=== PATIENT | male | born 1940 | race Caucasian/White ===

== ENCOUNTER 2017-01-03 12:22 | Inpatient (IN) | payer OTHER ==
[2017-01-03 15:00] LABS: BASOPHILS % (AUTO) 0.6 % (0.2-1.0); EOSINOPHILS # (AUTO) 0.3 x10^3/uL (0.0-0.2); EOSINOPHILS % (AUTO) 4.1 % (0.9-2.9); HEMATOCRIT 33.1 % (42.0-54.0); HEMOGLOBIN 11.1 g/dL (13.5-18.0); LYMPHOCYTES % (AUTO) 26.2 % (21.0-51.0); MEAN CORPUSCULAR HEMOGLOBIN 29.1 pg (27.0-34.0); MEAN CORPUSCULAR HGB CONC 33.5 g/dL (33.0-35.0); MONOCYTES # (AUTO) 0.7 x10^3/uL (0.3-0.8); NEUTROPHILS # (AUTO) 4.6 x10^3/uL (2.2-4.8); NEUTROPHILS % (AUTO) 60.1 % (42.0-75.0); PLATELET COUNT 162 X10^3/uL (150.0-450.0); RED CELL DISTRIBUTION WIDTH 14.9 % (11.6-16.5); WHITE BLOOD COUNT 7.7 X10^3/uL (3.6-10.0)
[2017-01-03 15:10] LABS: ALANINE AMINOTRANSFERASE 35 Units/L (12-78); ALBUMIN 3.5 g/dL (3.4-5.0); ALKALINE PHOSPHATASE 140 Units/L (46-116); ASPARTATE AMINO TRANSFERASE 21 Units/L (15-37); BLOOD UREA NITROGEN 31 mg/dL (7-18); CALCIUM 8.9 mg/dL (8.5-10.1); CARBON DIOXIDE 27.3 mmol/L (21-32); CHLORIDE 106 mmol/L (98-107); COR NA(FOR HYPERGLY) 142 mmol/L (136-145); CREATININE 1.09 mg/dL (0.70-1.30); GLUCOSE 125 mg/dL (65-99); MAGNESIUM 2.2 mg/dL (1.7-2.9); SODIUM 141 mmol/L (136-145); TOTAL PROTEIN 6.9 g/dL (6.4-8.2); eGFR BLACK RACES > 60 (>60); eGFR NON BLACK RACES > 60 (>60)
[2017-01-03 15:30] LABS: CKMB % 2.2 % (<4); CREATINE KINASE MB 1.5 ng/mL (0-4.0); TROPONIN I 0.03 ng/mL (0-1.5)
--- NOTE | 2017-01-03 16:01 | DR.H&P ---
H&P - History & Physical for Day of: H&P Date: 01/03/17 - Chief Complaint Chief Complaint: SOB, LOWER EXTREMITY REDNESS AND EDEMA, WEAKNESS - Allergies Allergies/Adverse Reactions: Allergies Allergy/AdvReac Type Severity Reaction Status Date / Time No Known Drug Allergy Allergy Verified 01/06/16 17:16 - History of Present Illness History of Present Illness: DIRECT ADMIT FROM DR MEAD OFFICE WITH CO INCREASE EDEMA, LOWER EXTREMITY REDNESS, SOB ADN WEAKNESS. PT HAS HX CHF, CRF, COPD, O2 DEPENDENT, OA, CAD, AND HTN. PT BP RUNNING 190'S/ 100- 110. PT WAS RECENTLY D/C FROM [facility] AND HAD IMPROVED OVERALL. PLAN TO ADMIT, ADMINISTER IV LASIX, RESP THERAPY, OBTAIN LABS AND CXR. PLAN TO CONSULT CASE MANAGEMENT FOR PERMANENT [facility] PLACEMENT. - Past Medical History Past Medical History: Arthritis, CHF, COPD, Diabetes, Dyslipidemia, Hypertension , Renal Disease - Past Surgical History Surgical History: CABG/Valve Surgery - Family History Family Medical History: Diabetes Mellitus, [place], Coronary Artery Disease, Hypertension - Social History Does patient currently use any type of tobacco product: No Have you used tobacco products in the last 12 months: No Type of Tobacco Use: None - Review of Systems Constitutional: Weakness Eyes: No Symptoms Reported ENT: No Symptoms Reported Respiratory: Shortness of Breath Cardiovascular: Edema Gastrointestinal: No Symptoms Reported Genitourinary: Frequency Musculoskeletal: Back Pain, Leg Pain Skin: No Symptoms Reported Neurological: Weakness - Physical Exam Vital Signs: Pulse Rate 50 Respiratory Rate 25 Blood Pressure [Right Arm] 182/72 Blood Pressure [Left Arm] 216/81 Blood Pressure 182/72 O2 Sat by Pulse Oximetry 95 Oriented: Normal Eyes: Normal Ear: Normal Nose: Normal Throat: Normal Respiratory: RLL Diminished, LLL Diminished Cardiovascular: Edema : Normal Auscultation: Bowel Sounds: Normal Palpation: Normal Tenderness: Normal Skin: Decreased [place], Red (LOWER EXTREMITY REDNESS), Tender Musculoskeletal: Back:Lumbar Psychiatric: Depression Speech Pattern: Clear, Appropriate - Assessment/Plan (1) Hypertensive urgency Status: Acute Plan: ADMIT, STEP DOWN ICU. 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 HYRALAZINE 10MG IV PROTOCOL FOR BP 180/100. ADMISSION LABS, RESP CONSULT, O2, CXR (2) Adult failure to thrive syndrome Status: Chronic Plan: CASE MANAGEMENT FOR [facility] PLACEMENT (3) CAD (coronary artery disease) Qualifiers: Coronary Disease-Associated Artery/Lesion type: C [place] vs. transplanted heart: N Associated angina: A Status: Chronic Plan: EKG ON ADMISSION (4) COPD (chronic obstructive pulmonary disease) Qualifiers: COPD type: unspecified COPD Chronic bronchitis type: C Emphysema type: E Qualified Code(s): J44.9 - Chronic obstructive pulmonary disease, unspecified Status: Chronic Plan: RESP CONSULT (5) Cellulitis, leg Qualifiers: Laterality: unspecified laterality Qualified Code(s): L03.119 - Cellulitis of unspecified part of limb Status: Chronic (6) Congestive heart failure Qualifiers: Congestive heart failure type: C Congestive heart failure chronicity: acute Status: Chronic Plan: CXR, O2, CONTINUE HOME MEDS,. LIPID AND BP CONTROL (7) Diabetes mellitus, type 2 Qualifiers: Diabetes mellitus complication status: D Diabetes mellitus complication detail: D Diabetic retinopathy severity: D Proliferative retinopathy type: P Diabetes mellitus macular edema: D Diabetes mellitus chcf insulin use : D Laterality: L Chronic kidney disease stage: C Status: Chronic Plan: FSBS, SSI
[2017-01-03] MEDS: LASIX IVP SCH ×2 (16:08→20:53)
[2017-01-03] MEDS: PROTONIX INJ 40 MG VIAL IVP SCH (16:08)
--- NOTE | 2017-01-03 16:44 | RAD ---
HISTORY: Pneumonia, CHF Study: Single view chest Comparison: 08/15/2016 Findings: Single upright portable view. The lungs are clear without consolidation, effusion or pneumothorax. T he cardiac and mediastinal contours are within normal limits. The soft tissues are unremarkable. IMPRESSION: 1. Negative portable chest radiograph. Reported By:
[2017-01-03 16:50] VITALS: BMI 36.3
[2017-01-03] MEDS: HUMULIN R SUBCUT PRN ×2 (16:59→21:11)
[2017-01-03 19:29] LABS: BILIRUBIN,URINE NEGATIVE (NEGATIVE); BLOOD/HEMOGLOBIN,URINE NEGATIVE (NEGATIVE); GLUCOSE, URINE 2+ (NEGATIVE); KETONES,URINE NEGATIVE (NEGATIVE); LEUKOCYTE ESTERASE ,URINE NEGATIVE (NEGATIVE); NITRITES,URINE NEGATIVE (NEGATIVE); PROTEIN,URINE 2+ (NEGATIVE); UROBILINOGEN,URINE NORMAL (NORMAL)
[2017-01-03 19:36] LABS: APPEARANCE,URINE HAZY (CLEAR); COLOR,URINE YELLOW (YELLOW); RBC,URINE 0-2 /HPF (NEGATIVE)
[2017-01-03 19:37] LABS: BACTERIA,URINE TRACE /HPF (NEGATIVE); SQUAMOUS EPITHELIAL CELL,UR RARE /HPF (NEGATIVE)
[2017-01-03] MEDS: SNACK - Diabetic Appropriate PO SCH (20:54)
[2017-01-03 21:39] LABS: CKMB % 1.8 % (<4); TROPONIN I 0.03 ng/mL (0-1.5)
[2017-01-03] MEDS: NORCO 5/325 MG TAB PO PRN (23:23)
[2017-01-03] MEDS: RESTORIL CAP 15 MG PO PRN (23:24)
[2017-01-04 03:20] LABS: ALANINE AMINOTRANSFERASE 29 Units/L (12-78); ALBUMIN 3.3 g/dL (3.4-5.0); ALKALINE PHOSPHATASE 126 Units/L (46-116); ASPARTATE AMINO TRANSFERASE 15 Units/L (15-37); BLOOD UREA NITROGEN 27 mg/dL (7-18); CALCIUM 8.7 mg/dL (8.5-10.1); CARBON DIOXIDE 28.4 mmol/L (21-32); CHLORIDE 106 mmol/L (98-107); CHOL/HDL RATIO 3.9 (0.0-5.0); CHOLESTEROL 120 mg/dL (0-200); COR CA(FOR HYPOALB) 9.3 mg/dL (8.5-10.1); COR NA(FOR HYPERGLY) 142 mmol/L (136-145); CREATININE 1.05 mg/dL (0.70-1.30); GLUCOSE 157 mg/dL (65-99); HDL CHOLESTEROL 31 mg/dL (40-60); SODIUM 141 mmol/L (136-145); TOTAL PROTEIN 6.4 g/dL (6.4-8.2); TRIGLYCERIDES 76 mg/dL (0-150); eGFR BLACK RACES > 60 (>60); eGFR NON BLACK RACES > 60 (>60)
[2017-01-04 03:28] LABS: CKMB % 2.1 % (<4); CREATINE KINASE 47 Units/L (39-308); CREATINE KINASE MB < 1.0 ng/mL (0-4.0); TROPONIN I 0.03 ng/mL (0-1.5)
[2017-01-04 05:17] LABS: BASOPHILS % (AUTO) 0.5 % (0.2-1.0); EOSINOPHILS # (AUTO) 0.4 x10^3/uL (0.0-0.2); EOSINOPHILS % (AUTO) 5.2 % (0.9-2.9); HEMATOCRIT 32.5 % (42.0-54.0); HEMOGLOBIN 10.9 g/dL (13.5-18.0); LYMPHOCYTES # (AUTO) 2.1 X10^3/uL (1.3-2.9); LYMPHOCYTES % (AUTO) 25.7 % (21.0-51.0); MEAN CORPUSCULAR HEMOGLOBIN 29.1 pg (27.0-34.0); MEAN CORPUSCULAR HGB CONC 33.4 g/dL (33.0-35.0); MEAN CORPUSCULAR VOLUME 87.1 fL (80.0-100.0); MEAN PLATELET VOLUME 8.5 fL (7.4-11.0); MONOCYTES # (AUTO) 0.8 x10^3/uL (0.3-0.8); MONOCYTES % (AUTO) 9.8 % (0.0-13.0); NEUTROPHILS # (AUTO) 4.8 x10^3/uL (2.2-4.8); NEUTROPHILS % (AUTO) 58.8 % (42.0-75.0); PLATELET COUNT 158 X10^3/uL (150.0-450.0); RED BLOOD COUNT 3.73 X10^6/uL (4.7-6.0); RED CELL DISTRIBUTION WIDTH 14.7 % (11.6-16.5); WHITE BLOOD COUNT 8.2 X10^3/uL (3.6-10.0)
[2017-01-04] MEDS: NORCO 5/325 MG TAB PO PRN (10:10)
[2017-01-04] MEDS: PROTONIX INJ 40 MG VIAL IVP SCH (10:33)
[2017-01-04] MEDS ORDERED: [UNRECOGNIZED DRUG - OTHER] PO SCH (10:45)
[2017-01-04] MEDS ORDERED: [UNRECOGNIZED DRUG - OTHER] PO SCH (10:45)
[2017-01-04] MEDS ORDERED: ZESTRIL TAB 20 MG ONE ×2 (10:56→21:51)
[2017-01-04] MEDS: APRESOLINE TAB 25 MG PO SCH ×2 (10:57→21:58)
[2017-01-04] MEDS: LASIX PO SCH ×2 (10:58→21:59)
[2017-01-04] MEDS: ZESTRIL TAB 20 MG PO SCH (10:58)
[2017-01-04] MEDS: PLAVIX PO SCH (10:58)
[2017-01-04] MEDS ORDERED: AMBIEN PO PRN (11:08)
[2017-01-04] MEDS ORDERED: DUONEB 0.5 MG/3 MG NEB PRN (11:08)
[2017-01-04] MEDS ORDERED: [UNRECOGNIZED DRUG - OTHER] PO PRN (11:08)
[2017-01-04] MEDS ORDERED: BREO ELLIPTA IN SCH (11:15)
[2017-01-04] MEDS ORDERED: POTASSIUM CHLORIDE PO SCH (11:15)
[2017-01-04] MEDS ORDERED: [UNRECOGNIZED DRUG - OTHER] PO SCH (11:15)
[2017-01-04] MEDS ORDERED: COZAAR ONE (11:43)
[2017-01-04] MEDS: ASPIRIN PO SCH (11:49)
[2017-01-04] MEDS: PERCOCET TAB 5/325 MG PO PRN ×2 (11:50→22:01)
[2017-01-04] MEDS: COZAAR PO SCH (11:51)
[2017-01-04] MEDS: COLACE CAP 100 MG PO SCH (11:51)
[2017-01-04] MEDS: CELEXA PO SCH (11:52)
[2017-01-04] MEDS: FERROUS SULFATE PO SCH ×2 (11:52→22:00)
[2017-01-04] MEDS: ZYLOPRIM PO SCH (11:52)
[2017-01-04] MEDS: HUMULIN R SUBCUT PRN ×3 (12:00→22:05)
[2017-01-04] MEDS: ZANTAC PO SCH ×2 (12:00→21:57)
[2017-01-04] MEDS: PRAVACHOL PO SCH (12:12)
[2017-01-04] MEDS: SYMBICORT INH 160/4.5 mcg IN SCH ×2 (12:33→20:57)
[2017-01-04] MEDS ORDERED: [UNRECOGNIZED DRUG - OTHER] PO SCH (14:00)
--- NOTE | 2017-01-04 14:35 | PCM.PROG ---
Progress Note - Progress Note for Day of Date: 01/04/17 - Subjective Subjective: CO JOINT PAIN, DID NOT REST WELL LAST NIGHT. LOWER EXTREMITY SWELLING IMPROVED - Past Medical Family Social History Past Med/Fam/Surg Hx: No changes since H&P Allergies: Allergies No Known Drug Allergy Allergy (Verified 01/06/16 17:16) - Review of Systems ROS: No change since H&P - Vital Signs and I&O's Vital Signs: Temperature 97.9 F Pulse Rate [Apical] 63 Pulse Rate [Left Brachial] 59 Pulse Rate 70 Respiratory Rate 18 Blood Pressure [Right Arm] 175/52 Blood Pressure [Left Arm] 180/50 Blood Pressure 182/72 O2 Sat by Pulse Oximetry 93 Intake and Output: Intake & Output 01/02/17 01/03/17 01/04/17 01/05/17 11:59 11:59 11:59 11:59 Intake Total 945 Output Total 3050 Balance -2105 - Physical Exam Oriented: Normal Eyes: Normal Ear: Normal Nose: Normal Throat: Normal Respiratory: Wheezes (MILD LOWER EXP WHEEZES) Cardiovascular: Edema : Normal Auscultation: Bowel Sounds: Normal Tenderness: Normal Skin: Decreased [place]urg[place], Red (LOWER EXTREMITY REDNESS), Tender Musculoskeletal: Back:Lumbar Psychiatric: Depression Speech Pattern: Clear, Appropriate - Laboratory and Diagnostics Result Diagrams: 01/04/17 02:55 01/04/17 02:55 Labs: Laboratory WBC 8.2 X10^3/uL (3.6-10.0) 01/04/17 02:55 RBC 3.73 X10^6/uL (4.7-6.0) L 01/04/17 02:55 Hgb 10.9 g/dL (13.5-18.0) L 01/04/17 02:55 Hct 32.5 % (42.0-54.0) L 01/04/17 02:55 MCV 87.1 fL (80.0-100.0) 01/04/17 02:55 MCH 29.1 pg (27.0-34.0) 01/04/17 02:55 MCHC 33.4 g/dL (33.0-35.0) 01/04/17 02:55 RDW 14.7 % (11.6-16.5) 01/04/17 02:55 Plt Count 158 X10^3/uL (150.0-450.0) 01/04/17 02:55 MPV 8.5 fL (7.4-11.0) 01/04/17 02:55 Neut % 58.8 % (42.0-75.0) 01/04/17 02:55 Lymph % 25.7 % (21.0-51.0) 01/04/17 02:55 [place] % 9.8 % (0.0-13.0) 01/04/17 02:55 Eos % 5.2 % (0.9-2.9) H 01/04/17 02:55 Baso % 0.5 % (0.2-1.0) 01/04/17 02:55 Neut # 4.8 x10^3/uL (2.2-4.8) 01/04/17 02:55 Lymph # 2.1 X10^3/uL (1.3-2.9) 01/04/17 02:55 [place] # 0.8 x10^3/uL (0.3-0.8) 01/04/17 02:55 Eos # 0.4 x10^3/uL (0.0-0.2) H 01/04/17 02:55 Baso # 0.0 X10^3/uL (0.0-0.1) 01/04/17 02:55 Absolute Nucleated RBC 0.1 /100WBC 01/04/17 02:55 INR Target Range - 01/03/17 14:50 INR 0.97 (0.8-1.3) 01/03/17 14:50 PTT 27.4 SECONDS (22.9-36.5) 01/03/17 14:50 PTT Comment - 01/03/17 14:50 Sodium 141 mmol/L (136-145) 01/04/17 02:55 Corrected Sodium 142 mmol/L (136-145) 01/04/17 02:55 Potassium 3.7 mmol/L (3.5-5.1) 01/04/17 02:55 Chloride 106 mmol/L (98-107) 01/04/17 02:55 Carbon Dioxide 28.4 mmol/L (21-32) 01/04/17 02:55 BUN 27 mg/dL (7-18) H 01/04/17 02:55 Creatinine 1.05 mg/dL (0.70-1.30) 01/04/17 02:55 Est GFR (MDRD) Af Amer > 60 (>60) 01/04/17 02:55 Est GFR (MDRD) Non-Af > 60 (>60) 01/04/17 02:55 Glucose 157 mg/dL (65-99) H 01/04/17 02:55 Calcium 8.7 mg/dL (8.5-10.1) 01/04/17 02:55 Corrected Calcium 9.3 mg/dL (8.5-10.1) 01/04/17 02:55 Magnesium 2.2 mg/dL (1.7-2.9) 01/03/17 14:50 Total Bilirubin 0.30 mg/dL (0.2-1.0) 01/04/17 02:55 AST 15 Units/L (15-37) 01/04/17 02:55 ALT 29 Units/L (12-78) 01/04/17 02:55 Alkaline Phosphatase 126 Units/L (46-116) H 01/04/17 02:55 Creatine Kinase 47 Units/L (39-308) 01/04/17 02:55 CK-MB (CK-2) < 1.0 ng/mL (0-4.0) 01/04/17 02:55 CK/CKMB % Calc 2.1 % (<4) 01/04/17 02:55 Troponin I 0.03 ng/mL (0-1.5) 01/04/17 02:55 Total Protein 6.4 g/dL (6.4-8.2) 01/04/17 02:55 Albumin 3.3 g/dL (3.4-5.0) L 01/04/17 02:55 Globulin 3.1 g/dL (2.5-4.5) 01/04/17 02:55 Albumin/Globulin Ratio 1.1 Ratio (1.1-2.1) 01/04/17 02:55 Triglycerides 76 mg/dL (0-150) 01/04/17 02:55 Cholesterol 120 mg/dL (0-200) 01/04/17 02:55 LDL Cholesterol, Calc 74 mg/dL (0-100) 01/04/17 02:55 HDL Cholesterol 31 mg/dL (40-60) L 01/04/17 02:55 Cholesterol/HDL Ratio 3.9 (0.0-5.0) 01/04/17 02:55 Specimen Type Clean catch urine 01/03/17 19:01 Urine Color Yellow (YELLOW) 01/03/17 19:01 Urine Appearance Hazy (CLEAR) 01/03/17 19:01 Urine pH 5.0 (5.0 - 8.0) 01/03/17 19:01 Ur Specific [place] 1.010 (1.000-1.030) 01/03/17 19:01 Urine Protein 2+ (NEGATIVE) 01/03/17 19:01 Urine Glucose (UA) 2+ (NEGATIVE) 01/03/17 19:01 Urine Ketones Negative (NEGATIVE) 01/03/17 19:01 Urine Occult Blood Negative (NEGATIVE) 01/03/17 19:01 Urine Nitrite Negative (NEGATIVE) 01/03/17 19:01 Urine Bilirubin Negative (NEGATIVE) 01/03/17 19:01 Urine Urobilinogen Normal (NORMAL) 01/03/17 19:01 Ur Leukocyte Esterase Negative (NEGATIVE) 01/03/17 19:01 Urine RBC 0-2 /HPF (NEGATIVE) 01/03/17 19:01 Urine WBC 0-2 /HPF (NEGATIVE) 01/03/17 19:01 Ur Squamous Epith Cells Rare /HPF (NEGATIVE) 01/03/17 19:01 Urine Bacteria Trace /HPF (NEGATIVE) 01/03/17 19:01 Ur Culture Indicated? 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 HYRALAZINE 10MG IV PROTOCOL FOR BP 180/100. ADMISSION LABS, RESP CONSULT, O2, CXR (2) Adult failure to thrive syndrome Status: Chronic Plan: CASE MANAGEMENT FOR [facility] PLACEMENT (3) CAD (coronary artery disease) Status: Chronic Qualifiers: Coronary Disease-Associated Artery/Lesion type: C [place] vs. transplanted heart: N Associated angina: A Plan: EKG ON ADMISSION (4) COPD (chronic obstructive pulmonary disease) Status: Chronic Qualifiers: COPD type: unspecified COPD Chronic bronchitis type: C Emphysema type: E Qualified Code(s): J44.9 - Chronic obstructive pulmonary disease, unspecified Plan: RESP CONSULT (5) Cellulitis, leg Status: Chronic Qualifiers: Laterality: unspecified laterality Qualified Code(s): L03.119 - Cellulitis of unspecified part of limb (6) Congestive heart failure Status: Chronic Qualifiers: Congestive heart failure type: C Congestive heart failure chronicity: acute Plan: CXR, O2, CONTINUE HOME MEDS,. 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
[2017-01-04] MEDS ORDERED: GLUCOPHAGE ONE (16:33)
[2017-01-04] MEDS: GLUCOPHAGE PO SCH (16:40)
[2017-01-04] MEDS: NEURONTIN CAP 400 MG PO SCH ×2 (16:40→21:56)
[2017-01-04] MEDS: RESTORIL CAP 15 MG PO PRN (21:57)
[2017-01-04] MEDS: FLOMAX PO SCH (22:00)
[2017-01-04] MEDS: SNACK - Diabetic Appropriate PO SCH (22:09)
[2017-01-05] MEDS: ZESTRIL TAB 20 MG PO SCH ×3 (03:08→22:32)
[2017-01-05 06:15] LABS: BASOPHILS # (AUTO) 0.1 X10^3/uL (0.0-0.1); BASOPHILS % (AUTO) 0.9 % (0.2-1.0); EOSINOPHILS # (AUTO) 0.4 x10^3/uL (0.0-0.2); HEMATOCRIT 32.4 % (42.0-54.0); HEMOGLOBIN 11.1 g/dL (13.5-18.0); LYMPHOCYTES # (AUTO) 1.8 X10^3/uL (1.3-2.9); LYMPHOCYTES % (AUTO) 29.5 % (21.0-51.0); MEAN CORPUSCULAR HEMOGLOBIN 29.4 pg (27.0-34.0); MEAN CORPUSCULAR HGB CONC 34.3 g/dL (33.0-35.0); MEAN CORPUSCULAR VOLUME 85.8 fL (80.0-100.0); MEAN PLATELET VOLUME 8.2 fL (7.4-11.0); MONOCYTES # (AUTO) 0.7 x10^3/uL (0.3-0.8); MONOCYTES % (AUTO) 11.6 % (0.0-13.0); NEUTROPHILS # (AUTO) 3.2 x10^3/uL (2.2-4.8); PLATELET COUNT 166 X10^3/uL (150.0-450.0); RED BLOOD COUNT 3.77 X10^6/uL (4.7-6.0); RED CELL DISTRIBUTION WIDTH 14.3 % (11.6-16.5); WHITE BLOOD COUNT 6.2 X10^3/uL (3.6-10.0)
[2017-01-05] MEDS: NEURONTIN CAP 400 MG PO SCH ×3 (06:47→22:27)
[2017-01-05] MEDS ORDERED: GLUCOPHAGE ONE ×2 (06:49→16:24)
[2017-01-05] MEDS: GLUCOPHAGE PO SCH ×2 (06:56→16:25)
[2017-01-05] MEDS ORDERED: ZESTRIL TAB 20 MG ONE ×2 (07:23→21:58)
[2017-01-05 07:31] LABS: ALANINE AMINOTRANSFERASE 30 Units/L (12-78); ALBUMIN 3.1 g/dL (3.4-5.0); ALKALINE PHOSPHATASE 127 Units/L (46-116); ASPARTATE AMINO TRANSFERASE 18 Units/L (15-37); BLOOD UREA NITROGEN 28 mg/dL (7-18); CALCIUM 8.8 mg/dL (8.5-10.1); CARBON DIOXIDE 29.9 mmol/L (21-32); CHLORIDE 106 mmol/L (98-107); CHOL/HDL RATIO 4.1 (0.0-5.0); CHOLESTEROL 119 mg/dL (0-200); COR CA(FOR HYPOALB) 9.5 mg/dL (8.5-10.1); COR NA(FOR HYPERGLY) 144 mmol/L (136-145); CREATININE 0.96 mg/dL (0.70-1.30); GLUCOSE 142 mg/dL (65-99); HDL CHOLESTEROL 29 mg/dL (40-60); SODIUM 143 mmol/L (136-145); TOTAL PROTEIN 6.3 g/dL (6.4-8.2); TRIGLYCERIDES 67 mg/dL (0-150); TSH (3RD GENERATION) 1.558 uIU/mL (0.358-3.74); eGFR BLACK RACES > 60 (>60); eGFR NON BLACK RACES > 60 (>60)
--- NOTE | 2017-01-05 08:03 | RAD ---
Chest, one view Indication: CHF Comparison: 01/03/2017 Findings: Mild cardiac silhouette enlargement and pulmonary vascular congestion are similar to prior . There is no evidence for overt pulmonary edema, dense infiltrate, or large effusion. The lungs hu ear hyperinflated with hemidiaphragm flattening, suggesting COPD. Impression: Stable cardiomegaly without CHF or other acute chest process. COPD. Reported By:
[2017-01-05] MEDS: APRESOLINE TAB 25 MG PO SCH ×2 (08:04→22:27)
[2017-01-05] MEDS: CELEXA PO SCH (08:04)
[2017-01-05] MEDS: LASIX PO SCH ×2 (08:05→22:32)
[2017-01-05] MEDS: FERROUS SULFATE PO SCH ×2 (08:05→22:31)
[2017-01-05] MEDS: ZYLOPRIM PO SCH (08:05)
[2017-01-05] MEDS: COLACE CAP 100 MG PO SCH (08:05)
[2017-01-05] MEDS: ASPIRIN PO SCH (08:05)
[2017-01-05] MEDS: ZANTAC PO SCH ×2 (08:05→22:31)
[2017-01-05] MEDS: PLAVIX PO SCH (08:06)
[2017-01-05] MEDS: PROTONIX INJ 40 MG VIAL IVP SCH (08:06)
[2017-01-05] MEDS: PRAVACHOL PO SCH (08:06)
[2017-01-05] MEDS ORDERED: COZAAR ONE (08:08)
[2017-01-05] MEDS: COZAAR PO SCH ×2 (08:08→10:25)
[2017-01-05] MEDS: SYMBICORT INH 160/4.5 mcg IN SCH ×2 (08:52→20:20)
[2017-01-05] MEDS: HUMULIN R SUBCUT PRN ×3 (10:41→22:33)
[2017-01-05] MEDS: K-DUR TAB 20 MEQ PO SCH (13:27)
[2017-01-05] MEDS: PERCOCET TAB 5/325 MG PO PRN (22:28)
[2017-01-05] MEDS: RESTORIL CAP 15 MG PO PRN (22:32)
[2017-01-05] MEDS: FLOMAX PO SCH (22:32)
[2017-01-05] MEDS: SNACK - Diabetic Appropriate PO SCH (22:36)
[2017-01-06 06:26] LABS: BASOPHILS % (AUTO) 0.6 % (0.2-1.0); EOSINOPHILS # (AUTO) 0.4 x10^3/uL (0.0-0.2); EOSINOPHILS % (AUTO) 5.8 % (0.9-2.9); HEMATOCRIT 32.9 % (42.0-54.0); HEMOGLOBIN 11.1 g/dL (13.5-18.0); LYMPHOCYTES # (AUTO) 2.5 X10^3/uL (1.3-2.9); MEAN CORPUSCULAR HEMOGLOBIN 29.2 pg (27.0-34.0); MEAN CORPUSCULAR HGB CONC 33.8 g/dL (33.0-35.0); MEAN CORPUSCULAR VOLUME 86.3 fL (80.0-100.0); MEAN PLATELET VOLUME 8.2 fL (7.4-11.0); MONOCYTES # (AUTO) 0.7 x10^3/uL (0.3-0.8); MONOCYTES % (AUTO) 10.2 % (0.0-13.0); NEUTROPHILS # (AUTO) 3.6 x10^3/uL (2.2-4.8); NEUTROPHILS % (AUTO) 49.4 % (42.0-75.0); PLATELET COUNT 168 X10^3/uL (150.0-450.0); RED BLOOD COUNT 3.82 X10^6/uL (4.7-6.0); RED CELL DISTRIBUTION WIDTH 14.7 % (11.6-16.5); WHITE BLOOD COUNT 7.4 X10^3/uL (3.6-10.0)
[2017-01-06] MEDS: NEURONTIN CAP 400 MG PO SCH ×3 (06:35→22:26)
[2017-01-06 06:52] LABS: ALANINE AMINOTRANSFERASE 29 Units/L (12-78); ALKALINE PHOSPHATASE 124 Units/L (46-116); ASPARTATE AMINO TRANSFERASE 16 Units/L (15-37); BLOOD UREA NITROGEN 29 mg/dL (7-18); CALCIUM 8.9 mg/dL (8.5-10.1); CHLORIDE 106 mmol/L (98-107); COR CA(FOR HYPOALB) 9.7 mg/dL (8.5-10.1); COR NA(FOR HYPERGLY) 145 mmol/L (136-145); CREATININE 0.97 mg/dL (0.70-1.30); GLUCOSE 128 mg/dL (65-99); SODIUM 144 mmol/L (136-145); TOTAL PROTEIN 6.1 g/dL (6.4-8.2); eGFR BLACK RACES > 60 (>60); eGFR NON BLACK RACES > 60 (>60)
[2017-01-06] MEDS: GLUCOPHAGE PO SCH ×2 (07:00→18:00)
[2017-01-06] MEDS ORDERED: ZESTRIL TAB 20 MG ONE ×2 (07:17→22:20)
[2017-01-06] MEDS ORDERED: GLUCOPHAGE ONE ×2 (07:17→17:55)
[2017-01-06] MEDS: SYMBICORT INH 160/4.5 mcg IN SCH ×2 (08:40→22:13)
[2017-01-06] MEDS: HUMULIN R SUBCUT PRN ×3 (10:49→22:32)
[2017-01-06] MEDS: K-DUR TAB 20 MEQ PO SCH (10:50)
[2017-01-06] MEDS: COZAAR PO SCH (10:51)
[2017-01-06] MEDS: ZANTAC PO SCH ×2 (10:51→22:25)
[2017-01-06] MEDS: PLAVIX PO SCH (10:51)
[2017-01-06] MEDS: PROTONIX INJ 40 MG VIAL IVP SCH (10:51)
[2017-01-06] MEDS: LASIX PO SCH ×2 (10:52→22:29)
[2017-01-06] MEDS: APRESOLINE TAB 25 MG PO SCH ×2 (10:52→22:23)
[2017-01-06] MEDS: ASPIRIN PO SCH (10:52)
[2017-01-06] MEDS: CELEXA PO SCH (10:52)
[2017-01-06] MEDS: ZYLOPRIM PO SCH (10:52)
[2017-01-06] MEDS: ZESTRIL TAB 20 MG PO SCH ×2 (10:52→22:24)
[2017-01-06] MEDS: COLACE CAP 100 MG PO SCH (10:52)
[2017-01-06] MEDS: FERROUS SULFATE PO SCH ×2 (10:52→22:26)
[2017-01-06] MEDS: PRAVACHOL PO SCH (10:53)
[2017-01-06] MEDS: RESTORIL CAP 15 MG PO PRN (22:23)
[2017-01-06] MEDS: FLOMAX PO SCH (22:24)
[2017-01-06] MEDS: PERCOCET TAB 5/325 MG PO PRN (22:27)
[2017-01-06] MEDS: SNACK - Diabetic Appropriate PO SCH (22:35)
[2017-01-07] MEDS: NEURONTIN CAP 400 MG PO SCH ×3 (06:01→21:00)
[2017-01-07] MEDS: GLUCOPHAGE PO SCH ×2 (06:09→16:43)
[2017-01-07] MEDS ORDERED: GLUCOPHAGE ONE ×2 (06:21→16:33)
[2017-01-07 06:24] LABS: BASOPHILS % (AUTO) 0.2 % (0.2-1.0); EOSINOPHILS # (AUTO) 0.4 x10^3/uL (0.0-0.2); EOSINOPHILS % (AUTO) 5.4 % (0.9-2.9); HEMATOCRIT 32.6 % (42.0-54.0); HEMOGLOBIN 11.1 g/dL (13.5-18.0); LYMPHOCYTES # (AUTO) 2.4 X10^3/uL (1.3-2.9); LYMPHOCYTES % (AUTO) 32.4 % (21.0-51.0); MEAN CORPUSCULAR HEMOGLOBIN 29.6 pg (27.0-34.0); MEAN CORPUSCULAR HGB CONC 34.1 g/dL (33.0-35.0); MEAN CORPUSCULAR VOLUME 86.8 fL (80.0-100.0); MEAN PLATELET VOLUME 8.3 fL (7.4-11.0); MONOCYTES # (AUTO) 0.7 x10^3/uL (0.3-0.8); MONOCYTES % (AUTO) 9.2 % (0.0-13.0); NEUTROPHILS # (AUTO) 3.8 x10^3/uL (2.2-4.8); NEUTROPHILS % (AUTO) 52.8 % (42.0-75.0); RED BLOOD COUNT 3.76 X10^6/uL (4.7-6.0); RED CELL DISTRIBUTION WIDTH 14.5 % (11.6-16.5); WHITE BLOOD COUNT 7.3 X10^3/uL (3.6-10.0)
[2017-01-07 06:43] LABS: ALANINE AMINOTRANSFERASE 23 Units/L (12-78); ALBUMIN 3.2 g/dL (3.4-5.0); ALKALINE PHOSPHATASE 124 Units/L (46-116); ASPARTATE AMINO TRANSFERASE 16 Units/L (15-37); BLOOD UREA NITROGEN 26 mg/dL (7-18); CALCIUM 9.1 mg/dL (8.5-10.1); CARBON DIOXIDE 28.5 mmol/L (21-32); CHLORIDE 106 mmol/L (98-107); COR CA(FOR HYPOALB) 9.7 mg/dL (8.5-10.1); GLUCOSE 110 mg/dL (65-99); SODIUM 143 mmol/L (136-145); TOTAL PROTEIN 6.5 g/dL (6.4-8.2); eGFR BLACK RACES > 60 (>60); eGFR NON BLACK RACES > 60 (>60)
--- NOTE | 2017-01-07 07:01 | RAD ---
HISTORY: Shortness of breath Study: Chest one view Comparison: January 05, 2017 Findings: The patient is rotated slightly to the left. The patient is status post median sternotomy. Heart rem ains enlarged. No congestive heart failure is noted. The lungs are mildly hyperinflated but free of acute infiltrates. The bony thorax is unremarkable. IMPRESSION: Cardiomegaly without congestive heart failure Lungs mildly hyperinflated but clear Reported By:
[2017-01-07 07:28] LABS: PLATELET COUNT 116 X10^3/uL (150.0-450.0)
[2017-01-07 07:29] LABS: PLATELET MORPHOLOGY COMMENT NORMAL (NORMAL)
[2017-01-07] MEDS: CELEXA PO SCH (08:22)
[2017-01-07] MEDS: APRESOLINE TAB 25 MG PO SCH ×2 (08:23→20:03)
[2017-01-07] MEDS: FERROUS SULFATE PO SCH ×2 (08:23→20:03)
[2017-01-07] MEDS: ZANTAC PO SCH ×2 (08:23→20:05)
[2017-01-07] MEDS: LASIX PO SCH ×2 (08:23→20:05)
[2017-01-07] MEDS: ZESTRIL TAB 20 MG PO SCH ×2 (08:23→20:04)
[2017-01-07] MEDS: PROTONIX INJ 40 MG VIAL IVP SCH (08:23)
[2017-01-07] MEDS: COLACE CAP 100 MG PO SCH (08:23)
[2017-01-07] MEDS: ZYLOPRIM PO SCH (08:23)
[2017-01-07] MEDS: ASPIRIN PO SCH (08:23)
[2017-01-07] MEDS: COZAAR PO SCH (08:23)
[2017-01-07] MEDS: PRAVACHOL PO SCH (08:24)
[2017-01-07] MEDS: PLAVIX PO SCH (08:24)
[2017-01-07] MEDS: K-DUR TAB 20 MEQ PO SCH (08:24)
[2017-01-07] MEDS: SYMBICORT INH 160/4.5 mcg IN SCH ×2 (08:49→20:36)
[2017-01-07] MEDS: HUMULIN R SUBCUT PRN ×3 (11:08→22:26)
[2017-01-07] MEDS ORDERED: ZESTRIL TAB 20 MG ONE (19:56)
[2017-01-07] MEDS: FLOMAX PO SCH (20:03)
[2017-01-07] MEDS: PERCOCET TAB 5/325 MG PO PRN (20:05)
[2017-01-07] MEDS: RESTORIL CAP 15 MG PO PRN (20:05)
[2017-01-07] MEDS: SNACK - Diabetic Appropriate PO SCH (20:06)
[2017-01-08] MEDS ORDERED: GLUCOPHAGE ONE (05:51)
[2017-01-08] MEDS: NEURONTIN CAP 400 MG PO SCH (05:53)
[2017-01-08] MEDS: GLUCOPHAGE PO SCH (05:59)
[2017-01-08 06:17] LABS: BASOPHILS # (AUTO) 0.1 X10^3/uL (0.0-0.1); BASOPHILS % (AUTO) 0.7 % (0.2-1.0); EOSINOPHILS # (AUTO) 0.4 x10^3/uL (0.0-0.2); EOSINOPHILS % (AUTO) 5.5 % (0.9-2.9); HEMATOCRIT 34.4 % (42.0-54.0); HEMOGLOBIN 11.7 g/dL (13.5-18.0); LYMPHOCYTES # (AUTO) 2.7 X10^3/uL (1.3-2.9); LYMPHOCYTES % (AUTO) 34.8 % (21.0-51.0); MEAN CORPUSCULAR HEMOGLOBIN 29.2 pg (27.0-34.0); MEAN CORPUSCULAR HGB CONC 34.1 g/dL (33.0-35.0); MEAN CORPUSCULAR VOLUME 85.5 fL (80.0-100.0); MEAN PLATELET VOLUME 8.3 fL (7.4-11.0); MONOCYTES # (AUTO) 0.8 x10^3/uL (0.3-0.8); MONOCYTES % (AUTO) 10.3 % (0.0-13.0); NEUTROPHILS # (AUTO) 3.8 x10^3/uL (2.2-4.8); NEUTROPHILS % (AUTO) 48.7 % (42.0-75.0); PLATELET COUNT 180 X10^3/uL (150.0-450.0); RED BLOOD COUNT 4.03 X10^6/uL (4.7-6.0); RED CELL DISTRIBUTION WIDTH 14.2 % (11.6-16.5); WHITE BLOOD COUNT 7.7 X10^3/uL (3.6-10.0)
[2017-01-08 06:33] LABS: ALANINE AMINOTRANSFERASE 26 Units/L (12-78); ALBUMIN 3.1 g/dL (3.4-5.0); ALKALINE PHOSPHATASE 125 Units/L (46-116); ASPARTATE AMINO TRANSFERASE 19 Units/L (15-37); BLOOD UREA NITROGEN 26 mg/dL (7-18); CALCIUM 8.9 mg/dL (8.5-10.1); CARBON DIOXIDE 29.6 mmol/L (21-32); CHLORIDE 105 mmol/L (98-107); COR CA(FOR HYPOALB) 9.6 mg/dL (8.5-10.1); COR NA(FOR HYPERGLY) 142 mmol/L (136-145); CREATININE 1.04 mg/dL (0.70-1.30); GLUCOSE 135 mg/dL (65-99); SODIUM 141 mmol/L (136-145); TOTAL PROTEIN 6.3 g/dL (6.4-8.2); eGFR BLACK RACES > 60 (>60); eGFR NON BLACK RACES > 60 (>60)
[2017-01-08] MEDS ORDERED: ZESTRIL TAB 20 MG ONE (08:43)
[2017-01-08] MEDS: K-DUR TAB 20 MEQ PO SCH (09:03)
[2017-01-08] MEDS: ZYLOPRIM PO SCH (09:04)
[2017-01-08] MEDS: ZANTAC PO SCH (09:04)
[2017-01-08] MEDS: PLAVIX PO SCH (09:04)
[2017-01-08] MEDS: COZAAR PO SCH (09:04)
[2017-01-08] MEDS: PROTONIX INJ 40 MG VIAL IVP SCH (09:04)
[2017-01-08] MEDS: CELEXA PO SCH (09:05)
[2017-01-08] MEDS: LASIX PO SCH (09:05)
[2017-01-08] MEDS: ASPIRIN PO SCH (09:05)
[2017-01-08] MEDS: ZESTRIL TAB 20 MG PO SCH (09:05)
[2017-01-08] MEDS: COLACE CAP 100 MG PO SCH (09:05)
[2017-01-08] MEDS: APRESOLINE TAB 25 MG PO SCH (09:05)
[2017-01-08] MEDS: FERROUS SULFATE PO SCH (09:05)
[2017-01-08] MEDS: SYMBICORT INH 160/4.5 mcg IN SCH (09:37)
[2017-01-08] MEDS: PRAVACHOL PO SCH (11:43)
[2017-01-08] MEDS: HUMULIN R SUBCUT PRN (11:46)
[2017-01-08 13:35] VITALS: BP 164/52
== END 2017-01-08 13:41 | DRG 305 ==
LOC: ICU 12:22
PROVIDERS: ADMIT Internal Medicine; ATTEND Internal Medicine
DX: I16.0 Hypertensive urgency (principal); R06.02 Shortness of breath; R60.0 Localized edema; J44.1 Chronic obstructive pulmonary disease with (acute) exacerbation; R53.1 Weakness; Z99.81 Dependence on supplemental oxygen; I25.10 Atherosclerotic heart disease of native coronary artery without angina pectoris; M13.89 Other specified arthritis, multiple sites; E78.2 Mixed hyperlipidemia; R62.7 Adult failure to thrive; L03.119 Cellulitis of unspecified part of limb; I50.9 Heart failure, unspecified; E11.65 Type 2 diabetes mellitus with hyperglycemia
CPT/HCPCS: 36415; 71010; 80053; 80061; 81001; 82550; 82553; 83735; 84439; 84443; 84484; 85025; 85610; 85730; 93005; 93010; 94640; A4216; A4222; C9113; J1815; J1940

== ENCOUNTER 2018-01-21 15:44 | Inpatient (IN) | payer OTHER ==
[2018-01-21 16:52] LABS: BASOPHILS # (AUTO) 0.1 X10^3/uL (0.0-0.1); BASOPHILS % (AUTO) 0.8 % (0.2-1.0); EOSINOPHILS # (AUTO) 0.4 x10^3/uL (0.0-0.2); EOSINOPHILS % (AUTO) 4.8 % (0.9-2.9); HEMATOCRIT 31.5 % (42.0-54.0); HEMOGLOBIN 10.9 g/dL (13.5-18.0); LYMPHOCYTES # (AUTO) 1.8 X10^3/uL (1.3-2.9); LYMPHOCYTES % (AUTO) 21.5 % (21.0-51.0); MEAN CORPUSCULAR HEMOGLOBIN 30.3 pg (27.0-34.0); MEAN CORPUSCULAR HGB CONC 34.4 g/dL (33.0-35.0); MEAN CORPUSCULAR VOLUME 88.2 fL (80.0-100.0); MONOCYTES # (AUTO) 0.7 x10^3/uL (0.3-0.8); MONOCYTES % (AUTO) 8.6 % (0.0-13.0); NEUTROPHILS # (AUTO) 5.2 x10^3/uL (2.2-4.8); NEUTROPHILS % (AUTO) 64.3 % (42.0-75.0); PLATELET COUNT 180 X10^3/uL (150.0-450.0); RED BLOOD COUNT 3.58 X10^6/uL (4.7-6.0); RED CELL DISTRIBUTION WIDTH 14.7 % (11.6-16.5); WHITE BLOOD COUNT 8.2 X10^3/uL (3.6-10.0)
--- NOTE | 2018-01-21 16:54 | RAD ---
History: Bilateral leg wounds and history of COPD and CHF Study: Portable AP chest Comparison: January 07, 2017 Findings: The heart size is prominent. The lungs are clear. There is no edema or effusion or congesti on or atelectasis. Impression: No acute cardiopulmonary disease demonstrated Reported By:
[2018-01-21 17:07] LABS: ALANINE AMINOTRANSFERASE 22 Units/L (12-78); ALBUMIN 3.1 g/dL (3.4-5.0); ALKALINE PHOSPHATASE 168 Units/L (46-116); ASPARTATE AMINO TRANSFERASE 14 Units/L (15-37); BLOOD UREA NITROGEN 37 mg/dL (7-18); CALCIUM 8.6 mg/dL (8.5-10.1); CARBON DIOXIDE 27.9 mmol/L (21-32); CHLORIDE 99 mmol/L (98-107); COR CA(FOR HYPOALB) 9.3 mg/dL (8.5-10.1); COR NA(FOR HYPERGLY) 140 mmol/L (136-145); CREATININE 1.42 mg/dL (0.70-1.30); SODIUM 135 mmol/L (136-145); TOTAL PROTEIN 7.3 g/dL (6.4-8.2); eGFR BLACK RACES > 60 (>60); eGFR NON BLACK RACES 51 (>60)
[2018-01-21 17:51] VITALS: BMI 32.5
--- NOTE | 2018-01-21 18:05 | DR.H&P ---
H&P - History & Physical for Day of: H&P Date: 01/21/18 - Chief Complaint Chief Complaint: RLE REDNESS AND PAIN - Allergies Allergies/Adverse Reactions: Allergies Allergy/AdvReac Type Severity Reaction Status Date / Time No Known Drug Allergies Allergy Verified 01/21/18 16:57 [NKDA] - History of Present Illness History of Present Illness: PT IS 78 WM DIRECT ADMIT FROM DR MEAD OFFICE WITH CO INCREASED PAIN, REDNESS AND SWELLING S/P VENOUS STENT PLACEMENT PER DR PRUITT IN [place] LAST WEEK. PT HAS PMH OF DM, PVD, OA, HTN, CHF, CAD, COPD. PT HAS HAD HOME HEALTH PERFROMING WOUND CARE WITHOUT IMPROVEMENT. PT ADMITTED FOR IV ATBX FOR CELLULITIS AND PAIN CONTROL. - Past Medical History Past Medical History: Arthritis, CHF, COPD, Diabetes, Dyslipidemia, Hypertension , Renal Disease - Past Surgical History Surgical History: CABG/Valve Surgery, Other - Family History Family Medical History: Diabetes Mellitus, [place], Coronary Artery Disease, Hypertension - Social History Does patient currently use any type of tobacco product: No Have you used tobacco products in the last 12 months: No Type of Tobacco Use: None Does any household member use tobacco: No Alcohol Use: None Drug Use: None - Review of Systems Constitutional: Weakness Eyes: No Symptoms Reported ENT: No Symptoms Reported Respiratory: Shortness of Breath Cardiovascular: No Symptoms Reported, Edema Gastrointestinal: No Symptoms Reported Genitourinary: No Symptoms Reported Musculoskeletal: Back Pain, Leg Pain Skin: Rash, Wound Neurological: Weakness - Physical Exam Vital Signs: Blood Pressure [Right Arm] 164/55 Blood Pressure [Left Arm] 164/52 Blood Pressure 164/52 Oriented: Normal Eyes: Normal Ear: Normal Nose: Normal Throat: Normal Respiratory: RLL Diminished, LLL Diminished Cardiovascular: Normal, Edema : Normal Auscultation: Bowel Sounds: Normal Palpation: Normal Tenderness: Normal Skin: Rash, Vesicular, Red, Tender, Hot, Wound Musculoskeletal: Right, Left, Leg, Back:Thoracic, Back:Lumbar Psychiatric: Anxiety Affect: Anxious Speech Pattern: Clear, Appropriate - Assessment/Plan (1) Cellulitis, leg Qualifiers: Laterality: unspecified laterality Qualified Code(s): L03.119 - Cellulitis of unspecified part of limb Status: Chronic Plan: RIGHT > THAN LEFT. 78WM DIRECT ADMIT FROM DR MEAD OFFICE 01/21 WITH CELLULITIS AND OPEN WOUND TO RLE S/P VENOUS STENT PLACEMENT. PT STARTED ON IV ABTX AND PAIN CONTROL WITH WOUND CULTURE COLLECTED ON ADMISSION. IV VANCOMYCIN, RESUME HOME MEDS. BS CONTROL, BP MONITORING (2) CAD (coronary artery disease) Status: Chronic (3) COPD (chronic obstructive pulmonary disease) Qualifiers: COPD type: unspecified COPD Qualified Code(s): J44.9 - Chronic obstructive pulmonary disease, unspecified Status: Chronic (4) Congestive heart failure Status: Chronic (5) Diabetes mellitus, type 2 Status: Chronic (6) Dyslipidemia Status: Chronic (7) Gout Status: Chronic (8) Hypertension Qualifiers: Hypertension type: unspecified secondary hypertension Qualified Code(s): I15.9 - Secondary hypertension, unspecified Status: Chronic
[2018-01-21] MEDS ORDERED: NS 250 ML IV 250 ML IV ONE (19:13)
[2018-01-21] MEDS: COLACE CAP 100 MG PO SCH ×2 (19:21→21:00)
[2018-01-21] MEDS: NORCO 10/325 TAB PO PRN (19:21)
[2018-01-21] MEDS: APRESOLINE TAB 10 MG PO SCH (19:22)
[2018-01-21] MEDS: PEPCID 20 MG IV PREMIX* 20 MG/50 ML BAG IV SCH ×2 (19:24→22:00)
[2018-01-21] MEDS: PHARMACY CONSULT - DOSE _____ XX SCH (19:25)
[2018-01-21] MEDS: SNACK - Diabetic Appropriate PO SCH (21:29)
[2018-01-22] MEDS: APRESOLINE TAB 10 MG PO SCH ×2 (01:15→08:20)
[2018-01-22 05:33] LABS: BASOPHILS # (AUTO) 0.1 X10^3/uL (0.0-0.1); BASOPHILS % (AUTO) 0.9 % (0.2-1.0); EOSINOPHILS # (AUTO) 0.4 x10^3/uL (0.0-0.2); EOSINOPHILS % (AUTO) 5.4 % (0.9-2.9); HEMOGLOBIN 10.4 g/dL (13.5-18.0); LYMPHOCYTES % (AUTO) 27.6 % (21.0-51.0); MEAN CORPUSCULAR HEMOGLOBIN 31.3 pg (27.0-34.0); MEAN CORPUSCULAR HGB CONC 35.8 g/dL (33.0-35.0); MEAN CORPUSCULAR VOLUME 87.3 fL (80.0-100.0); MONOCYTES # (AUTO) 0.9 x10^3/uL (0.3-0.8); NEUTROPHILS # (AUTO) 3.8 x10^3/uL (2.2-4.8); NEUTROPHILS % (AUTO) 54.1 % (42.0-75.0); PLATELET COUNT 156 X10^3/uL (150.0-450.0); RED BLOOD COUNT 3.32 X10^6/uL (4.7-6.0); WHITE BLOOD COUNT 7.1 X10^3/uL (3.6-10.0)
[2018-01-22 05:44] LABS: ALANINE AMINOTRANSFERASE 15 Units/L (12-78); ALBUMIN 2.7 g/dL (3.4-5.0); ALKALINE PHOSPHATASE 138 Units/L (46-116); ASPARTATE AMINO TRANSFERASE 11 Units/L (15-37); BLOOD UREA NITROGEN 33 mg/dL (7-18); CALCIUM 8.4 mg/dL (8.5-10.1); CARBON DIOXIDE 30.4 mmol/L (21-32); CHLORIDE 104 mmol/L (98-107); COR CA(FOR HYPOALB) 9.4 mg/dL (8.5-10.1); COR NA(FOR HYPERGLY) 142 mmol/L (136-145); CREATININE 1.18 mg/dL (0.70-1.30); SODIUM 140 mmol/L (136-145); TOTAL PROTEIN 6.5 g/dL (6.4-8.2); eGFR BLACK RACES > 60 (>60); eGFR NON BLACK RACES > 60 (>60)
[2018-01-22] MEDS: PEPCID 20 MG IV PREMIX* 20 MG/50 ML BAG IV SCH ×2 (08:20→20:50)
[2018-01-22] MEDS: NORCO 10/325 TAB PO PRN (08:20)
[2018-01-22] MEDS ORDERED: ALBUTEROL SULFATE INH PRN (08:39)
[2018-01-22] MEDS ORDERED: IPRATROPIUM BROMIDE INH PRN (08:39)
[2018-01-22] MEDS ORDERED: PROVENTIL NEB TX 0.083% 2.5MG/ 3ML NEB SCH (08:45)
[2018-01-22] MEDS ORDERED: LASIX PO SCH (09:00)
[2018-01-22] MEDS ORDERED: COLACE CAP 100 MG PO SCH (09:00)
[2018-01-22] MEDS ORDERED: PATIENT'S HOME MEDICATION (Budesonide-Formoterol 2 PUFF) INH SCH (09:00)
[2018-01-22] MEDS ORDERED: PATIENT'S HOME MEDICATION (Budesonide/Formoterol Fumarate [Symbicort 160-4.5 Mcg/Act (6 G) PO SCH (09:00)
[2018-01-22] MEDS: APRESOLINE TAB 25 MG PO SCH ×2 (09:13→21:10)
[2018-01-22] MEDS ORDERED: ZESTRIL TAB 20 MG ONE (09:18)
[2018-01-22] MEDS: HEMOCYTE-PLUS PO SCH (09:22)
[2018-01-22] MEDS: K-DUR TAB 20 MEQ PO SCH (09:22)
[2018-01-22] MEDS: ZESTRIL TAB 20 MG PO SCH ×2 (09:22→21:12)
[2018-01-22] MEDS: MIRALAX POWDER (1 DOSE 17GM) PO SCH (09:22)
[2018-01-22] MEDS: DESYREL PO SCH (09:22)
[2018-01-22] MEDS: COZAAR PO SCH (09:22)
[2018-01-22] MEDS: ZYLOPRIM PO SCH (09:23)
[2018-01-22] MEDS: CELEXA PO SCH (09:23)
[2018-01-22] MEDS: ASPIRIN PO SCH (09:23)
[2018-01-22] MEDS: PRAVACHOL PO SCH (09:23)
[2018-01-22] MEDS: ZAROXOYLN PO SCH (09:24)
[2018-01-22] MEDS: PLAVIX PO SCH (09:25)
[2018-01-22] MEDS: NEURONTIN CAP 400 MG PO SCH ×2 (09:30→15:23)
[2018-01-22] MEDS: PULMICORT NEB TX 0.5 MG NEB SCH (12:00)
[2018-01-22] MEDS: PROVENTIL NEB TX 0.083% 2.5MG/ 3ML NEB SCH ×2 (12:00→17:05)
[2018-01-22] MEDS: HumuLIN R SUBCUT PRN ×2 (16:32→21:08)
[2018-01-22] MEDS: GLUCOPHAGE PO SCH (17:13)
[2018-01-22] MEDS: PHARMACY CONSULT - DOSE _____ XX SCH (17:13)
[2018-01-22] MEDS ORDERED: GLUCOPHAGE ONE (17:15)
--- NOTE | 2018-01-22 17:18 | PCM.PROG ---
Progress Note - Progress Note for Day of Date: 01/22/18 - Subjective Subjective: 78WM DIRECT ADMIT FROM DR MEAD OFFICE 01/21 WITH CELLULITIS AND OPEN WOUND TO RLE S/P VENOUS STENT PLACEMENT. PT STARTED ON IV ABTX AND PAIN CONTROL WITH WOUND CULTURE COLLECTED ON ADMISSION. PT CONTINUES TO HAVE WEEPING TO RLE AND REDNESS TO BILATERAL LOWER EXTREMITIES. 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 - Past Medical Family Social History Past Med/Fam/Surg Hx: No changes since H&P Allergies: Allergies No Known Drug Allergies [NKDA] Allergy (Verified 01/21/18 16:57) - Review of Systems ROS: No change since H&P - Vital Signs and I&O's Vital Signs: Temperature 97.8 F Pulse Rate [Right Brachial] 42 Pulse Rate 39 Respiratory Rate 20 Blood Pressure [Right Arm] 158/67 Blood Pressure [Left Arm] 164/52 Blood Pressure 164/52 O2 Sat by Pulse Oximetry 96 Intake and Output: Intake & Output 01/20/18 01/21/18 01/22/18 01/23/18 11:59 11:59 11:59 11:59 Intake Total 300 550 Balance 300 550 - Physical Exam Oriented: Normal Eyes: Normal Ear: Normal Nose: Normal Throat: Normal Respiratory: Diminished Cardiovascular: Normal, Edema : Normal Auscultation: Bowel Sounds: Normal Tenderness: Normal Skin: Rash, Vesicular, Red, Tender, Hot, Wound Musculoskeletal: Right, Left, Leg, Back:Thoracic, Back:Lumbar Psychiatric: Anxiety Affect: Anxious Speech Pattern: Clear, Appropriate - Laboratory and Diagnostics Result Diagrams: 01/22/18 04:51 01/22/18 04:51 Labs: 01/21/18 16:56 Leg - Left Gram Stain - Final 01/21/18 16:56 Leg - Left Wound Culture - Preliminary 01/21/18 16:56 Leg - Right Gram Stain - Final 01/21/18 16:56 Leg - Right Wound Culture - Preliminary Laboratory WBC 7.1 X10^3/uL (3.6-10.0) 01/22/18 04:51 RBC 3.32 X10^6/uL (4.7-6.0) L 01/22/18 04:51 Hgb 10.4 g/dL (13.5-18.0) L 01/22/18 04:51 Hct 29.0 % (42.0-54.0) L 01/22/18 04:51 MCV 87.3 fL (80.0-100.0) 01/22/18 04:51 MCH 31.3 pg (27.0-34.0) 01/22/18 04:51 MCHC 35.8 g/dL (33.0-35.0) H 01/22/18 04:51 RDW 15.0 % (11.6-16.5) 01/22/18 04:51 Plt Count 156 X10^3/uL (150.0-450.0) 01/22/18 04:51 MPV 8.0 fL (7.4-11.0) 01/22/18 04:51 Neut % (Auto) 54.1 % (42.0-75.0) 01/22/18 04:51 Lymph % (Auto) 27.6 % (21.0-51.0) 01/22/18 04:51 [place] % (Auto) 12.0 % (0.0-13.0) 01/22/18 04:51 Eos % (Auto) 5.4 % (0.9-2.9) H 01/22/18 04:51 Baso % (Auto) 0.9 % (0.2-1.0) 01/22/18 04:51 Neut # (Auto) 3.8 x10^3/uL (2.2-4.8) 01/22/18 04:51 Lymph # (Auto) 2.0 X10^3/uL (1.3-2.9) 01/22/18 04:51 [place] # (Auto) 0.9 x10^3/uL (0.3-0.8) H 01/22/18 04:51 Eos # (Auto) 0.4 x10^3/uL (0.0-0.2) H 01/22/18 04:51 Baso # (Auto) 0.1 X10^3/uL (0.0-0.1) 01/22/18 04:51 Absolute Nucleated RBC 0.0 /100WBC 01/22/18 04:51 Sodium 140 mmol/L (136-145) 01/22/18 04:51 Corrected Sodium 142 mmol/L (136-145) 01/22/18 04:51 Potassium 4.6 mmol/L (3.5-5.1) 01/22/18 04:51 Chloride 104 mmol/L (98-107) 01/22/18 04:51 Carbon Dioxide 30.4 mmol/L (21-32) 01/22/18 04:51 BUN 33 mg/dL (7-18) H 01/22/18 04:51 Creatinine 1.18 mg/dL (0.70-1.30) 01/22/18 04:51 Est GFR (MDRD) Af Amer > 60 (>60) 01/22/18 04:51 Est GFR (MDRD) Non-Af > 60 (>60) 01/22/18 04:51 Glucose 165 mg/dL (65-99) H 01/22/18 04:51 POC Glucose (mg/dL) 293 mg/dL (65-99) H 01/22/18 16:20 Calcium 8.4 mg/dL (8.5-10.1) L 01/22/18 04:51 Corrected Calcium 9.4 mg/dL (8.5-10.1) 01/22/18 04:51 Total Bilirubin 0.30 mg/dL (0.2-1.0) 01/22/18 04:51 AST 11 Units/L (15-37) L 01/22/18 04:51 ALT 15 Units/L (12-78) 01/22/18 04:51 Alkaline Phosphatase 138 Units/L (46-116) H 01/22/18 04:51 Total Protein 6.5 g/dL (6.4-8.2) 01/22/18 04:51 Albumin 2.7 g/dL (3.4-5.0) L 01/22/18 04:51 Globulin 3.8 g/dL (2.5-4.5) 01/22/18 04:51 Albumin/Globulin Ratio 0.7 Ratio (1.1-2.1) L 01/22/18 04:51 - Plan (1) Cellulitis, leg Status: Chronic Qualifiers: Laterality: unspecified laterality Qualified Code(s): L03.119 - Cellulitis of unspecified part of limb Plan: CULTURES PENDING, CONTINUE WOUND CARE. IV ATBX, CHRONIC DISEASE MANAGEMENT. PT, PAIN CONTROL. RESP THERAPY, BS CONTROL (2) CAD (coronary artery disease) Status: Chronic (3) COPD (chronic obstructive pulmonary disease) Status: Chronic Qualifiers: COPD type: unspecified COPD Qualified Code(s): J44.9 - Chronic obstructive pulmonary disease, unspecified (4) Congestive heart failure Status: Chronic (5) Diabetes mellitus, type 2 Status: Chronic (6) Dyslipidemia Status: Chronic (7) Gout Status: Chronic (8) Hypertension Status: Chronic Qualifiers: Hypertension type: unspecified secondary hypertension Qualified Code(s): I15.9 - Secondary hypertension, unspecified
--- NOTE | 2018-01-22 18:08 | VAS ---
HISTORY: Bilateral lower extremity swelling and edema. Study: Bilateral lower extremity ultrasound. Comparison: None. TECHNIQUE: Multiple medina scale and color flow Doppler images of the deep venous system were obtained of the right and left lower extremity. FINDINGS: The deep venous system of the right and left lower extremities were evaluated from the level of the c ommon femoral vein through the popliteal vein. Normal color flow and augmentation can be observed. In addition, normal compression is seen throughout the deep venous system. IMPRESSION: Negative for DVT. Reported By:
[2018-01-22] MEDS: LASIX IVP SCH (20:52)
[2018-01-22] MEDS: VANCOMYCIN HCL 1 GM VIAL 1 GM in D5W 250 ML IV 250 ML IV SCH (20:57)
[2018-01-22] MEDS: COLACE CAP 100 MG PO SCH (21:02)
[2018-01-22] MEDS: FLOMAX PO SCH (21:03)
[2018-01-22] MEDS: ZANTAC PO SCH (21:03)
[2018-01-22] MEDS: LEVEMIR SC SCH (21:07)
[2018-01-22] MEDS: SNACK - Diabetic Appropriate PO SCH (21:10)
[2018-01-23] MEDS: NEURONTIN CAP 400 MG PO SCH ×4 (00:11→22:22)
[2018-01-23] MEDS: PROVENTIL NEB TX 0.083% 2.5MG/ 3ML NEB SCH ×3 (01:24→12:30)
[2018-01-23 05:36] LABS: BASOPHILS # (AUTO) 0.1 X10^3/uL (0.0-0.1); BASOPHILS % (AUTO) 0.8 % (0.2-1.0); EOSINOPHILS # (AUTO) 0.4 x10^3/uL (0.0-0.2); EOSINOPHILS % (AUTO) 5.8 % (0.9-2.9); HEMATOCRIT 30.1 % (42.0-54.0); HEMOGLOBIN 10.4 g/dL (13.5-18.0); LYMPHOCYTES # (AUTO) 1.7 X10^3/uL (1.3-2.9); LYMPHOCYTES % (AUTO) 23.5 % (21.0-51.0); MEAN CORPUSCULAR HEMOGLOBIN 30.5 pg (27.0-34.0); MEAN CORPUSCULAR HGB CONC 34.4 g/dL (33.0-35.0); MEAN CORPUSCULAR VOLUME 88.6 fL (80.0-100.0); MEAN PLATELET VOLUME 8.1 fL (7.4-11.0); MONOCYTES # (AUTO) 0.7 x10^3/uL (0.3-0.8); MONOCYTES % (AUTO) 9.9 % (0.0-13.0); NEUTROPHILS # (AUTO) 4.3 x10^3/uL (2.2-4.8); PLATELET COUNT 169 X10^3/uL (150.0-450.0); RED CELL DISTRIBUTION WIDTH 14.7 % (11.6-16.5); WHITE BLOOD COUNT 7.2 X10^3/uL (3.6-10.0)
[2018-01-23 05:52] LABS: ALANINE AMINOTRANSFERASE 16 Units/L (12-78); ALBUMIN 2.7 g/dL (3.4-5.0); ALKALINE PHOSPHATASE 134 Units/L (46-116); ASPARTATE AMINO TRANSFERASE 11 Units/L (15-37); BLOOD UREA NITROGEN 36 mg/dL (7-18); CALCIUM 8.6 mg/dL (8.5-10.1); CARBON DIOXIDE 31.3 mmol/L (21-32); CHLORIDE 104 mmol/L (98-107); COR CA(FOR HYPOALB) 9.6 mg/dL (8.5-10.1); COR NA(FOR HYPERGLY) 142 mmol/L (136-145); CREATININE 1.31 mg/dL (0.70-1.30); SODIUM 141 mmol/L (136-145); TOTAL PROTEIN 6.6 g/dL (6.4-8.2); eGFR BLACK RACES > 60 (>60); eGFR NON BLACK RACES 56 (>60)
[2018-01-23] MEDS ORDERED: GLUCOPHAGE ONE ×2 (05:59→17:05)
[2018-01-23] MEDS: GLUCOPHAGE PO SCH ×2 (06:00→17:18)
[2018-01-23] MEDS: COZAAR PO SCH (08:48)
[2018-01-23] MEDS: K-DUR TAB 20 MEQ PO SCH (08:48)
[2018-01-23] MEDS: APRESOLINE TAB 25 MG PO SCH ×2 (08:49→20:44)
[2018-01-23] MEDS: PLAVIX PO SCH (08:50)
[2018-01-23] MEDS: CELEXA PO SCH (08:50)
[2018-01-23] MEDS: DESYREL PO SCH (08:51)
[2018-01-23] MEDS: ASPIRIN PO SCH (08:51)
[2018-01-23] MEDS: ZAROXOYLN PO SCH (08:51)
[2018-01-23] MEDS: HEMOCYTE-PLUS PO SCH (08:51)
[2018-01-23] MEDS: MIRALAX POWDER (1 DOSE 17GM) PO SCH (08:53)
[2018-01-23] MEDS: PEPCID 20 MG IV PREMIX* 20 MG/50 ML BAG IV SCH ×2 (08:53→20:47)
[2018-01-23] MEDS: VANCOMYCIN HCL 1 GM VIAL 1 GM in D5W 250 ML IV 250 ML IV SCH ×2 (08:54→20:43)
[2018-01-23] MEDS: LASIX IVP SCH ×2 (08:54→20:43)
[2018-01-23] MEDS ORDERED: ZESTRIL TAB 20 MG ONE ×2 (09:03→20:10)
[2018-01-23] MEDS: ZESTRIL TAB 20 MG PO SCH ×2 (09:05→20:43)
[2018-01-23] MEDS: PRAVACHOL PO SCH (09:05)
[2018-01-23] MEDS: ZYLOPRIM PO SCH (09:05)
[2018-01-23] MEDS: HumuLIN R SUBCUT PRN ×2 (12:26→17:18)
[2018-01-23] MEDS: PULMICORT NEB TX 0.5 MG NEB SCH ×2 (12:30→20:21)
[2018-01-23] MEDS: STERILE WATER IRRIGATION IR SCH (14:30)
[2018-01-23] MEDS: BACTROBAN CREAM TOP SCH ×2 (14:30→20:55)
[2018-01-23] MEDS: COLACE CAP 100 MG PO SCH (20:44)
[2018-01-23] MEDS: FLOMAX PO SCH (20:44)
[2018-01-23] MEDS: ZANTAC PO SCH (20:44)
[2018-01-23] MEDS: NORCO 10/325 TAB PO PRN (20:45)
[2018-01-23] MEDS: SNACK - Diabetic Appropriate PO SCH (20:55)
[2018-01-23] MEDS: LEVEMIR SC SCH (20:55)
[2018-01-24] MEDS: PROVENTIL NEB TX 0.083% 2.5MG/ 3ML NEB SCH ×3 (01:02→12:20)
[2018-01-24 05:23] LABS: BASOPHILS # (AUTO) 0.1 X10^3/uL (0.0-0.1); EOSINOPHILS # (AUTO) 0.3 x10^3/uL (0.0-0.2); EOSINOPHILS % (AUTO) 4.5 % (0.9-2.9); HEMATOCRIT 27.6 % (42.0-54.0); HEMOGLOBIN 9.5 g/dL (13.5-18.0); LYMPHOCYTES # (AUTO) 1.8 X10^3/uL (1.3-2.9); LYMPHOCYTES % (AUTO) 26.8 % (21.0-51.0); MEAN CORPUSCULAR HEMOGLOBIN 30.5 pg (27.0-34.0); MEAN CORPUSCULAR HGB CONC 34.4 g/dL (33.0-35.0); MEAN CORPUSCULAR VOLUME 88.5 fL (80.0-100.0); MEAN PLATELET VOLUME 7.8 fL (7.4-11.0); MONOCYTES # (AUTO) 0.6 x10^3/uL (0.3-0.8); MONOCYTES % (AUTO) 9.2 % (0.0-13.0); NEUTROPHILS % (AUTO) 58.5 % (42.0-75.0); PLATELET COUNT 161 X10^3/uL (150.0-450.0); RED BLOOD COUNT 3.12 X10^6/uL (4.7-6.0); RED CELL DISTRIBUTION WIDTH 14.5 % (11.6-16.5); WHITE BLOOD COUNT 6.8 X10^3/uL (3.6-10.0)
[2018-01-24] MEDS ORDERED: GLUCOPHAGE ONE (05:33)
[2018-01-24 05:35] LABS: ALBUMIN 2.5 g/dL (3.4-5.0); CALCIUM 8.3 mg/dL (8.5-10.1); CARBON DIOXIDE 32.6 mmol/L (21-32); COR CA(FOR HYPOALB) 9.5 mg/dL (8.5-10.1); CREATININE 1.47 mg/dL (0.70-1.30); TOTAL PROTEIN 6.3 g/dL (6.4-8.2)
[2018-01-24] MEDS: NEURONTIN CAP 400 MG PO SCH ×3 (05:37→21:43)
[2018-01-24] MEDS: HumuLIN R SUBCUT PRN ×3 (05:39→17:35)
[2018-01-24] MEDS: GLUCOPHAGE PO SCH ×2 (06:09→16:53)
[2018-01-24] MEDS ORDERED: ZESTRIL TAB 20 MG ONE ×2 (07:36→19:50)
[2018-01-24] MEDS: PEPCID 20 MG IV PREMIX* 20 MG/50 ML BAG IV SCH ×2 (08:48→20:15)
[2018-01-24 08:49] LABS: CREATININE 1.65 mg/dL (0.70-1.30); VANCOMYCIN,TROUGH 13.8 ug/mL (15-20)
[2018-01-24] MEDS: MIRALAX POWDER (1 DOSE 17GM) PO SCH (08:49)
[2018-01-24] MEDS: ASPIRIN PO SCH (08:53)
[2018-01-24] MEDS: PRAVACHOL PO SCH (08:53)
[2018-01-24] MEDS: COZAAR PO SCH (08:54)
[2018-01-24] MEDS: K-DUR TAB 20 MEQ PO SCH (08:54)
[2018-01-24] MEDS: ZESTRIL TAB 20 MG PO SCH ×2 (08:54→20:14)
[2018-01-24] MEDS: CELEXA PO SCH (08:54)
[2018-01-24] MEDS: HEMOCYTE-PLUS PO SCH (08:54)
[2018-01-24] MEDS: ZAROXOYLN PO SCH (08:54)
[2018-01-24] MEDS: ZYLOPRIM PO SCH (08:54)
[2018-01-24] MEDS: LASIX IVP SCH ×2 (08:55→20:14)
[2018-01-24] MEDS: PLAVIX PO SCH (08:55)
[2018-01-24] MEDS: DESYREL PO SCH (08:55)
[2018-01-24] MEDS: APRESOLINE TAB 25 MG PO SCH ×2 (08:55→20:15)
[2018-01-24] MEDS: STERILE WATER IRRIGATION IR SCH (08:56)
[2018-01-24] MEDS: BACTROBAN CREAM TOP SCH ×2 (08:56→20:48)
[2018-01-24] MEDS: VANCOMYCIN HCL 1 GM VIAL 1 GM in D5W 250 ML IV 250 ML IV SCH ×2 (08:58→20:48)
[2018-01-24] MEDS: PULMICORT NEB TX 0.5 MG NEB SCH ×2 (12:20→20:27)
[2018-01-24] MEDS: NORCO 10/325 TAB PO PRN (20:14)
[2018-01-24] MEDS: ZANTAC PO SCH (20:15)
[2018-01-24] MEDS: COLACE CAP 100 MG PO SCH (20:15)
[2018-01-24] MEDS: FLOMAX PO SCH (20:15)
[2018-01-24] MEDS: SNACK - Diabetic Appropriate PO SCH (20:16)
[2018-01-24] MEDS: LEVEMIR SC SCH (20:16)
[2018-01-25] MEDS: PROVENTIL NEB TX 0.083% 2.5MG/ 3ML NEB SCH ×4 (00:02→17:02)
[2018-01-25 05:41] LABS: BASOPHILS # (AUTO) 0.1 X10^3/uL (0.0-0.1); BASOPHILS % (AUTO) 0.9 % (0.2-1.0); EOSINOPHILS # (AUTO) 0.4 x10^3/uL (0.0-0.2); EOSINOPHILS % (AUTO) 5.5 % (0.9-2.9); HEMATOCRIT 27.3 % (42.0-54.0); HEMOGLOBIN 9.5 g/dL (13.5-18.0); LYMPHOCYTES # (AUTO) 1.5 X10^3/uL (1.3-2.9); LYMPHOCYTES % (AUTO) 22.5 % (21.0-51.0); MEAN CORPUSCULAR HEMOGLOBIN 30.8 pg (27.0-34.0); MEAN CORPUSCULAR HGB CONC 34.8 g/dL (33.0-35.0); MEAN CORPUSCULAR VOLUME 88.5 fL (80.0-100.0); MONOCYTES # (AUTO) 0.7 x10^3/uL (0.3-0.8); MONOCYTES % (AUTO) 9.5 % (0.0-13.0); NEUTROPHILS # (AUTO) 4.2 x10^3/uL (2.2-4.8); NEUTROPHILS % (AUTO) 61.6 % (42.0-75.0); PLATELET COUNT 158 X10^3/uL (150.0-450.0); RED BLOOD COUNT 3.09 X10^6/uL (4.7-6.0); RED CELL DISTRIBUTION WIDTH 14.6 % (11.6-16.5); WHITE BLOOD COUNT 6.8 X10^3/uL (3.6-10.0)
[2018-01-25] MEDS: NEURONTIN CAP 400 MG PO SCH (05:52)
[2018-01-25] MEDS: HumuLIN R SUBCUT PRN ×4 (05:53→21:02)
[2018-01-25 05:57] LABS: ALBUMIN 2.6 g/dL (3.4-5.0); CALCIUM 8.3 mg/dL (8.5-10.1); CARBON DIOXIDE 32.1 mmol/L (21-32); COR CA(FOR HYPOALB) 9.4 mg/dL (8.5-10.1); CREATININE 1.7 mg/dL (0.70-1.30); TOTAL PROTEIN 6.4 g/dL (6.4-8.2)
[2018-01-25] MEDS: GLUCOPHAGE PO SCH (06:08)
[2018-01-25] MEDS ORDERED: NS 250 ML IV 250 ML IV ONE (06:15)
[2018-01-25] MEDS ORDERED: ZESTRIL TAB 20 MG ONE ×2 (08:59→20:23)
[2018-01-25] MEDS: PEPCID 20 MG IV PREMIX* 20 MG/50 ML BAG IV SCH ×2 (09:14→21:04)
[2018-01-25] MEDS: VANCOMYCIN HCL 1 GM VIAL 1 GM in D5W 250 ML IV 250 ML IV SCH ×2 (09:16→21:46)
[2018-01-25] MEDS: MIRALAX POWDER (1 DOSE 17GM) PO SCH (09:17)
[2018-01-25] MEDS: ASPIRIN PO SCH (09:19)
[2018-01-25] MEDS: PRAVACHOL PO SCH (09:20)
[2018-01-25] MEDS: ZYLOPRIM PO SCH (09:20)
[2018-01-25] MEDS: APRESOLINE TAB 25 MG PO SCH ×2 (09:20→21:03)
[2018-01-25] MEDS: K-DUR TAB 20 MEQ PO SCH (09:20)
[2018-01-25] MEDS: DESYREL PO SCH (09:20)
[2018-01-25] MEDS: LASIX IVP SCH (09:20)
[2018-01-25] MEDS: ZAROXOYLN PO SCH (09:20)
[2018-01-25] MEDS: HEMOCYTE-PLUS PO SCH (09:20)
[2018-01-25] MEDS: COZAAR PO SCH (09:20)
[2018-01-25] MEDS: PLAVIX PO SCH (09:21)
[2018-01-25] MEDS: ZESTRIL TAB 20 MG PO SCH ×2 (09:21→21:05)
[2018-01-25] MEDS: CELEXA PO SCH (09:21)
[2018-01-25] MEDS: STERILE WATER IRRIGATION IR SCH (09:24)
[2018-01-25] MEDS: BACTROBAN CREAM TOP SCH ×2 (09:25→21:03)
[2018-01-25] MEDS: NORCO 10/325 TAB PO PRN ×2 (10:33→21:05)
[2018-01-25] MEDS: PULMICORT NEB TX 0.5 MG NEB SCH ×2 (11:59→20:10)
[2018-01-25] MEDS ORDERED: ZYLOPRIM PO SCH (13:00)
[2018-01-25] MEDS: FLOMAX PO SCH (21:03)
[2018-01-25] MEDS: COLACE CAP 100 MG PO SCH (21:03)
[2018-01-25] MEDS: LEVAQUIN PREMIX IV 500 MG 500 MG/100 ML BAG IV SCH (21:03)
[2018-01-25] MEDS: SNACK - Diabetic Appropriate PO SCH (21:03)
[2018-01-25] MEDS: LEVEMIR SC SCH (21:04)
[2018-01-25] MEDS: ZANTAC PO SCH (21:05)
[2018-01-25 21:13] LABS: CREATININE 1.69 mg/dL (0.70-1.30)
[2018-01-25] MEDS: ULTRAM PO PRN (23:12)
[2018-01-26] MEDS: PROVENTIL NEB TX 0.083% 2.5MG/ 3ML NEB SCH ×4 (00:20→17:04)
[2018-01-26 06:09] LABS: BASOPHILS # (AUTO) 0.1 X10^3/uL (0.0-0.1); BASOPHILS % (AUTO) 1.2 % (0.2-1.0); EOSINOPHILS # (AUTO) 0.4 x10^3/uL (0.0-0.2); EOSINOPHILS % (AUTO) 6.7 % (0.9-2.9); HEMATOCRIT 27.8 % (42.0-54.0); HEMOGLOBIN 9.7 g/dL (13.5-18.0); LYMPHOCYTES # (AUTO) 1.4 X10^3/uL (1.3-2.9); LYMPHOCYTES % (AUTO) 20.9 % (21.0-51.0); MEAN CORPUSCULAR HEMOGLOBIN 30.5 pg (27.0-34.0); MEAN CORPUSCULAR HGB CONC 34.8 g/dL (33.0-35.0); MEAN CORPUSCULAR VOLUME 87.7 fL (80.0-100.0); MONOCYTES # (AUTO) 0.7 x10^3/uL (0.3-0.8); MONOCYTES % (AUTO) 9.8 % (0.0-13.0); NEUTROPHILS # (AUTO) 4.1 x10^3/uL (2.2-4.8); NEUTROPHILS % (AUTO) 61.4 % (42.0-75.0); PLATELET COUNT 168 X10^3/uL (150.0-450.0); RED BLOOD COUNT 3.17 X10^6/uL (4.7-6.0); RED CELL DISTRIBUTION WIDTH 14.4 % (11.6-16.5); WHITE BLOOD COUNT 6.7 X10^3/uL (3.6-10.0)
[2018-01-26 06:15] LABS: ALANINE AMINOTRANSFERASE 14 Units/L (12-78); ALBUMIN 2.7 g/dL (3.4-5.0); ALKALINE PHOSPHATASE 143 Units/L (46-116); ASPARTATE AMINO TRANSFERASE 14 Units/L (15-37); BLOOD UREA NITROGEN 38 mg/dL (7-18); CALCIUM 8.6 mg/dL (8.5-10.1); CARBON DIOXIDE 32.1 mmol/L (21-32); CHLORIDE 102 mmol/L (98-107); COR CA(FOR HYPOALB) 9.6 mg/dL (8.5-10.1); COR NA(FOR HYPERGLY) 138 mmol/L (136-145); CREATININE 1.44 mg/dL (0.70-1.30); SODIUM 137 mmol/L (136-145); TOTAL PROTEIN 6.6 g/dL (6.4-8.2); eGFR BLACK RACES > 60 (>60); eGFR NON BLACK RACES 51 (>60)
[2018-01-26] MEDS ORDERED: ZESTRIL TAB 20 MG ONE ×2 (08:46→20:52)
[2018-01-26] MEDS: VANCOMYCIN HCL 500 MG VIAL 750 MG in D5W 250 ML IV 250 ML IV SCH ×2 (08:57→21:52)
[2018-01-26] MEDS: PEPCID 20 MG IV PREMIX* 20 MG/50 ML BAG IV SCH ×2 (08:57→21:52)
[2018-01-26] MEDS: MIRALAX POWDER (1 DOSE 17GM) PO SCH (09:00)
[2018-01-26] MEDS: NEURONTIN CAP 400 MG PO SCH (09:00)
[2018-01-26] MEDS: PRAVACHOL PO SCH (09:00)
[2018-01-26] MEDS: CELEXA PO SCH (09:00)
[2018-01-26] MEDS: APRESOLINE TAB 25 MG PO SCH ×2 (09:01→21:49)
[2018-01-26] MEDS: HEMOCYTE-PLUS PO SCH (09:01)
[2018-01-26] MEDS: ZAROXOYLN PO SCH (09:01)
[2018-01-26] MEDS: ZESTRIL TAB 20 MG PO SCH ×2 (09:01→21:52)
[2018-01-26] MEDS: DESYREL PO SCH (09:01)
[2018-01-26] MEDS: ULTRAM PO PRN ×2 (09:01→21:52)
[2018-01-26] MEDS: COZAAR PO SCH (09:01)
[2018-01-26] MEDS: ASPIRIN PO SCH (09:02)
[2018-01-26] MEDS: STERILE WATER IRRIGATION IR SCH (09:02)
[2018-01-26] MEDS: K-DUR TAB 20 MEQ PO SCH (09:02)
[2018-01-26] MEDS: MILK OF MAGNESIA PO PRN (09:02)
[2018-01-26] MEDS: ZYLOPRIM PO SCH (09:02)
[2018-01-26] MEDS: PLAVIX PO SCH (09:02)
[2018-01-26] MEDS: BACTROBAN CREAM TOP SCH ×2 (09:05→21:49)
[2018-01-26] MEDS: NORCO 10/325 TAB PO PRN ×2 (11:03→22:40)
[2018-01-26] MEDS: PULMICORT NEB TX 0.5 MG NEB SCH ×2 (12:00→21:45)
[2018-01-26] MEDS: HumuLIN R SUBCUT PRN ×4 (12:04→21:51)
[2018-01-26] MEDS ORDERED: HYDROGEN PEROXIDE 3% ONE (20:40)
[2018-01-26] MEDS ORDERED: MIRALAX POWDER (1 DOSE 17GM) PO ONE (21:00)
[2018-01-26] MEDS: SNACK - Diabetic Appropriate PO SCH (21:48)
[2018-01-26] MEDS: LEVEMIR SC SCH (21:49)
[2018-01-26] MEDS: COLACE CAP 100 MG PO SCH (21:49)
[2018-01-26] MEDS: LEVAQUIN PREMIX IV 500 MG 500 MG/100 ML BAG IV SCH (21:49)
[2018-01-26] MEDS: FLOMAX PO SCH (21:49)
[2018-01-26] MEDS: ZANTAC PO SCH (21:52)
[2018-01-27] MEDS: PROVENTIL NEB TX 0.083% 2.5MG/ 3ML NEB SCH ×5 (01:10→18:17)
[2018-01-27 04:40] LABS: ABG BASE EXCESS 7.3 mmol/L (-2.0-2.0)
[2018-01-27 04:44] LABS: ABG HCO3 33.9 mmol/L (22-26)
[2018-01-27] MEDS: HumuLIN R SUBCUT PRN ×3 (05:54→17:15)
[2018-01-27 06:14] LABS: BASOPHILS # (AUTO) 0.1 X10^3/uL (0.0-0.1); BASOPHILS % (AUTO) 0.7 % (0.2-1.0); EOSINOPHILS # (AUTO) 0.4 x10^3/uL (0.0-0.2); HEMATOCRIT 29.6 % (42.0-54.0); HEMOGLOBIN 10.2 g/dL (13.5-18.0); LYMPHOCYTES # (AUTO) 1.1 X10^3/uL (1.3-2.9); LYMPHOCYTES % (AUTO) 14.2 % (21.0-51.0); MEAN CORPUSCULAR HEMOGLOBIN 30.5 pg (27.0-34.0); MEAN CORPUSCULAR HGB CONC 34.6 g/dL (33.0-35.0); MEAN CORPUSCULAR VOLUME 88.2 fL (80.0-100.0); MEAN PLATELET VOLUME 8.1 fL (7.4-11.0); MONOCYTES # (AUTO) 0.9 x10^3/uL (0.3-0.8); MONOCYTES % (AUTO) 11.1 % (0.0-13.0); NEUTROPHILS # (AUTO) 5.5 x10^3/uL (2.2-4.8); PLATELET COUNT 184 X10^3/uL (150.0-450.0); RED BLOOD COUNT 3.35 X10^6/uL (4.7-6.0); RED CELL DISTRIBUTION WIDTH 14.5 % (11.6-16.5)
[2018-01-27 06:51] LABS: ALANINE AMINOTRANSFERASE 17 Units/L (12-78); ALKALINE PHOSPHATASE 172 Units/L (46-116); ASPARTATE AMINO TRANSFERASE 15 Units/L (15-37); BLOOD UREA NITROGEN 36 mg/dL (7-18); CALCIUM 8.8 mg/dL (8.5-10.1); CHLORIDE 98 mmol/L (98-107); COR CA(FOR HYPOALB) 9.6 mg/dL (8.5-10.1); COR NA(FOR HYPERGLY) 138 mmol/L (136-145); CREATININE 1.44 mg/dL (0.70-1.30); SODIUM 135 mmol/L (136-145); TOTAL PROTEIN 7.4 g/dL (6.4-8.2); eGFR BLACK RACES > 60 (>60); eGFR NON BLACK RACES 51 (>60)
[2018-01-27] MEDS ORDERED: ZESTRIL TAB 20 MG ONE ×2 (07:53→21:31)
[2018-01-27] MEDS: COZAAR PO SCH (08:08)
[2018-01-27] MEDS: MIRALAX POWDER (1 DOSE 17GM) PO SCH (08:08)
[2018-01-27] MEDS: PEPCID 20 MG IV PREMIX* 20 MG/50 ML BAG IV SCH ×2 (08:08→21:34)
[2018-01-27] MEDS: LASIX PO SCH (08:09)
[2018-01-27] MEDS: ASPIRIN PO SCH (08:09)
[2018-01-27] MEDS: ZAROXOYLN PO SCH (08:09)
[2018-01-27] MEDS: DESYREL PO SCH (08:09)
[2018-01-27] MEDS: ZESTRIL TAB 20 MG PO SCH ×2 (08:09→21:39)
[2018-01-27] MEDS: APRESOLINE TAB 25 MG PO SCH ×2 (08:10→21:39)
[2018-01-27] MEDS: CELEXA PO SCH (08:10)
[2018-01-27] MEDS: NEURONTIN CAP 400 MG PO SCH (08:10)
[2018-01-27] MEDS: PRAVACHOL PO SCH (08:10)
[2018-01-27] MEDS: ZYLOPRIM PO SCH (08:11)
[2018-01-27] MEDS: K-DUR TAB 20 MEQ PO SCH (08:11)
[2018-01-27] MEDS: PLAVIX PO SCH (08:11)
[2018-01-27] MEDS: HEMOCYTE-PLUS PO SCH (08:12)
[2018-01-27] MEDS: VANCOMYCIN HCL 500 MG VIAL 750 MG in D5W 250 ML IV 250 ML IV SCH (08:12)
[2018-01-27] MEDS: BACTROBAN CREAM TOP SCH ×2 (08:14→21:41)
[2018-01-27] MEDS: STERILE WATER IRRIGATION IR SCH (08:14)
[2018-01-27] MEDS: ULTRAM PO PRN (08:16)
[2018-01-27] MEDS: PULMICORT NEB TX 0.5 MG NEB SCH ×2 (08:45→20:53)
[2018-01-27 09:25] LABS: CKMB % 1.9 % (<4); CREATINE KINASE 65 Units/L (39-308); CREATINE KINASE MB 1.2 ng/mL (0-4.0); TROPONIN I < 0.02 ng/mL (0-1.5)
--- NOTE | 2018-01-27 10:14 | RAD ---
Chest, AP portable Indication: Swelling, edema, bilateral leg wounds. Shortness of breath. Comparison: 01/21/2018 Findings: Cardiac silhouette enlargement is unchanged. There is pulmonary vascular congestion with mi ld interstitial thickening. No dense infiltrate or large pleural effusion. Impression: Cardiomegaly with findings of mild CHF. Reported By:
[2018-01-27 11:12] LABS: BILIRUBIN,URINE NEGATIVE (NEGATIVE); BLOOD/HEMOGLOBIN,URINE NEGATIVE (NEGATIVE); GLUCOSE, URINE 2+ (NEGATIVE); KETONES,URINE NEGATIVE (NEGATIVE); LEUKOCYTE ESTERASE ,URINE NEGATIVE (NEGATIVE); NITRITES,URINE NEGATIVE (NEGATIVE); PROTEIN,URINE 2+ (NEGATIVE); UROBILINOGEN,URINE NORMAL (NORMAL)
[2018-01-27 11:15] LABS: APPEARANCE,URINE CLEAR (CLEAR); COLOR,URINE YELLOW (YELLOW)
[2018-01-27 11:24] LABS: BACTERIA,URINE NEGATIVE /HPF (NEGATIVE); RBC,URINE 0-2 /HPF (NONE SEEN); SQUAMOUS EPITHELIAL CELL,UR RARE /HPF (NEGATIVE)
[2018-01-27] MEDS: MILK OF MAGNESIA PO PRN (14:35)
[2018-01-27] MEDS: MILK OF MAGNESIA PO SCH ×2 (16:54→21:38)
[2018-01-27] MEDS ORDERED: LASIX IVP ONE (17:54)
--- NOTE | 2018-01-27 17:57 | PCM.PROG ---
Progress Note - Progress Note for Day of Date: 01/27/18 - Subjective Subjective: 78WM DIRECT ADMIT FROM DR MEAD OFFICE 01/21 WITH CELLULITIS AND OPEN WOUND TO RLE S/P VENOUS STENT PLACEMENT. PT STARTED ON IV ABTX AND PAIN CONTROL WITH WOUND CULTURE COLLECTED ON ADMISSION. PT CONTINUES TO HAVE BILATERAL LOWER EXTREMITY REDNESS WORSE ON RIGHT WITH IMPROVING, RESOLVING BLISTERING AND SKIN PEELING. PT HAS SOB THIS AM - Past Medical Family Social History Past Med/Fam/Surg Hx: No changes since H&P Allergies: Allergies No Known Drug Allergies [NKDA] Allergy (Verified 01/21/18 16:57) - Review of Systems ROS: No change since H&P - Vital Signs and I&O's Vital Signs: Temperature 98.1 F Pulse Rate [Right Brachial] 43 Pulse Rate 46 Respiratory Rate 20 Blood Pressure [Right Arm] 131/61 Blood Pressure [Left Arm] 145/63 Blood Pressure 164/52 O2 Sat by Pulse Oximetry 94 Intake and Output: Intake & Output 01/25/18 01/26/18 01/27/18 01/28/18 11:59 11:59 11:59 11:59 Intake Total 1080 1665 1780 240 Output Total 325 1000 Balance 1080 1665 6455 -084 - Physical Exam Oriented: Normal Eyes: Normal Ear: Normal Nose: Normal Throat: Normal Respiratory: Diminished, Wheezes Cardiovascular: Normal, Bradycardia : Normal Auscultation: Bowel Sounds: Normal Tenderness: Normal Skin: Rash, Vesicular, Red, Tender, Hot, Wound Musculoskeletal: Right, Left, Leg, Back:Thoracic, Back:Lumbar Psychiatric: Anxiety Affect: Anxious Speech Pattern: Clear, Inappropriate - Laboratory and Diagnostics Result Diagrams: 01/27/18 05:02 01/27/18 05:02 Labs: 01/21/18 16:29 Blood Blood Culture - Final 01/21/18 16:32 Blood Blood Culture - Final 01/21/18 16:56 Leg - Left Gram Stain - Final 01/21/18 16:56 Leg - Left Wound Culture - Final Staphylococcus Aureus Acromobacter Species 01/21/18 16:56 Leg - Right Gram Stain - Final 01/21/18 16:56 Leg - Right Wound Culture - Final Staphylococcus Aureus Laboratory WBC 8.0 X10^3/uL (3.6-10.0) 01/27/18 05:02 RBC 3.35 X10^6/uL (4.7-6.0) L 01/27/18 05:02 Hgb 10.2 g/dL (13.5-18.0) L 01/27/18 05:02 Hct 29.6 % (42.0-54.0) L 01/27/18 05:02 MCV 88.2 fL (80.0-100.0) 01/27/18 05:02 MCH 30.5 pg (27.0-34.0) 01/27/18 05:02 MCHC 34.6 g/dL (33.0-35.0) 01/27/18 05:02 RDW 14.5 % (11.6-16.5) 01/27/18 05:02 Plt Count 184 X10^3/uL (150.0-450.0) 01/27/18 05:02 MPV 8.1 fL (7.4-11.0) 01/27/18 05:02 Neut % (Auto) 69.0 % (42.0-75.0) 01/27/18 05:02 Lymph % (Auto) 14.2 % (21.0-51.0) L 01/27/18 05:02 [place] % (Auto) 11.1 % (0.0-13.0) 01/27/18 05:02 Eos % (Auto) 5.0 % (0.9-2.9) H 01/27/18 05:02 Baso % (Auto) 0.7 % (0.2-1.0) 01/27/18 05:02 Neut # (Auto) 5.5 x10^3/uL (2.2-4.8) H 01/27/18 05:02 Lymph # (Auto) 1.1 X10^3/uL (1.3-2.9) L 01/27/18 05:02 [place] # (Auto) 0.9 x10^3/uL (0.3-0.8) H 01/27/18 05:02 Eos # (Auto) 0.4 x10^3/uL (0.0-0.2) H 01/27/18 05:02 Baso # (Auto) 0.1 X10^3/uL (0.0-0.1) 01/27/18 05:02 Absolute Nucleated RBC 0.0 /100WBC 01/27/18 05:02 Sample Site Rbra 01/27/18 04:31 ABG pH 7.390 (7.35-7.45) 01/27/18 04:31 ABG pCO2 56.0 mmHg (35.0-45.0) H* 01/27/18 04:31 ABG pO2 49.0 mmHg (80.0-100.0) L* 01/27/18 04:31 ABG HCO3 33.9 mmol/L (22-26) H* 01/27/18 04:31 ABG O2 Saturation 84.0 % (90-100) L* 01/27/18 04:31 ABG Base Excess 7.3 mmol/L (-2.0-2.0) H 01/27/18 04:31 Markos Test Na 01/27/18 04:31 A-a Gradient 81.0 mmHg 01/27/18 04:31 FiO2 28.000 01/27/18 04:31 Blood Gas Comments Sue abg well-mtf 01/27/18 04:31 Sodium 135 mmol/L (136-145) L 01/27/18 05:02 Corrected Sodium 138 mmol/L (136-145) 01/27/18 05:02 Potassium 5.1 mmol/L (3.5-5.1) 01/27/18 05:02 Chloride 98 mmol/L (98-107) 01/27/18 05:02 Carbon Dioxide 32.0 mmol/L (21-32) 01/27/18 05:02 BUN 36 mg/dL (7-18) H 01/27/18 05:02 Creatinine 1.44 mg/dL (0.70-1.30) H 01/27/18 05:02 Est GFR (MDRD) Af Amer > 60 (>60) 01/27/18 05:02 Est GFR (MDRD) Non-Af 51 (>60) L 01/27/18 05:02 Glucose 215 mg/dL (65-99) H 01/27/18 05:02 POC Glucose (mg/dL) 291 mg/dL (65-99) H 01/27/18 16:21 Calcium 8.8 mg/dL (8.5-10.1) 01/27/18 05:02 Corrected Calcium 9.6 mg/dL (8.5-10.1) 01/27/18 05:02 Total Bilirubin 0.40 mg/dL (0.2-1.0) 01/27/18 05:02 AST 15 Units/L (15-37) 01/27/18 05:02 ALT 17 Units/L (12-78) 01/27/18 05:02 Alkaline Phosphatase 172 Units/L (46-116) H 01/27/18 05:02 Creatine Kinase 65 Units/L (39-308) 01/27/18 08:55 CK-MB (CK-2) 1.2 ng/mL (0-4.0) 01/27/18 08:55 CK/CKMB % Calc 1.9 % (<4) 01/27/18 08:55 Troponin I < 0.02 ng/mL (0-1.5) 01/27/18 08:55 Total Protein 7.4 g/dL (6.4-8.2) 01/27/18 05:02 Albumin 3.0 g/dL (3.4-5.0) L 01/27/18 05:02 Globulin 4.4 g/dL (2.5-4.5) 01/27/18 05:02 Albumin/Globulin Ratio 0.7 Ratio (1.1-2.1) L 01/27/18 05:02 Specimen Type Catherized urine 01/27/18 10:42 Urine Color Yellow (YELLOW) 01/27/18 10:42 Urine Appearance Clear (CLEAR) 01/27/18 10:42 Urine pH 6.0 (5.0 - 8.0) 01/27/18 10:42 Ur Specific [place] 1.010 (1.000-1.030) 01/27/18 10:42 Urine Protein 2+ (NEGATIVE) 01/27/18 10:42 Urine Glucose (UA) 2+ (NEGATIVE) 01/27/18 10:42 Urine Ketones Negative (NEGATIVE) 01/27/18 10:42 Urine Occult Blood Negative (NEGATIVE) 01/27/18 10:42 Urine Nitrite Negative (NEGATIVE) 01/27/18 10:42 Urine Bilirubin Negative (NEGATIVE) 01/27/18 10:42 Urine Urobilinogen Normal (NORMAL) 01/27/18 10:42 Ur Leukocyte Esterase Negative (NEGATIVE) 01/27/18 10:42 Urine RBC 0-2 /HPF (NONE SEEN) 01/27/18 10:42 Urine WBC 0-2 /HPF (NONE SEEN) 01/27/18 10:42 Ur Squamous Epith Cells Rare /HPF (NEGATIVE) 01/27/18 10:42 Urine Bacteria Negative /HPF (NEGATIVE) 01/27/18 10:42 Ur Culture Indicated? No/not indicated 01/27/18 10:42 Vancomycin Trough 21.0 ug/mL (15-20) H* 01/25/18 20:45 - Plan (1) Cellulitis, leg Status: Chronic Qualifiers: Laterality: unspecified laterality Qualified Code(s): L03.119 - Cellulitis of unspecified part of limb Plan: CULTURES PENDING, CONTINUE WOUND CARE. IV ATBX, CHRONIC DISEASE MANAGEMENT. PT, PAIN CONTROL. RESP THERAPY, BS CONTROL (2) CAD (coronary artery disease) Status: Chronic (3) COPD (chronic obstructive pulmonary disease) Status: Chronic Qualifiers: COPD type: unspecified COPD Qualified Code(s): J44.9 - Chronic obstructive pulmonary disease, unspecified (4) Congestive heart failure Status: Chronic Plan: TELEMETRY, LASIX 40MG IV STAT CXR (5) Diabetes mellitus, type 2 Status: Chronic (6) Dyslipidemia Status: Chronic (7) Gout Status: Chronic (8) Hypertension Status: Chronic Qualifiers: Hypertension type: unspecified secondary hypertension Qualified Code(s): I15.9 - Secondary hypertension, unspecified (9) SOB (shortness of breath) Status: Acute Plan: CXR, EKG, CARDIAC EZYMES. TREAT RESP ILLNESS, JET NEBS BIPAP PRN. ABG, HTN MONITORING. HOLD ANY BB OR CCB
[2018-01-27 20:44] LABS: CREATININE 1.74 mg/dL (0.70-1.30)
[2018-01-27 21:03] LABS: VANCOMYCIN,TROUGH 22.2 ug/mL (15-20)
[2018-01-27] MEDS: FLOMAX PO SCH (21:38)
[2018-01-27] MEDS: ZANTAC PO SCH (21:38)
[2018-01-27] MEDS: LEVAQUIN PREMIX IV 500 MG 500 MG/100 ML BAG IV SCH (21:39)
[2018-01-27] MEDS: LEVEMIR SC SCH (21:39)
[2018-01-27] MEDS: COLACE CAP 100 MG PO SCH (21:39)
[2018-01-27] MEDS: SNACK - Diabetic Appropriate PO SCH (21:41)
[2018-01-27] MEDS ORDERED: PHARMACY CONSULT - VANCOMYCIN XX SCH (22:00)
[2018-01-28] MEDS: PROVENTIL NEB TX 0.083% 2.5MG/ 3ML NEB SCH ×5 (01:10→17:47)
[2018-01-28] MEDS: HumuLIN R SUBCUT PRN ×3 (05:32→16:21)
[2018-01-28 06:12] LABS: BASOPHILS # (AUTO) 0.1 X10^3/uL (0.0-0.1); BASOPHILS % (AUTO) 0.7 % (0.2-1.0); EOSINOPHILS # (AUTO) 0.3 x10^3/uL (0.0-0.2); EOSINOPHILS % (AUTO) 3.9 % (0.9-2.9); HEMATOCRIT 28.3 % (42.0-54.0); HEMOGLOBIN 9.7 g/dL (13.5-18.0); LYMPHOCYTES # (AUTO) 1.1 X10^3/uL (1.3-2.9); LYMPHOCYTES % (AUTO) 13.9 % (21.0-51.0); MEAN CORPUSCULAR HEMOGLOBIN 30.3 pg (27.0-34.0); MEAN CORPUSCULAR HGB CONC 34.3 g/dL (33.0-35.0); MEAN CORPUSCULAR VOLUME 88.3 fL (80.0-100.0); MEAN PLATELET VOLUME 8.2 fL (7.4-11.0); MONOCYTES # (AUTO) 0.8 x10^3/uL (0.3-0.8); MONOCYTES % (AUTO) 10.4 % (0.0-13.0); NEUTROPHILS # (AUTO) 5.7 x10^3/uL (2.2-4.8); NEUTROPHILS % (AUTO) 71.1 % (42.0-75.0); PLATELET COUNT 186 X10^3/uL (150.0-450.0); RED BLOOD COUNT 3.21 X10^6/uL (4.7-6.0); RED CELL DISTRIBUTION WIDTH 14.2 % (11.6-16.5)
[2018-01-28 06:17] LABS: ALBUMIN 2.7 g/dL (3.4-5.0); CALCIUM 8.6 mg/dL (8.5-10.1); COR CA(FOR HYPOALB) 9.6 mg/dL (8.5-10.1); CREATININE 1.56 mg/dL (0.70-1.30); TOTAL PROTEIN 6.8 g/dL (6.4-8.2)
[2018-01-28 06:20] LABS: CREATININE 1.57 mg/dL (0.70-1.30); VANCOMYCIN,TROUGH 18.1 ug/mL (15-20)
[2018-01-28] MEDS: VANCOMYCIN HCL 500 MG VIAL 250 MG, VANCOMYCIN HCL 1 GM VIAL 1 GM in D5W 250 ML IV 250 ML IV SCH (06:32)
[2018-01-28] MEDS ORDERED: VANCOMYCIN HCL 500 MG VIAL ONE (06:36)
[2018-01-28 06:42] LABS: CARBON DIOXIDE 31.8 mmol/L (21-32)
[2018-01-28] MEDS: PULMICORT NEB TX 0.5 MG NEB SCH ×2 (08:29→20:23)
[2018-01-28] MEDS ORDERED: ZESTRIL TAB 20 MG ONE ×2 (08:36→20:19)
[2018-01-28] MEDS: MIRALAX POWDER (1 DOSE 17GM) PO SCH (08:46)
[2018-01-28] MEDS: STERILE WATER IRRIGATION IR SCH (08:46)
[2018-01-28] MEDS: PEPCID 20 MG IV PREMIX* 20 MG/50 ML BAG IV SCH ×2 (08:46→20:43)
[2018-01-28] MEDS: ASPIRIN PO SCH (08:46)
[2018-01-28] MEDS: ZAROXOYLN PO SCH (08:47)
[2018-01-28] MEDS: PRAVACHOL PO SCH (08:47)
[2018-01-28] MEDS: APRESOLINE TAB 25 MG PO SCH ×2 (08:47→20:42)
[2018-01-28] MEDS: NEURONTIN CAP 400 MG PO SCH (08:47)
[2018-01-28] MEDS: DESYREL PO SCH (08:47)
[2018-01-28] MEDS: COZAAR PO SCH (08:47)
[2018-01-28] MEDS: ZESTRIL TAB 20 MG PO SCH ×2 (08:47→20:42)
[2018-01-28] MEDS: ZYLOPRIM PO SCH (08:48)
[2018-01-28] MEDS: MILK OF MAGNESIA PO SCH ×4 (08:48→20:40)
[2018-01-28] MEDS: HEMOCYTE-PLUS PO SCH (08:48)
[2018-01-28] MEDS: K-DUR TAB 20 MEQ PO SCH (08:48)
[2018-01-28] MEDS: LASIX PO SCH (08:48)
[2018-01-28] MEDS: CELEXA PO SCH (08:48)
[2018-01-28] MEDS: PLAVIX PO SCH (08:48)
[2018-01-28] MEDS: BACTROBAN CREAM TOP SCH ×2 (08:49→20:47)
--- NOTE | 2018-01-28 14:27 | PCM.PROG ---
Progress Note - Progress Note for Day of Date: 01/28/18 - Subjective Subjective: 78WM DIRECT ADMIT FROM DR MEAD OFFICE 01/21 WITH CELLULITIS AND OPEN WOUND TO RLE S/P VENOUS STENT PLACEMENT. PT STARTED ON IV ABTX AND PAIN CONTROL WITH WOUND CULTURE COLLECTED ON ADMISSION. PT CONTINUES TO HAVE BILATERAL LOWER EXTREMITY REDNESS WORSE ON RIGHT WITH IMPROVING, RESOLVING BLISTERING AND SKIN PEELING. PT HAS SOB IMPROVED THIS AM, PT HAD LASIX IV WITH INCREASE URINE OUTPT. PLAN TO DC [facility] TODAY, CONSULT PT TO ASSIST WITH MOBILITY , CASE MANAGEMENT CONSULT FOR HOME HEALTH AND PT IN HOME WHEN CLEAR FOR D/C - Past Medical Family Social History Past Med/Fam/Surg Hx: No changes since H&P Allergies: Allergies No Known Drug Allergies [NKDA] Allergy (Verified 01/21/18 16:57) - Review of Systems ROS: No change since H&P - Vital Signs and I&O's Vital Signs: Temperature 99.1 F Pulse Rate [Right Brachial] 50 Pulse Rate 54 Respiratory Rate 20 Blood Pressure [Right Arm] 142/65 Blood Pressure [Left Arm] 145/63 Blood Pressure 164/52 O2 Sat by Pulse Oximetry 94 Intake and Output: Intake & Output 01/26/18 01/27/18 01/28/18 01/29/18 11:59 11:59 11:59 11:59 Intake Total 1665 1780 1580 Output Total 325 3070 Balance 1665 1455 -1490 - Physical Exam Oriented: Normal Eyes: Normal Ear: Normal Nose: Normal Throat: Normal Respiratory: Diminished Cardiovascular: Normal, Bradycardia : Normal Auscultation: Bowel Sounds: Normal Tenderness: Normal Skin: Rash, Red, Tender Musculoskeletal: Right, Left, Leg, Back:Thoracic, Back:Lumbar Psychiatric: Anxiety Affect: Anxious Speech Pattern: Clear, Inappropriate - Laboratory and Diagnostics Result Diagrams: 01/28/18 04:50 01/28/18 04:50 Labs: 01/21/18 16:29 Blood Blood Culture - Final 01/21/18 16:32 Blood Blood Culture - Final 01/21/18 16:56 Leg - Left Gram Stain - Final 01/21/18 16:56 Leg - Left Wound Culture - Final Staphylococcus Aureus Acromobacter Species 01/21/18 16:56 Leg - Right Gram Stain - Final 01/21/18 16:56 Leg - Right Wound Culture - Final Staphylococcus Aureus Laboratory WBC 8.0 X10^3/uL (3.6-10.0) 01/28/18 04:50 RBC 3.21 X10^6/uL (4.7-6.0) L 01/28/18 04:50 Hgb 9.7 g/dL (13.5-18.0) L 01/28/18 04:50 Hct 28.3 % (42.0-54.0) L 01/28/18 04:50 MCV 88.3 fL (80.0-100.0) 01/28/18 04:50 MCH 30.3 pg (27.0-34.0) 01/28/18 04:50 MCHC 34.3 g/dL (33.0-35.0) 01/28/18 04:50 RDW 14.2 % (11.6-16.5) 01/28/18 04:50 Plt Count 186 X10^3/uL (150.0-450.0) 01/28/18 04:50 MPV 8.2 fL (7.4-11.0) 01/28/18 04:50 Neut % (Auto) 71.1 % (42.0-75.0) 01/28/18 04:50 Lymph % (Auto) 13.9 % (21.0-51.0) L 01/28/18 04:50 [place] % (Auto) 10.4 % (0.0-13.0) 01/28/18 04:50 Eos % (Auto) 3.9 % (0.9-2.9) H 01/28/18 04:50 Baso % (Auto) 0.7 % (0.2-1.0) 01/28/18 04:50 Neut # (Auto) 5.7 x10^3/uL (2.2-4.8) H 01/28/18 04:50 Lymph # (Auto) 1.1 X10^3/uL (1.3-2.9) L 01/28/18 04:50 [place] # (Auto) 0.8 x10^3/uL (0.3-0.8) 01/28/18 04:50 Eos # (Auto) 0.3 x10^3/uL (0.0-0.2) H 01/28/18 04:50 Baso # (Auto) 0.1 X10^3/uL (0.0-0.1) 01/28/18 04:50 Absolute Nucleated RBC 0.0 /100WBC 01/28/18 04:50 Sample Site Rbra 01/27/18 04:31 ABG pH 7.390 (7.35-7.45) 01/27/18 04:31 ABG pCO2 56.0 mmHg (35.0-45.0) H* 01/27/18 04:31 ABG pO2 49.0 mmHg (80.0-100.0) L* 01/27/18 04:31 ABG HCO3 33.9 mmol/L (22-26) H* 01/27/18 04:31 ABG O2 Saturation 84.0 % (90-100) L* 01/27/18 04:31 ABG Base Excess 7.3 mmol/L (-2.0-2.0) H 01/27/18 04:31 Markos Test Na 01/27/18 04:31 A-a Gradient 81.0 mmHg 01/27/18 04:31 FiO2 28.000 01/27/18 04:31 Blood Gas Comments Sue abg well-mtf 01/27/18 04:31 Sodium 137 mmol/L (136-145) 01/28/18 04:50 Corrected Sodium 139 mmol/L (136-145) 01/28/18 04:50 Potassium 4.7 mmol/L (3.5-5.1) 01/28/18 04:50 Chloride 100 mmol/L (98-107) 01/28/18 04:50 Carbon Dioxide 31.8 mmol/L (21-32) 01/28/18 04:50 BUN 40 mg/dL (7-18) H 01/28/18 04:50 Creatinine 1.56 mg/dL (0.70-1.30) H 01/28/18 04:50 Est GFR (MDRD) Af Amer 56 (>60) L 01/28/18 04:50 Est GFR (MDRD) Non-Af 46 (>60) L 01/28/18 04:50 Glucose 202 mg/dL (65-99) H 01/28/18 04:50 POC Glucose (mg/dL) 227 mg/dL (65-99) H 01/28/18 11:16 Calcium 8.6 mg/dL (8.5-10.1) 01/28/18 04:50 Corrected Calcium 9.6 mg/dL (8.5-10.1) 01/28/18 04:50 Total Bilirubin 0.30 mg/dL (0.2-1.0) 01/28/18 04:50 AST 16 Units/L (15-37) 01/28/18 04:50 ALT 13 Units/L (12-78) 01/28/18 04:50 Alkaline Phosphatase 148 Units/L (46-116) H 01/28/18 04:50 Creatine Kinase 65 Units/L (39-308) 01/27/18 08:55 CK-MB (CK-2) 1.2 ng/mL (0-4.0) 01/27/18 08:55 CK/CKMB % Calc 1.9 % (<4) 01/27/18 08:55 Troponin I < 0.02 ng/mL (0-1.5) 01/27/18 08:55 Total Protein 6.8 g/dL (6.4-8.2) 01/28/18 04:50 Albumin 2.7 g/dL (3.4-5.0) L 01/28/18 04:50 Globulin 4.1 g/dL (2.5-4.5) 01/28/18 04:50 Albumin/Globulin Ratio 0.7 Ratio (1.1-2.1) L 01/28/18 04:50 Specimen Type Catherized urine 01/27/18 10:42 Urine Color Yellow (YELLOW) 01/27/18 10:42 Urine Appearance Clear (CLEAR) 01/27/18 10:42 Urine pH 6.0 (5.0 - 8.0) 01/27/18 10:42 Ur Specific [place] 1.010 (1.000-1.030) 01/27/18 10:42 Urine Protein 2+ (NEGATIVE) 01/27/18 10:42 Urine Glucose (UA) 2+ (NEGATIVE) 01/27/18 10:42 Urine Ketones Negative (NEGATIVE) 01/27/18 10:42 Urine Occult Blood Negative (NEGATIVE) 01/27/18 10:42 Urine Nitrite Negative (NEGATIVE) 01/27/18 10:42 Urine Bilirubin Negative (NEGATIVE) 01/27/18 10:42 Urine Urobilinogen Normal (NORMAL) 01/27/18 10:42 Ur Leukocyte Esterase Negative (NEGATIVE) 01/27/18 10:42 Urine RBC 0-2 /HPF (NONE SEEN) 01/27/18 10:42 Urine WBC 0-2 /HPF (NONE SEEN) 01/27/18 10:42 Ur Squamous Epith Cells Rare /HPF (NEGATIVE) 01/27/18 10:42 Urine Bacteria Negative /HPF (NEGATIVE) 01/27/18 10:42 Ur Culture Indicated? No/not indicated 01/27/18 10:42 Vancomycin Trough 18.1 ug/mL (15-20) 01/28/18 04:50 - Plan (1) Cellulitis, leg Status: Chronic Qualifiers: Laterality: unspecified laterality Qualified Code(s): L03.119 - Cellulitis of unspecified part of limb Plan: CONTINUE WOUND CARE, CONTINUE. IV ATBX, CHRONIC DISEASE MANAGEMENT. PT, PAIN CONTROL. RESP THERAPY, BS CONTROL (2) CAD (coronary artery disease) Status: Chronic (3) COPD (chronic obstructive pulmonary disease) Status: Chronic Qualifiers: COPD type: unspecified COPD Qualified Code(s): J44.9 - Chronic obstructive pulmonary disease, unspecified (4) Congestive heart failure Status: Chronic Plan: TELEMETRY, CXR Q AM. CONTINUE O2, JET NEBS, BP MONITORING (5) Diabetes mellitus, type 2 Status: Chronic (6) Dyslipidemia Status: Chronic (7) Gout Status: Chronic (8) Hypertension Status: Chronic Qualifiers: Hypertension type: unspecified secondary hypertension Qualified Code(s): I15.9 - Secondary hypertension, unspecified (9) SOB (shortness of breath) Status: Acute Plan: CXR, EKG. TREAT RESP ILLNESS, JET NEBS BIPAP PRN. HTN MONITORING
[2018-01-28] MEDS: NORCO 10/325 TAB PO PRN ×2 (15:42)
[2018-01-28] MEDS: ZANTAC PO SCH (20:40)
[2018-01-28] MEDS: FLOMAX PO SCH (20:41)
[2018-01-28] MEDS: COLACE CAP 100 MG PO SCH (20:42)
[2018-01-28] MEDS: LEVAQUIN PREMIX IV 500 MG 500 MG/100 ML BAG IV SCH (20:43)
[2018-01-28] MEDS: LEVEMIR SC SCH (20:43)
[2018-01-28] MEDS: SNACK - Diabetic Appropriate PO SCH (20:48)
[2018-01-29] MEDS: NORCO 10/325 TAB PO PRN ×2 (00:57→23:44)
[2018-01-29] MEDS: PROVENTIL NEB TX 0.083% 2.5MG/ 3ML NEB SCH ×4 (01:20→16:19)
[2018-01-29 06:06] LABS: BASOPHILS % (AUTO) 0.6 % (0.2-1.0); EOSINOPHILS # (AUTO) 0.3 x10^3/uL (0.0-0.2); EOSINOPHILS % (AUTO) 3.3 % (0.9-2.9); HEMATOCRIT 25.9 % (42.0-54.0); HEMOGLOBIN 8.9 g/dL (13.5-18.0); LYMPHOCYTES # (AUTO) 1.3 X10^3/uL (1.3-2.9); LYMPHOCYTES % (AUTO) 17.1 % (21.0-51.0); MEAN CORPUSCULAR HEMOGLOBIN 30.3 pg (27.0-34.0); MEAN CORPUSCULAR HGB CONC 34.6 g/dL (33.0-35.0); MEAN CORPUSCULAR VOLUME 87.6 fL (80.0-100.0); MEAN PLATELET VOLUME 8.1 fL (7.4-11.0); MONOCYTES # (AUTO) 0.8 x10^3/uL (0.3-0.8); MONOCYTES % (AUTO) 10.7 % (0.0-13.0); NEUTROPHILS # (AUTO) 5.3 x10^3/uL (2.2-4.8); NEUTROPHILS % (AUTO) 68.3 % (42.0-75.0); PLATELET COUNT 188 X10^3/uL (150.0-450.0); RED BLOOD COUNT 2.95 X10^6/uL (4.7-6.0); RED CELL DISTRIBUTION WIDTH 14.3 % (11.6-16.5); WHITE BLOOD COUNT 7.8 X10^3/uL (3.6-10.0)
[2018-01-29 06:31] LABS: CALCIUM 8.7 mg/dL (8.5-10.1); CARBON DIOXIDE 33.1 mmol/L (21-32); CREATININE 1.61 mg/dL (0.70-1.30)
[2018-01-29] MEDS ORDERED: ZESTRIL TAB 20 MG ONE ×2 (08:19→19:31)
[2018-01-29] MEDS: MIRALAX POWDER (1 DOSE 17GM) PO SCH (08:33)
[2018-01-29] MEDS: PEPCID 20 MG IV PREMIX* 20 MG/50 ML BAG IV SCH ×2 (08:34→21:00)
[2018-01-29] MEDS: PRAVACHOL PO SCH (08:35)
[2018-01-29] MEDS: STERILE WATER IRRIGATION IR SCH (08:35)
[2018-01-29] MEDS: ULTRAM PO PRN (08:35)
[2018-01-29] MEDS: BACTROBAN CREAM TOP SCH ×2 (08:35→21:01)
[2018-01-29] MEDS: APRESOLINE TAB 25 MG PO SCH ×2 (08:36→21:01)
[2018-01-29] MEDS: ZESTRIL TAB 20 MG PO SCH ×2 (08:36→21:00)
[2018-01-29] MEDS: ASPIRIN PO SCH (08:36)
[2018-01-29] MEDS: LASIX PO SCH (08:36)
[2018-01-29] MEDS: K-DUR TAB 20 MEQ PO SCH (08:36)
[2018-01-29] MEDS: COZAAR PO SCH (08:36)
[2018-01-29] MEDS: CELEXA PO SCH (08:37)
[2018-01-29] MEDS: PLAVIX PO SCH (08:37)
[2018-01-29] MEDS: NEURONTIN CAP 400 MG PO SCH (08:37)
[2018-01-29] MEDS: ZYLOPRIM PO SCH (08:37)
[2018-01-29] MEDS: DESYREL PO SCH (08:37)
[2018-01-29] MEDS: ZAROXOYLN PO SCH (08:37)
[2018-01-29] MEDS: MILK OF MAGNESIA PO SCH ×4 (08:37→21:04)
[2018-01-29] MEDS: HEMOCYTE-PLUS PO SCH (08:37)
[2018-01-29] MEDS: PULMICORT NEB TX 0.5 MG NEB SCH ×2 (08:52→20:35)
[2018-01-29] MEDS ORDERED: VANCOMYCIN HCL 500 MG VIAL ONE (09:04)
[2018-01-29] MEDS: VANCOMYCIN HCL 500 MG VIAL 250 MG, VANCOMYCIN HCL 1 GM VIAL 1 GM in D5W 250 ML IV 250 ML IV SCH (09:08)
[2018-01-29] MEDS: HumuLIN R SUBCUT PRN ×3 (12:16→21:09)
--- NOTE | 2018-01-29 13:36 | PCM.PROG ---
Progress Note - Subjective Subjective: 78WM DIRECT ADMIT FROM DR MEAD OFFICE 01/21 WITH CELLULITIS AND OPEN WOUND TO RLE S/P VENOUS STENT PLACEMENT. PT STARTED ON IV ABTX AND PAIN CONTROL WITH WOUND CULTURE COLLECTED ON ADMISSION. PT CONTINUES TO HAVE BILATERAL LOWER EXTREMITY REDNESS WITH IS MUCH IMPROVED FROM ADMISSION. PT SITTING ON SIDE OF BED THIS AM, "FEELS MUCH BETTER TODAY" NO ACUTE DISTRESS, DISCUSSED POSSIBLE D/C HOME TOMORROW WITH HOME HEALTH. - Past Medical Family Social History Past Med/Fam/Surg Hx: No changes since H&P Allergies: Allergies No Known Drug Allergies [NKDA] Allergy (Verified 01/21/18 16:57) - Review of Systems ROS: No change since H&P - Vital Signs and I&O's Vital Signs: Temperature 98.6 F Pulse Rate [Right Brachial] 49 Pulse Rate 54 Respiratory Rate 22 Blood Pressure [Right Arm] 188/77 Blood Pressure [Left Arm] 145/63 Blood Pressure 164/52 O2 Sat by Pulse Oximetry 91 Intake and Output: Intake & Output 01/27/18 01/28/18 01/29/18 01/30/18 11:59 11:59 11:59 11:59 Intake Total 1780 1580 1480 Output Total 325 3070 2550 Balance 1455 -1490 -1070 - Physical Exam Oriented: Normal Eyes: Normal Ear: Normal Nose: Normal Throat: Normal Respiratory: Diminished Cardiovascular: Normal, Bradycardia : Normal Auscultation: Bowel Sounds: Normal Tenderness: Normal Skin: Rash, Red Musculoskeletal: Right, Left, Leg, Back:Thoracic, Back:Lumbar Psychiatric: Anxiety Affect: Anxious Speech Pattern: Clear, Appropriate - Laboratory and Diagnostics Result Diagrams: 01/29/18 04:23 01/29/18 04:23 Labs: 01/21/18 16:29 Blood Blood Culture - Final 01/21/18 16:32 Blood Blood Culture - Final 01/21/18 16:56 Leg - Left Gram Stain - Final 01/21/18 16:56 Leg - Left Wound Culture - Final Staphylococcus Aureus Acromobacter Species 01/21/18 16:56 Leg - Right Gram Stain - Final 01/21/18 16:56 Leg - Right Wound Culture - Final Staphylococcus Aureus Laboratory WBC 7.8 X10^3/uL (3.6-10.0) 01/29/18 04:23 RBC 2.95 X10^6/uL (4.7-6.0) L 01/29/18 04:23 Hgb 8.9 g/dL (13.5-18.0) L 01/29/18 04:23 Hct 25.9 % (42.0-54.0) L 01/29/18 04:23 MCV 87.6 fL (80.0-100.0) 01/29/18 04:23 MCH 30.3 pg (27.0-34.0) 01/29/18 04:23 MCHC 34.6 g/dL (33.0-35.0) 01/29/18 04:23 RDW 14.3 % (11.6-16.5) 01/29/18 04:23 Plt Count 188 X10^3/uL (150.0-450.0) 01/29/18 04:23 MPV 8.1 fL (7.4-11.0) 01/29/18 04:23 Neut % (Auto) 68.3 % (42.0-75.0) 01/29/18 04:23 Lymph % (Auto) 17.1 % (21.0-51.0) L 01/29/18 04:23 [place] % (Auto) 10.7 % (0.0-13.0) 01/29/18 04:23 Eos % (Auto) 3.3 % (0.9-2.9) H 01/29/18 04:23 Baso % (Auto) 0.6 % (0.2-1.0) 01/29/18 04:23 Neut # (Auto) 5.3 x10^3/uL (2.2-4.8) H 01/29/18 04:23 Lymph # (Auto) 1.3 X10^3/uL (1.3-2.9) 01/29/18 04:23 [place] # (Auto) 0.8 x10^3/uL (0.3-0.8) 01/29/18 04:23 Eos # (Auto) 0.3 x10^3/uL (0.0-0.2) H 01/29/18 04:23 Baso # (Auto) 0.0 X10^3/uL (0.0-0.1) 01/29/18 04:23 Absolute Nucleated RBC 0.0 /100WBC 01/29/18 04:23 Sample Site Rbra 01/27/18 04:31 ABG pH 7.390 (7.35-7.45) 01/27/18 04:31 ABG pCO2 56.0 mmHg (35.0-45.0) H* 01/27/18 04:31 ABG pO2 49.0 mmHg (80.0-100.0) L* 01/27/18 04:31 ABG HCO3 33.9 mmol/L (22-26) H* 01/27/18 04:31 ABG O2 Saturation 84.0 % (90-100) L* 01/27/18 04:31 ABG Base Excess 7.3 mmol/L (-2.0-2.0) H 01/27/18 04:31 Markos Test Na 01/27/18 04:31 A-a Gradient 81.0 mmHg 01/27/18 04:31 FiO2 28.000 01/27/18 04:31 Blood Gas Comments Sue abg well-mtf 01/27/18 04:31 Sodium 135 mmol/L (136-145) L 01/29/18 04:23 Corrected Sodium 137 mmol/L (136-145) 01/29/18 04:23 Potassium 4.9 mmol/L (3.5-5.1) 01/29/18 04:23 Chloride 98 mmol/L (98-107) 01/29/18 04:23 Carbon Dioxide 33.1 mmol/L (21-32) H 01/29/18 04:23 BUN 39 mg/dL (7-18) H 01/29/18 04:23 Creatinine 1.61 mg/dL (0.70-1.30) H 01/29/18 04:23 Est GFR (MDRD) Af Amer 54 (>60) L 01/29/18 04:23 Est GFR (MDRD) Non-Af 44 (>60) L 01/29/18 04:23 Glucose 182 mg/dL (65-99) H 01/29/18 04:23 POC Glucose (mg/dL) 281 mg/dL (65-99) H 01/29/18 11:58 Calcium 8.7 mg/dL (8.5-10.1) 01/29/18 04:23 Corrected Calcium 9.6 mg/dL (8.5-10.1) 01/28/18 04:50 Total Bilirubin 0.30 mg/dL (0.2-1.0) 01/28/18 04:50 AST 16 Units/L (15-37) 01/28/18 04:50 ALT 13 Units/L (12-78) 01/28/18 04:50 Alkaline Phosphatase 148 Units/L (46-116) H 01/28/18 04:50 Creatine Kinase 65 Units/L (39-308) 01/27/18 08:55 CK-MB (CK-2) 1.2 ng/mL (0-4.0) 01/27/18 08:55 CK/CKMB % Calc 1.9 % (<4) 01/27/18 08:55 Troponin I < 0.02 ng/mL (0-1.5) 01/27/18 08:55 Total Protein 6.8 g/dL (6.4-8.2) 01/28/18 04:50 Albumin 2.7 g/dL (3.4-5.0) L 01/28/18 04:50 Globulin 4.1 g/dL (2.5-4.5) 01/28/18 04:50 Albumin/Globulin Ratio 0.7 Ratio (1.1-2.1) L 01/28/18 04:50 Specimen Type Catherized urine 01/27/18 10:42 Urine Color Yellow (YELLOW) 01/27/18 10:42 Urine Appearance Clear (CLEAR) 01/27/18 10:42 Urine pH 6.0 (5.0 - 8.0) 01/27/18 10:42 Ur Specific [place] 1.010 (1.000-1.030) 01/27/18 10:42 Urine Protein 2+ (NEGATIVE) 01/27/18 10:42 Urine Glucose (UA) 2+ (NEGATIVE) 01/27/18 10:42 Urine Ketones Negative (NEGATIVE) 01/27/18 10:42 Urine Occult Blood Negative (NEGATIVE) 01/27/18 10:42 Urine Nitrite Negative (NEGATIVE) 01/27/18 10:42 Urine Bilirubin Negative (NEGATIVE) 01/27/18 10:42 Urine Urobilinogen Normal (NORMAL) 01/27/18 10:42 Ur Leukocyte Esterase Negative (NEGATIVE) 01/27/18 10:42 Urine RBC 0-2 /HPF (NONE SEEN) 01/27/18 10:42 Urine WBC 0-2 /HPF (NONE SEEN) 01/27/18 10:42 Ur Squamous Epith Cells Rare /HPF (NEGATIVE) 01/27/18 10:42 Urine Bacteria Negative /HPF (NEGATIVE) 01/27/18 10:42 Ur Culture Indicated? No/not indicated 01/27/18 10:42 Vancomycin Trough 18.1 ug/mL (15-20) 01/28/18 04:50 - Plan (1) Cellulitis, leg Status: Chronic Qualifiers: Laterality: unspecified laterality Qualified Code(s): L03.119 - Cellulitis of unspecified part of limb Plan: CONTINUE WOUND CARE, CONTINUE. IV ATBX, CHRONIC DISEASE MANAGEMENT. PT, PAIN CONTROL. RESP THERAPY, BS CONTROL (2) CAD (coronary artery disease) Status: Chronic (3) COPD (chronic obstructive pulmonary disease) Status: Chronic Qualifiers: COPD type: unspecified COPD Qualified Code(s): J44.9 - Chronic obstructive pulmonary disease, unspecified (4) Congestive heart failure Status: Chronic Plan: TELEMETRY,. CONTINUE O2, JET NEBS, BP MONITORING (5) Diabetes mellitus, type 2 Status: Chronic (6) Dyslipidemia Status: Chronic (7) Gout Status: Chronic (8) Hypertension Status: Chronic Qualifiers: Hypertension type: unspecified secondary hypertension Qualified Code(s): I15.9 - Secondary hypertension, unspecified (9) Bradycardia with 41-50 beats per minute Status: Acute Plan: PT STATES HE HAS "ALWAYS HAD LOW PULSE RATE". PT AGREED TO CARDIOLOGY CONSULT ON OUTPT BASIS. PT IS ASYMPTOMATIC AT PRESENT
[2018-01-29 15:26] LABS: ALBUMIN 2.6 g/dL (3.4-5.0); COR CA(FOR HYPOALB) 9.8 mg/dL (8.5-10.1)
[2018-01-29 15:29] LABS: TOTAL PROTEIN 6.6 g/dL (6.4-8.2)
[2018-01-29] MEDS: SNACK - Diabetic Appropriate PO SCH (20:59)
[2018-01-29] MEDS: FLOMAX PO SCH (21:00)
[2018-01-29] MEDS: COLACE CAP 100 MG PO SCH (21:01)
[2018-01-29] MEDS: LEVEMIR SC SCH (21:02)
[2018-01-29] MEDS: LEVAQUIN PREMIX IV 500 MG 500 MG/100 ML BAG IV SCH (21:02)
[2018-01-30] MEDS: PROVENTIL NEB TX 0.083% 2.5MG/ 3ML NEB SCH ×2 (01:10→05:12)
[2018-01-30] MEDS: HumuLIN R SUBCUT PRN (05:33)
[2018-01-30 05:47] LABS: BASOPHILS # (AUTO) 0.1 X10^3/uL (0.0-0.1); BASOPHILS % (AUTO) 0.8 % (0.2-1.0); EOSINOPHILS # (AUTO) 0.3 x10^3/uL (0.0-0.2); EOSINOPHILS % (AUTO) 4.9 % (0.9-2.9); HEMATOCRIT 24.9 % (42.0-54.0); HEMOGLOBIN 8.7 g/dL (13.5-18.0); LYMPHOCYTES # (AUTO) 1.4 X10^3/uL (1.3-2.9); LYMPHOCYTES % (AUTO) 19.4 % (21.0-51.0); MEAN CORPUSCULAR HEMOGLOBIN 30.6 pg (27.0-34.0); MEAN CORPUSCULAR HGB CONC 34.8 g/dL (33.0-35.0); MEAN CORPUSCULAR VOLUME 87.8 fL (80.0-100.0); MEAN PLATELET VOLUME 8.1 fL (7.4-11.0); MONOCYTES # (AUTO) 0.6 x10^3/uL (0.3-0.8); MONOCYTES % (AUTO) 8.5 % (0.0-13.0); NEUTROPHILS # (AUTO) 4.7 x10^3/uL (2.2-4.8); NEUTROPHILS % (AUTO) 66.4 % (42.0-75.0); PLATELET COUNT 193 X10^3/uL (150.0-450.0); RED BLOOD COUNT 2.84 X10^6/uL (4.7-6.0); RED CELL DISTRIBUTION WIDTH 14.4 % (11.6-16.5)
[2018-01-30 06:29] LABS: ALBUMIN 2.5 g/dL (3.4-5.0); CALCIUM 8.5 mg/dL (8.5-10.1); CARBON DIOXIDE 32.1 mmol/L (21-32); COR CA(FOR HYPOALB) 9.7 mg/dL (8.5-10.1); CREATININE 1.46 mg/dL (0.70-1.30); TOTAL PROTEIN 6.4 g/dL (6.4-8.2)
[2018-01-30 08:20] VITALS: BP 146/62
[2018-01-30] MEDS ORDERED: VANCOMYCIN HCL 500 MG VIAL ONE (08:34)
[2018-01-30] MEDS ORDERED: ZESTRIL TAB 20 MG ONE (08:35)
[2018-01-30] MEDS: PULMICORT NEB TX 0.5 MG NEB SCH (09:04)
[2018-01-30] MEDS: MIRALAX POWDER (1 DOSE 17GM) PO SCH (09:23)
[2018-01-30] MEDS: PEPCID 20 MG IV PREMIX* 20 MG/50 ML BAG IV SCH ×2 (09:23→09:35)
[2018-01-30] MEDS: VANCOMYCIN HCL 500 MG VIAL 250 MG, VANCOMYCIN HCL 1 GM VIAL 1 GM in D5W 250 ML IV 250 ML IV SCH ×2 (09:23→09:35)
[2018-01-30] MEDS: ZESTRIL TAB 20 MG PO SCH (09:31)
[2018-01-30] MEDS: MILK OF MAGNESIA PO SCH (09:31)
[2018-01-30] MEDS: NEURONTIN CAP 400 MG PO SCH (09:32)
[2018-01-30] MEDS: APRESOLINE TAB 25 MG PO SCH (09:32)
[2018-01-30] MEDS: COZAAR PO SCH (09:32)
[2018-01-30] MEDS: PLAVIX PO SCH (09:32)
[2018-01-30] MEDS: ASPIRIN PO SCH (09:32)
[2018-01-30] MEDS: PRAVACHOL PO SCH (09:32)
[2018-01-30] MEDS: CELEXA PO SCH (09:33)
[2018-01-30] MEDS: ULTRAM PO PRN (09:33)
[2018-01-30] MEDS: DESYREL PO SCH (09:34)
[2018-01-30] MEDS: K-DUR TAB 20 MEQ PO SCH (09:34)
[2018-01-30] MEDS: HEMOCYTE-PLUS PO SCH (09:34)
[2018-01-30] MEDS: ZYLOPRIM PO SCH (09:34)
[2018-01-30] MEDS: LASIX PO SCH (09:34)
[2018-01-30] MEDS: ZAROXOYLN PO SCH (09:35)
[2018-01-30] MEDS: STERILE WATER IRRIGATION IR SCH (09:36)
[2018-01-30] MEDS: BACTROBAN CREAM TOP SCH (09:36)
[2018-01-31] MEDS ORDERED: PHARMACY COMMENT IV SCH (08:45)
== END 2018-01-30 11:50 | disposition home health service (06) | DRG 603 ==
LOC: MED/SURG 15:44
PROVIDERS: ADMIT Internal Medicine; ATTEND Internal Medicine
DX: L03.115 Cellulitis of right lower limb (principal); B95.7 Other staphylococcus as the cause of diseases classified elsewhere; B96.89 Other specified bacterial agents as the cause of diseases classified elsewhere; E11.65 Type 2 diabetes mellitus with hyperglycemia; I10 Essential (primary) hypertension; I25.10 Atherosclerotic heart disease of native coronary artery without angina pectoris; J44.9 Chronic obstructive pulmonary disease, unspecified; E78.2 Mixed hyperlipidemia; I50.9 Heart failure, unspecified; R60.0 Localized edema; Z98.890 Other specified postprocedural states; R00.1 Bradycardia, unspecified; M10.9 Gout, unspecified; R06.02 Shortness of breath; R26.89 Other abnormalities of gait and mobility
CPT/HCPCS: 36415; 36600; 71045; 80053; 80202; 81001; 82550; 82553; 82565; 82803; 82947; 84484; 85025; 87040; 87070; 87075; 87077; 87186; 87205; 93005; 93010; 93970; 94640; 94760; 99231; A4217; A4222; S0028; 1956; J1815; J1940; J1956; J3370; J7613; J7626

== ENCOUNTER 2018-05-01 08:32 | Inpatient (IN) ==
[2018-05-01] MEDS ORDERED: DUONEB 0.5 MG/3 MG NEB ONE (08:49)
[2018-05-01] MEDS ORDERED: DUONEB 0.5 MG/3 MG ONE (08:51)
--- NOTE | 2018-05-01 09:13 | RAD ---
HISTORY: Shortness of breath, cough, and congestion. Study: Portable chest. Comparison: Chest x-ray dated January 29, 2018. Findings: Postsurgical changes status post CABG. The cardiac silhouette is enlarged with prominent perihilar va sculature, diffuse alveolar/interstitial markings, and suggestion of a small left pleural effusion. No obvious pneumothorax. The bony thorax is unremarkable. IMPRESSION: Constellation of findings likely representing pulmonary edema secondary to congestive hea rt failure. Underlying infiltrate not entirely excluded. Reported By:
--- NOTE | 2018-05-01 09:15 | DR.SOBA ---
HPI Time Seen Time seen: 08:53 Primary Care Physician Primary Care Physician: FELICIA MARSHALL Complaints Chief Complaint Doctors Comments: Patient presented to the ED via EMS with complaint of SOB. He admits that his SOB today is no different then in the past. He admits to PND, sleeps in a chair due to SOB for years. He has COPD uses 3L/oxygen daily does not have a Nebulizer. He denies chest pain or change in the lower extremity rash or edema. The has been ongoing for years with tid visitation of home health nurse. Chief Complaint:: SOB/SWELLING TO ARIEL LOWER EXTREMTIES Self Treatment fo Chief Complaint: Home health nurse visitation three times weekly, last visit was yesterday Reviewed Nurses Notes Reviewed: Yes Source History Provided: Patient Mode of Arrival Mode of Arrival: EMS Timing Onset of Chief Complaint: 05/01/18 Duration Duration: Years Context PE Risk Factors:: None History of:: CHF Currently on:: Inhaled Bronchodilators Modifying Factors Worsens:: Nothing, Exertion and Lying Flat; denies Anxiety and Other Improves:: denies Nothing, Inhaler, Rest, Sitting Up, NSAIDS and Other Associated Signs and Symptoms Associated Signs and Symptoms: None PMH PMH Past Medical History: Yes Past Medical History: Arthritis, CHF, COPD, Diabetes, Dyslipidemia, Hypertension and Renal Disease Past Surgical History: Yes Surgical History: CABG/Valve Surgery and Other Family History History of Family Medical Conditions: Yes Family Medical History: Diabetes Mellitus, MS, Coronary Artery Disease and Hypertension Social History Does patient currently use any type of tobacco product: No Have you used tobacco products in the last 12 months: No Type of Tobacco Use: None Does any household member use tobacco: No Alcohol Use: None Do you use any recreational Drugs:: No Lives With: Alone Lives Where: Home infectious screening In the last 2 months have you had wt loss of >10#?: NO Have you had fever, night sweats or hemotysis?: No Have you traveled outside the country in the last 6 months?: No Isolation: Standard ROS Review of Systems Constitutional: See HPI; negative Diaphoresis and Weakness Eyes: No Symptoms Reported ENTM: No Symptoms Reported, Ear Discharge, Nose Pain and Nose Congestion Respiratoy: Orthopnea and Short of Breath (No change in breathing, denies fever) ; negative Wheezing Cardiovascular: See HPI; negative Edema and Cyanosis Gastrointestinal/Abdominal: negative No Symptoms Reported, Constipation and Vomiting Neurological: No Symptoms Reported Musculoskeletal: No Symptoms Reported Integumentary: Rash (erythematous papular non weeping rash lower extremities duratin years) Endocrine: No Symptoms Reported PE Vital Signs Vitals: Temperature 98.3 F Pulse Rate 56 Respiratory Rate 34 Blood Pressure [Right Arm] 146/62 Blood Pressure [Left Arm] 183/73 Blood Pressure 208/87 O2 Sat by Pulse Oximetry 95 General Limitations: Physical Limitation General Appearance: Alert, In No Apparent Distress and In Distress Eyes Eye exam: Normal Appearance, PERRL and EOMI ENT ENT Exam: Normal Exam, Normal Oropharynx, Normal External Ear Exam and Mucous Membranes Moist Neck Neck Exam: Normal Inspection and Full ROM; negative Thyromegaly Chest Chest Inspection: Normal Inspection and Symmetric Chest Wall Rise; negative Tenderness Respiratory Respiratory Exam: Normal Lung Sounds Bilat; negative Accessory Muscle Use, Chest Wall Tenderness and Stridor Respiratory Exam: Bilateral: Clear to Auscultation Cardiovascular Cardiovascular Exam: Regular Rate and Normal Rhythm; negative Tachycardia, Irregular Rhythm, Diastolic Murmur and Gallop Abdominal Exam Abdominal Exam: Normal Inspection and Bruit; negative Hyperactive Bowel Sounds Extremities Extremities Exam: Edema (No change in past nine years according to patient who gets three times weekly dressing to lower extremity edematous non erythematous legs); negative Calf Tenderness Neurologic Neurological Exam: Alert, Oriented X3 and CN II-XII Intact Psychiatric Psychiatric Exam: Normal Affect and Normal Mood Skin Skin Exam: Warm, Dry, Normal Color, Rash (lower extremities below the knees) and Erythema; negative Diaphoresis and Mottled COURSE Treatment Treatment: Esteban Consultation Called: 10:21 Call Returned: 10:40 Consultation Comments: Dr Jarrett agreed to admit for further treatment ROR Labs Reviewed Laboratory Results Reviewed?: Yes (D Dimer elevated 915;BNAP 924) Result Diagrams: 05/01/18 09:00 05/01/18 09:00 Laboratory: WBC 7.2 X10^3/uL (3.6-10.0) 05/01/18 09:00 RBC 3.72 X10^6/uL (4.7-6.0) L 05/01/18 09:00 Hgb 10.3 g/dL (13.5-18.0) L 05/01/18 09:00 Hct 31.8 % (42.0-54.0) L 05/01/18 09:00 MCV 85.3 fL (80.0-100.0) 05/01/18 09:00 MCH 27.6 pg (27.0-34.0) 05/01/18 09:00 MCHC 32.4 g/dL (33.0-35.0) L 05/01/18 09:00 RDW 15.6 % (11.6-16.5) 05/01/18 09:00 Plt Count 229 X10^3/uL (150.0-450.0) 05/01/18 09:00 MPV 8.2 fL (7.4-11.0) 05/01/18 09:00 Neut % (Auto) 70.9 % (42.0-75.0) 05/01/18 09:00 Lymph % (Auto) 16.0 % (21.0-51.0) L 05/01/18 09:00 [place] % (Auto) 9.2 % (0.0-13.0) 05/01/18 09:00 Eos % (Auto) 2.9 % (0.9-2.9) 05/01/18 09:00 Baso % (Auto) 1.0 % (0.2-1.0) 05/01/18 09:00 Neut # (Auto) 5.1 x10^3/uL (2.2-4.8) H 05/01/18 09:00 Lymph # (Auto) 1.1 X10^3/uL (1.3-2.9) L 05/01/18 09:00 [place] # (Auto) 0.7 x10^3/uL (0.3-0.8) 05/01/18 09:00 Eos # (Auto) 0.2 x10^3/uL (0.0-0.2) 05/01/18 09:00 Baso # (Auto) 0.1 X10^3/uL (0.0-0.1) 05/01/18 09:00 Absolute Nucleated RBC 0.0 /100WBC 05/01/18 09:00 D-Dimer 915 ng/mL (0-400) H* 05/01/18 09:00 Sodium 139 mmol/L (136-145) 05/01/18 09:00 Corrected Sodium 140 mmol/L (136-145) 05/01/18 09:00 Potassium 4.8 mmol/L (3.5-5.1) 05/01/18 09:00 Chloride 105 mmol/L (98-107) 05/01/18 09:00 Carbon Dioxide 31.1 mmol/L (21-32) 05/01/18 09:00 BUN 21 mg/dL (7-18) H 05/01/18 09:00 Creatinine 1.09 mg/dL (0.70-1.30) 05/01/18 09:00 Est GFR (MDRD) Af Amer > 60 (>60) 05/01/18 09:00 Est GFR (MDRD) Non-Af > 60 (>60) 05/01/18 09:00 Glucose 136 mg/dL (65-99) H 05/01/18 09:00 Calcium 9.3 mg/dL (8.5-10.1) 05/01/18 09:00 Corrected Calcium 10.1 mg/dL (8.5-10.1) 05/01/18 09:00 Total Bilirubin 0.40 mg/dL (0.2-1.0) 05/01/18 09:00 AST 14 Units/L (15-37) L 05/01/18 09:00 ALT 15 Units/L (12-78) 05/01/18 09:00 Alkaline Phosphatase 132 Units/L (46-116) H 05/01/18 09:00 B-Natriuretic Peptide 924 pg/mL (0-79) H* 05/01/18 09:00 Total Protein 7.3 g/dL (6.4-8.2) 05/01/18 09:00 Albumin 3.0 g/dL (3.4-5.0) L 05/01/18 09:00 Globulin 4.3 g/dL (2.5-4.5) 05/01/18 09:00 Albumin/Globulin Ratio 0.7 Ratio (1.1-2.1) L 05/01/18 09:00 XRAY XRAY Interpreted by: Radiologist XRAY Findings: ...Chest:pulmonary edema secondary to CHF
[2018-05-01 09:20] LABS: BASOPHILS # (AUTO) 0.1 X10^3/uL (0.0-0.1); EOSINOPHILS # (AUTO) 0.2 x10^3/uL (0.0-0.2); EOSINOPHILS % (AUTO) 2.9 % (0.9-2.9); HEMATOCRIT 31.8 % (42.0-54.0); HEMOGLOBIN 10.3 g/dL (13.5-18.0); LYMPHOCYTES # (AUTO) 1.1 X10^3/uL (1.3-2.9); MEAN CORPUSCULAR HEMOGLOBIN 27.6 pg (27.0-34.0); MEAN CORPUSCULAR HGB CONC 32.4 g/dL (33.0-35.0); MEAN CORPUSCULAR VOLUME 85.3 fL (80.0-100.0); MEAN PLATELET VOLUME 8.2 fL (7.4-11.0); MONOCYTES # (AUTO) 0.7 x10^3/uL (0.3-0.8); MONOCYTES % (AUTO) 9.2 % (0.0-13.0); NEUTROPHILS # (AUTO) 5.1 x10^3/uL (2.2-4.8); NEUTROPHILS % (AUTO) 70.9 % (42.0-75.0); PLATELET COUNT 229 X10^3/uL (150.0-450.0); RED BLOOD COUNT 3.72 X10^6/uL (4.7-6.0); RED CELL DISTRIBUTION WIDTH 15.6 % (11.6-16.5); WHITE BLOOD COUNT 7.2 X10^3/uL (3.6-10.0)
[2018-05-01] MEDS ORDERED: LASIX IVP ONE (09:20)
[2018-05-01 09:22] LABS: ALANINE AMINOTRANSFERASE 15 Units/L (12-78); ALKALINE PHOSPHATASE 132 Units/L (46-116); ASPARTATE AMINO TRANSFERASE 14 Units/L (15-37); BLOOD UREA NITROGEN 21 mg/dL (7-18); CALCIUM 9.3 mg/dL (8.5-10.1); CARBON DIOXIDE 31.1 mmol/L (21-32); CHLORIDE 105 mmol/L (98-107); COR CA(FOR HYPOALB) 10.1 mg/dL (8.5-10.1); COR NA(FOR HYPERGLY) 140 mmol/L (136-145); CREATININE 1.09 mg/dL (0.70-1.30); SODIUM 139 mmol/L (136-145); TOTAL PROTEIN 7.3 g/dL (6.4-8.2); eGFR NON BLACK RACES > 60 (>60)
[2018-05-01] MEDS ORDERED: CATAPRES TAB 0.1 MG PO ONE (09:31)
[2018-05-01] MEDS ORDERED: CATAPRES TAB 0.1 MG ONE (09:34)
[2018-05-01 09:54] LABS: B-TYPE NATRIURETIC PEPTIDE 924 pg/mL (0-79)
[2018-05-01] MEDS ORDERED: LASIX IVP SCH (10:00)
[2018-05-01] MEDS ORDERED: NS 100 ML IV 100 ML IV ONE ×2 (10:32→20:42)
--- NOTE | 2018-05-01 11:28 | CT ---
CTA chest Indication: Shortness of breath, lower extremity swelling, elevated D-dimer Comparison: None Technique: CT images of the chest were obtained with contrast. Automatic exposure control was utilize d. MIP images provided. Findings: There is marked multilevel spondylosis with exaggeration of the normal thoracic kyphosis. N o acute osseous abnormality identified. The upper abdomen is grossly unremarkable. The heart is enlarged, without pericardial thickening or pericardial effusion. Previous median sterno ricardo and CABG noted. There are mildly enlarged bilateral hilar and subcarinal lymph nodes. The thorac ic aorta is grossly normal for technique aside from scattered atherosclerotic calcifications. No pulm onary arterial filling defect identified. There are small layering bilateral pleural effusions, greater on the right. Mild interlobular septal thickening of the lower lobes is noted. There is mild atelectasis of the dependent lower lobes bilate rally. The upper lungs are grossly clear. Impression: Cardiomegaly with findings suggesting CHF, including small bilateral pleural effusions and basilar se ptal thickening. No evidence for PTE. Mildly enlarged hilar and subcarinal lymph nodes are nonspecific, but possibly reactive. Reported By:
[2018-05-01] MEDS ORDERED: NYSTATIN POWDER ONE (11:52)
[2018-05-01] MEDS: NS 1000 ML 1,000 ML IV SCH (12:05)
[2018-05-01 12:45] VITALS: BMI 33.3
[2018-05-01 14:07] LABS: ABG BASE EXCESS 8.2 mmol/L (-2.0-2.0)
[2018-05-01 14:08] LABS: ABG HCO3 33.9 mmol/L (22-26)
[2018-05-01 14:09] LABS: ABG ALLEN TEST POS
[2018-05-01] MEDS: SILVADENE TOP SCH ×2 (15:40→23:22)
[2018-05-01] MEDS: DUONEB 0.5 MG/3 MG NEB SCH ×2 (16:40→20:27)
[2018-05-01 18:12] LABS: BILIRUBIN,URINE NEGATIVE (NEGATIVE); BLOOD/HEMOGLOBIN,URINE NEGATIVE (NEGATIVE); GLUCOSE, URINE NEGATIVE (NEGATIVE); KETONES,URINE NEGATIVE (NEGATIVE); LEUKOCYTE ESTERASE ,URINE NEGATIVE (NEGATIVE); NITRITES,URINE NEGATIVE (NEGATIVE); PROTEIN,URINE 2+ (NEGATIVE); UROBILINOGEN,URINE NORMAL (NORMAL)
[2018-05-01] MEDS: LEVAQUIN PREMIX IV 500 MG 500 MG/100 ML BAG IV SCH (18:16)
[2018-05-01 18:19] LABS: APPEARANCE,URINE SLIGHTLY HAZY (CLEAR); COLOR,URINE YELLOW (YELLOW); RBC,URINE 0-2 /HPF (NONE SEEN); SQUAMOUS EPITHELIAL CELL,UR NEGATIVE /HPF (NEGATIVE)
[2018-05-01 18:20] LABS: AMORPHOUS SEDIMENT,UR TRACE /HPF (NEGATIVE); BACTERIA,URINE NEGATIVE /HPF (NEGATIVE)
[2018-05-01] MEDS ORDERED: TEFLARO IV ONE (20:42)
[2018-05-01] MEDS: LASIX IVP SCH (21:26)
[2018-05-01] MEDS: TEFLARO 400 MG in NS 50 ML IV 50 ML IV SCH (21:26)
[2018-05-01] MEDS: RESTORIL CAP 15 MG PO PRN (22:15)
[2018-05-01] MEDS: NEURONTIN CAP 400 MG PO SCH (22:15)
[2018-05-02] MEDS: DUONEB 0.5 MG/3 MG NEB SCH ×7 (01:12→20:54)
[2018-05-02 04:51] LABS: ABG BASE EXCESS 7.9 mmol/L (-2.0-2.0); ABG HCO3 33.3 mmol/L (22-26)
[2018-05-02 05:24] LABS: BASOPHILS % (AUTO) 0.5 % (0.2-1.0); EOSINOPHILS # (AUTO) 0.1 x10^3/uL (0.0-0.2); EOSINOPHILS % (AUTO) 1.1 % (0.9-2.9); HEMATOCRIT 29.4 % (42.0-54.0); HEMOGLOBIN 9.7 g/dL (13.5-18.0); LYMPHOCYTES # (AUTO) 1.3 X10^3/uL (1.3-2.9); LYMPHOCYTES % (AUTO) 14.3 % (21.0-51.0); MEAN CORPUSCULAR HEMOGLOBIN 27.8 pg (27.0-34.0); MEAN CORPUSCULAR VOLUME 84.5 fL (80.0-100.0); MEAN PLATELET VOLUME 8.1 fL (7.4-11.0); MONOCYTES # (AUTO) 0.8 x10^3/uL (0.3-0.8); MONOCYTES % (AUTO) 8.2 % (0.0-13.0); NEUTROPHILS % (AUTO) 75.9 % (42.0-75.0); PLATELET COUNT 227 X10^3/uL (150.0-450.0); RED BLOOD COUNT 3.48 X10^6/uL (4.7-6.0); RED CELL DISTRIBUTION WIDTH 15.7 % (11.6-16.5); WHITE BLOOD COUNT 9.2 X10^3/uL (3.6-10.0)
[2018-05-02 05:39] LABS: ALANINE AMINOTRANSFERASE 14 Units/L (12-78); ALBUMIN 2.6 g/dL (3.4-5.0); ALKALINE PHOSPHATASE 123 Units/L (46-116); ASPARTATE AMINO TRANSFERASE 15 Units/L (15-37); BLOOD UREA NITROGEN 19 mg/dL (7-18); CALCIUM 8.9 mg/dL (8.5-10.1); CARBON DIOXIDE 28.6 mmol/L (21-32); CHLORIDE 101 mmol/L (98-107); COR NA(FOR HYPERGLY) 140 mmol/L (136-145); CREATININE 1.12 mg/dL (0.70-1.30); SODIUM 138 mmol/L (136-145); TOTAL PROTEIN 6.8 g/dL (6.4-8.2); eGFR NON BLACK RACES > 60 (>60)
[2018-05-02] MEDS: NEURONTIN CAP 400 MG PO SCH ×3 (06:06→22:10)
--- NOTE | 2018-05-02 06:42 | RAD ---
HISTORY: Cough, shortness of breath Study: Chest AP portable Comparison: 05/01/2018 Findings: The patient is rotated slightly to the left. The patient is status post median sternotomy. The heart remains enlarged. Pulmonary venous congestion is present. No definite interstitial edema, alveolar ed ramon, or alveolar infiltrates are identified. The lungs are mildly hyperinflated. No pleural effusions are identified. The bony thorax is unremarkable. IMPRESSION: Moderate cardiomegaly with pulmonary venous congestion No infiltrates Reported By:
[2018-05-02] MEDS: LASIX IVP SCH ×2 (08:46→20:42)
[2018-05-02] MEDS: SILVADENE TOP SCH ×2 (08:49→23:30)
[2018-05-02] MEDS: LEVAQUIN PREMIX IV 500 MG 500 MG/100 ML BAG IV SCH (08:49)
[2018-05-02] MEDS ORDERED: NS 100 ML IV 100 ML IV ONE (08:51)
[2018-05-02] MEDS ORDERED: IPRATROPIUM BROMIDE INH PRN (10:22)
[2018-05-02] MEDS ORDERED: DUONEB 0.5 MG/3 MG NEB PRN (11:05)
[2018-05-02] MEDS: TEFLARO 400 MG in NS 50 ML IV 50 ML IV SCH ×2 (11:29→21:03)
[2018-05-02] MEDS ORDERED: GLUCOPHAGE ONE ×2 (11:41→20:13)
[2018-05-02] MEDS ORDERED: ZESTRIL TAB 20 MG ONE ×2 (11:43→20:14)
[2018-05-02] MEDS: K-DUR TAB 20 MEQ PO SCH (11:47)
[2018-05-02] MEDS: COLACE CAP 100 MG PO SCH (11:47)
[2018-05-02] MEDS: HEMOCYTE-PLUS PO SCH ×2 (11:47→20:41)
[2018-05-02] MEDS: APRESOLINE TAB 25 MG PO SCH ×2 (11:48→20:40)
[2018-05-02] MEDS: CELEXA PO SCH (11:48)
[2018-05-02] MEDS: ZESTRIL TAB 20 MG PO SCH ×2 (11:48→20:43)
[2018-05-02] MEDS: PROSCAR PO SCH (11:48)
[2018-05-02] MEDS: ZAROXOYLN PO SCH (11:49)
[2018-05-02] MEDS: GLUCOPHAGE PO SCH ×2 (11:49→20:41)
[2018-05-02] MEDS: ASPIRIN PO SCH (11:49)
[2018-05-02] MEDS: PLAVIX PO SCH (11:50)
[2018-05-02] MEDS: ZYLOPRIM PO SCH (11:51)
[2018-05-02] MEDS: COZAAR PO SCH (11:51)
[2018-05-02] MEDS: MIRALAX POWDER (1 DOSE 17 G) PO SCH (11:57)
[2018-05-02] MEDS: HumuLIN R SC PRN ×3 (12:00→21:10)
--- NOTE | 2018-05-02 12:50 | DR.H&P ---
H&P - History & Physical for Day of: H&P Date: 05/01/18 - Chief Complaint Chief Complaint: Shortness of breath - History of Present Illness History of Present Illness: Patient presented to the ED via EMS with complaint of SOB. He admits that his SOB today is no different then in the past. He admits to PND, sleeps in a chair due to SOB for years. He has COPD uses 3L/ oxygen daily does not have a Nebulizer. He denies chest pain or change in the lower extremity rash or edema. The has been ongoing for years with tid visitation of home health nurse. - Past Medical History Past Medical History: Hypertension, Dyslipidemia, Diabetes, Renal Disease, COPD , Arthritis, CHF - Past Surgical History Surgical History: Angioplasty/Stents, Other - Family History Family Medical History: Diabetes Mellitus, Coronary Artery Disease, Sudden Cardiac , Hypertension - Social History Does patient currently use any type of tobacco product: No Have you used tobacco products in the last 12 months: No Type of Tobacco Use: Cigarettes How many years tobacco product used: 30 Does any household member use tobacco: No Alcohol Use: None Drug Use: None - Medications Home Medications: No Known Drug Allergies [NKDA] Allergy (Verified 05/01/18 08:42) CONTINUE taking the following medications allopurinol 1 tab PO DAILY 05/01/18 [History] ferrous sulfate 325 mg PO BID 05/01/18 [History] finasteride 1 tab PO DAILY 05/01/18 [History] metformin 1 tab PO BID 05/01/18 [History] - Review of Systems Constitutional: Weakness Eyes: No Symptoms Reported ENT: No Symptoms Reported Respiratory: Cough, Shortness of Breath, SOB with Excertion, Wheezing Cardiovascular: Edema Gastrointestinal: No Symptoms Reported Genitourinary: No Symptoms Reported Musculoskeletal: No Symptoms Reported Skin: No Symptoms Reported Neurological: No Symptoms Reported - Physical Exam Vital Signs: Temperature 98.6 F Pulse Rate [Right Brachial] 57 Pulse Rate 57 Respiratory Rate 26 Blood Pressure [Right Arm] 199/85 Blood Pressure [Left Arm] 162/72 Blood Pressure 208/87 O2 Sat by Pulse Oximetry 89 Oriented: Normal Eyes: Normal Ear: Normal Nose: Normal Throat: Normal Respiratory: Diminished Throughout, Wheezes Throughout Cardiovascular: Normal : Normal Auscultation: Bowel Sounds: Normal Palpation: Normal Tenderness: Normal Skin: Red Musculoskeletal: Normal Psychiatric: Normal Mood Description: Calm Affect: Normal Speech Pattern: Clear - Assessment/Plan (1) COPD (chronic obstructive pulmonary disease) Qualifiers: COPD type: COPD with acute exacerbation Qualified Code(s): J44.1 - Chronic obstructive pulmonary disease with (acute) exacerbation Status: Acute Plan: IV anxtibiotics, Nebs, Solumendrol, CXR (2) Dyspnea Qualifiers: Dyspnea type: shortness of breath Qualified Code(s): R06.02 - Shortness of breath; R06.00 - Dyspnea, unspecified; R06.01 - Orthopnea Status: Acute (3) Cellulitis, leg Qualifiers: Laterality: unspecified laterality Qualified Code(s): L03.119 - Cellulitis of unspecified part of limb Status: Chronic Plan: IV antibiotics, Monitor Labs (4) Congestive heart failure Status: Chronic Plan: CXR, Lasix IV (5) Diabetes mellitus, type 2 Status: Chronic Plan: Monitor BS. (6) Hypertension Qualifiers: Hypertension type: unspecified secondary hypertension Qualified Code(s): I15.9 - Secondary hypertension, unspecified Status: Chronic Plan: Monitor BP - Allergies Allergies/Adverse Reactions: Allergies Allergy/AdvReac Type Severity Reaction Status Date / Time No Known Drug Allergies Allergy Verified 05/01/18 08:42 [NKDA]
[2018-05-02] MEDS ORDERED: PROVENTIL NEB TX 0.083% 2.5MG/ 3ML NEB PRN (13:00)
[2018-05-02] MEDS: NS 1000 ML 1,000 ML IV SCH (13:34)
[2018-05-02] MEDS: PULMICORT NEB TX 0.5 MG NEB SCH ×2 (15:21→20:54)
[2018-05-02] MEDS: FLOMAX PO SCH (20:40)
[2018-05-02] MEDS: PRAVACHOL PO SCH (20:42)
[2018-05-02] MEDS: ZANTAC PO SCH (20:42)
[2018-05-02] MEDS: LEVEMIR SC SCH (21:11)
[2018-05-03] MEDS: DUONEB 0.5 MG/3 MG NEB SCH ×6 (01:25→20:47)
--- NOTE | 2018-05-03 06:10 | RAD ---
Examination: Portable AP chest History: SOB Comparison reference 05/02/2018 Findings: Continued cardiomegaly with pulmonary vascular distention and diffuse interstitial prominen ce. Sternal wires are present. No consolidation or pneumothorax seen. Impression: No change since 1 day earlier. Reported By:
[2018-05-03] MEDS: NEURONTIN CAP 400 MG PO SCH ×3 (06:18→21:31)
[2018-05-03 06:40] LABS: ALANINE AMINOTRANSFERASE 12 Units/L (12-78); ALBUMIN 2.5 g/dL (3.4-5.0); ALKALINE PHOSPHATASE 121 Units/L (46-116); ASPARTATE AMINO TRANSFERASE 13 Units/L (15-37); BLOOD UREA NITROGEN 24 mg/dL (7-18); CARBON DIOXIDE 31.1 mmol/L (21-32); CHLORIDE 103 mmol/L (98-107); COR CA(FOR HYPOALB) 10.2 mg/dL (8.5-10.1); CREATININE 1.35 mg/dL (0.70-1.30); SODIUM 140 mmol/L (136-145); TOTAL PROTEIN 6.7 g/dL (6.4-8.2); eGFR NON BLACK RACES 54 (>60)
[2018-05-03 06:44] LABS: BASOPHILS # (AUTO) 0.1 X10^3/uL (0.0-0.1); BASOPHILS % (AUTO) 0.9 % (0.2-1.0); EOSINOPHILS # (AUTO) 0.3 x10^3/uL (0.0-0.2); EOSINOPHILS % (AUTO) 4.5 % (0.9-2.9); HEMATOCRIT 29.5 % (42.0-54.0); HEMOGLOBIN 9.7 g/dL (13.5-18.0); LYMPHOCYTES # (AUTO) 1.1 X10^3/uL (1.3-2.9); LYMPHOCYTES % (AUTO) 17.1 % (21.0-51.0); MEAN CORPUSCULAR HEMOGLOBIN 27.9 pg (27.0-34.0); MEAN CORPUSCULAR VOLUME 84.6 fL (80.0-100.0); MEAN PLATELET VOLUME 8.1 fL (7.4-11.0); MONOCYTES # (AUTO) 0.7 x10^3/uL (0.3-0.8); MONOCYTES % (AUTO) 10.8 % (0.0-13.0); NEUTROPHILS # (AUTO) 4.1 x10^3/uL (2.2-4.8); NEUTROPHILS % (AUTO) 66.7 % (42.0-75.0); PLATELET COUNT 218 X10^3/uL (150.0-450.0); RED BLOOD COUNT 3.48 X10^6/uL (4.7-6.0); RED CELL DISTRIBUTION WIDTH 15.8 % (11.6-16.5); WHITE BLOOD COUNT 6.2 X10^3/uL (3.6-10.0)
[2018-05-03] MEDS ORDERED: GLUCOPHAGE ONE ×2 (07:28→19:32)
[2018-05-03] MEDS ORDERED: ZESTRIL TAB 20 MG ONE ×2 (07:30→19:33)
[2018-05-03] MEDS: NS 1000 ML 1,000 ML IV SCH ×3 (08:00→15:02)
[2018-05-03] MEDS: PULMICORT NEB TX 0.5 MG NEB SCH ×2 (09:37→20:47)
[2018-05-03] MEDS: LEVAQUIN PREMIX IV 500 MG 500 MG/100 ML BAG IV SCH (10:02)
[2018-05-03] MEDS: COZAAR PO SCH (10:05)
[2018-05-03] MEDS: ASPIRIN PO SCH (10:05)
[2018-05-03] MEDS: K-DUR TAB 20 MEQ PO SCH (10:05)
[2018-05-03] MEDS: PLAVIX PO SCH (10:07)
[2018-05-03] MEDS: ZESTRIL TAB 20 MG PO SCH ×2 (10:07→20:26)
[2018-05-03] MEDS: COLACE CAP 100 MG PO SCH (10:07)
[2018-05-03] MEDS: APRESOLINE TAB 25 MG PO SCH ×2 (10:07→20:26)
[2018-05-03] MEDS: HEMOCYTE-PLUS PO SCH ×2 (10:08→20:26)
[2018-05-03] MEDS: GLUCOPHAGE PO SCH ×2 (10:08→20:26)
[2018-05-03] MEDS: CELEXA PO SCH (10:08)
[2018-05-03] MEDS: PROSCAR PO SCH (10:09)
[2018-05-03] MEDS: LASIX IVP SCH ×2 (10:09→20:26)
[2018-05-03] MEDS: ZYLOPRIM PO SCH (10:09)
[2018-05-03] MEDS: ZAROXOYLN PO SCH (10:09)
[2018-05-03] MEDS: SILVADENE TOP SCH ×3 (10:11→20:27)
[2018-05-03] MEDS: MIRALAX POWDER (1 DOSE 17 G) PO SCH (10:11)
[2018-05-03] MEDS: TEFLARO 400 MG in NS 50 ML IV 50 ML IV SCH ×2 (10:28→20:27)
[2018-05-03] MEDS: HumuLIN R SC PRN (17:02)
[2018-05-03] MEDS: ZANTAC PO SCH (20:26)
[2018-05-03] MEDS: PRAVACHOL PO SCH (20:26)
[2018-05-03] MEDS: FLOMAX PO SCH (20:26)
[2018-05-03] MEDS: MILK OF MAGNESIA PO SCH (20:26)
[2018-05-03] MEDS: LEVEMIR SC SCH (21:32)
--- NOTE | 2018-05-03 21:46 | PCM.PROG ---
Progress Note - Progress Note for Day of Date of Exam: 05/02/18 - Subjective Subjective: WAS ADMITTED FOR CHF EXACERBATION. TODAY, HE CONTINUES WITH COMPLAINTS OF SHORTNESS OF BREATH AND A NON-PRODUCTIVE COUGH. HE REPORTS THAT SYMPTOMS HAVE SLIGHTLY WORSENED SINCE YESTERDAY. ON EXAMINATION, BILATERAL LUNGS ARE NOTED WITH SCATTERED WHEEZING THROUGHOUT. THERE IS A WOUND NOTED TO THE LEFT LOWER EXTREMITY WITH MILD DRAINAGE NOTED. HIS VITALS TODAY ARE 98.6-57- 26-87% SIMPLE MASK-182/90. ABNORMAL LAB VALUES INCLUDE THE FOLLOWING: RBC 3.48 , HGB 9.7, HCT 29.4, BUN 19, [id number], ALK PHOS 129, BNP 933, ALBUMIN 2.6. ABG REVEALED PH 7.440, PC02 49.0, P02 51.0, HC03 33.3, 02 SATURATION 87.0, BASE EXCESS 7.9. WOUND CULTURES ARE PENDING. A CHEST XRAY WAS OBTAINED AND REVEALED : The patient is status post median sternotomy. The heart remains enlarged. Pulmonary venous congestion is present. No definite interstitial edema, alveolar edema, or alveolar infiltrates are identified. The lungs are mildly hyperinflated. No pleural effusions are identified. HE IS CURRENTLY RECEIVING IV ANTIBIOTICS, RESPIRATORY TREATMENTS, IV LASIX, AND SUPPLEMENTAL OXYGEN. WE WILL CONTINUE WITH CURRENT PLAN OF CARE TODAY. OTHERWISE, WE WILL FOLLOW UP WITH AM LABS AND CONTINUE TO MONITOR PATIENT. - Past Medical Family Social History Past Med/Fam/Surg Hx: No changes since H&P Allergies: Allergies No Known Drug Allergies [NKDA] Allergy (Verified 05/01/18 08:42) - Review of Systems ROS: No change since H&P - Vital Signs and I&O's Vital Signs: Temperature 97.7 F Pulse Rate [Right Brachial] 54 Pulse Rate 53 Respiratory Rate 21 Blood Pressure [Right Arm] 159/70 Blood Pressure [Left Arm] 162/72 Blood Pressure 208/87 O2 Sat by Pulse Oximetry 91 Intake and Output: Intake & Output 05/01/18 05/02/18 05/03/18 05/04/18 11:59 11:59 11:59 11:59 Intake Total 1291 / 1291 2554 / 2554 790 / 790 Output Total 2600 / 2600 3250 / 3250 1300 / 1300 Balance -1309 / -1309 -696 / -696 -510 / -510 - Physical Exam Oriented: Normal Eyes: Normal Ear: Normal Nose: Normal Throat: Normal Respiratory: Generalized, Wheezes Cardiovascular: Normal : Normal Auscultation: Bowel Sounds: Normal Palpation: Normal Tenderness: Normal Skin: Red (LEFT LOWER EXTREMITY ) Musculoskeletal: Normal Psychiatric: Normal Mood Description: Calm Affect: Normal Speech Pattern: Clear, Appropriate - Laboratory and Diagnostics Result Diagrams: 05/03/18 05:46 05/03/18 05:46 Labs: 05/01/18 11:46 Leg - Left Gram Stain - Final 05/01/18 11:46 Leg - Left Wound Culture - Final Pseudomonas Aeruginosa Acinetobacter Baumanii/Haemoly Laboratory WBC 6.2 X10^3/uL (3.6-10.0) 05/03/18 05:46 RBC 3.48 X10^6/uL (4.7-6.0) L 05/03/18 05:46 Hgb 9.7 g/dL (13.5-18.0) L 05/03/18 05:46 Hct 29.5 % (42.0-54.0) L 05/03/18 05:46 MCV 84.6 fL (80.0-100.0) 05/03/18 05:46 MCH 27.9 pg (27.0-34.0) 05/03/18 05:46 MCHC 33.0 g/dL (33.0-35.0) 05/03/18 05:46 RDW 15.8 % (11.6-16.5) 05/03/18 05:46 Plt Count 218 X10^3/uL (150.0-450.0) 05/03/18 05:46 MPV 8.1 fL (7.4-11.0) 05/03/18 05:46 Neut % (Auto) 66.7 % (42.0-75.0) 05/03/18 05:46 Lymph % (Auto) 17.1 % (21.0-51.0) L 05/03/18 05:46 [place] % (Auto) 10.8 % (0.0-13.0) 05/03/18 05:46 Eos % (Auto) 4.5 % (0.9-2.9) H 05/03/18 05:46 Baso % (Auto) 0.9 % (0.2-1.0) 05/03/18 05:46 Neut # (Auto) 4.1 x10^3/uL (2.2-4.8) 05/03/18 05:46 Lymph # (Auto) 1.1 X10^3/uL (1.3-2.9) L 05/03/18 05:46 [place] # (Auto) 0.7 x10^3/uL (0.3-0.8) 05/03/18 05:46 Eos # (Auto) 0.3 x10^3/uL (0.0-0.2) H 05/03/18 05:46 Baso # (Auto) 0.1 X10^3/uL (0.0-0.1) 05/03/18 05:46 Absolute Nucleated RBC 0.0 /100WBC 05/03/18 05:46 D-Dimer 915 ng/mL (0-400) H* 05/01/18 09:00 Sample Site Rbra 05/02/18 04:42 ABG pH 7.440 (7.35-7.45) 05/02/18 04:42 ABG pCO2 49.0 mmHg (35.0-45.0) H 05/02/18 04:42 ABG pO2 51.0 mmHg (80.0-100.0) L 05/02/18 04:42 ABG HCO3 33.3 mmol/L (22-26) H* 05/02/18 04:42 ABG O2 Saturation 87.0 % (90-100) L 05/02/18 04:42 ABG Base Excess 7.9 mmol/L (-2.0-2.0) H 05/02/18 04:42 Markos Test Na 05/02/18 04:42 A-a Gradient 137.0 mmHg 05/02/18 04:42 FiO2 35.000 05/02/18 04:42 Blood Gas Comments Sue abg well-mtf 05/02/18 04:42 Sodium 140 mmol/L (136-145) 05/03/18 05:46 Corrected Sodium TNP 05/03/18 05:46 Potassium 4.1 mmol/L (3.5-5.1) 05/03/18 05:46 Chloride 103 mmol/L (98-107) 05/03/18 05:46 Carbon Dioxide 31.1 mmol/L (21-32) 05/03/18 05:46 BUN 24 mg/dL (7-18) H 05/03/18 05:46 Creatinine 1.35 mg/dL (0.70-1.30) H 05/03/18 05:46 Est GFR (MDRD) Af Amer > 60 (>60) 05/03/18 05:46 Est GFR (MDRD) Non-Af 54 (>60) L 05/03/18 05:46 Glucose 99 mg/dL (65-99) 05/03/18 05:46 POC Glucose (mg/dL) 162 mg/dL (65-99) H 05/03/18 20:29 Calcium 9.0 mg/dL (8.5-10.1) 05/03/18 05:46 Corrected Calcium 10.2 mg/dL (8.5-10.1) H 05/03/18 05:46 Total Bilirubin 0.30 mg/dL (0.2-1.0) 05/03/18 05:46 AST 13 Units/L (15-37) L 05/03/18 05:46 ALT 12 Units/L (12-78) 05/03/18 05:46 Alkaline Phosphatase 121 Units/L (46-116) H 05/03/18 05:46 B-Natriuretic Peptide 933 pg/mL (0-79) H* 05/02/18 04:20 Total Protein 6.7 g/dL (6.4-8.2) 05/03/18 05:46 Albumin 2.5 g/dL (3.4-5.0) L 05/03/18 05:46 Globulin 4.2 g/dL (2.5-4.5) 05/03/18 05:46 Albumin/Globulin Ratio 0.6 Ratio (1.1-2.1) L 05/03/18 05:46 Specimen Type Catherized urine 05/01/18 18:06 Urine Color Yellow (YELLOW) 05/01/18 18:06 Urine Appearance Slightly hazy (CLEAR) 05/01/18 18:06 Urine pH 7.0 (5.0 - 8.0) 05/01/18 18:06 Ur Specific Worth 1.010 (1.000-1.030) 05/01/18 18:06 Urine Protein 2+ (NEGATIVE) 05/01/18 18:06 Urine Glucose (UA) Negative (NEGATIVE) 05/01/18 18:06 Urine Ketones Negative (NEGATIVE) 05/01/18 18:06 Urine Occult Blood Negative (NEGATIVE) 05/01/18 18:06 Urine Nitrite Negative (NEGATIVE) 05/01/18 18:06 Urine Bilirubin Negative (NEGATIVE) 05/01/18 18:06 Urine Urobilinogen Normal (NORMAL) 05/01/18 18:06 Ur Leukocyte Esterase Negative (NEGATIVE) 05/01/18 18:06 Urine RBC 0-2 /HPF (NONE SEEN) 05/01/18 18:06 Urine WBC None seen /HPF (NONE SEEN) 05/01/18 18:06 Ur Squamous Epith Cells Negative /HPF (NEGATIVE) 05/01/18 18:06 Amorphous Sediment Trace /HPF (NEGATIVE) 05/01/18 18:06 Urine Bacteria Negative /HPF (NEGATIVE) 05/01/18 18:06 Ur Culture Indicated? No/not indicated 05/01/18 18:06 - Plan (1) CHF exacerbation Status: Acute Qualifiers: Heart failure type: unspecified Qualified Code(s): I50.9 - Heart failure, unspecified Plan: RESPIRATORY TREATMENTS, SUPPLEMENTAL OXYGEN, IV LASIX, CONTINUE TO MONITOR (2) COPD (chronic obstructive pulmonary disease) Status: Chronic Qualifiers: COPD type: unspecified COPD Qualified Code(s): J44.9 - Chronic obstructive pulmonary disease, unspecified Plan: RESPIRATORY TREATMENTS, SUPPLEMENTAL OXYGEN, CONTINUE TO MONITOR (3) Wound cellulitis Status: Acute Plan: IV ANTIBIOTICS, WOUND CULTURES, WOUND CARE, CONTINUE TO MONITOR
--- NOTE | 2018-05-04 00:06 | PCM.PROG ---
Progress Note - Progress Note for Day of Date of Exam: 05/03/18 - Subjective Subjective: WAS ADMITTED FOR CHF EXACERBATION. TODAY, HE CONTINUES WITH COMPLAINTS OF INCREASED SHORTNESS OF BREATH AND A NON-PRODUCTIVE COUGH. ON EXAMINATION, BILATERAL LUNGS ARE NOTED WITH SCATTERED WHEEZING THROUGHOUT. THERE IS A WOUND NOTED TO THE LEFT LOWER EXTREMITY WITH MILD DRAINAGE NOTED. HIS VITALS TODAY ARE 96.8-20-93%VENTI MASK-173/71. ABNORMAL LAB VALUES INCLUDE THE FOLLOWING: RBC 3.48, HGB 9.7, HCT 29.5, BUN 24, CREATININE 1.35, AST 13, ALK MARTHA 121, ALBUMIN 2.5. WOUND CULTURES REPORT GROWTH OF PSEUDOMONAS AERUGINOSA AND ACINETOBACTER BAUMANII/HAEMOLY. BOTH ARE SENSITIVE TO THE LEVAQUIN THAT HE IS CURRENTLY RECEIVING. A CHEST XRAY WAS OBTAINED AND REVEALED : Continued cardiomegaly with pulmonary vascular distention and diffuse interstitial prominence. Sternal wires are present. No consolidation or pneumothorax seen. HE IS CURRENTLY RECEIVING IV ANTIBIOTICS, RESPIRATORY TREATMENTS, IV LASIX, AND SUPPLEMENTAL OXYGEN. WE WILL CONTINUE WITH CURRENT PLAN OF CARE TODAY. OTHERWISE, WE WILL FOLLOW UP WITH AM LABS AND CONTINUE TO MONITOR PATIENT. - Past Medical Family Social History Past Med/Fam/Surg Hx: No changes since H&P Allergies: Allergies No Known Drug Allergies [NKDA] Allergy (Verified 05/01/18 08:42) - Review of Systems ROS: No change since H&P - Vital Signs and I&O's Vital Signs: Temperature 97.7 F Pulse Rate [Right Brachial] 54 Pulse Rate 53 Respiratory Rate 21 Blood Pressure [Right Arm] 159/70 Blood Pressure [Left Arm] 162/72 Blood Pressure 208/87 O2 Sat by Pulse Oximetry 91 Intake and Output: Intake & Output 05/01/18 05/02/18 05/03/18 05/04/18 11:59 11:59 11:59 11:59 Intake Total 1291 / 1291 2554 / 2554 890 / 890 Output Total 2600 / 2600 3250 / 3250 2175 / 2175 Balance -1309 / -1309 -696 / -696 -1285 / -1285 - Physical Exam Oriented: Normal Eyes: Normal Ear: Normal Nose: Normal Throat: Normal Respiratory: Generalized, Wheezes Cardiovascular: Normal : Normal Auscultation: Bowel Sounds: Normal Palpation: Normal Tenderness: Normal Skin: Red (LEFT LOWER EXTREMITY ) Musculoskeletal: Normal Psychiatric: Normal Mood Description: Calm Affect: Normal Speech Pattern: Clear, Appropriate - Laboratory and Diagnostics Result Diagrams: 05/03/18 05:46 05/03/18 05:46 Labs: 05/01/18 11:46 Leg - Left Gram Stain - Final 05/01/18 11:46 Leg - Left Wound Culture - Final Pseudomonas Aeruginosa Acinetobacter Baumanii/Haemoly Laboratory WBC 6.2 X10^3/uL (3.6-10.0) 05/03/18 05:46 RBC 3.48 X10^6/uL (4.7-6.0) L 05/03/18 05:46 Hgb 9.7 g/dL (13.5-18.0) L 05/03/18 05:46 Hct 29.5 % (42.0-54.0) L 05/03/18 05:46 MCV 84.6 fL (80.0-100.0) 05/03/18 05:46 MCH 27.9 pg (27.0-34.0) 05/03/18 05:46 MCHC 33.0 g/dL (33.0-35.0) 05/03/18 05:46 RDW 15.8 % (11.6-16.5) 05/03/18 05:46 Plt Count 218 X10^3/uL (150.0-450.0) 05/03/18 05:46 MPV 8.1 fL (7.4-11.0) 05/03/18 05:46 Neut % (Auto) 66.7 % (42.0-75.0) 05/03/18 05:46 Lymph % (Auto) 17.1 % (21.0-51.0) L 05/03/18 05:46 [facility] % (Auto) 10.8 % (0.0-13.0) 05/03/18 05:46 Eos % (Auto) 4.5 % (0.9-2.9) H 05/03/18 05:46 Baso % (Auto) 0.9 % (0.2-1.0) 05/03/18 05:46 Neut # (Auto) 4.1 x10^3/uL (2.2-4.8) 05/03/18 05:46 Lymph # (Auto) 1.1 X10^3/uL (1.3-2.9) L 05/03/18 05:46 [facility] # (Auto) 0.7 x10^3/uL (0.3-0.8) 05/03/18 05:46 Eos # (Auto) 0.3 x10^3/uL (0.0-0.2) H 05/03/18 05:46 Baso # (Auto) 0.1 X10^3/uL (0.0-0.1) 05/03/18 05:46 Absolute Nucleated RBC 0.0 /100WBC 05/03/18 05:46 D-Dimer 915 ng/mL (0-400) H* 05/01/18 09:00 Sample Site Rbra 05/02/18 04:42 ABG pH 7.440 (7.35-7.45) 05/02/18 04:42 ABG pCO2 49.0 mmHg (35.0-45.0) H 05/02/18 04:42 ABG pO2 51.0 mmHg (80.0-100.0) L 05/02/18 04:42 ABG HCO3 33.3 mmol/L (22-26) H* 05/02/18 04:42 ABG O2 Saturation 87.0 % (90-100) L 05/02/18 04:42 ABG Base Excess 7.9 mmol/L (-2.0-2.0) H 05/02/18 04:42 Markos Test Na 05/02/18 04:42 A-a Gradient 137.0 mmHg 05/02/18 04:42 FiO2 35.000 05/02/18 04:42 Blood Gas Comments Sue abg well-mtf 05/02/18 04:42 Sodium 140 mmol/L (136-145) 05/03/18 05:46 Corrected Sodium TNP 05/03/18 05:46 Potassium 4.1 mmol/L (3.5-5.1) 05/03/18 05:46 Chloride 103 mmol/L (98-107) 05/03/18 05:46 Carbon Dioxide 31.1 mmol/L (21-32) 05/03/18 05:46 BUN 24 mg/dL (7-18) H 05/03/18 05:46 Creatinine 1.35 mg/dL (0.70-1.30) H 05/03/18 05:46 Est GFR (MDRD) Af Amer > 60 (>60) 05/03/18 05:46 Est GFR (MDRD) Non-Af 54 (>60) L 05/03/18 05:46 Glucose 99 mg/dL (65-99) 05/03/18 05:46 POC Glucose (mg/dL) 162 mg/dL (65-99) H 05/03/18 20:29 Calcium 9.0 mg/dL (8.5-10.1) 05/03/18 05:46 Corrected Calcium 10.2 mg/dL (8.5-10.1) H 05/03/18 05:46 Total Bilirubin 0.30 mg/dL (0.2-1.0) 05/03/18 05:46 AST 13 Units/L (15-37) L 05/03/18 05:46 ALT 12 Units/L (12-78) 05/03/18 05:46 Alkaline Phosphatase 121 Units/L (46-116) H 05/03/18 05:46 B-Natriuretic Peptide 933 pg/mL (0-79) H* 05/02/18 04:20 Total Protein 6.7 g/dL (6.4-8.2) 05/03/18 05:46 Albumin 2.5 g/dL (3.4-5.0) L 05/03/18 05:46 Globulin 4.2 g/dL (2.5-4.5) 05/03/18 05:46 Albumin/Globulin Ratio 0.6 Ratio (1.1-2.1) L 05/03/18 05:46 Specimen Type Catherized urine 05/01/18 18:06 Urine Color Yellow (YELLOW) 05/01/18 18:06 Urine Appearance Slightly hazy (CLEAR) 05/01/18 18:06 Urine pH 7.0 (5.0 - 8.0) 05/01/18 18:06 Ur Specific [place] 1.010 (1.000-1.030) 05/01/18 18:06 Urine Protein 2+ (NEGATIVE) 05/01/18 18:06 Urine Glucose (UA) Negative (NEGATIVE) 05/01/18 18:06 Urine Ketones Negative (NEGATIVE) 05/01/18 18:06 Urine Occult Blood Negative (NEGATIVE) 05/01/18 18:06 Urine Nitrite Negative (NEGATIVE) 05/01/18 18:06 Urine Bilirubin Negative (NEGATIVE) 05/01/18 18:06 Urine Urobilinogen Normal (NORMAL) 05/01/18 18:06 Ur Leukocyte Esterase Negative (NEGATIVE) 05/01/18 18:06 Urine RBC 0-2 /HPF (NONE SEEN) 05/01/18 18:06 Urine WBC None seen /HPF (NONE SEEN) 05/01/18 18:06 Ur Squamous Epith Cells Negative /HPF (NEGATIVE) 05/01/18 18:06 Amorphous Sediment Trace /HPF (NEGATIVE) 05/01/18 18:06 Urine Bacteria Negative /HPF (NEGATIVE) 05/01/18 18:06 Ur Culture Indicated? No/not indicated 05/01/18 18:06 - Plan (1) CHF exacerbation Status: Acute Qualifiers: Heart failure type: unspecified Qualified Code(s): I50.9 - Heart failure, unspecified Plan: RESPIRATORY TREATMENTS, SUPPLEMENTAL OXYGEN, IV LASIX, CONTINUE TO MONITOR (2) COPD (chronic obstructive pulmonary disease) Status: Chronic Qualifiers: COPD type: unspecified COPD Qualified Code(s): J44.9 - Chronic obstructive pulmonary disease, unspecified Plan: RESPIRATORY TREATMENTS, SUPPLEMENTAL OXYGEN, CONTINUE TO MONITOR (3) Wound cellulitis Status: Acute Plan: IV ANTIBIOTICS, WOUND CULTURES, WOUND CARE, CONTINUE TO MONITOR
[2018-05-04] MEDS: DUONEB 0.5 MG/3 MG NEB SCH ×6 (00:22→20:56)
[2018-05-04] MEDS: NEURONTIN CAP 400 MG PO SCH ×3 (05:09→21:05)
[2018-05-04 05:18] LABS: BASOPHILS # (AUTO) 0.1 X10^3/uL (0.0-0.1); BASOPHILS % (AUTO) 0.8 % (0.2-1.0); EOSINOPHILS # (AUTO) 0.3 x10^3/uL (0.0-0.2); EOSINOPHILS % (AUTO) 3.5 % (0.9-2.9); HEMATOCRIT 30.5 % (42.0-54.0); HEMOGLOBIN 9.9 g/dL (13.5-18.0); LYMPHOCYTES # (AUTO) 1.1 X10^3/uL (1.3-2.9); MEAN CORPUSCULAR HEMOGLOBIN 27.4 pg (27.0-34.0); MEAN CORPUSCULAR HGB CONC 32.5 g/dL (33.0-35.0); MEAN CORPUSCULAR VOLUME 84.3 fL (80.0-100.0); MEAN PLATELET VOLUME 8.3 fL (7.4-11.0); MONOCYTES # (AUTO) 0.7 x10^3/uL (0.3-0.8); NEUTROPHILS # (AUTO) 5.6 x10^3/uL (2.2-4.8); NEUTROPHILS % (AUTO) 72.7 % (42.0-75.0); PLATELET COUNT 243 X10^3/uL (150.0-450.0); RED BLOOD COUNT 3.61 X10^6/uL (4.7-6.0); RED CELL DISTRIBUTION WIDTH 15.9 % (11.6-16.5); WHITE BLOOD COUNT 7.6 X10^3/uL (3.6-10.0)
[2018-05-04 05:46] LABS: ALBUMIN 2.5 g/dL (3.4-5.0); CALCIUM 8.9 mg/dL (8.5-10.1); CARBON DIOXIDE 31.2 mmol/L (21-32); COR CA(FOR HYPOALB) 10.1 mg/dL (8.5-10.1); CREATININE 1.53 mg/dL (0.70-1.30); TOTAL PROTEIN 6.7 g/dL (6.4-8.2)
--- NOTE | 2018-05-04 06:35 | RAD ---
Examination: Portable AP chest History: SOB Comparison reference 05/03/2018 Findings: Stable cardiac enlargement and pulmonary vascular distention. Diffuse interstitial prominen ce throughout the lungs. No developing consolidation, jacqui pulmonary edema or pneumothorax. Impression: No significant change since 05/03/2018. Reported By:
[2018-05-04] MEDS ORDERED: GLUCOPHAGE ONE ×2 (07:06→19:23)
[2018-05-04] MEDS ORDERED: ZESTRIL TAB 20 MG ONE ×2 (07:08→19:23)
[2018-05-04] MEDS: PULMICORT NEB TX 0.5 MG NEB SCH ×2 (09:15→20:55)
[2018-05-04] MEDS: NS 1000 ML 1,000 ML IV SCH (09:52)
[2018-05-04] MEDS: APRESOLINE TAB 25 MG PO SCH ×2 (09:53→20:06)
[2018-05-04] MEDS: ASPIRIN PO SCH (09:53)
[2018-05-04] MEDS: COZAAR PO SCH (09:54)
[2018-05-04] MEDS: CELEXA PO SCH (09:54)
[2018-05-04] MEDS: COLACE CAP 100 MG PO SCH (09:54)
[2018-05-04] MEDS: K-DUR TAB 20 MEQ PO SCH (09:55)
[2018-05-04] MEDS: HEMOCYTE-PLUS PO SCH ×2 (09:55→20:06)
[2018-05-04] MEDS: GLUCOPHAGE PO SCH ×2 (09:55→20:06)
[2018-05-04] MEDS: PLAVIX PO SCH (09:56)
[2018-05-04] MEDS: LEVAQUIN PREMIX IV 500 MG 500 MG/100 ML BAG IV SCH (09:56)
[2018-05-04] MEDS: LASIX IVP SCH ×2 (09:56→20:06)
[2018-05-04] MEDS: MIRALAX POWDER (1 DOSE 17 G) PO SCH (09:56)
[2018-05-04] MEDS: TEFLARO 400 MG in NS 50 ML IV 50 ML IV SCH ×2 (09:57→20:09)
[2018-05-04] MEDS: PROSCAR PO SCH (09:57)
[2018-05-04] MEDS: ZYLOPRIM PO SCH (09:58)
[2018-05-04] MEDS: ZESTRIL TAB 20 MG PO SCH ×2 (09:58→20:06)
[2018-05-04] MEDS: ZAROXOYLN PO SCH (09:58)
[2018-05-04] MEDS: SILVADENE TOP SCH ×3 (09:58→20:08)
[2018-05-04] MEDS: HumuLIN R SC PRN (11:40)
--- NOTE | 2018-05-04 13:47 | PCM.PROG ---
Progress Note - Progress Note for Day of Date of Exam: 05/04/18 - Subjective Subjective: WAS ADMITTED FOR CHF EXACERBATION. TODAY, HE CONTINUES WITH COMPLAINTS OF INCREASED SHORTNESS OF BREATH AND A NON-PRODUCTIVE COUGH. ON EXAMINATION, BILATERAL LUNGS ARE NOTED WITH SCATTERED WHEEZING THROUGHOUT. THERE IS A WOUND NOTED TO THE LEFT LOWER EXTREMITY WITH DRESSING. DRESSING IS DRY AND INTACT. HIS VITALS TODAY ARE 98.7-54-20-92%[place]-155/67. ABNORMAL LAB VALUES INCLUDE THE FOLLOWING: RBC 3.61. HGB 9.9, HCT 30.5, BUN 26, CREATININE 1.53, GLUCOSE 142, ALK PHOS 127, ALBUMIN 2.5. WOUND CULTURES REPORT GROWTH OF PSEUDOMONAS AERUGINOSA AND ACINETOBACTER BAUMANII/HAEMOLY. BOTH ARE SENSITIVE TO THE LEVAQUIN THAT HE IS CURRENTLY RECEIVING. A CHEST XRAY WAS OBTAINED AND REVEALED: Stable cardiac enlargement and pulmonary vascular distention. Diffuse interstitial prominence throughout the lungs. No developing consolidation, jacqui pulmonary edema or pneumothorax. HE IS CURRENTLY RECEIVING IV ANTIBIOTICS , RESPIRATORY TREATMENTS, IV LASIX, AND SUPPLEMENTAL OXYGEN. WE WILL CONTINUE WITH CURRENT PLAN OF CARE TODAY. OTHERWISE, WE WILL FOLLOW UP WITH AM LABS AND CONTINUE TO MONITOR PATIENT. - Past Medical Family Social History Past Med/Fam/Surg Hx: No changes since H&P Allergies: Allergies No Known Drug Allergies [NKDA] Allergy (Verified 05/01/18 08:42) - Review of Systems ROS: No change since H&P - Vital Signs and I&O's Vital Signs: Temperature 98.5 F Pulse Rate [Right Brachial] 59 Pulse Rate 58 Respiratory Rate 20 Blood Pressure [Right Arm] 161/70 Blood Pressure [Left Arm] 162/72 Blood Pressure 208/87 O2 Sat by Pulse Oximetry 91 Intake and Output: Intake & Output 05/02/18 05/03/18 05/04/18 05/05/18 11:59 11:59 11:59 11:59 Intake Total 1291 / 1291 2554 / 2554 1148 / 1148 Output Total 2600 / 2600 3250 / 3250 3125 / 3125 Balance -1309 / -1309 -696 / -696 -1976 / - Physical Exam Oriented: Normal Eyes: Normal Ear: Normal Nose: Normal Throat: Normal Respiratory: Generalized, Wheezes Cardiovascular: Normal : Normal Auscultation: Bowel Sounds: Normal Tenderness: Normal Skin: Red (LEFT LOWER EXTREMITY ) Musculoskeletal: Normal Psychiatric: Normal Mood Description: Calm Affect: Normal Speech Pattern: Clear, Appropriate - Laboratory and Diagnostics Result Diagrams: 05/04/18 04:02 05/04/18 04:02 Labs: 05/01/18 11:46 Leg - Left Gram Stain - Final 05/01/18 11:46 Leg - Left Wound Culture - Final Pseudomonas Aeruginosa Acinetobacter Baumanii/Haemoly Laboratory WBC 7.6 X10^3/uL (3.6-10.0) 05/04/18 04:02 RBC 3.61 X10^6/uL (4.7-6.0) L 05/04/18 04:02 Hgb 9.9 g/dL (13.5-18.0) L 05/04/18 04:02 Hct 30.5 % (42.0-54.0) L 05/04/18 04:02 MCV 84.3 fL (80.0-100.0) 05/04/18 04:02 MCH 27.4 pg (27.0-34.0) 05/04/18 04:02 MCHC 32.5 g/dL (33.0-35.0) L 05/04/18 04:02 RDW 15.9 % (11.6-16.5) 05/04/18 04:02 Plt Count 243 X10^3/uL (150.0-450.0) 05/04/18 04:02 MPV 8.3 fL (7.4-11.0) 05/04/18 04:02 Neut % (Auto) 72.7 % (42.0-75.0) 05/04/18 04:02 Lymph % (Auto) 14.0 % (21.0-51.0) L 05/04/18 04:02 [place] % (Auto) 9.0 % (0.0-13.0) 05/04/18 04:02 Eos % (Auto) 3.5 % (0.9-2.9) H 05/04/18 04:02 Baso % (Auto) 0.8 % (0.2-1.0) 05/04/18 04:02 Neut # (Auto) 5.6 x10^3/uL (2.2-4.8) H 05/04/18 04:02 Lymph # (Auto) 1.1 X10^3/uL (1.3-2.9) L 05/04/18 04:02 [place] # (Auto) 0.7 x10^3/uL (0.3-0.8) 05/04/18 04:02 Eos # (Auto) 0.3 x10^3/uL (0.0-0.2) H 05/04/18 04:02 Baso # (Auto) 0.1 X10^3/uL (0.0-0.1) 05/04/18 04:02 Absolute Nucleated RBC 0.0 /100WBC 05/04/18 04:02 D-Dimer 915 ng/mL (0-400) H* 05/01/18 09:00 Sample Site Rbra 05/02/18 04:42 ABG pH 7.440 (7.35-7.45) 05/02/18 04:42 ABG pCO2 49.0 mmHg (35.0-45.0) H 05/02/18 04:42 ABG pO2 51.0 mmHg (80.0-100.0) L 05/02/18 04:42 ABG HCO3 33.3 mmol/L (22-26) H* 05/02/18 04:42 ABG O2 Saturation 87.0 % (90-100) L 05/02/18 04:42 ABG Base Excess 7.9 mmol/L (-2.0-2.0) H 05/02/18 04:42 Markos Test Na 05/02/18 04:42 A-a Gradient 137.0 mmHg 05/02/18 04:42 FiO2 35.000 05/02/18 04:42 Blood Gas Comments Sue abg well-mtf 05/02/18 04:42 Sodium 138 mmol/L (136-145) 05/04/18 04:02 Corrected Sodium 139 mmol/L (136-145) 05/04/18 04:02 Potassium 4.1 mmol/L (3.5-5.1) 05/04/18 04:02 Chloride 102 mmol/L (98-107) 05/04/18 04:02 Carbon Dioxide 31.2 mmol/L (21-32) 05/04/18 04:02 BUN 26 mg/dL (7-18) H 05/04/18 04:02 Creatinine 1.53 mg/dL (0.70-1.30) H 05/04/18 04:02 Est GFR (MDRD) Af Amer 57 (>60) L 05/04/18 04:02 Est GFR (MDRD) Non-Af 47 (>60) L 05/04/18 04:02 Glucose 142 mg/dL (65-99) H 05/04/18 04:02 POC Glucose (mg/dL) 156 mg/dL (65-99) H 05/04/18 11:27 Calcium 8.9 mg/dL (8.5-10.1) 05/04/18 04:02 Corrected Calcium 10.1 mg/dL (8.5-10.1) 05/04/18 04:02 Total Bilirubin 0.30 mg/dL (0.2-1.0) 05/04/18 04:02 AST 15 Units/L (15-37) 05/04/18 04:02 ALT 13 Units/L (12-78) 05/04/18 04:02 Alkaline Phosphatase 127 Units/L (46-116) H 05/04/18 04:02 B-Natriuretic Peptide 933 pg/mL (0-79) H* 05/02/18 04:20 Total Protein 6.7 g/dL (6.4-8.2) 05/04/18 04:02 Albumin 2.5 g/dL (3.4-5.0) L 05/04/18 04:02 Globulin 4.2 g/dL (2.5-4.5) 05/04/18 04:02 Albumin/Globulin Ratio 0.6 Ratio (1.1-2.1) L 05/04/18 04:02 Specimen Type Catherized urine 05/01/18 18:06 Urine Color Yellow (YELLOW) 05/01/18 18:06 Urine Appearance Slightly hazy (CLEAR) 05/01/18 18:06 Urine pH 7.0 (5.0 - 8.0) 05/01/18 18:06 Ur Specific [place] 1.010 (1.000-1.030) 05/01/18 18:06 Urine Protein 2+ (NEGATIVE) 05/01/18 18:06 Urine Glucose (UA) Negative (NEGATIVE) 05/01/18 18:06 Urine Ketones Negative (NEGATIVE) 05/01/18 18:06 Urine Occult Blood Negative (NEGATIVE) 05/01/18 18:06 Urine Nitrite Negative (NEGATIVE) 05/01/18 18:06 Urine Bilirubin Negative (NEGATIVE) 05/01/18 18:06 Urine Urobilinogen Normal (NORMAL) 05/01/18 18:06 Ur Leukocyte Esterase Negative (NEGATIVE) 05/01/18 18:06 Urine RBC 0-2 /HPF (NONE SEEN) 05/01/18 18:06 Urine WBC None seen /HPF (NONE SEEN) 05/01/18 18:06 Ur Squamous Epith Cells Negative /HPF (NEGATIVE) 05/01/18 18:06 Amorphous Sediment Trace /HPF (NEGATIVE) 05/01/18 18:06 Urine Bacteria Negative /HPF (NEGATIVE) 05/01/18 18:06 Ur Culture Indicated? No/not indicated 05/01/18 18:06 - Plan (1) CHF exacerbation Status: Acute Qualifiers: Heart failure type: unspecified Qualified Code(s): I50.9 - Heart failure, unspecified Plan: RESPIRATORY TREATMENTS, SUPPLEMENTAL OXYGEN, IV LASIX, CONTINUE TO MONITOR (2) COPD (chronic obstructive pulmonary disease) Status: Chronic Qualifiers: COPD type: unspecified COPD Qualified Code(s): J44.9 - Chronic obstructive pulmonary disease, unspecified Plan: RESPIRATORY TREATMENTS, SUPPLEMENTAL OXYGEN, CONTINUE TO MONITOR (3) Wound cellulitis Status: Acute Plan: IV ANTIBIOTICS, WOUND CULTURES, WOUND CARE, CONTINUE TO MONITOR
[2018-05-04] MEDS: PRAVACHOL PO SCH (20:05)
[2018-05-04] MEDS: FLOMAX PO SCH (20:05)
[2018-05-04] MEDS: ZANTAC PO SCH (20:06)
[2018-05-04] MEDS: MILK OF MAGNESIA PO SCH (20:07)
[2018-05-04] MEDS: LEVEMIR SC SCH (21:04)
[2018-05-04] MEDS: RESTORIL CAP 15 MG PO PRN (23:06)
[2018-05-05] MEDS: DUONEB 0.5 MG/3 MG NEB SCH ×6 (01:05→21:01)
[2018-05-05] MEDS: NEURONTIN CAP 400 MG PO SCH ×3 (05:04→21:57)
[2018-05-05] MEDS: NS 1000 ML 1,000 ML IV SCH ×2 (05:05→10:15)
[2018-05-05 05:25] LABS: BASOPHILS # (AUTO) 0.1 X10^3/uL (0.0-0.1); BASOPHILS % (AUTO) 0.8 % (0.2-1.0); EOSINOPHILS # (AUTO) 0.4 x10^3/uL (0.0-0.2); EOSINOPHILS % (AUTO) 5.9 % (0.9-2.9); HEMOGLOBIN 9.8 g/dL (13.5-18.0); LYMPHOCYTES # (AUTO) 1.1 X10^3/uL (1.3-2.9); LYMPHOCYTES % (AUTO) 15.9 % (21.0-51.0); MEAN CORPUSCULAR HEMOGLOBIN 27.6 pg (27.0-34.0); MEAN CORPUSCULAR HGB CONC 32.6 g/dL (33.0-35.0); MEAN CORPUSCULAR VOLUME 84.8 fL (80.0-100.0); MONOCYTES # (AUTO) 0.6 x10^3/uL (0.3-0.8); MONOCYTES % (AUTO) 9.2 % (0.0-13.0); NEUTROPHILS # (AUTO) 4.6 x10^3/uL (2.2-4.8); NEUTROPHILS % (AUTO) 68.2 % (42.0-75.0); PLATELET COUNT 235 X10^3/uL (150.0-450.0); RED BLOOD COUNT 3.54 X10^6/uL (4.7-6.0); RED CELL DISTRIBUTION WIDTH 15.9 % (11.6-16.5); WHITE BLOOD COUNT 6.8 X10^3/uL (3.6-10.0)
[2018-05-05 05:41] LABS: ALBUMIN 2.5 g/dL (3.4-5.0); CALCIUM 8.8 mg/dL (8.5-10.1); CARBON DIOXIDE 30.7 mmol/L (21-32); CREATININE 1.6 mg/dL (0.70-1.30); TOTAL PROTEIN 6.6 g/dL (6.4-8.2)
--- NOTE | 2018-05-05 07:45 | RAD ---
HISTORY: Shortness of breath Study: Chest AP portable Comparison: 05/04/2018 Findings: The heart is enlarged. No definite congestive heart failure is noted. No acute alveolar infiltrates o r pleural effusions are identified. The bony thorax is unremarkable. The patient is status post media n sternotomy. IMPRESSION: Moderate cardiomegaly without congestive heart failure on today's examination No infiltrates Reported By:
[2018-05-05] MEDS: PULMICORT NEB TX 0.5 MG NEB SCH ×2 (08:41→21:01)
[2018-05-05] MEDS ORDERED: GLUCOPHAGE ONE ×2 (08:50→21:20)
[2018-05-05] MEDS ORDERED: ZESTRIL TAB 20 MG ONE ×2 (08:52→21:21)
[2018-05-05] MEDS: LEVAQUIN PREMIX IV 500 MG 500 MG/100 ML BAG IV SCH (09:59)
[2018-05-05] MEDS: LASIX IVP SCH ×2 (09:59→21:56)
[2018-05-05] MEDS: MIRALAX POWDER (1 DOSE 17 G) PO SCH (10:00)
[2018-05-05] MEDS: COLACE CAP 100 MG PO SCH (10:01)
[2018-05-05] MEDS: HEMOCYTE-PLUS PO SCH ×2 (10:01→21:57)
[2018-05-05] MEDS: PROSCAR PO SCH (10:01)
[2018-05-05] MEDS: ASPIRIN PO SCH (10:01)
[2018-05-05] MEDS: ZESTRIL TAB 20 MG PO SCH ×2 (10:02→21:58)
[2018-05-05] MEDS: ZAROXOYLN PO SCH (10:02)
[2018-05-05] MEDS: COZAAR PO SCH (10:02)
[2018-05-05] MEDS: GLUCOPHAGE PO SCH ×2 (10:03→21:58)
[2018-05-05] MEDS: CELEXA PO SCH (10:03)
[2018-05-05] MEDS: APRESOLINE TAB 25 MG PO SCH ×2 (10:03→21:56)
[2018-05-05] MEDS: PLAVIX PO SCH (10:03)
[2018-05-05] MEDS: ZYLOPRIM PO SCH (10:03)
[2018-05-05] MEDS: K-DUR TAB 20 MEQ PO SCH (10:13)
[2018-05-05] MEDS: SILVADENE TOP SCH ×2 (10:14→22:00)
[2018-05-05] MEDS: TEFLARO 400 MG in NS 50 ML IV 50 ML IV SCH ×2 (11:27→21:56)
[2018-05-05] MEDS: HumuLIN R SC PRN (11:31)
[2018-05-05] MEDS: LEVEMIR SC SCH (21:55)
[2018-05-05] MEDS: MILK OF MAGNESIA PO SCH ×2 (21:56)
[2018-05-05] MEDS: RESTORIL CAP 15 MG PO PRN (21:57)
[2018-05-05] MEDS: FLOMAX PO SCH (21:58)
[2018-05-05] MEDS: ZANTAC PO SCH (21:58)
[2018-05-05] MEDS: PRAVACHOL PO SCH (21:59)
[2018-05-05] MEDS: PERCOCET TAB 5/325 MG PO PRN (22:08)
[2018-05-06] MEDS: DUONEB 0.5 MG/3 MG NEB SCH ×6 (00:49→21:40)
[2018-05-06 05:26] LABS: BASOPHILS # (AUTO) 0.1 X10^3/uL (0.0-0.1); BASOPHILS % (AUTO) 1.1 % (0.2-1.0); EOSINOPHILS # (AUTO) 0.4 x10^3/uL (0.0-0.2); EOSINOPHILS % (AUTO) 6.9 % (0.9-2.9); HEMATOCRIT 28.4 % (42.0-54.0); HEMOGLOBIN 9.3 g/dL (13.5-18.0); LYMPHOCYTES # (AUTO) 1.1 X10^3/uL (1.3-2.9); LYMPHOCYTES % (AUTO) 17.5 % (21.0-51.0); MEAN CORPUSCULAR HEMOGLOBIN 27.9 pg (27.0-34.0); MEAN CORPUSCULAR HGB CONC 32.9 g/dL (33.0-35.0); MEAN CORPUSCULAR VOLUME 84.7 fL (80.0-100.0); MEAN PLATELET VOLUME 7.9 fL (7.4-11.0); MONOCYTES # (AUTO) 0.6 x10^3/uL (0.3-0.8); MONOCYTES % (AUTO) 9.6 % (0.0-13.0); NEUTROPHILS % (AUTO) 64.9 % (42.0-75.0); PLATELET COUNT 228 X10^3/uL (150.0-450.0); RED BLOOD COUNT 3.35 X10^6/uL (4.7-6.0); WHITE BLOOD COUNT 6.2 X10^3/uL (3.6-10.0)
[2018-05-06 05:33] LABS: ALANINE AMINOTRANSFERASE 12 Units/L (12-78); ALBUMIN 2.4 g/dL (3.4-5.0); ALKALINE PHOSPHATASE 127 Units/L (46-116); ASPARTATE AMINO TRANSFERASE 15 Units/L (15-37); BLOOD UREA NITROGEN 32 mg/dL (7-18); CALCIUM 8.8 mg/dL (8.5-10.1); CARBON DIOXIDE 34.9 mmol/L (21-32); CHLORIDE 101 mmol/L (98-107); COR CA(FOR HYPOALB) 10.1 mg/dL (8.5-10.1); CREATININE 1.61 mg/dL (0.70-1.30); SODIUM 138 mmol/L (136-145); TOTAL PROTEIN 6.4 g/dL (6.4-8.2); eGFR NON BLACK RACES 44 (>60)
[2018-05-06] MEDS: NEURONTIN CAP 400 MG PO SCH ×3 (06:20→21:36)
[2018-05-06] MEDS ORDERED: GLUCOPHAGE ONE ×2 (08:49→20:45)
[2018-05-06] MEDS ORDERED: ZESTRIL TAB 20 MG ONE ×2 (08:51→20:46)
[2018-05-06] MEDS: PULMICORT NEB TX 0.5 MG NEB SCH ×2 (09:00→21:40)
[2018-05-06] MEDS: LASIX IVP SCH ×2 (09:01→21:34)
[2018-05-06] MEDS: ASPIRIN PO SCH (09:02)
[2018-05-06] MEDS: LEVAQUIN PREMIX IV 500 MG 500 MG/100 ML BAG IV SCH (09:02)
[2018-05-06] MEDS: K-DUR TAB 20 MEQ PO SCH (09:03)
[2018-05-06] MEDS: ZYLOPRIM PO SCH (09:03)
[2018-05-06] MEDS: CELEXA PO SCH (09:03)
[2018-05-06] MEDS: APRESOLINE TAB 25 MG PO SCH ×2 (09:03→21:35)
[2018-05-06] MEDS: GLUCOPHAGE PO SCH ×2 (09:03→21:36)
[2018-05-06] MEDS: COZAAR PO SCH (09:03)
[2018-05-06] MEDS: ZAROXOYLN PO SCH (09:04)
[2018-05-06] MEDS: PROSCAR PO SCH (09:04)
[2018-05-06] MEDS: COLACE CAP 100 MG PO SCH (09:04)
[2018-05-06] MEDS: HEMOCYTE-PLUS PO SCH ×2 (09:04→21:36)
[2018-05-06] MEDS: PLAVIX PO SCH (09:04)
[2018-05-06] MEDS: ZESTRIL TAB 20 MG PO SCH ×2 (09:04→21:36)
[2018-05-06] MEDS: MIRALAX POWDER (1 DOSE 17 G) PO SCH (09:05)
[2018-05-06] MEDS: NS 1000 ML 1,000 ML IV SCH (09:10)
[2018-05-06] MEDS: SILVADENE TOP SCH ×2 (09:16→21:40)
[2018-05-06] MEDS: TEFLARO 400 MG in NS 50 ML IV 50 ML IV SCH ×2 (10:48→21:40)
[2018-05-06] MEDS: PERCOCET TAB 5/325 MG PO PRN ×2 (15:20→21:37)
--- NOTE | 2018-05-06 18:08 | PCM.PROG ---
Progress Note - Progress Note for Day of Date of Exam: 05/05/18 - Subjective Subjective: WAS ADMITTED FOR CHF EXACERBATION. TODAY, HE CONTINUES TO CO LOWER LEG PAIN. ON EXAMINATION, BILATERAL LUNGS ARE NOTED WITH SCATTERED WHEEZING THROUGHOUT. THERE IS A WOUND NOTED TO THE LEFT LOWER EXTREMITY WITH DRESSING. DRESSING IS DRY AND INTACT. WOUND CULTURES REPORT GROWTH OF PSEUDOMONAS AERUGINOSA AND ACINETOBACTER BAUMANII/HAEMOLY. BOTH ARE SENSITIVE TO THE LEVAQUIN THAT HE IS CURRENTLY RECEIVING. A HE IS CURRENTLY RECEIVING IV ANTIBIOTICS, RESPIRATORY TREATMENTS, IV LASIX, AND SUPPLEMENTAL OXYGEN. WE WILL CONTINUE WITH CURRENT PLAN OF CARE TODAY. OTHERWISE, WE WILL FOLLOW UP WITH AM LABS AND CONTINUE TO MONITOR PATIENT. PHYSICAL THERAPY TO EVALUATE, PLAN TO BLADDER TRAIN AND D/C RYDER, CASE MANAGMENT CONSULTED FOR REHAB OR INTERMEDIATE PLACEMENT. WILL NEED IV ATBX THERAPY - Past Medical Family Social History Past Med/Fam/Surg Hx: No changes since H&P Allergies: Allergies No Known Drug Allergies [NKDA] Allergy (Verified 05/01/18 08:42) - Review of Systems ROS: No change since H&P - Vital Signs and I&O's Vital Signs: Temperature 98.0 F Pulse Rate [Right Brachial] 58 Pulse Rate 50 Respiratory Rate 20 Blood Pressure [Right Arm] 158/69 Blood Pressure [Left Arm] 162/72 Blood Pressure 208/87 O2 Sat by Pulse Oximetry 94 Intake and Output: Intake & Output 05/04/18 05/05/18 05/06/18 05/07/18 11:59 11:59 11:59 11:59 Intake Total 1148 / 1148 1360 / 1360 1330 / 1330 480 / 480 Output Total 3125 / 3125 2700 / 2700 2850 / 2850 600 / 600 Balance -1976 / -1976 -1340 / -1340 -1520 / -1520 -120 / -120 - Physical Exam Oriented: Normal Eyes: Normal Ear: Normal Nose: Normal Throat: Normal Respiratory: Generalized, Wheezes Cardiovascular: Normal : Normal Auscultation: Bowel Sounds: Normal Tenderness: Normal Skin: Red (LEFT LOWER EXTREMITY ) Musculoskeletal: Right, Left, Leg, Back:Lumbar, Tender, Sensory Deficit, Instability Psychiatric: Normal Mood Description: Calm Affect: Normal Speech Pattern: Clear, Appropriate - Laboratory and Diagnostics Result Diagrams: 05/06/18 04:10 05/06/18 04:10 Labs: 05/01/18 11:46 Leg - Left Gram Stain - Final 05/01/18 11:46 Leg - Left Wound Culture - Final Pseudomonas Aeruginosa Acinetobacter Baumanii/Haemoly Laboratory WBC 6.2 X10^3/uL (3.6-10.0) 05/06/18 04:10 RBC 3.35 X10^6/uL (4.7-6.0) L 05/06/18 04:10 Hgb 9.3 g/dL (13.5-18.0) L 05/06/18 04:10 Hct 28.4 % (42.0-54.0) L 05/06/18 04:10 MCV 84.7 fL (80.0-100.0) 05/06/18 04:10 MCH 27.9 pg (27.0-34.0) 05/06/18 04:10 MCHC 32.9 g/dL (33.0-35.0) L 05/06/18 04:10 RDW 16.0 % (11.6-16.5) 05/06/18 04:10 Plt Count 228 X10^3/uL (150.0-450.0) 05/06/18 04:10 MPV 7.9 fL (7.4-11.0) 05/06/18 04:10 Neut % (Auto) 64.9 % (42.0-75.0) 05/06/18 04:10 Lymph % (Auto) 17.5 % (21.0-51.0) L 05/06/18 04:10 [place] % (Auto) 9.6 % (0.0-13.0) 05/06/18 04:10 Eos % (Auto) 6.9 % (0.9-2.9) H 05/06/18 04:10 Baso % (Auto) 1.1 % (0.2-1.0) H 05/06/18 04:10 Neut # (Auto) 4.0 x10^3/uL (2.2-4.8) 05/06/18 04:10 Lymph # (Auto) 1.1 X10^3/uL (1.3-2.9) L 05/06/18 04:10 [place] # (Auto) 0.6 x10^3/uL (0.3-0.8) 05/06/18 04:10 Eos # (Auto) 0.4 x10^3/uL (0.0-0.2) H 05/06/18 04:10 Baso # (Auto) 0.1 X10^3/uL (0.0-0.1) 05/06/18 04:10 Absolute Nucleated RBC 0.1 /100WBC 05/06/18 04:10 D-Dimer 915 ng/mL (0-400) H* 05/01/18 09:00 Sample Site Rbra 05/02/18 04:42 ABG pH 7.440 (7.35-7.45) 05/02/18 04:42 ABG pCO2 49.0 mmHg (35.0-45.0) H 05/02/18 04:42 ABG pO2 51.0 mmHg (80.0-100.0) L 05/02/18 04:42 ABG HCO3 33.3 mmol/L (22-26) H* 05/02/18 04:42 ABG O2 Saturation 87.0 % (90-100) L 05/02/18 04:42 ABG Base Excess 7.9 mmol/L (-2.0-2.0) H 05/02/18 04:42 Markos Test Na 05/02/18 04:42 A-a Gradient 137.0 mmHg 05/02/18 04:42 FiO2 35.000 05/02/18 04:42 Blood Gas Comments Sue abg well-mtf 05/02/18 04:42 Sodium 138 mmol/L (136-145) 05/06/18 04:10 Corrected Sodium TNP 05/06/18 04:10 Potassium 4.2 mmol/L (3.5-5.1) 05/06/18 04:10 Chloride 101 mmol/L (98-107) 05/06/18 04:10 Carbon Dioxide 34.9 mmol/L (21-32) H 05/06/18 04:10 BUN 32 mg/dL (7-18) H 05/06/18 04:10 Creatinine 1.61 mg/dL (0.70-1.30) H 05/06/18 04:10 Est GFR (MDRD) Af Amer 54 (>60) L 05/06/18 04:10 Est GFR (MDRD) Non-Af 44 (>60) L 05/06/18 04:10 Glucose 85 mg/dL (65-99) 05/06/18 04:10 POC Glucose (mg/dL) 173 mg/dL (65-99) H 05/06/18 15:59 Calcium 8.8 mg/dL (8.5-10.1) 05/06/18 04:10 Corrected Calcium 10.1 mg/dL (8.5-10.1) 05/06/18 04:10 Total Bilirubin 0.30 mg/dL (0.2-1.0) 05/06/18 04:10 AST 15 Units/L (15-37) 05/06/18 04:10 ALT 12 Units/L (12-78) 05/06/18 04:10 Alkaline Phosphatase 127 Units/L (46-116) H 05/06/18 04:10 B-Natriuretic Peptide 933 pg/mL (0-79) H* 05/02/18 04:20 Total Protein 6.4 g/dL (6.4-8.2) 05/06/18 04:10 Albumin 2.4 g/dL (3.4-5.0) L 05/06/18 04:10 Globulin 4.0 g/dL (2.5-4.5) 05/06/18 04:10 Albumin/Globulin Ratio 0.6 Ratio (1.1-2.1) L 05/06/18 04:10 Specimen Type Catherized urine 05/01/18 18:06 Urine Color Yellow (YELLOW) 05/01/18 18:06 Urine Appearance Slightly hazy (CLEAR) 05/01/18 18:06 Urine pH 7.0 (5.0 - 8.0) 05/01/18 18:06 Ur Specific [place] 1.010 (1.000-1.030) 05/01/18 18:06 Urine Protein 2+ (NEGATIVE) 05/01/18 18:06 Urine Glucose (UA) Negative (NEGATIVE) 05/01/18 18:06 Urine Ketones Negative (NEGATIVE) 05/01/18 18:06 Urine Occult Blood Negative (NEGATIVE) 05/01/18 18:06 Urine Nitrite Negative (NEGATIVE) 05/01/18 18:06 Urine Bilirubin Negative (NEGATIVE) 05/01/18 18:06 Urine Urobilinogen Normal (NORMAL) 05/01/18 18:06 Ur Leukocyte Esterase Negative (NEGATIVE) 05/01/18 18:06 Urine RBC 0-2 /HPF (NONE SEEN) 05/01/18 18:06 Urine WBC None seen /HPF (NONE SEEN) 05/01/18 18:06 Ur Squamous Epith Cells Negative /HPF (NEGATIVE) 05/01/18 18:06 Amorphous Sediment Trace /HPF (NEGATIVE) 05/01/18 18:06 Urine Bacteria Negative /HPF (NEGATIVE) 05/01/18 18:06 Ur Culture Indicated? No/not indicated 05/01/18 18:06 - Plan (1) Wound cellulitis Status: Acute Plan: IV ANTIBIOTICS, WOUND CULTURES, WOUND CARE, CONTINUE TO MONITOR (2) CHF (congestive heart failure) Status: Acute (3) COPD (chronic obstructive pulmonary disease) Status: Acute Qualifiers: COPD type: COPD with acute exacerbation Qualified Code(s): J44.1 - Chronic obstructive pulmonary disease with (acute) exacerbation Plan: IV anxtibiotics, Nebs, Solumendrol, CXR (4) Adult failure to thrive syndrome Status: Chronic (5) Congestive heart failure Status: Chronic Plan: I & O2, SUPPLEMENTAL O2, MONITOR (6) Hypertension Status: Chronic Qualifiers: Hypertension type: unspecified secondary hypertension Qualified Code(s): I15.9 - Secondary hypertension, unspecified Plan: Monitor BP (7) History of ND (myocardial infarction) Status: Chronic (8) Diabetes mellitus, type 2 Status: Chronic Plan: Monitor BS. (9) Arthritis Status: Chronic (10) COPD (chronic obstructive pulmonary disease) Status: Chronic Qualifiers: COPD type: unspecified COPD Qualified Code(s): J44.9 - Chronic obstructive pulmonary disease, unspecified Plan: RESPIRATORY TREATMENTS, SUPPLEMENTAL OXYGEN, CONTINUE TO MONITOR (11) CAD (coronary artery disease) Status: Chronic
--- NOTE | 2018-05-06 18:09 | PCM.PROG ---
Progress Note - Progress Note for Day of Date of Exam: 05/06/18 - Subjective Subjective: WAS ADMITTED FOR CHF EXACERBATION AND LOWER EXTREMITY CELLULITIS. TODAY, HE CONTINUES TO CO LOWER LEG PAIN BUT CONTROLLED WITH PO PAIN MEDICATION. COOPERATED WITH THERAPY, DISCUSSED REHAB PLACEMENT. ON EXAMINATION, BILATERAL LUNGS ARE NOTED WITH SCATTERED WHEEZING THROUGHOUT. THERE IS A WOUND NOTED TO THE LEFT LOWER EXTREMITY WITH DRESSING. DRESSING IS DRY AND INTACT. WOUND CULTURES REPORT GROWTH OF PSEUDOMONAS AERUGINOSA AND ACINETOBACTER BAUMANII/HAEMOLY. BOTH ARE SENSITIVE TO THE LEVAQUIN THAT HE IS CURRENTLY RECEIVING. A HE IS CURRENTLY RECEIVING IV ANTIBIOTICS, RESPIRATORY TREATMENTS, IV LASIX, AND SUPPLEMENTAL OXYGEN. WE WILL CONTINUE WITH CURRENT PLAN OF CARE TODAY. OTHERWISE, WE WILL FOLLOW UP WITH AM LABS AND CONTINUE TO MONITOR PATIENT. CASE MANAGMENT CONSULTED FOR REHAB OR LONG TERM PLACEMENT. WILL NEED IV ATBX THERAPY - Past Medical Family Social History Past Med/Fam/Surg Hx: No changes since H&P Allergies: Allergies No Known Drug Allergies [NKDA] Allergy (Verified 05/01/18 08:42) - Review of Systems ROS: No change since H&P - Vital Signs and I&O's Vital Signs: Temperature 98.0 F Pulse Rate [Right Brachial] 58 Pulse Rate 50 Respiratory Rate 20 Blood Pressure [Right Arm] 158/69 Blood Pressure [Left Arm] 162/72 Blood Pressure 208/87 O2 Sat by Pulse Oximetry 94 Intake and Output: Intake & Output 05/04/18 05/05/18 05/06/18 05/07/18 11:59 11:59 11:59 11:59 Intake Total 1148 / 1148 1360 / 1360 1330 / 1330 480 / 480 Output Total 3125 / 3125 2700 / 2700 2850 / 2850 600 / 600 Balance -1976 / -1976 -1340 / -1340 -1520 / -1520 -120 / -120 - Physical Exam Oriented: Normal Eyes: Normal Ear: Normal Nose: Normal Throat: Normal Respiratory: Generalized, Wheezes Cardiovascular: Normal : Normal Auscultation: Bowel Sounds: Normal Tenderness: Normal Skin: Red (LEFT LOWER EXTREMITY ) Musculoskeletal: Right, Left, Leg, Back:Lumbar, Tender, Sensory Deficit, Instability Psychiatric: Normal Mood Description: Calm Affect: Normal Speech Pattern: Clear, Appropriate - Laboratory and Diagnostics Result Diagrams: 05/06/18 04:10 05/06/18 04:10 Labs: 05/01/18 11:46 Leg - Left Gram Stain - Final 05/01/18 11:46 Leg - Left Wound Culture - Final Pseudomonas Aeruginosa Acinetobacter Baumanii/Haemoly Laboratory WBC 6.2 X10^3/uL (3.6-10.0) 05/06/18 04:10 RBC 3.35 X10^6/uL (4.7-6.0) L 05/06/18 04:10 Hgb 9.3 g/dL (13.5-18.0) L 05/06/18 04:10 Hct 28.4 % (42.0-54.0) L 05/06/18 04:10 MCV 84.7 fL (80.0-100.0) 05/06/18 04:10 MCH 27.9 pg (27.0-34.0) 05/06/18 04:10 MCHC 32.9 g/dL (33.0-35.0) L 05/06/18 04:10 RDW 16.0 % (11.6-16.5) 05/06/18 04:10 Plt Count 228 X10^3/uL (150.0-450.0) 05/06/18 04:10 MPV 7.9 fL (7.4-11.0) 05/06/18 04:10 Neut % (Auto) 64.9 % (42.0-75.0) 05/06/18 04:10 Lymph % (Auto) 17.5 % (21.0-51.0) L 05/06/18 04:10 Christian % (Auto) 9.6 % (0.0-13.0) 05/06/18 04:10 Eos % (Auto) 6.9 % (0.9-2.9) H 05/06/18 04:10 Baso % (Auto) 1.1 % (0.2-1.0) H 05/06/18 04:10 Neut # (Auto) 4.0 x10^3/uL (2.2-4.8) 05/06/18 04:10 Lymph # (Auto) 1.1 X10^3/uL (1.3-2.9) L 05/06/18 04:10 Christian # (Auto) 0.6 x10^3/uL (0.3-0.8) 05/06/18 04:10 Eos # (Auto) 0.4 x10^3/uL (0.0-0.2) H 05/06/18 04:10 Baso # (Auto) 0.1 X10^3/uL (0.0-0.1) 05/06/18 04:10 Absolute Nucleated RBC 0.1 /100WBC 05/06/18 04:10 D-Dimer 915 ng/mL (0-400) H* 05/01/18 09:00 Sample Site Rbra 05/02/18 04:42 ABG pH 7.440 (7.35-7.45) 05/02/18 04:42 ABG pCO2 49.0 mmHg (35.0-45.0) H 05/02/18 04:42 ABG pO2 51.0 mmHg (80.0-100.0) L 05/02/18 04:42 ABG HCO3 33.3 mmol/L (22-26) H* 05/02/18 04:42 ABG O2 Saturation 87.0 % (90-100) L 05/02/18 04:42 ABG Base Excess 7.9 mmol/L (-2.0-2.0) H 05/02/18 04:42 Markos Test Na 05/02/18 04:42 A-a Gradient 137.0 mmHg 05/02/18 04:42 FiO2 35.000 05/02/18 04:42 Blood Gas Comments Sue abg well-mtf 05/02/18 04:42 Sodium 138 mmol/L (136-145) 05/06/18 04:10 Corrected Sodium TNP 05/06/18 04:10 Potassium 4.2 mmol/L (3.5-5.1) 05/06/18 04:10 Chloride 101 mmol/L (98-107) 05/06/18 04:10 Carbon Dioxide 34.9 mmol/L (21-32) H 05/06/18 04:10 BUN 32 mg/dL (7-18) H 05/06/18 04:10 Creatinine 1.61 mg/dL (0.70-1.30) H 05/06/18 04:10 Est GFR (MDRD) Af Amer 54 (>60) L 05/06/18 04:10 Est GFR (MDRD) Non-Af 44 (>60) L 05/06/18 04:10 Glucose 85 mg/dL (65-99) 05/06/18 04:10 POC Glucose (mg/dL) 173 mg/dL (65-99) H 05/06/18 15:59 Calcium 8.8 mg/dL (8.5-10.1) 05/06/18 04:10 Corrected Calcium 10.1 mg/dL (8.5-10.1) 05/06/18 04:10 Total Bilirubin 0.30 mg/dL (0.2-1.0) 05/06/18 04:10 AST 15 Units/L (15-37) 05/06/18 04:10 ALT 12 Units/L (12-78) 05/06/18 04:10 Alkaline Phosphatase 127 Units/L (46-116) H 05/06/18 04:10 B-Natriuretic Peptide 933 pg/mL (0-79) H* 05/02/18 04:20 Total Protein 6.4 g/dL (6.4-8.2) 05/06/18 04:10 Albumin 2.4 g/dL (3.4-5.0) L 05/06/18 04:10 Globulin 4.0 g/dL (2.5-4.5) 05/06/18 04:10 Albumin/Globulin Ratio 0.6 Ratio (1.1-2.1) L 05/06/18 04:10 Specimen Type Catherized urine 05/01/18 18:06 Urine Color Yellow (YELLOW) 05/01/18 18:06 Urine Appearance Slightly hazy (CLEAR) 05/01/18 18:06 Urine pH 7.0 (5.0 - 8.0) 05/01/18 18:06 Ur Specific [place] 1.010 (1.000-1.030) 05/01/18 18:06 Urine Protein 2+ (NEGATIVE) 05/01/18 18:06 Urine Glucose (UA) Negative (NEGATIVE) 05/01/18 18:06 Urine Ketones Negative (NEGATIVE) 05/01/18 18:06 Urine Occult Blood Negative (NEGATIVE) 05/01/18 18:06 Urine Nitrite Negative (NEGATIVE) 05/01/18 18:06 Urine Bilirubin Negative (NEGATIVE) 05/01/18 18:06 Urine Urobilinogen Normal (NORMAL) 05/01/18 18:06 Ur Leukocyte Esterase Negative (NEGATIVE) 05/01/18 18:06 Urine RBC 0-2 /HPF (NONE SEEN) 05/01/18 18:06 Urine WBC None seen /HPF (NONE SEEN) 05/01/18 18:06 Ur Squamous Epith Cells Negative /HPF (NEGATIVE) 05/01/18 18:06 Amorphous Sediment Trace /HPF (NEGATIVE) 05/01/18 18:06 Urine Bacteria Negative /HPF (NEGATIVE) 05/01/18 18:06 Ur Culture Indicated? No/not indicated 05/01/18 18:06 - Plan (1) Wound cellulitis Status: Acute Plan: IV ANTIBIOTICS, WOUND CULTURES, WOUND CARE, CONTINUE TO MONITOR (2) CHF (congestive heart failure) Status: Acute (3) COPD (chronic obstructive pulmonary disease) Status: Acute Qualifiers: COPD type: COPD with acute exacerbation Qualified Code(s): J44.1 - Chronic obstructive pulmonary disease with (acute) exacerbation Plan: IV anxtibiotics, Nebs, Solumendrol, CXR (4) Adult failure to thrive syndrome Status: Chronic (5) Congestive heart failure Status: Chronic Plan: I & O2, SUPPLEMENTAL O2, MONITOR (6) Hypertension Status: Chronic Qualifiers: Hypertension type: unspecified secondary hypertension Qualified Code(s): I15.9 - Secondary hypertension, unspecified Plan: Monitor BP (7) History of NV (myocardial infarction) Status: Chronic (8) Diabetes mellitus, type 2 Status: Chronic Plan: Monitor BS. (9) Arthritis Status: Chronic (10) COPD (chronic obstructive pulmonary disease) Status: Chronic Qualifiers: COPD type: unspecified COPD Qualified Code(s): J44.9 - Chronic obstructive pulmonary disease, unspecified Plan: RESPIRATORY TREATMENTS, SUPPLEMENTAL OXYGEN, CONTINUE TO MONITOR (11) CAD (coronary artery disease) Status: Chronic
[2018-05-06] MEDS: MILK OF MAGNESIA PO SCH (21:35)
[2018-05-06] MEDS: RESTORIL CAP 15 MG PO PRN (21:36)
[2018-05-06] MEDS: ZANTAC PO SCH (21:36)
[2018-05-06] MEDS: FLOMAX PO SCH (21:37)
[2018-05-06] MEDS: PRAVACHOL PO SCH (21:38)
[2018-05-06] MEDS: LEVEMIR SC SCH (21:39)
[2018-05-06] MEDS ORDERED: BUTT CREAM (COMPOUND) TOP PRN (22:37)
[2018-05-07] MEDS: DUONEB 0.5 MG/3 MG NEB SCH ×4 (01:13→11:56)
[2018-05-07 05:25] LABS: BASOPHILS # (AUTO) 0.1 X10^3/uL (0.0-0.1); BASOPHILS % (AUTO) 1.1 % (0.2-1.0); EOSINOPHILS # (AUTO) 0.4 x10^3/uL (0.0-0.2); EOSINOPHILS % (AUTO) 7.2 % (0.9-2.9); HEMOGLOBIN 9.6 g/dL (13.5-18.0); LYMPHOCYTES % (AUTO) 17.6 % (21.0-51.0); MEAN CORPUSCULAR HEMOGLOBIN 27.9 pg (27.0-34.0); MEAN CORPUSCULAR HGB CONC 33.2 g/dL (33.0-35.0); MONOCYTES # (AUTO) 0.5 x10^3/uL (0.3-0.8); MONOCYTES % (AUTO) 8.1 % (0.0-13.0); NEUTROPHILS # (AUTO) 3.9 x10^3/uL (2.2-4.8); PLATELET COUNT 218 X10^3/uL (150.0-450.0); RED BLOOD COUNT 3.45 X10^6/uL (4.7-6.0); RED CELL DISTRIBUTION WIDTH 15.9 % (11.6-16.5); WHITE BLOOD COUNT 5.9 X10^3/uL (3.6-10.0)
[2018-05-07 05:43] LABS: ALBUMIN 2.5 g/dL (3.4-5.0); CALCIUM 8.8 mg/dL (8.5-10.1); CARBON DIOXIDE 35.6 mmol/L (21-32); CREATININE 1.65 mg/dL (0.70-1.30); TOTAL PROTEIN 6.6 g/dL (6.4-8.2)
[2018-05-07] MEDS: NEURONTIN CAP 400 MG PO SCH ×2 (05:59→14:50)
[2018-05-07] MEDS: PULMICORT NEB TX 0.5 MG NEB SCH (08:15)
[2018-05-07] MEDS ORDERED: GLUCOPHAGE ONE (08:50)
[2018-05-07] MEDS ORDERED: ZESTRIL TAB 20 MG ONE (08:52)
[2018-05-07] MEDS: LASIX IVP SCH (09:23)
[2018-05-07] MEDS: TEFLARO 400 MG in NS 50 ML IV 50 ML IV SCH (09:23)
[2018-05-07] MEDS: COZAAR PO SCH (09:24)
[2018-05-07] MEDS: COLACE CAP 100 MG PO SCH (09:24)
[2018-05-07] MEDS: K-DUR TAB 20 MEQ PO SCH (09:24)
[2018-05-07] MEDS: APRESOLINE TAB 25 MG PO SCH (09:25)
[2018-05-07] MEDS: ZAROXOYLN PO SCH (09:26)
[2018-05-07] MEDS: ZYLOPRIM PO SCH (09:26)
[2018-05-07] MEDS: PROSCAR PO SCH (09:26)
[2018-05-07] MEDS: GLUCOPHAGE PO SCH (09:26)
[2018-05-07] MEDS: CELEXA PO SCH (09:26)
[2018-05-07] MEDS: HEMOCYTE-PLUS PO SCH (09:27)
[2018-05-07] MEDS: ZESTRIL TAB 20 MG PO SCH (09:27)
[2018-05-07] MEDS: ASPIRIN PO SCH (09:27)
[2018-05-07] MEDS: SILVADENE TOP SCH (09:28)
[2018-05-07] MEDS: MIRALAX POWDER (1 DOSE 17 G) PO SCH (09:28)
[2018-05-07] MEDS: PLAVIX PO SCH (09:28)
[2018-05-07] MEDS: LEVAQUIN PREMIX IV 500 MG 500 MG/100 ML BAG IV SCH (10:08)
[2018-05-07] MEDS: NS 1000 ML 1,000 ML IV SCH (10:08)
[2018-05-07 16:21] VITALS: BP 164/72
== END 2018-05-07 17:05 | DRG 191 ==
LOC: ER 08:40 → MED/SURG 08:40
PROVIDERS: ADMIT Internal Medicine; ATTEND Internal Medicine
DX: B96.5 Pseudomonas (aeruginosa) (mallei) (pseudomallei) as the cause of diseases classified elsewhere; I25.10 Atherosclerotic heart disease of native coronary artery without angina pectoris; R26.89 Other abnormalities of gait and mobility; I15.9 Secondary hypertension, unspecified; M13.80 Other specified arthritis, unspecified site; B96.89 Other specified bacterial agents as the cause of diseases classified elsewhere; E78.2 Mixed hyperlipidemia; I51.7 Cardiomegaly; J44.1 Chronic obstructive pulmonary disease with (acute) exacerbation; I50.9 Heart failure, unspecified; I25.2 Old myocardial infarction; L03.116 Cellulitis of left lower limb; R60.0 Localized edema; E11.65 Type 2 diabetes mellitus with hyperglycemia; R62.7 Adult failure to thrive
CPT/HCPCS: 36415; 36600; 71010; 71045; 71275; 80053; 81001; 82803; 83880; 85025; 85378; 87070; 87077; 87186; 87205; 94640; 94660; 94760; 96365; 96374; 97110; 97112; 97163; 97166; 97535; 99283; 99284; A4222; A4618; A7030; S0138; G0378; J0712; J1815; J1940; J1956; J7030; J7050; J7620; J7626

== ENCOUNTER 2018-06-02 17:19 | Inpatient (IN) ==
[2018-06-02 18:20] LABS: BASOPHILS % (AUTO) 0.7 % (0.2-1.0); EOSINOPHILS # (AUTO) 0.1 x10^3/uL (0.0-0.2); EOSINOPHILS % (AUTO) 1.8 % (0.9-2.9); HEMATOCRIT 29.5 % (42.0-54.0); HEMOGLOBIN 9.7 g/dL (13.5-18.0); LYMPHOCYTES # (AUTO) 1.1 X10^3/uL (1.3-2.9); LYMPHOCYTES % (AUTO) 18.3 % (21.0-51.0); MEAN CORPUSCULAR HEMOGLOBIN 27.3 pg (27.0-34.0); MEAN CORPUSCULAR HGB CONC 32.8 g/dL (33.0-35.0); MEAN CORPUSCULAR VOLUME 83.3 fL (80.0-100.0); MEAN PLATELET VOLUME 8.4 fL (7.4-11.0); MONOCYTES # (AUTO) 0.6 x10^3/uL (0.3-0.8); NEUTROPHILS # (AUTO) 4.2 x10^3/uL (2.2-4.8); NEUTROPHILS % (AUTO) 69.2 % (42.0-75.0); PLATELET COUNT 128 X10^3/uL (150.0-450.0); RED BLOOD COUNT 3.54 X10^6/uL (4.7-6.0); RED CELL DISTRIBUTION WIDTH 16.9 % (11.6-16.5); WHITE BLOOD COUNT 6.1 X10^3/uL (3.6-10.0)
--- NOTE | 2018-06-02 18:24 | DR.HYPOGLY ---
HPI Time Seen Time seen: 15:33 PCP Primary Care Physician: FELICIA MARSHALL Complaint Chief Complaint:: SEIZURE ACTIVITY, HYPERGLYCEMIA Source History Provided: Patient Mode of Arrival Mode of Arrival: Stretcher Timing Onset of Chief Complaint: 06/02/18 PMH PMH Past Medical History: Yes Past Medical History: Arthritis, CHF, COPD, Diabetes, Dyslipidemia, Hypertension and Renal Disease Past Surgical History: Yes Surgical History: Angioplasty/Stents and Other Family History History of Family Medical Conditions: Yes Family Medical History: Diabetes Mellitus, Coronary Artery Disease, Sudden Cardiac and Hypertension Social History Does patient currently use any type of tobacco product: No Have you used tobacco products in the last 12 months: No Type of Tobacco Use: None Does any household member use tobacco: No Alcohol Use: None Do you use any recreational Drugs:: No Lives With: Alone Lives Where: Home infectious screening In the last 2 months have you had wt loss of >10#?: NO Have you had fever, night sweats or hemotysis?: No Have you traveled outside the country in the last 6 months?: No Isolation: Standard PE Vital Signs Vitals: Temperature 98.0 F Pulse Rate [Left Brachial] 57 Pulse Rate [Right Radial] 68 Pulse Rate 53 Respiratory Rate 20 Blood Pressure [Right Arm] 143/74 Blood Pressure [Left Arm] 135/79 Blood Pressure 158/66 O2 Sat by Pulse Oximetry 98 General Limitations: Language Barrier General Appearance: Alert, In No Apparent Distress and Lethargic Eyes Eye exam: Normal Appearance, PERRL and EOMI; negative Conjunctival Injection Pupils: Regular, Round: Bilateral Sclera/Conjunctival: Normal Inspection: Bilateral ENT ENT Exam: Normal Exam and Normal Oropharynx Nose Exam: Normal Nose Exam Mouth Exam: Normal Inspection Throat Exam: Normal Inspection Neck Neck Exam: Normal Inspection and Full ROM; negative Tenderness Chest Chest Inspection: Normal Inspection; negative Symmetric Chest Wall Rise and Rash Respiratory Respiratory Exam: Normal Lung Sounds Bilat; negative Accessory Muscle Use, Prolonged Expiratory Phase and Respiratory Distress Respiratory Exam: Bilateral: Clear to Auscultation Cardiovascular Cardiovascular Exam: Regular Rate and Normal Rhythm Abdominal Exam Abdominal Exam: Normal Inspection, Normal Bowel Sounds and Hypoactive Bowel Sounds; negative Trauma, Ascites, Mass and Bruit Abdominal Tenderness: negative RUQ, RLQ, LUQ, LLQ, Epigastrium and Suprapubic Extremities Extremities Exam: Normal Inspection, Full ROM and Normal Capillary Refill; negative Edema Back Back Exam: Normal Inspection and Full ROM; negative (R) CVA Tenderness and (L) CVA Tenderness Neurologic Neurological Exam: Alert, Oriented X3 and CN II-XII Intact; negative Normal Gait Cranial Nerve Exam: EOM Function (II, III, IV, ): Normal Cerebellar Function: negative Normal Gait and Truncal Ataxia Motor Strength - LUE: 2/5 Motor Strength - RUE: 2/5 Motor Strength - LLE: 2/5 Motor Strength - RLE: 2/5 Psychiatric Psychiatric Exam: Depressed and Flat Affect Skin Skin Exam: Warm, Dry, Intact and Normal Color; negative Rash and Diaphoresis COURSE Treatment Treatment: NS, hyperkalemia protocol Reevaluation 1st: Resolved ROR Labs Reviewed Result Diagrams: 06/09/18 05:14 06/09/18 05:14 Laboratory: 06/03/18 11:48 Blood Blood Culture - Final 06/03/18 11:40 Blood Blood Culture - Final 06/04/18 10:00 Sputum - Expectorated Sputum Sputum Culture - Final 06/04/18 10:00 Sputum - Expectorated Sputum - Final WBC 7.4 X10^3/uL (3.6-10.0) 06/09/18 05:14 RBC 4.09 X10^6/uL (4.7-6.0) L 06/09/18 05:14 Hgb 11.1 g/dL (13.5-18.0) L 06/09/18 05:14 Hct 33.1 % (42.0-54.0) L 06/09/18 05:14 MCV 81.0 fL (80.0-100.0) 06/09/18 05:14 MCH 27.1 pg (27.0-34.0) 06/09/18 05:14 MCHC 33.5 g/dL (33.0-35.0) 06/09/18 05:14 RDW 17.6 % (11.6-16.5) H 06/09/18 05:14 Plt Count 226 X10^3/uL (150.0-450.0) 06/09/18 05:14 Plt Count Comment Decreased (ADEQUATE) 06/04/18 05:30 MPV 7.9 fL (7.4-11.0) 06/09/18 05:14 Neut % (Auto) 56.3 % (42.0-75.0) 06/09/18 05:14 Lymph % (Auto) 27.7 % (21.0-51.0) 06/09/18 05:14 Rich % (Auto) 8.8 % (0.0-13.0) 06/09/18 05:14 Eos % (Auto) 6.8 % (0.9-2.9) H 06/09/18 05:14 Baso % (Auto) 0.4 % (0.2-1.0) 06/09/18 05:14 Neut # (Auto) 4.2 x10^3/uL (2.2-4.8) 06/09/18 05:14 Lymph # (Auto) 2.0 X10^3/uL (1.3-2.9) 06/09/18 05:14 Rich # (Auto) 0.6 x10^3/uL (0.3-0.8) 06/09/18 05:14 Eos # (Auto) 0.5 x10^3/uL (0.0-0.2) H 06/09/18 05:14 Baso # (Auto) 0.0 X10^3/uL (0.0-0.1) 06/09/18 05:14 Absolute Nucleated RBC 0.0 /100WBC 06/09/18 05:14 Total Counted 100 06/04/18 05:30 Neutrophils % (Manual) 94 % (39-76) H 06/04/18 05:30 Lymphocytes % (Manual) 4 % (13-43) L 06/04/18 05:30 Monocytes % (Manual) 2 % (4-9) L 06/04/18 05:30 Plt Morphology Comment Normal (NORMAL) 06/04/18 05:30 RBC Morphology Normal (NORMAL) 06/04/18 05:30 Sample Site Rr 06/04/18 11:23 ABG pH 7.510 (7.35-7.45) H 06/04/18 11:23 ABG pCO2 37.0 mmHg (35.0-45.0) 06/04/18 11:23 ABG pO2 59.0 mmHg (80.0-100.0) L 06/04/18 11:23 ABG HCO3 29.5 mmol/L (22-26) H 06/04/18 11:23 ABG O2 Saturation 93.0 % (90-100) 06/04/18 11:23 ABG Base Excess 6.2 mmol/L (-2.0-2.0) H 06/04/18 11:23 Markos Test Pos 06/04/18 11:23 A-a Gradient 151.0 mmHg 06/04/18 11:23 FiO2 36.000 06/04/18 11:23 Blood Gas Comments Pt jamee well. 06/04/18 11:23 Sodium 139 mmol/L (136-145) 06/09/18 05:14 Corrected Sodium 140 mmol/L (136-145) 06/09/18 05:14 Potassium 4.2 mmol/L (3.5-5.1) 06/09/18 05:14 Chloride 102 mmol/L (98-107) 06/09/18 05:14 Carbon Dioxide 34.0 mmol/L (21-32) H 06/09/18 05:14 BUN 33 mg/dL (7-18) H 06/09/18 05:14 Creatinine 1.21 mg/dL (0.70-1.30) 06/09/18 05:14 Est GFR (MDRD) Af Amer > 60 (>60) 06/09/18 05:14 Est GFR (MDRD) Non-Af > 60 (>60) 06/09/18 05:14 Glucose 142 mg/dL (65-99) H 06/09/18 05:14 POC Glucose (mg/dL) 311 mg/dL (65-99) H 06/09/18 11:30 Calcium 9.0 mg/dL (8.5-10.1) 06/09/18 05:14 Corrected Calcium 10.0 mg/dL (8.5-10.1) 06/09/18 05:14 Magnesium 1.9 mg/dL (1.7-2.9) 06/05/18 16:51 Total Bilirubin 0.30 mg/dL (0.2-1.0) 06/09/18 05:14 AST 17 Units/L (15-37) 06/09/18 05:14 ALT 17 Units/L (12-78) 06/09/18 05:14 Alkaline Phosphatase 116 Units/L (46-116) 06/09/18 05:14 Creatine Kinase 51 Units/L (39-308) 06/04/18 05:30 CK-MB (CK-2) 1.0 ng/mL (0-4.0) 06/04/18 05:30 CK/CKMB % Calc 2.0 % (<4) 06/04/18 05:30 Troponin I < 0.02 ng/mL (0-1.5) 06/04/18 05:30 C-Reactive Protein 26.50 mg/L (0-3.0) H 06/02/18 18:12 Total Protein 6.7 g/dL (6.4-8.2) 06/09/18 05:14 Albumin 2.8 g/dL (3.4-5.0) L 06/09/18 05:14 Globulin 3.9 g/dL (2.5-4.5) 06/09/18 05:14 Albumin/Globulin Ratio 0.7 Ratio (1.1-2.1) L 06/09/18 05:14 Specimen Type Random urine 06/03/18 08:33 Urine Color Yellow (YELLOW) 06/03/18 08:33 Urine Appearance Clear (CLEAR) 06/03/18 08:33 Urine pH 5.0 (5.0 - 8.0) 06/03/18 08:33 Ur Specific [place] 1.010 (1.000-1.030) 06/03/18 08:33 Urine Protein 2+ (NEGATIVE) 06/03/18 08:33 Urine Glucose (UA) 1+ (NEGATIVE) 06/03/18 08:33 Urine Ketones Negative (NEGATIVE) 06/03/18 08:33 Urine Occult Blood Negative (NEGATIVE) 06/03/18 08:33 Urine Nitrite Negative (NEGATIVE) 06/03/18 08:33 Urine Bilirubin Negative (NEGATIVE) 06/03/18 08:33 Urine Urobilinogen Normal (NORMAL) 06/03/18 08:33 Ur Leukocyte Esterase Negative (NEGATIVE) 06/03/18 08:33 Urine RBC None seen /HPF (NONE SEEN) 06/03/18 08:33 Urine WBC None seen /HPF (NONE SEEN) 06/03/18 08:33 Ur Squamous Epith Cells Negative /HPF (NEGATIVE) 06/03/18 08:33 Urine Bacteria Negative /HPF (NEGATIVE) 06/03/18 08:33 Urine Mucus Few /HPF (NEGATIVE) 06/03/18 08:33 Ur Culture Indicated? No/not indicated 06/03/18 08:33 XRAY XRAY Findings: Chest: cardiomegaly; no CHF Diagnosis Discharge Problem: Acute hyperkalemia, Acute dehydration, Hyperglycemia
[2018-06-02 18:34] LABS: CALCIUM 8.9 mg/dL (8.5-10.1); CARBON DIOXIDE 28.5 mmol/L (21-32); CREATININE 1.55 mg/dL (0.70-1.30)
[2018-06-02 18:43] LABS: ALBUMIN 3.1 g/dL (3.4-5.0); COR CA(FOR HYPOALB) 9.6 mg/dL (8.5-10.1)
[2018-06-02 18:47] LABS: CKMB % 2.2 % (<4); CREATINE KINASE 129 Units/L (39-308); CREATINE KINASE MB 2.8 ng/mL (0-4.0); TROPONIN I < 0.02 ng/mL (0-1.5)
[2018-06-02] MEDS ORDERED: HumuLIN R IV STA (18:54)
[2018-06-02] MEDS ORDERED: CALCIUM GLUCONATE 10% IV ONE ×2 (18:59→19:07)
[2018-06-02] MEDS ORDERED: SODIUM BICARBONATE 8.4% IVP ONE (19:05)
[2018-06-02] MEDS ORDERED: LASIX IVP ONE ×2 (19:05→19:10)
[2018-06-02] MEDS ORDERED: SODIUM BICARBONATE 8.4% INJ ADULT IVP ONE (19:07)
[2018-06-02] MEDS ORDERED: KAYEXALATE SUSP PO ONE (19:07)
[2018-06-02] MEDS ORDERED: HumuLIN R ONE (19:08)
[2018-06-02] MEDS ORDERED: SODIUM BICARBONATE 8.4% INJ ADULT ONE (19:08)
--- NOTE | 2018-06-02 19:17 | RAD ---
Single view of the chest Indication: Congestive heart failure. Comparison: Chest radiograph of May 05, 2018. Findings/conclusion: There is cardiomegaly. The pulmonary vasculature is within normal limits. The oma ngs are clear. Prior sternotomy noted. No pleural effusion. Reported By:
--- NOTE | 2018-06-02 22:40 | CT ---
CT of the head without contrast indication: Seizures with weakness Comparison: Head CT done August 11, 2016. Technique: 5 mm axial images of the brain were obtained with coronal and sagittal reformats generated from the original data set. Findings: There is mild cerebral and cerebellar atrophy. No intracranial hemorrhage or mass effect is seen. There is no hypodensity suggestive of recent ischemia. There is proportionate ventricular enla rgement to the degree of atrophy. There is microangiopathy. The paranasal sinuses and mastoid air darvin ls are clear bilaterally. The sella and posterior fossa show no abnormality. Conclusion: There is no evidence of intracranial hemorrhage, mass effect or recent ischemia. Reported By:
[2018-06-02 23:51] LABS: BLOOD UREA NITROGEN 35 mg/dL (7-18); CALCIUM 9.3 mg/dL (8.5-10.1); CARBON DIOXIDE 32.6 mmol/L (21-32); CHLORIDE 99 mmol/L (98-107); COR NA(FOR HYPERGLY) 135 mmol/L (136-145); CREATININE 1.37 mg/dL (0.70-1.30); SODIUM 132 mmol/L (136-145); eGFR NON BLACK RACES 54 (>60)
[2018-06-03 02:13] LABS: CKMB % 2.1 % (<4); CREATINE KINASE 98 Units/L (39-308); CREATINE KINASE MB 2.1 ng/mL (0-4.0); TROPONIN I < 0.02 ng/mL (0-1.5)
[2018-06-03] MEDS ORDERED: ZESTRIL TAB 20 MG ONE ×3 (03:31→19:57)
[2018-06-03] MEDS: ZESTRIL TAB 20 MG PO SCH ×3 (03:34→20:25)
[2018-06-03] MEDS: APRESOLINE TAB 25 MG PO SCH ×3 (03:34→20:26)
[2018-06-03] MEDS: SNACK - Diabetic Appropriate PO SCH ×2 (03:35→20:35)
[2018-06-03 03:59] VITALS: BMI 32.3
[2018-06-03] MEDS: NS 1000 ML 1,000 ML IV SCH ×2 (05:25→17:17)
[2018-06-03] MEDS: HumuLIN R SUBCUT PRN ×4 (05:36→20:26)
[2018-06-03 07:05] LABS: BASOPHILS % (AUTO) 0.5 % (0.2-1.0); EOSINOPHILS # (AUTO) 0.4 x10^3/uL (0.0-0.2); EOSINOPHILS % (AUTO) 4.4 % (0.9-2.9); HEMATOCRIT 30.9 % (42.0-54.0); HEMOGLOBIN 10.2 g/dL (13.5-18.0); LYMPHOCYTES # (AUTO) 1.7 X10^3/uL (1.3-2.9); LYMPHOCYTES % (AUTO) 18.8 % (21.0-51.0); MEAN CORPUSCULAR HEMOGLOBIN 27.5 pg (27.0-34.0); MEAN CORPUSCULAR HGB CONC 33.1 g/dL (33.0-35.0); MEAN CORPUSCULAR VOLUME 83.3 fL (80.0-100.0); MEAN PLATELET VOLUME 9.1 fL (7.4-11.0); MONOCYTES # (AUTO) 0.7 x10^3/uL (0.3-0.8); MONOCYTES % (AUTO) 7.3 % (0.0-13.0); NEUTROPHILS # (AUTO) 6.2 x10^3/uL (2.2-4.8); PLATELET COUNT 128 X10^3/uL (150.0-450.0); RED BLOOD COUNT 3.71 X10^6/uL (4.7-6.0); RED CELL DISTRIBUTION WIDTH 16.8 % (11.6-16.5)
[2018-06-03 07:22] LABS: ALANINE AMINOTRANSFERASE 16 Units/L (12-78); ALBUMIN 3.1 g/dL (3.4-5.0); ALKALINE PHOSPHATASE 134 Units/L (46-116); ASPARTATE AMINO TRANSFERASE 16 Units/L (15-37); BLOOD UREA NITROGEN 34 mg/dL (7-18); CALCIUM 9.4 mg/dL (8.5-10.1); CARBON DIOXIDE 32.2 mmol/L (21-32); CHLORIDE 99 mmol/L (98-107); COR CA(FOR HYPOALB) 10.1 mg/dL (8.5-10.1); COR NA(FOR HYPERGLY) 137 mmol/L (136-145); SODIUM 133 mmol/L (136-145); TOTAL PROTEIN 7.2 g/dL (6.4-8.2); eGFR NON BLACK RACES 57 (>60)
[2018-06-03 07:52] LABS: CKMB % 1.7 % (<4); CREATINE KINASE 82 Units/L (39-308); CREATINE KINASE MB 1.4 ng/mL (0-4.0); TROPONIN I < 0.02 ng/mL (0-1.5)
[2018-06-03 08:48] LABS: BILIRUBIN,URINE NEGATIVE (NEGATIVE); BLOOD/HEMOGLOBIN,URINE NEGATIVE (NEGATIVE); GLUCOSE, URINE 1+ (NEGATIVE); KETONES,URINE NEGATIVE (NEGATIVE); LEUKOCYTE ESTERASE ,URINE NEGATIVE (NEGATIVE); NITRITES,URINE NEGATIVE (NEGATIVE); PROTEIN,URINE 2+ (NEGATIVE); UROBILINOGEN,URINE NORMAL (NORMAL)
[2018-06-03] MEDS ORDERED: LASIX IVP ONE ×2 (08:52→11:41)
[2018-06-03 09:00] LABS: APPEARANCE,URINE CLEAR (CLEAR); COLOR,URINE YELLOW (YELLOW)
[2018-06-03 09:01] LABS: BACTERIA,URINE NEGATIVE /HPF (NEGATIVE); MUCUS,URINE FEW /HPF (NEGATIVE); RBC,URINE NONE SEEN /HPF (NONE SEEN); SQUAMOUS EPITHELIAL CELL,UR NEGATIVE /HPF (NEGATIVE)
[2018-06-03] MEDS: SOLU-Medrol 125 MG VIAL IVP SCH ×3 (09:34→21:33)
[2018-06-03] MEDS: LEVAQUIN PREMIX IV 750 MG 750 MG/150 ML BAG IV SCH (11:46)
[2018-06-03 14:17] LABS: ABG BASE EXCESS 8.8 mmol/L (-2.0-2.0)
[2018-06-03 14:18] LABS: ABG ALLEN TEST POS
--- NOTE | 2018-06-03 14:40 | DR.H&P ---
H&P - History & Physical for Day of: H&P Date: 06/03/18 - Chief Complaint Chief Complaint: sob, RESP DISTRESS - History of Present Illness History of Present Illness: PT 78WM ER ADMISSION AFTER SEIZURE LIKE ACTIVITY, RESP DISTRESS. PT HAS PMH OF COPD RESP FAILURE ON CONTINUOUS O2, CHF, BRADYCARDIA, CAD, CRF, HTN, OA. PT WAS SEEN IN DR ALYCE BHATIA OFFICE EARLIER TODAY FOR A FOLLOW UP ON LOWER EXTREMITY CELLULITIS, WENT [facility] STORE WITH FAMILY AND AFTER GETTING HOME CO SEVERE SOB, HAD SEIZURE LIKE ACTIVITY. PT WAS EVALUATED IN ER AND ADMITTED TO ICU FOR EVALUATION AND TREATMENT OF ACUTE ILLNESS, RESP DISTRESS. - Past Medical History Past Medical History: Arthritis, CHF, COPD, Coronary Artery Disease, Diabetes, Dyslipidemia, GERD, Hypertension, Renal Disease - Past Surgical History Surgical History: Angioplasty/Stents, Ortho Surgery, Other - Family History Family Medical History: Diabetes Mellitus, Coronary Artery Disease, Sudden Cardiac , Hypertension - Social History Does patient currently use any type of tobacco product: No Have you used tobacco products in the last 12 months: No Type of Tobacco Use: None Does any household member use tobacco: No Alcohol Use: None Drug Use: None - Medications Home Medications: No Known Drug Allergies [NKDA] Allergy (Verified 05/01/18 08:42) - Review of Systems Constitutional: Weakness Eyes: No Symptoms Reported ENT: No Symptoms Reported Respiratory: Shortness of Breath, Wheezing Cardiovascular: Chest Pain, Edema, Light Headedness Gastrointestinal: No Symptoms Reported Genitourinary: Frequency, Incontinence Musculoskeletal: Back Pain, Leg Pain Skin: Rash, Wound Neurological: Weakness, Seizures (REPORTED SEIZURE LIKE ACTIVITY) - Physical Exam Vital Signs: Temperature 101.5 F Pulse Rate [Right Radial] 79 Pulse Rate 42 Respiratory Rate 21 Blood Pressure [Right Arm] 173/77 Blood Pressure [Left Arm] 162/72 Blood Pressure 158/66 O2 Sat by Pulse Oximetry 97 Oriented: Normal Eyes: Normal Ear: Normal Nose: Normal Throat: Dry Respiratory: Wheezes Throughout, RLL Diminished, LLL Diminished Cardiovascular: Bradycardia (RATE 50'S), Edema : Normal Auscultation: Bowel Sounds: Normal Palpation: Normal Tenderness: Normal Skin: Decreased Turg[place], Wound (BILATERAL LOWER EXTREMITY REDNESS, SMALL SF OPEN WOUND TO LLE) Musculoskeletal: Right, Left, Leg, Back:Lumbar, Sensory Deficit, Instability Psychiatric: Anxiety Affect: Anxious Speech Pattern: Clear, Appropriate - Assessment/Plan (1) SOB (shortness of breath) Status: Acute Plan: ADMIT ICU, ABG ON ADMISSION. RESP CONSULT, SUPPLEMENTAL O2, BIPAP PRN. STRICT I & OS, LASIX 40MG IV BID X2. VERIFY HOME MEDS. BLOOD CULTURES, IV SOLU - MEDROL 80 Q 8HRS X 3. IV LEVAQUIN, JET NEBS. BP CONTROL IV HYDRALAZINE 10MG IV PRN BP >180/100 (2) Bradycardia with 41-50 beats per minute Status: Acute (3) COPD (chronic obstructive pulmonary disease) Qualifiers: COPD type: COPD with acute exacerbation Qualified Code(s): J44.1 - Chronic obstructive pulmonary disease with (acute) exacerbation Status: Acute (4) CHF exacerbation Qualifiers: Heart failure type: unspecified Qualified Code(s): I50.9 - Heart failure, unspecified Status: Acute (5) Wound cellulitis Status: Acute (6) Hypertensive urgency Status: Acute (7) Diabetes mellitus, type 2 Status: Chronic (8) COPD (chronic obstructive pulmonary disease) Qualifiers: COPD type: unspecified COPD Qualified Code(s): J44.9 - Chronic obstructive pulmonary disease, unspecified Status: Chronic (9) CAD (coronary artery disease) Status: Chronic - Allergies Allergies/Adverse Reactions: Allergies Allergy/AdvReac Type Severity Reaction Status Date / Time No Known Drug Allergies Allergy Verified 05/01/18 08:42 [NKDA]
[2018-06-03] MEDS: PROSCAR PO SCH (15:11)
[2018-06-03] MEDS: MORPHINE SULFATE INJ 2 MG INJ IVP PRN ×2 (15:11→20:27)
--- NOTE | 2018-06-03 15:48 | RAD ---
HISTORY: Abdominal distension Study: KUB Comparison: None Findings: The abdominal gas pattern is nonspecific and nonobstructive. No abnormal masses or abnormal calcifica tions are identified. The regional skeleton is intact. The patient is status post left total hip arth roplasty. IMPRESSION: Nonspecific bowel gas pattern Reported By:
[2018-06-03] MEDS: PROVENTIL NEB TX 0.083% 2.5MG/ 3ML NEB SCH ×2 (18:25→20:16)
[2018-06-03] MEDS: PULMICORT NEB TX 0.5 MG NEB SCH (20:16)
[2018-06-03] MEDS: PRAVACHOL PO SCH (20:25)
[2018-06-03] MEDS ORDERED: PATIENT'S HOME MEDICATION (Budesonide-Formoterol 2 PUFF) INH SCH (21:00)
[2018-06-04] MEDS: MORPHINE SULFATE INJ 2 MG INJ IVP PRN ×3 (02:05→21:17)
[2018-06-04] MEDS ORDERED: NITROSTAT SL ONE (03:27)
[2018-06-04] MEDS ORDERED: NITROSTAT SL PRN (03:30)
[2018-06-04] MEDS: NS 1000 ML 1,000 ML IV SCH ×4 (05:32→23:31)
[2018-06-04] MEDS: HumuLIN R SUBCUT PRN ×4 (06:00→21:09)
[2018-06-04 06:19] LABS: BASOPHILS % (AUTO) 0.2 % (0.2-1.0); HEMATOCRIT 30.4 % (42.0-54.0); HEMOGLOBIN 10.1 g/dL (13.5-18.0); LYMPHOCYTES # (AUTO) 0.7 X10^3/uL (1.3-2.9); LYMPHOCYTES % (AUTO) 7.5 % (21.0-51.0); MEAN CORPUSCULAR HEMOGLOBIN 27.5 pg (27.0-34.0); MEAN CORPUSCULAR HGB CONC 33.3 g/dL (33.0-35.0); MEAN CORPUSCULAR VOLUME 82.6 fL (80.0-100.0); MEAN PLATELET VOLUME 9.1 fL (7.4-11.0); MONOCYTES # (AUTO) 0.1 x10^3/uL (0.3-0.8); MONOCYTES % (AUTO) 1.6 % (0.0-13.0); NEUTROPHILS # (AUTO) 8.3 x10^3/uL (2.2-4.8); NEUTROPHILS % (AUTO) 90.7 % (42.0-75.0); PLATELET COUNT 128 X10^3/uL (150.0-450.0); RED BLOOD COUNT 3.67 X10^6/uL (4.7-6.0); RED CELL DISTRIBUTION WIDTH 16.9 % (11.6-16.5); WHITE BLOOD COUNT 9.2 X10^3/uL (3.6-10.0)
[2018-06-04 06:33] LABS: ALANINE AMINOTRANSFERASE 16 Units/L (12-78); ALBUMIN 2.9 g/dL (3.4-5.0); ALKALINE PHOSPHATASE 116 Units/L (46-116); ASPARTATE AMINO TRANSFERASE 15 Units/L (15-37); BLOOD UREA NITROGEN 37 mg/dL (7-18); CALCIUM 9.1 mg/dL (8.5-10.1); CARBON DIOXIDE 29.3 mmol/L (21-32); CHLORIDE 97 mmol/L (98-107); COR NA(FOR HYPERGLY) 139 mmol/L (136-145); CREATININE 1.29 mg/dL (0.70-1.30); SODIUM 133 mmol/L (136-145); TOTAL PROTEIN 7.1 g/dL (6.4-8.2); eGFR NON BLACK RACES 57 (>60)
[2018-06-04 07:14] LABS: PLATELET MORPHOLOGY COMMENT NORMAL (NORMAL)
[2018-06-04 07:28] LABS: CREATINE KINASE 51 Units/L (39-308); TROPONIN I < 0.02 ng/mL (0-1.5)
[2018-06-04] MEDS ORDERED: ZESTRIL TAB 20 MG ONE ×2 (08:00→20:35)
[2018-06-04] MEDS: CELEXA PO SCH (08:06)
[2018-06-04] MEDS: PROVENTIL NEB TX 0.083% 2.5MG/ 3ML NEB SCH ×5 (08:06→20:32)
[2018-06-04] MEDS: APRESOLINE TAB 25 MG PO SCH ×2 (08:06→21:08)
[2018-06-04] MEDS: PULMICORT NEB TX 0.5 MG NEB SCH ×2 (08:06→20:32)
[2018-06-04] MEDS: LEVAQUIN PREMIX IV 750 MG 750 MG/150 ML BAG IV SCH (08:07)
[2018-06-04] MEDS: ZESTRIL TAB 20 MG PO SCH ×2 (08:07→21:09)
[2018-06-04] MEDS: PROSCAR PO SCH (08:07)
[2018-06-04] MEDS: PLAVIX PO SCH (08:08)
[2018-06-04] MEDS ORDERED: PRAVASTATIN SODIUM 80 MG PO SCH (09:00)
[2018-06-04 11:28] LABS: ABG BASE EXCESS 6.2 mmol/L (-2.0-2.0); ABG HCO3 29.5 mmol/L (22-26)
[2018-06-04 11:29] LABS: ABG ALLEN TEST POS
[2018-06-04] MEDS ORDERED: LASIX IVP ONE (13:18)
--- NOTE | 2018-06-04 13:23 | PCM.PROG ---
Progress Note - Progress Note for Day of Date of Exam: 06/04/18 - Subjective Subjective: 78WM ER ADMIT ON 06/03 WITH CHF EXACERBATION AND COPD WITH INCREASED SOB. PT WAS ON BIPAP YESTERDAY, IV LASIX WITH IMPROVING RESP DISTRESS THIS AM, CURRENTLY ON NASAL CANULA, WILL CONTINUE IV STEROIDS, IV ATBX, CULTURES PENDING. BP AND CARDIAC MONITORING, STRICT I & OS - Past Medical Family Social History Past Med/Fam/Surg Hx: No changes since H&P Allergies: Allergies No Known Drug Allergies [NKDA] Allergy (Verified 05/01/18 08:42) - Review of Systems ROS: No change since H&P - Vital Signs and I&O's Vital Signs: Temperature 98.7 F Pulse Rate [Right Radial] 64 Pulse Rate 47 Respiratory Rate 28 Blood Pressure [Right Arm] 176/80 Blood Pressure [Left Arm] 162/72 Blood Pressure 158/66 O2 Sat by Pulse Oximetry 94 Intake and Output: Intake & Output 06/02/18 06/03/18 06/04/18 06/05/18 11:59 11:59 11:59 11:59 Intake Total 553 / 553 2028 Output Total 4575 / 4575 Balance 553 / 553 -2546 / -2546 - Physical Exam Oriented: Normal Eyes: Normal Ear: Normal Nose: Normal Throat: Dry Respiratory: Diminished, Wheezes Cardiovascular: Bradycardia (RATE 50'S), Edema : Normal Auscultation: Bowel Sounds: Normal Tenderness: Normal Skin: Decreased Turgur, Wound (BILATERAL LOWER EXTREMITY REDNESS, SMALL SF OPEN WOUND TO LLE) Musculoskeletal: Right, Left, Leg, Back:Lumbar, Sensory Deficit, Instability Psychiatric: Anxiety Affect: Anxious Speech Pattern: Clear, Appropriate - Laboratory and Diagnostics Result Diagrams: 06/04/18 05:30 06/04/18 05:30 Labs: 06/04/18 10:00 Sputum - Expectorated Sputum - Final Laboratory WBC 9.2 X10^3/uL (3.6-10.0) 06/04/18 05:30 RBC 3.67 X10^6/uL (4.7-6.0) L 06/04/18 05:30 Hgb 10.1 g/dL (13.5-18.0) L 06/04/18 05:30 Hct 30.4 % (42.0-54.0) L 06/04/18 05:30 MCV 82.6 fL (80.0-100.0) 06/04/18 05:30 MCH 27.5 pg (27.0-34.0) 06/04/18 05:30 MCHC 33.3 g/dL (33.0-35.0) 06/04/18 05:30 RDW 16.9 % (11.6-16.5) H 06/04/18 05:30 Plt Count 128 X10^3/uL (150.0-450.0) L 06/04/18 05:30 Plt Count Comment Decreased (ADEQUATE) 06/04/18 05:30 MPV 9.1 fL (7.4-11.0) 06/04/18 05:30 Neut % (Auto) 90.7 % (42.0-75.0) H 06/04/18 05:30 Lymph % (Auto) 7.5 % (21.0-51.0) L 06/04/18 05:30 Kay % (Auto) 1.6 % (0.0-13.0) 06/04/18 05:30 Eos % (Auto) 0.0 % (0.9-2.9) L 06/04/18 05:30 Baso % (Auto) 0.2 % (0.2-1.0) 06/04/18 05:30 Neut # (Auto) 8.3 x10^3/uL (2.2-4.8) H 06/04/18 05:30 Lymph # (Auto) 0.7 X10^3/uL (1.3-2.9) L 06/04/18 05:30 Kay # (Auto) 0.1 x10^3/uL (0.3-0.8) L 06/04/18 05:30 Eos # (Auto) 0.0 x10^3/uL (0.0-0.2) 06/04/18 05:30 Baso # (Auto) 0.0 X10^3/uL (0.0-0.1) 06/04/18 05:30 Absolute Nucleated RBC 0.0 /100WBC 06/04/18 05:30 Total Counted 100 06/04/18 05:30 Neutrophils % (Manual) 94 % (39-76) H 06/04/18 05:30 Lymphocytes % (Manual) 4 % (13-43) L 06/04/18 05:30 Monocytes % (Manual) 2 % (4-9) L 06/04/18 05:30 Plt Morphology Comment Normal (NORMAL) 06/04/18 05:30 RBC Morphology Normal (NORMAL) 06/04/18 05:30 Sample Site Rr 06/04/18 11:23 ABG pH 7.510 (7.35-7.45) H 06/04/18 11:23 ABG pCO2 37.0 mmHg (35.0-45.0) 06/04/18 11:23 ABG pO2 59.0 mmHg (80.0-100.0) L 06/04/18 11:23 ABG HCO3 29.5 mmol/L (22-26) H 06/04/18 11:23 ABG O2 Saturation 93.0 % (90-100) 06/04/18 11:23 ABG Base Excess 6.2 mmol/L (-2.0-2.0) H 06/04/18 11:23 Markos Test Pos 06/04/18 11:23 A-a Gradient 151.0 mmHg 06/04/18 11:23 FiO2 36.000 06/04/18 11:23 Blood Gas Comments Pt jamee well. 06/04/18 11:23 Sodium 133 mmol/L (136-145) L 06/04/18 05:30 Corrected Sodium 139 mmol/L (136-145) 06/04/18 05:30 Potassium 4.0 mmol/L (3.5-5.1) 06/04/18 05:30 Chloride 97 mmol/L (98-107) L 06/04/18 05:30 Carbon Dioxide 29.3 mmol/L (21-32) 06/04/18 05:30 BUN 37 mg/dL (7-18) H 06/04/18 05:30 Creatinine 1.29 mg/dL (0.70-1.30) 06/04/18 05:30 Est GFR (MDRD) Af Amer > 60 (>60) 06/04/18 05:30 Est GFR (MDRD) Non-Af 57 (>60) L 06/04/18 05:30 Glucose 347 mg/dL (65-99) H 06/04/18 05:30 POC Glucose (mg/dL) 370 mg/dL (65-99) H 06/04/18 12:47 Calcium 9.1 mg/dL (8.5-10.1) 06/04/18 05:30 Corrected Calcium 10.0 mg/dL (8.5-10.1) 06/04/18 05:30 Total Bilirubin 0.50 mg/dL (0.2-1.0) 06/04/18 05:30 AST 15 Units/L (15-37) 06/04/18 05:30 ALT 16 Units/L (12-78) 06/04/18 05:30 Alkaline Phosphatase 116 Units/L (46-116) 06/04/18 05:30 Creatine Kinase 51 Units/L (39-308) 06/04/18 05:30 CK-MB (CK-2) 1.0 ng/mL (0-4.0) 06/04/18 05:30 CK/CKMB % Calc 2.0 % (<4) 06/04/18 05:30 Troponin I < 0.02 ng/mL (0-1.5) 06/04/18 05:30 C-Reactive Protein 26.50 mg/L (0-3.0) H 06/02/18 18:12 Total Protein 7.1 g/dL (6.4-8.2) 06/04/18 05:30 Albumin 2.9 g/dL (3.4-5.0) L 06/04/18 05:30 Globulin 4.2 g/dL (2.5-4.5) 06/04/18 05:30 Albumin/Globulin Ratio 0.7 Ratio (1.1-2.1) L 06/04/18 05:30 Specimen Type Random urine 06/03/18 08:33 Urine Color Yellow (YELLOW) 06/03/18 08:33 Urine Appearance Clear (CLEAR) 06/03/18 08:33 Urine pH 5.0 (5.0 - 8.0) 06/03/18 08:33 Ur Specific [place] 1.010 (1.000-1.030) 06/03/18 08:33 Urine Protein 2+ (NEGATIVE) 06/03/18 08:33 Urine Glucose (UA) 1+ (NEGATIVE) 06/03/18 08:33 Urine Ketones Negative (NEGATIVE) 06/03/18 08:33 Urine Occult Blood Negative (NEGATIVE) 06/03/18 08:33 Urine Nitrite Negative (NEGATIVE) 06/03/18 08:33 Urine Bilirubin Negative (NEGATIVE) 06/03/18 08:33 Urine Urobilinogen Normal (NORMAL) 06/03/18 08:33 Ur Leukocyte Esterase Negative (NEGATIVE) 06/03/18 08:33 Urine RBC None seen /HPF (NONE SEEN) 06/03/18 08:33 Urine WBC None seen /HPF (NONE SEEN) 06/03/18 08:33 Ur Squamous Epith Cells Negative /HPF (NEGATIVE) 06/03/18 08:33 Urine Bacteria Negative /HPF (NEGATIVE) 06/03/18 08:33 Urine Mucus Few /HPF (NEGATIVE) 06/03/18 08:33 Ur Culture Indicated? No/not indicated 06/03/18 08:33 - Plan (1) SOB (shortness of breath) Status: Acute Plan: ABG ON ADMISSION. RESP CONSULT, SUPPLEMENTAL O2, BIPAP PRN. STRICT I & OS, LASIX 40MG IV. BLOOD CULTURES, IV SOLU- MEDROL. IV LEVAQUIN, JET NEBS. BP CONTROL IV HYDRALAZINE 10MG IV PRN BP >180/100 (2) Bradycardia with 41-50 beats per minute Status: Acute (3) COPD (chronic obstructive pulmonary disease) Status: Acute Qualifiers: COPD type: COPD with acute exacerbation Qualified Code(s): J44.1 - Chronic obstructive pulmonary disease with (acute) exacerbation (4) CHF exacerbation Status: Acute Qualifiers: Heart failure type: unspecified Qualified Code(s): I50.9 - Heart failure, unspecified (5) Wound cellulitis Status: Acute (6) Hypertensive urgency Status: Acute (7) Diabetes mellitus, type 2 Status: Chronic Plan: SSI (8) COPD (chronic obstructive pulmonary disease) Status: Chronic Qualifiers: COPD type: unspecified COPD Qualified Code(s): J44.9 - Chronic obstructive pulmonary disease, unspecified (9) CAD (coronary artery disease) Status: Chronic
[2018-06-04] MEDS: LASIX PO SCH ×2 (14:30→21:08)
[2018-06-04] MEDS ORDERED: ATIVAN INJ 2 MG VIAL ONE (16:03)
[2018-06-04] MEDS ORDERED: ATIVAN INJ 2 MG VIAL IVP STA (16:15)
[2018-06-04] MEDS: APRESOLINE INJ 20 MG VIAL IVP PRN (17:21)
[2018-06-04] MEDS: SNACK - Diabetic Appropriate PO SCH (21:07)
[2018-06-04] MEDS: PRAVACHOL PO SCH (21:08)
[2018-06-05] MEDS: APRESOLINE INJ 20 MG VIAL IVP PRN ×2 (02:35→20:19)
[2018-06-05] MEDS ORDERED: ULTRAM ONE (05:37)
[2018-06-05] MEDS: HumuLIN R SUBCUT PRN ×3 (05:39→21:30)
[2018-06-05] MEDS: ULTRAM PO PRN (05:44)
[2018-06-05 06:49] LABS: BASOPHILS # (AUTO) 0.1 X10^3/uL (0.0-0.1); BASOPHILS % (AUTO) 0.5 % (0.2-1.0); HEMATOCRIT 30.1 % (42.0-54.0); LYMPHOCYTES # (AUTO) 1.1 X10^3/uL (1.3-2.9); MEAN CORPUSCULAR HEMOGLOBIN 27.1 pg (27.0-34.0); MEAN CORPUSCULAR HGB CONC 33.3 g/dL (33.0-35.0); MEAN CORPUSCULAR VOLUME 81.4 fL (80.0-100.0); MEAN PLATELET VOLUME 8.5 fL (7.4-11.0); MONOCYTES # (AUTO) 1.1 x10^3/uL (0.3-0.8); MONOCYTES % (AUTO) 7.9 % (0.0-13.0); NEUTROPHILS # (AUTO) 11.6 x10^3/uL (2.2-4.8); NEUTROPHILS % (AUTO) 83.6 % (42.0-75.0); PLATELET COUNT 170 X10^3/uL (150.0-450.0); RED CELL DISTRIBUTION WIDTH 17.2 % (11.6-16.5); WHITE BLOOD COUNT 13.9 X10^3/uL (3.6-10.0)
[2018-06-05 06:53] LABS: ALANINE AMINOTRANSFERASE 16 Units/L (12-78); ALBUMIN 2.9 g/dL (3.4-5.0); ALKALINE PHOSPHATASE 105 Units/L (46-116); ASPARTATE AMINO TRANSFERASE 19 Units/L (15-37); BLOOD UREA NITROGEN 40 mg/dL (7-18); CALCIUM 9.1 mg/dL (8.5-10.1); CARBON DIOXIDE 30.9 mmol/L (21-32); CHLORIDE 100 mmol/L (98-107); COR NA(FOR HYPERGLY) 140 mmol/L (136-145); CREATININE 1.28 mg/dL (0.70-1.30); SODIUM 137 mmol/L (136-145); TOTAL PROTEIN 6.9 g/dL (6.4-8.2); eGFR NON BLACK RACES 58 (>60)
[2018-06-05] MEDS: PULMICORT NEB TX 0.5 MG NEB SCH ×2 (07:40→21:32)
[2018-06-05] MEDS: PROVENTIL NEB TX 0.083% 2.5MG/ 3ML NEB SCH ×4 (07:40→21:32)
[2018-06-05] MEDS ORDERED: ZESTRIL TAB 20 MG ONE (07:59)
[2018-06-05] MEDS: MILK OF MAGNESIA PO SCH (08:10)
[2018-06-05] MEDS: PLAVIX PO SCH (08:11)
[2018-06-05] MEDS: LASIX PO SCH ×2 (08:11→21:29)
[2018-06-05] MEDS: CELEXA PO SCH (08:12)
[2018-06-05] MEDS: PROSCAR PO SCH (08:12)
[2018-06-05] MEDS: ZESTRIL TAB 20 MG PO SCH (08:12)
[2018-06-05] MEDS: LEVAQUIN PREMIX IV 750 MG 750 MG/150 ML BAG IV SCH (08:13)
[2018-06-05] MEDS: APRESOLINE TAB 25 MG PO SCH ×2 (08:20→21:29)
[2018-06-05] MEDS: MORPHINE SULFATE INJ 2 MG INJ IVP PRN ×2 (13:13→21:31)
[2018-06-05] MEDS ORDERED: K-RIDER 10 MEQ/NS 100 ML 10 MEQ/100 ML BAG IV PRN (16:30)
[2018-06-05] MEDS ORDERED: POTASSIUM CHLORIDE LIQ 20 MEQ UDC PO PRN (16:30)
[2018-06-05] MEDS ORDERED: K-LYTE EFFERVESCENT PO PRN (16:30)
[2018-06-05] MEDS ORDERED: POTASSIUM CHL 40 MEQ/NS 0.45% 500 ML IV PRN (16:30)
[2018-06-05] MEDS ORDERED: POTASSIUM CHL 60 MEQ/NS 0.45% 500 ML IV PRN (16:30)
[2018-06-05] MEDS: ATIVAN TAB 1 MG PO SCH (21:29)
[2018-06-05] MEDS: PRAVACHOL PO SCH (21:29)
[2018-06-05] MEDS: COLACE CAP 100 MG PO SCH (21:29)
[2018-06-05] MEDS: SNACK - Diabetic Appropriate PO SCH (22:19)
[2018-06-05] MEDS: NS 1000 ML 1,000 ML IV SCH ×2 (23:22)
[2018-06-06 05:59] LABS: ALANINE AMINOTRANSFERASE 15 Units/L (12-78); ALBUMIN 2.7 g/dL (3.4-5.0); ALKALINE PHOSPHATASE 98 Units/L (46-116); ASPARTATE AMINO TRANSFERASE 14 Units/L (15-37); BLOOD UREA NITROGEN 35 mg/dL (7-18); CALCIUM 9.2 mg/dL (8.5-10.1); CARBON DIOXIDE 31.9 mmol/L (21-32); CHLORIDE 101 mmol/L (98-107); COR CA(FOR HYPOALB) 10.2 mg/dL (8.5-10.1); COR NA(FOR HYPERGLY) 139 mmol/L (136-145); CREATININE 1.12 mg/dL (0.70-1.30); SODIUM 137 mmol/L (136-145); TOTAL PROTEIN 6.7 g/dL (6.4-8.2); eGFR NON BLACK RACES > 60 (>60)
[2018-06-06] MEDS: HumuLIN R SUBCUT PRN ×3 (05:59→21:23)
[2018-06-06 06:10] LABS: BASOPHILS % (AUTO) 0.3 % (0.2-1.0); EOSINOPHILS # (AUTO) 0.2 x10^3/uL (0.0-0.2); EOSINOPHILS % (AUTO) 2.5 % (0.9-2.9); HEMOGLOBIN 10.3 g/dL (13.5-18.0); LYMPHOCYTES # (AUTO) 1.4 X10^3/uL (1.3-2.9); LYMPHOCYTES % (AUTO) 16.2 % (21.0-51.0); MEAN CORPUSCULAR HEMOGLOBIN 27.8 pg (27.0-34.0); MEAN CORPUSCULAR HGB CONC 34.3 g/dL (33.0-35.0); MEAN PLATELET VOLUME 8.7 fL (7.4-11.0); MONOCYTES # (AUTO) 0.7 x10^3/uL (0.3-0.8); MONOCYTES % (AUTO) 8.4 % (0.0-13.0); NEUTROPHILS # (AUTO) 6.4 x10^3/uL (2.2-4.8); NEUTROPHILS % (AUTO) 72.6 % (42.0-75.0); PLATELET COUNT 178 X10^3/uL (150.0-450.0); RED CELL DISTRIBUTION WIDTH 17.3 % (11.6-16.5); WHITE BLOOD COUNT 8.8 X10^3/uL (3.6-10.0)
[2018-06-06] MEDS: LEVAQUIN PREMIX IV 750 MG 750 MG/150 ML BAG IV SCH (08:01)
[2018-06-06] MEDS: APRESOLINE TAB 25 MG PO SCH ×2 (08:01→21:20)
[2018-06-06] MEDS: CELEXA PO SCH (08:01)
[2018-06-06] MEDS: PROSCAR PO SCH (08:01)
[2018-06-06] MEDS: LASIX PO SCH ×2 (08:01→21:21)
[2018-06-06] MEDS: COZAAR PO SCH (08:02)
[2018-06-06] MEDS: MILK OF MAGNESIA PO SCH (08:02)
[2018-06-06] MEDS: PLAVIX PO SCH (08:02)
[2018-06-06] MEDS: PROVENTIL NEB TX 0.083% 2.5MG/ 3ML NEB SCH ×4 (09:11→21:01)
[2018-06-06] MEDS: PULMICORT NEB TX 0.5 MG NEB SCH ×2 (09:11→21:01)
[2018-06-06] MEDS: MORPHINE SULFATE INJ 2 MG INJ IVP PRN (09:55)
--- NOTE | 2018-06-06 15:02 | PCM.PROG ---
Progress Note - Progress Note for Day of Date of Exam: 06/06/18 - Subjective Subjective: 78WM ER ADMIT ON 06/03 WITH CHF EXACERBATION AND COPD WITH INCREASED SOB. PT FAMILY AND PT REPORTS FEELS IMPROVEMENT THIS AM. PT ATE BREAKFAST AND REPORTS RESTED BETTER LAST NIGHT. CURRENTLY ON NASAL CANULA, WILL CONTINUE IV ATBX, CULTURES PENDING. BP AND CARDIAC MONITORING, STRICT I & OS. LOWER EXTREMITY CELLULITIS IMPROVING, MILD TO MODERATE REDNESS TO BILATER LOWER EXTREMITIES. PT CONTINUES WITH DIFFUSE WEAKNESS AND LIMITED MOBILITY. DISCUSSED WITH PT AND FAMILY REHAB PLACEMENT AND PHYSICAL THERAPY EVALUATION - Past Medical Family Social History Past Med/Fam/Surg Hx: No changes since H&P Allergies: Allergies No Known Drug Allergies [NKDA] Allergy (Verified 05/01/18 08:42) - Review of Systems ROS: No change since H&P - Vital Signs and I&O's Vital Signs: Temperature 98.1 F Pulse Rate [Right Radial] 50 Pulse Rate 53 Respiratory Rate 20 Blood Pressure [Right Arm] 183/79 Blood Pressure [Left Arm] 197/84 Blood Pressure 158/66 O2 Sat by Pulse Oximetry 96 Intake and Output: Intake & Output 06/04/18 06/05/18 06/06/18 06/07/18 11:59 11:59 11:59 11:59 Intake Total 2028 / 2028 1456 / 1456 1288 / 1288 Output Total 4575 / 4575 2700 / 2700 3600 / 3600 Balance -2546 / -2546 -1244 / -1244 -2312 / -2312 - Physical Exam Oriented: Normal Eyes: Normal Ear: Normal Nose: Normal Throat: Dry Respiratory: Diminished, Wheezes Cardiovascular: Bradycardia (RATE 50'S), Edema : Normal Auscultation: Bowel Sounds: Normal Tenderness: Normal Skin: Decreased Turgur, Wound (BILATERAL LOWER EXTREMITY REDNESS, SMALL SF OPEN WOUND TO LLE) Musculoskeletal: Right, Left, Leg, Back:Lumbar, Sensory Deficit, Instability Psychiatric: Anxiety Affect: Anxious Speech Pattern: Clear, Appropriate - Laboratory and Diagnostics Result Diagrams: 06/06/18 05:20 06/06/18 05:20 Labs: 06/04/18 10:00 Sputum - Expectorated Sputum Sputum Culture - Final 06/04/18 10:00 Sputum - Expectorated Sputum - Final 06/03/18 11:48 Blood Blood Culture - Preliminary 06/03/18 11:40 Blood Blood Culture - Preliminary Laboratory WBC 8.8 X10^3/uL (3.6-10.0) 06/06/18 05:20 RBC 3.70 X10^6/uL (4.7-6.0) L 06/06/18 05:20 Hgb 10.3 g/dL (13.5-18.0) L 06/06/18 05:20 Hct 30.0 % (42.0-54.0) L 06/06/18 05:20 MCV 81.0 fL (80.0-100.0) 06/06/18 05:20 MCH 27.8 pg (27.0-34.0) 06/06/18 05:20 MCHC 34.3 g/dL (33.0-35.0) 06/06/18 05:20 RDW 17.3 % (11.6-16.5) H 06/06/18 05:20 Plt Count 178 X10^3/uL (150.0-450.0) 06/06/18 05:20 Plt Count Comment Decreased (ADEQUATE) 06/04/18 05:30 MPV 8.7 fL (7.4-11.0) 06/06/18 05:20 Neut % (Auto) 72.6 % (42.0-75.0) 06/06/18 05:20 Lymph % (Auto) 16.2 % (21.0-51.0) L 06/06/18 05:20 [place] % (Auto) 8.4 % (0.0-13.0) 06/06/18 05:20 Eos % (Auto) 2.5 % (0.9-2.9) 06/06/18 05:20 Baso % (Auto) 0.3 % (0.2-1.0) 06/06/18 05:20 Neut # (Auto) 6.4 x10^3/uL (2.2-4.8) H 06/06/18 05:20 Lymph # (Auto) 1.4 X10^3/uL (1.3-2.9) 06/06/18 05:20 [place] # (Auto) 0.7 x10^3/uL (0.3-0.8) 06/06/18 05:20 Eos # (Auto) 0.2 x10^3/uL (0.0-0.2) 06/06/18 05:20 Baso # (Auto) 0.0 X10^3/uL (0.0-0.1) 06/06/18 05:20 Absolute Nucleated RBC 0.0 /100WBC 06/06/18 05:20 Total Counted 100 06/04/18 05:30 Neutrophils % (Manual) 94 % (39-76) H 06/04/18 05:30 Lymphocytes % (Manual) 4 % (13-43) L 06/04/18 05:30 Monocytes % (Manual) 2 % (4-9) L 06/04/18 05:30 Plt Morphology Comment Normal (NORMAL) 06/04/18 05:30 RBC Morphology Normal (NORMAL) 06/04/18 05:30 Sample Site Rr 06/04/18 11:23 ABG pH 7.510 (7.35-7.45) H 06/04/18 11:23 ABG pCO2 37.0 mmHg (35.0-45.0) 06/04/18 11:23 ABG pO2 59.0 mmHg (80.0-100.0) L 06/04/18 11:23 ABG HCO3 29.5 mmol/L (22-26) H 06/04/18 11:23 ABG O2 Saturation 93.0 % (90-100) 06/04/18 11:23 ABG Base Excess 6.2 mmol/L (-2.0-2.0) H 06/04/18 11:23 Markos Test Pos 06/04/18 11:23 A-a Gradient 151.0 mmHg 06/04/18 11:23 FiO2 36.000 06/04/18 11:23 Blood Gas Comments Pt jamee well. 06/04/18 11:23 Sodium 137 mmol/L (136-145) 06/06/18 05:20 Corrected Sodium 139 mmol/L (136-145) 06/06/18 05:20 Potassium 3.8 mmol/L (3.5-5.1) 06/06/18 05:20 Chloride 101 mmol/L (98-107) 06/06/18 05:20 Carbon Dioxide 31.9 mmol/L (21-32) 06/06/18 05:20 BUN 35 mg/dL (7-18) H 06/06/18 05:20 Creatinine 1.12 mg/dL (0.70-1.30) 06/06/18 05:20 Est GFR (MDRD) Af Amer > 60 (>60) 06/06/18 05:20 Est GFR (MDRD) Non-Af > 60 (>60) 06/06/18 05:20 Glucose 167 mg/dL (65-99) H 06/06/18 05:20 POC Glucose (mg/dL) 212 mg/dL (65-99) H 06/06/18 11:07 Calcium 9.2 mg/dL (8.5-10.1) 06/06/18 05:20 Corrected Calcium 10.2 mg/dL (8.5-10.1) H 06/06/18 05:20 Magnesium 1.9 mg/dL (1.7-2.9) 06/05/18 16:51 Total Bilirubin 0.60 mg/dL (0.2-1.0) 06/06/18 05:20 AST 14 Units/L (15-37) L 06/06/18 05:20 ALT 15 Units/L (12-78) 06/06/18 05:20 Alkaline Phosphatase 98 Units/L (46-116) 06/06/18 05:20 Creatine Kinase 51 Units/L (39-308) 06/04/18 05:30 CK-MB (CK-2) 1.0 ng/mL (0-4.0) 06/04/18 05:30 CK/CKMB % Calc 2.0 % (<4) 06/04/18 05:30 Troponin I < 0.02 ng/mL (0-1.5) 06/04/18 05:30 C-Reactive Protein 26.50 mg/L (0-3.0) H 06/02/18 18:12 Total Protein 6.7 g/dL (6.4-8.2) 06/06/18 05:20 Albumin 2.7 g/dL (3.4-5.0) L 06/06/18 05:20 Globulin 4.0 g/dL (2.5-4.5) 06/06/18 05:20 Albumin/Globulin Ratio 0.7 Ratio (1.1-2.1) L 06/06/18 05:20 Specimen Type Random urine 06/03/18 08:33 Urine Color Yellow (YELLOW) 06/03/18 08:33 Urine Appearance Clear (CLEAR) 06/03/18 08:33 Urine pH 5.0 (5.0 - 8.0) 06/03/18 08:33 Ur Specific [place] 1.010 (1.000-1.030) 06/03/18 08:33 Urine Protein 2+ (NEGATIVE) 06/03/18 08:33 Urine Glucose (UA) 1+ (NEGATIVE) 06/03/18 08:33 Urine Ketones Negative (NEGATIVE) 06/03/18 08:33 Urine Occult Blood Negative (NEGATIVE) 06/03/18 08:33 Urine Nitrite Negative (NEGATIVE) 06/03/18 08:33 Urine Bilirubin Negative (NEGATIVE) 06/03/18 08:33 Urine Urobilinogen Normal (NORMAL) 06/03/18 08:33 Ur Leukocyte Esterase Negative (NEGATIVE) 06/03/18 08:33 Urine RBC None seen /HPF (NONE SEEN) 06/03/18 08:33 Urine WBC None seen /HPF (NONE SEEN) 06/03/18 08:33 Ur Squamous Epith Cells Negative /HPF (NEGATIVE) 06/03/18 08:33 Urine Bacteria Negative /HPF (NEGATIVE) 06/03/18 08:33 Urine Mucus Few /HPF (NEGATIVE) 06/03/18 08:33 Ur Culture Indicated? No/not indicated 06/03/18 08:33 - Plan (1) SOB (shortness of breath) Status: Acute Plan: RESP THERAPY, SUPPLEMENTAL O2, BIPAP PRN. STRICT I & OS, LASIX 40MG IV. BLOOD CULTURES NEGATIVE AT THIS TIME. IV LEVAQUIN, JET NEBS. BP CONTROL IV HYDRALAZINE 10MG IV PRN BP >180/100 (2) Bradycardia with 41-50 beats per minute Status: Acute (3) COPD (chronic obstructive pulmonary disease) Status: Acute Qualifiers: COPD type: COPD with acute exacerbation Qualified Code(s): J44.1 - Chronic obstructive pulmonary disease with (acute) exacerbation (4) CHF exacerbation Status: Acute Qualifiers: Heart failure type: unspecified Qualified Code(s): I50.9 - Heart failure, unspecified Plan: LASIX, I & OS, CARDIAC MONITORING, SUPPLEMENTAL O2 (5) Wound cellulitis Status: Acute (6) Hypertensive urgency Status: Acute (7) Diabetes mellitus, type 2 Status: Chronic Plan: SSI (8) COPD (chronic obstructive pulmonary disease) Status: Chronic Qualifiers: COPD type: unspecified COPD Qualified Code(s): J44.9 - Chronic obstructive pulmonary disease, unspecified (9) CAD (coronary artery disease) Status: Chronic
[2018-06-06] MEDS: SNACK - Diabetic Appropriate PO SCH (21:19)
[2018-06-06] MEDS: COLACE CAP 100 MG PO SCH (21:21)
[2018-06-06] MEDS: ATIVAN TAB 1 MG PO SCH (21:21)
[2018-06-06] MEDS: PRAVACHOL PO SCH (21:21)
[2018-06-06] MEDS: RESTORIL CAP 15 MG PO PRN (23:50)
[2018-06-07 06:22] LABS: BASOPHILS % (AUTO) 0.5 % (0.2-1.0); EOSINOPHILS # (AUTO) 0.4 x10^3/uL (0.0-0.2); EOSINOPHILS % (AUTO) 5.5 % (0.9-2.9); HEMATOCRIT 32.8 % (42.0-54.0); HEMOGLOBIN 11.1 g/dL (13.5-18.0); LYMPHOCYTES # (AUTO) 1.8 X10^3/uL (1.3-2.9); LYMPHOCYTES % (AUTO) 23.4 % (21.0-51.0); MEAN CORPUSCULAR HEMOGLOBIN 27.4 pg (27.0-34.0); MEAN CORPUSCULAR HGB CONC 33.7 g/dL (33.0-35.0); MEAN CORPUSCULAR VOLUME 81.2 fL (80.0-100.0); MEAN PLATELET VOLUME 8.3 fL (7.4-11.0); MONOCYTES # (AUTO) 0.6 x10^3/uL (0.3-0.8); MONOCYTES % (AUTO) 7.8 % (0.0-13.0); NEUTROPHILS # (AUTO) 4.9 x10^3/uL (2.2-4.8); NEUTROPHILS % (AUTO) 62.8 % (42.0-75.0); PLATELET COUNT 193 X10^3/uL (150.0-450.0); RED BLOOD COUNT 4.04 X10^6/uL (4.7-6.0); RED CELL DISTRIBUTION WIDTH 17.2 % (11.6-16.5); WHITE BLOOD COUNT 7.8 X10^3/uL (3.6-10.0)
[2018-06-07] MEDS: HumuLIN R SUBCUT PRN ×4 (06:29→21:17)
[2018-06-07 06:45] LABS: ALANINE AMINOTRANSFERASE 18 Units/L (12-78); ALBUMIN 2.8 g/dL (3.4-5.0); ALKALINE PHOSPHATASE 108 Units/L (46-116); ASPARTATE AMINO TRANSFERASE 15 Units/L (15-37); BLOOD UREA NITROGEN 31 mg/dL (7-18); CALCIUM 9.2 mg/dL (8.5-10.1); CHLORIDE 100 mmol/L (98-107); COR CA(FOR HYPOALB) 10.2 mg/dL (8.5-10.1); COR NA(FOR HYPERGLY) 137 mmol/L (136-145); CREATININE 1.11 mg/dL (0.70-1.30); SODIUM 135 mmol/L (136-145); TOTAL PROTEIN 6.9 g/dL (6.4-8.2); eGFR NON BLACK RACES > 60 (>60)
[2018-06-07] MEDS: NS 1000 ML 1,000 ML IV SCH (07:03)
[2018-06-07] MEDS: LEVAQUIN PREMIX IV 750 MG 750 MG/150 ML BAG IV SCH (09:03)
[2018-06-07] MEDS: LASIX PO SCH ×2 (09:03→21:09)
[2018-06-07] MEDS: COZAAR PO SCH (09:03)
[2018-06-07] MEDS: APRESOLINE TAB 25 MG PO SCH ×2 (09:03→21:08)
[2018-06-07] MEDS: MILK OF MAGNESIA PO SCH (09:03)
[2018-06-07] MEDS: PROSCAR PO SCH (09:04)
[2018-06-07] MEDS: CELEXA PO SCH (09:04)
[2018-06-07] MEDS: PLAVIX PO SCH (09:04)
[2018-06-07] MEDS: PROVENTIL NEB TX 0.083% 2.5MG/ 3ML NEB SCH ×4 (09:27→21:25)
[2018-06-07] MEDS: PULMICORT NEB TX 0.5 MG NEB SCH ×2 (09:27→21:25)
--- NOTE | 2018-06-07 11:26 | PCM.PROG ---
Progress Note - Progress Note for Day of Date of Exam: 06/07/18 - Subjective Subjective: 78WM ER ADMIT ON 06/03 WITH CHF EXACERBATION AND COPD WITH INCREASED SOB. PT FAMILY AND PT REPORTS FEELS IMPROVEMENT THIS AM. PT ATE BREAKFAST AND SITTING UP AT BEDSIDE CHAIR.CURRENTLY ON NASAL CANULA, WILL CONTINUE IV ATBX, CULTURES PENDING. BP AND CARDIAC MONITORING, STRICT I & OS. LOWER EXTREMITY CELLULITIS IMPROVING, MILD TO MODERATE REDNESS TO BILATER LOWER EXTREMITIES. PT CONTINUES WITH DIFFUSE WEAKNESS AND LIMITED MOBILITY. DISCUSSED WITH PT AND FAMILY REHAB PLACEMENT AND PHYSICAL THERAPY EVALUATION - Past Medical Family Social History Past Med/Fam/Surg Hx: No changes since H&P Allergies: Allergies No Known Drug Allergies [NKDA] Allergy (Verified 05/01/18 08:42) - Review of Systems ROS: No change since H&P - Vital Signs and I&O's Vital Signs: Temperature 98.9 F Pulse Rate [Right Radial] 50 Pulse Rate 62 Respiratory Rate 22 Blood Pressure [Right Arm] 201/88 Blood Pressure [Left Arm] 157/65 Blood Pressure 158/66 O2 Sat by Pulse Oximetry 98 Intake and Output: Intake & Output 06/04/18 06/05/18 06/06/18 06/07/18 11:59 11:59 11:59 11:59 Intake Total 2028 / 2028 1456 / 1456 1288 / 1288 1540 / 1540 Output Total 4575 / 4575 2700 / 2700 3600 / 3600 3550 / 3550 Balance -2546 / -2546 -1244 / -1244 -2312 / -2312 -2009 / - Physical Exam Oriented: Normal Eyes: Normal Ear: Normal Nose: Normal Throat: Dry Respiratory: Diminished, Wheezes Cardiovascular: Bradycardia (RATE 50'S), Edema : Normal Auscultation: Bowel Sounds: Normal Tenderness: Normal Skin: Decreased Turgur, Wound (BILATERAL LOWER EXTREMITY REDNESS, SMALL SF OPEN WOUND TO LLE) Musculoskeletal: Right, Left, Leg, Back:Lumbar, Sensory Deficit, Instability Psychiatric: Anxiety Affect: Anxious Speech Pattern: Clear - Laboratory and Diagnostics Result Diagrams: 06/07/18 05:29 06/07/18 05:29 Labs: 06/04/18 10:00 Sputum - Expectorated Sputum Sputum Culture - Final 06/04/18 10:00 Sputum - Expectorated Sputum - Final 06/03/18 11:48 Blood Blood Culture - Preliminary 06/03/18 11:40 Blood Blood Culture - Preliminary Laboratory WBC 7.8 X10^3/uL (3.6-10.0) 06/07/18 05:29 RBC 4.04 X10^6/uL (4.7-6.0) L 06/07/18 05:29 Hgb 11.1 g/dL (13.5-18.0) L 06/07/18 05:29 Hct 32.8 % (42.0-54.0) L 06/07/18 05:29 MCV 81.2 fL (80.0-100.0) 06/07/18 05:29 MCH 27.4 pg (27.0-34.0) 06/07/18 05:29 MCHC 33.7 g/dL (33.0-35.0) 06/07/18 05:29 RDW 17.2 % (11.6-16.5) H 06/07/18 05:29 Plt Count 193 X10^3/uL (150.0-450.0) 06/07/18 05:29 Plt Count Comment Decreased (ADEQUATE) 06/04/18 05:30 MPV 8.3 fL (7.4-11.0) 06/07/18 05:29 Neut % (Auto) 62.8 % (42.0-75.0) 06/07/18 05:29 Lymph % (Auto) 23.4 % (21.0-51.0) 06/07/18 05:29 [place] % (Auto) 7.8 % (0.0-13.0) 06/07/18 05:29 Eos % (Auto) 5.5 % (0.9-2.9) H 06/07/18 05:29 Baso % (Auto) 0.5 % (0.2-1.0) 06/07/18 05:29 Neut # (Auto) 4.9 x10^3/uL (2.2-4.8) H 06/07/18 05:29 Lymph # (Auto) 1.8 X10^3/uL (1.3-2.9) 06/07/18 05:29 [place] # (Auto) 0.6 x10^3/uL (0.3-0.8) 06/07/18 05:29 Eos # (Auto) 0.4 x10^3/uL (0.0-0.2) H 06/07/18 05:29 Baso # (Auto) 0.0 X10^3/uL (0.0-0.1) 06/07/18 05:29 Absolute Nucleated RBC 0.0 /100WBC 06/07/18 05:29 Total Counted 100 06/04/18 05:30 Neutrophils % (Manual) 94 % (39-76) H 06/04/18 05:30 Lymphocytes % (Manual) 4 % (13-43) L 06/04/18 05:30 Monocytes % (Manual) 2 % (4-9) L 06/04/18 05:30 Plt Morphology Comment Normal (NORMAL) 06/04/18 05:30 RBC Morphology Normal (NORMAL) 06/04/18 05:30 Sample Site Rr 06/04/18 11:23 ABG pH 7.510 (7.35-7.45) H 06/04/18 11:23 ABG pCO2 37.0 mmHg (35.0-45.0) 06/04/18 11:23 ABG pO2 59.0 mmHg (80.0-100.0) L 06/04/18 11:23 ABG HCO3 29.5 mmol/L (22-26) H 06/04/18 11:23 ABG O2 Saturation 93.0 % (90-100) 06/04/18 11:23 ABG Base Excess 6.2 mmol/L (-2.0-2.0) H 06/04/18 11:23 Markos Test Pos 06/04/18 11:23 A-a Gradient 151.0 mmHg 06/04/18 11:23 FiO2 36.000 06/04/18 11:23 Blood Gas Comments Pt jamee well. 06/04/18 11:23 Sodium 135 mmol/L (136-145) L 06/07/18 05:29 Corrected Sodium 137 mmol/L (136-145) 06/07/18 05:29 Potassium 3.6 mmol/L (3.5-5.1) 06/07/18 05:29 Chloride 100 mmol/L (98-107) 06/07/18 05:29 Carbon Dioxide 31.0 mmol/L (21-32) 06/07/18 05:29 BUN 31 mg/dL (7-18) H 06/07/18 05:29 Creatinine 1.11 mg/dL (0.70-1.30) 06/07/18 05:29 Est GFR (MDRD) Af Amer > 60 (>60) 06/07/18 05:29 Est GFR (MDRD) Non-Af > 60 (>60) 06/07/18 05:29 Glucose 198 mg/dL (65-99) H 06/07/18 05:29 POC Glucose (mg/dL) 204 mg/dL (65-99) H 06/07/18 06:25 Calcium 9.2 mg/dL (8.5-10.1) 06/07/18 05:29 Corrected Calcium 10.2 mg/dL (8.5-10.1) H 06/07/18 05:29 Magnesium 1.9 mg/dL (1.7-2.9) 06/05/18 16:51 Total Bilirubin 0.60 mg/dL (0.2-1.0) 06/07/18 05:29 AST 15 Units/L (15-37) 06/07/18 05:29 ALT 18 Units/L (12-78) 06/07/18 05:29 Alkaline Phosphatase 108 Units/L (46-116) 06/07/18 05:29 Creatine Kinase 51 Units/L (39-308) 06/04/18 05:30 CK-MB (CK-2) 1.0 ng/mL (0-4.0) 06/04/18 05:30 CK/CKMB % Calc 2.0 % (<4) 06/04/18 05:30 Troponin I < 0.02 ng/mL (0-1.5) 06/04/18 05:30 C-Reactive Protein 26.50 mg/L (0-3.0) H 06/02/18 18:12 Total Protein 6.9 g/dL (6.4-8.2) 06/07/18 05:29 Albumin 2.8 g/dL (3.4-5.0) L 06/07/18 05:29 Globulin 4.1 g/dL (2.5-4.5) 06/07/18 05:29 Albumin/Globulin Ratio 0.7 Ratio (1.1-2.1) L 06/07/18 05:29 Specimen Type Random urine 06/03/18 08:33 Urine Color Yellow (YELLOW) 06/03/18 08:33 Urine Appearance Clear (CLEAR) 06/03/18 08:33 Urine pH 5.0 (5.0 - 8.0) 06/03/18 08:33 Ur Specific [place] 1.010 (1.000-1.030) 06/03/18 08:33 Urine Protein 2+ (NEGATIVE) 06/03/18 08:33 Urine Glucose (UA) 1+ (NEGATIVE) 06/03/18 08:33 Urine Ketones Negative (NEGATIVE) 06/03/18 08:33 Urine Occult Blood Negative (NEGATIVE) 06/03/18 08:33 Urine Nitrite Negative (NEGATIVE) 06/03/18 08:33 Urine Bilirubin Negative (NEGATIVE) 06/03/18 08:33 Urine Urobilinogen Normal (NORMAL) 06/03/18 08:33 Ur Leukocyte Esterase Negative (NEGATIVE) 06/03/18 08:33 Urine RBC None seen /HPF (NONE SEEN) 06/03/18 08:33 Urine WBC None seen /HPF (NONE SEEN) 06/03/18 08:33 Ur Squamous Epith Cells Negative /HPF (NEGATIVE) 06/03/18 08:33 Urine Bacteria Negative /HPF (NEGATIVE) 06/03/18 08:33 Urine Mucus Few /HPF (NEGATIVE) 06/03/18 08:33 Ur Culture Indicated? No/not indicated 06/03/18 08:33 - Plan (1) SOB (shortness of breath) Status: Acute Plan: RESP THERAPY, SUPPLEMENTAL O2, BIPAP PRN. STRICT I & OS, LASIX 40MG IV. BLOOD CULTURES NEGATIVE AT THIS TIME. IV LEVAQUIN, JET NEBS. BP CONTROL IV HYDRALAZINE 10MG IV PRN BP >180/100 (2) Bradycardia with 41-50 beats per minute Status: Acute (3) COPD (chronic obstructive pulmonary disease) Status: Acute Qualifiers: COPD type: COPD with acute exacerbation Qualified Code(s): J44.1 - Chronic obstructive pulmonary disease with (acute) exacerbation (4) CHF exacerbation Status: Acute Qualifiers: Heart failure type: unspecified Qualified Code(s): I50.9 - Heart failure, unspecified Plan: LASIX, I & OS, CARDIAC MONITORING, SUPPLEMENTAL O2 (5) Wound cellulitis Status: Acute (6) Hypertensive urgency Status: Acute (7) Diabetes mellitus, type 2 Status: Chronic Plan: SSI (8) COPD (chronic obstructive pulmonary disease) Status: Chronic Qualifiers: COPD type: unspecified COPD Qualified Code(s): J44.9 - Chronic obstructive pulmonary disease, unspecified (9) CAD (coronary artery disease) Status: Chronic
[2018-06-07] MEDS: MORPHINE SULFATE INJ 2 MG INJ IVP PRN (15:00)
[2018-06-07] MEDS: VISTARIL PO PRN (16:34)
[2018-06-07] MEDS: ATIVAN TAB 1 MG PO SCH (21:08)
[2018-06-07] MEDS: RESTORIL CAP 15 MG PO PRN (21:08)
[2018-06-07] MEDS: SNACK - Diabetic Appropriate PO SCH (21:09)
[2018-06-07] MEDS: COLACE CAP 100 MG PO SCH (21:09)
[2018-06-07] MEDS: PRAVACHOL PO SCH (21:10)
[2018-06-07] MEDS: ULTRAM PO PRN (21:11)
[2018-06-08 05:53] LABS: BASOPHILS % (AUTO) 0.3 % (0.2-1.0); EOSINOPHILS # (AUTO) 0.5 x10^3/uL (0.0-0.2); EOSINOPHILS % (AUTO) 7.1 % (0.9-2.9); HEMATOCRIT 32.3 % (42.0-54.0); HEMOGLOBIN 10.8 g/dL (13.5-18.0); LYMPHOCYTES # (AUTO) 2.3 X10^3/uL (1.3-2.9); LYMPHOCYTES % (AUTO) 32.3 % (21.0-51.0); MEAN CORPUSCULAR HEMOGLOBIN 27.1 pg (27.0-34.0); MEAN CORPUSCULAR HGB CONC 33.4 g/dL (33.0-35.0); MEAN PLATELET VOLUME 7.9 fL (7.4-11.0); MONOCYTES # (AUTO) 0.6 x10^3/uL (0.3-0.8); MONOCYTES % (AUTO) 8.9 % (0.0-13.0); NEUTROPHILS # (AUTO) 3.7 x10^3/uL (2.2-4.8); NEUTROPHILS % (AUTO) 51.4 % (42.0-75.0); PLATELET COUNT 213 X10^3/uL (150.0-450.0); RED BLOOD COUNT 3.98 X10^6/uL (4.7-6.0); RED CELL DISTRIBUTION WIDTH 17.7 % (11.6-16.5); WHITE BLOOD COUNT 7.2 X10^3/uL (3.6-10.0)
[2018-06-08 06:10] LABS: ALANINE AMINOTRANSFERASE 17 Units/L (12-78); ALBUMIN 2.6 g/dL (3.4-5.0); ALKALINE PHOSPHATASE 101 Units/L (46-116); ASPARTATE AMINO TRANSFERASE 13 Units/L (15-37); BLOOD UREA NITROGEN 31 mg/dL (7-18); CALCIUM 8.8 mg/dL (8.5-10.1); CARBON DIOXIDE 32.4 mmol/L (21-32); CHLORIDE 101 mmol/L (98-107); COR CA(FOR HYPOALB) 9.9 mg/dL (8.5-10.1); COR NA(FOR HYPERGLY) 138 mmol/L (136-145); CREATININE 1.12 mg/dL (0.70-1.30); SODIUM 136 mmol/L (136-145); TOTAL PROTEIN 6.4 g/dL (6.4-8.2); eGFR NON BLACK RACES > 60 (>60)
[2018-06-08] MEDS: HumuLIN R SUBCUT PRN ×4 (06:34→22:16)
[2018-06-08] MEDS: PULMICORT NEB TX 0.5 MG NEB SCH ×2 (09:15→20:18)
[2018-06-08] MEDS: PROVENTIL NEB TX 0.083% 2.5MG/ 3ML NEB SCH ×4 (09:15→20:18)
[2018-06-08] MEDS: LEVAQUIN PREMIX IV 750 MG 750 MG/150 ML BAG IV SCH (09:37)
[2018-06-08] MEDS: PLAVIX PO SCH (09:38)
[2018-06-08] MEDS: LASIX PO SCH ×2 (09:38→21:32)
[2018-06-08] MEDS: VISTARIL PO PRN (09:38)
[2018-06-08] MEDS: CELEXA PO SCH (09:38)
[2018-06-08] MEDS: PROSCAR PO SCH (09:38)
[2018-06-08] MEDS: ULTRAM PO PRN (09:38)
[2018-06-08] MEDS: APRESOLINE TAB 25 MG PO SCH ×3 (09:39→21:36)
[2018-06-08] MEDS: MILK OF MAGNESIA PO SCH (09:40)
[2018-06-08] MEDS: COZAAR PO SCH (13:27)
[2018-06-08] MEDS: SNACK - Diabetic Appropriate PO SCH (19:25)
[2018-06-08] MEDS: NS 1000 ML 1,000 ML IV SCH (19:25)
[2018-06-08] MEDS: RESTORIL CAP 15 MG PO PRN (21:18)
[2018-06-08] MEDS: MORPHINE SULFATE INJ 2 MG INJ IVP PRN (21:30)
[2018-06-08] MEDS: COLACE CAP 100 MG PO SCH (21:31)
[2018-06-08] MEDS: ATIVAN TAB 1 MG PO SCH (21:32)
[2018-06-08] MEDS: PRAVACHOL PO SCH (21:32)
[2018-06-09] MEDS ORDERED: PROVENTIL NEB TX 0.083% 2.5MG/ 3ML NEB PRN (00:13)
[2018-06-09] MEDS: NS 1000 ML 1,000 ML IV SCH (02:07)
[2018-06-09 05:50] LABS: BASOPHILS % (AUTO) 0.4 % (0.2-1.0); EOSINOPHILS # (AUTO) 0.5 x10^3/uL (0.0-0.2); EOSINOPHILS % (AUTO) 6.8 % (0.9-2.9); HEMATOCRIT 33.1 % (42.0-54.0); HEMOGLOBIN 11.1 g/dL (13.5-18.0); LYMPHOCYTES % (AUTO) 27.7 % (21.0-51.0); MEAN CORPUSCULAR HEMOGLOBIN 27.1 pg (27.0-34.0); MEAN CORPUSCULAR HGB CONC 33.5 g/dL (33.0-35.0); MEAN PLATELET VOLUME 7.9 fL (7.4-11.0); MONOCYTES # (AUTO) 0.6 x10^3/uL (0.3-0.8); MONOCYTES % (AUTO) 8.8 % (0.0-13.0); NEUTROPHILS # (AUTO) 4.2 x10^3/uL (2.2-4.8); NEUTROPHILS % (AUTO) 56.3 % (42.0-75.0); PLATELET COUNT 226 X10^3/uL (150.0-450.0); RED BLOOD COUNT 4.09 X10^6/uL (4.7-6.0); RED CELL DISTRIBUTION WIDTH 17.6 % (11.6-16.5); WHITE BLOOD COUNT 7.4 X10^3/uL (3.6-10.0)
[2018-06-09 06:01] LABS: ALANINE AMINOTRANSFERASE 17 Units/L (12-78); ALBUMIN 2.8 g/dL (3.4-5.0); ALKALINE PHOSPHATASE 116 Units/L (46-116); ASPARTATE AMINO TRANSFERASE 17 Units/L (15-37); BLOOD UREA NITROGEN 33 mg/dL (7-18); CHLORIDE 102 mmol/L (98-107); COR NA(FOR HYPERGLY) 140 mmol/L (136-145); CREATININE 1.21 mg/dL (0.70-1.30); SODIUM 139 mmol/L (136-145); TOTAL PROTEIN 6.7 g/dL (6.4-8.2); eGFR NON BLACK RACES > 60 (>60)
[2018-06-09] MEDS: LEVAQUIN PREMIX IV 750 MG 750 MG/150 ML BAG IV SCH (08:48)
[2018-06-09] MEDS: PULMICORT NEB TX 0.5 MG NEB SCH (08:49)
[2018-06-09] MEDS: PROSCAR PO SCH (09:57)
[2018-06-09] MEDS: CELEXA PO SCH (09:57)
[2018-06-09] MEDS: LASIX PO SCH (09:58)
[2018-06-09] MEDS: COZAAR PO SCH (10:02)
[2018-06-09] MEDS: PLAVIX PO SCH (10:02)
[2018-06-09] MEDS: APRESOLINE TAB 25 MG PO SCH (10:03)
[2018-06-09] MEDS: MILK OF MAGNESIA PO SCH (10:03)
[2018-06-09] MEDS: HumuLIN R SUBCUT PRN (11:34)
[2018-06-09 16:44] VITALS: BP 143/74
--- NOTE | 2018-07-14 12:15 | PCM.PROG ---
Progress Note - Progress Note for Day of Date of Exam: 06/05/18 - Subjective Subjective: 78WM ER ADMIT ON 06/03 WITH CHF EXACERBATION AND COPD WITH INCREASED SOB. PT FAMILY AND PT REPORTS FEELS IMPROVEMENT THIS AM. CURRENTLY ON NASAL CANULA, WILL CONTINUE IV ATBX, BP AND CARDIAC MONITORING, STRICT I & OS. LOWER EXTREMITY CELLULITIS IMPROVING, MILD TO MODERATE REDNESS TO BILATER LOWER EXTREMITIES. PT CONTINUES WITH DIFFUSE WEAKNESS AND LIMITED MOBILITY. - Past Medical Family Social History Past Med/Fam/Surg Hx: No changes since H&P Allergies: Allergies No Known Drug Allergies [NKDA] Allergy (Verified 05/01/18 08:42) - Review of Systems ROS: No change since H&P - Vital Signs and I&O's Vital Signs: Temperature 98.0 F Pulse Rate [Left Brachial] 57 Pulse Rate [Right Radial] 68 Pulse Rate 53 Respiratory Rate 20 Blood Pressure [Right Arm] 143/74 Blood Pressure [Left Arm] 135/79 Blood Pressure 158/66 O2 Sat by Pulse Oximetry 98 - Physical Exam Oriented: Normal Eyes: Normal Ear: Normal Nose: Normal Throat: Dry Respiratory: Diminished, Wheezes Cardiovascular: Bradycardia (RATE 50'S), Edema : Normal Auscultation: Bowel Sounds: Normal Palpation: Normal Tenderness: Normal Skin: Decreased Turgur, Wound (BILATERAL LOWER EXTREMITY REDNESS, SMALL SF OPEN WOUND TO LLE) Musculoskeletal: Right, Left, Leg, Back:Lumbar, Sensory Deficit, Instability Psychiatric: Anxiety Affect: Anxious Speech Pattern: Clear, Appropriate - Laboratory and Diagnostics Result Diagrams: 06/09/18 05:14 06/09/18 05:14 Labs: 06/03/18 11:48 Blood Blood Culture - Final 06/03/18 11:40 Blood Blood Culture - Final 06/04/18 10:00 Sputum - Expectorated Sputum Sputum Culture - Final 06/04/18 10:00 Sputum - Expectorated Sputum - Final Laboratory WBC 7.4 X10^3/uL (3.6-10.0) 06/09/18 05:14 RBC 4.09 X10^6/uL (4.7-6.0) L 06/09/18 05:14 Hgb 11.1 g/dL (13.5-18.0) L 06/09/18 05:14 Hct 33.1 % (42.0-54.0) L 06/09/18 05:14 MCV 81.0 fL (80.0-100.0) 06/09/18 05:14 MCH 27.1 pg (27.0-34.0) 06/09/18 05:14 MCHC 33.5 g/dL (33.0-35.0) 06/09/18 05:14 RDW 17.6 % (11.6-16.5) H 06/09/18 05:14 Plt Count 226 X10^3/uL (150.0-450.0) 06/09/18 05:14 Plt Count Comment Decreased (ADEQUATE) 06/04/18 05:30 MPV 7.9 fL (7.4-11.0) 06/09/18 05:14 Neut % (Auto) 56.3 % (42.0-75.0) 06/09/18 05:14 Lymph % (Auto) 27.7 % (21.0-51.0) 06/09/18 05:14 [place] % (Auto) 8.8 % (0.0-13.0) 06/09/18 05:14 Eos % (Auto) 6.8 % (0.9-2.9) H 06/09/18 05:14 Baso % (Auto) 0.4 % (0.2-1.0) 06/09/18 05:14 Neut # (Auto) 4.2 x10^3/uL (2.2-4.8) 06/09/18 05:14 Lymph # (Auto) 2.0 X10^3/uL (1.3-2.9) 06/09/18 05:14 [place] # (Auto) 0.6 x10^3/uL (0.3-0.8) 06/09/18 05:14 Eos # (Auto) 0.5 x10^3/uL (0.0-0.2) H 06/09/18 05:14 Baso # (Auto) 0.0 X10^3/uL (0.0-0.1) 06/09/18 05:14 Absolute Nucleated RBC 0.0 /100WBC 06/09/18 05:14 Total Counted 100 06/04/18 05:30 Neutrophils % (Manual) 94 % (39-76) H 06/04/18 05:30 Lymphocytes % (Manual) 4 % (13-43) L 06/04/18 05:30 Monocytes % (Manual) 2 % (4-9) L 06/04/18 05:30 Plt Morphology Comment Normal (NORMAL) 06/04/18 05:30 RBC Morphology Normal (NORMAL) 06/04/18 05:30 Sample Site Rr 06/04/18 11:23 ABG pH 7.510 (7.35-7.45) H 06/04/18 11:23 ABG pCO2 37.0 mmHg (35.0-45.0) 06/04/18 11:23 ABG pO2 59.0 mmHg (80.0-100.0) L 06/04/18 11:23 ABG HCO3 29.5 mmol/L (22-26) H 06/04/18 11:23 ABG O2 Saturation 93.0 % (90-100) 06/04/18 11:23 ABG Base Excess 6.2 mmol/L (-2.0-2.0) H 06/04/18 11:23 Markos Test Pos 06/04/18 11:23 A-a Gradient 151.0 mmHg 06/04/18 11:23 FiO2 36.000 06/04/18 11:23 Blood Gas Comments Pt jamee well. 06/04/18 11:23 Sodium 139 mmol/L (136-145) 06/09/18 05:14 Corrected Sodium 140 mmol/L (136-145) 06/09/18 05:14 Potassium 4.2 mmol/L (3.5-5.1) 06/09/18 05:14 Chloride 102 mmol/L (98-107) 06/09/18 05:14 Carbon Dioxide 34.0 mmol/L (21-32) H 06/09/18 05:14 BUN 33 mg/dL (7-18) H 06/09/18 05:14 Creatinine 1.21 mg/dL (0.70-1.30) 06/09/18 05:14 Est GFR (MDRD) Af Amer > 60 (>60) 06/09/18 05:14 Est GFR (MDRD) Non-Af > 60 (>60) 06/09/18 05:14 Glucose 142 mg/dL (65-99) H 06/09/18 05:14 POC Glucose (mg/dL) 311 mg/dL (65-99) H 06/09/18 11:30 Calcium 9.0 mg/dL (8.5-10.1) 06/09/18 05:14 Corrected Calcium 10.0 mg/dL (8.5-10.1) 06/09/18 05:14 Magnesium 1.9 mg/dL (1.7-2.9) 06/05/18 16:51 Total Bilirubin 0.30 mg/dL (0.2-1.0) 06/09/18 05:14 AST 17 Units/L (15-37) 06/09/18 05:14 ALT 17 Units/L (12-78) 06/09/18 05:14 Alkaline Phosphatase 116 Units/L (46-116) 06/09/18 05:14 Creatine Kinase 51 Units/L (39-308) 06/04/18 05:30 CK-MB (CK-2) 1.0 ng/mL (0-4.0) 06/04/18 05:30 CK/CKMB % Calc 2.0 % (<4) 06/04/18 05:30 Troponin I < 0.02 ng/mL (0-1.5) 06/04/18 05:30 C-Reactive Protein 26.50 mg/L (0-3.0) H 06/02/18 18:12 Total Protein 6.7 g/dL (6.4-8.2) 06/09/18 05:14 Albumin 2.8 g/dL (3.4-5.0) L 06/09/18 05:14 Globulin 3.9 g/dL (2.5-4.5) 06/09/18 05:14 Albumin/Globulin Ratio 0.7 Ratio (1.1-2.1) L 06/09/18 05:14 Specimen Type Random urine 06/03/18 08:33 Urine Color Yellow (YELLOW) 06/03/18 08:33 Urine Appearance Clear (CLEAR) 06/03/18 08:33 Urine pH 5.0 (5.0 - 8.0) 06/03/18 08:33 Ur Specific [place] 1.010 (1.000-1.030) 06/03/18 08:33 Urine Protein 2+ (NEGATIVE) 06/03/18 08:33 Urine Glucose (UA) 1+ (NEGATIVE) 06/03/18 08:33 Urine Ketones Negative (NEGATIVE) 06/03/18 08:33 Urine Occult Blood Negative (NEGATIVE) 06/03/18 08:33 Urine Nitrite Negative (NEGATIVE) 06/03/18 08:33 Urine Bilirubin Negative (NEGATIVE) 06/03/18 08:33 Urine Urobilinogen Normal (NORMAL) 06/03/18 08:33 Ur Leukocyte Esterase Negative (NEGATIVE) 06/03/18 08:33 Urine RBC None seen /HPF (NONE SEEN) 06/03/18 08:33 Urine WBC None seen /HPF (NONE SEEN) 06/03/18 08:33 Ur Squamous Epith Cells Negative /HPF (NEGATIVE) 06/03/18 08:33 Urine Bacteria Negative /HPF (NEGATIVE) 06/03/18 08:33 Urine Mucus Few /HPF (NEGATIVE) 06/03/18 08:33 Ur Culture Indicated? No/not indicated 06/03/18 08:33 - Plan (1) COPD (chronic obstructive pulmonary disease) Status: Acute Qualifiers: COPD type: COPD with acute exacerbation Qualified Code(s): J44.1 - Chronic obstructive pulmonary disease with (acute) exacerbation (2) Diabetes mellitus, type 2 Status: Chronic Plan: SSI (3) COPD (chronic obstructive pulmonary disease) Status: Chronic Qualifiers: COPD type: unspecified COPD Qualified Code(s): J44.9 - Chronic obstructive pulmonary disease, unspecified Plan: Nebs, antibotics (4) Cellulitis, leg Status: Chronic Qualifiers: Laterality: unspecified laterality Qualified Code(s): L03.119 - Cellulitis of unspecified part of limb Plan: iv antibiotics.
== END 2018-06-09 17:17 | DRG 191 ==
LOC: ICU 17:20 → ER 17:20 → OBSVTOIN 06-03 01:23 → ICU 06-03 01:59
PROVIDERS: ADMIT Obstetrics & Gynecology Obstetrics; ATTEND Internal Medicine
DX: R79.82 Elevated C-reactive protein (CRP); I50.9 Heart failure, unspecified; Z66 Do not resuscitate; R94.31 Abnormal electrocardiogram [ECG] [EKG]; E78.2 Mixed hyperlipidemia; G40.89 Other seizures; E11.65 Type 2 diabetes mellitus with hyperglycemia; L03.115 Cellulitis of right lower limb; R00.1 Bradycardia, unspecified; R06.02 Shortness of breath; L03.116 Cellulitis of left lower limb; R26.89 Other abnormalities of gait and mobility; R41.82 Altered mental status, unspecified; N18.9 Chronic kidney disease, unspecified; J44.1 Chronic obstructive pulmonary disease with (acute) exacerbation; R06.03 Acute respiratory distress; I25.10 Atherosclerotic heart disease of native coronary artery without angina pectoris; E87.5 Hyperkalemia; R07.89 Other chest pain; R53.1 Weakness; I16.0 Hypertensive urgency
CPT/HCPCS: 36415; 36600; 70450; 71010; 71045; 74000; 74018; 80048; 80053; 81001; 82550; 82553; 82803; 82947; 83735; 84484; 85025; 86140; 87040; 87070; 87205; 93005; 93010; 94640; 94660; 96365; 96374; 96375; 97166; 99231; 99281; 99284; A4222; A4618; A7030; Q0177; S0138; J0360; J0610; J1815; J1940; J1956; J2060; J2270; J2930; J3490; J7030; J7613; J7626; J8499

== ENCOUNTER 2018-12-11 16:09 | Inpatient (IN) ==
--- NOTE | 2018-12-11 16:37 | DR.H&P ---
H&P - History & Physical for Day of: H&P Date: 12/11/18 - Chief Complaint Chief Complaint: LOWER LEG OPEN WOUNDS AND REDNESS - History of Present Illness History of Present Illness: 78 WM DIRECT ADMIT FROM DR MILLER OFFICE WITH BILATERAL LOWER EXTREMITY CELLULITIS WITH INCREASED PAIN AND OPEN WOUNDS WITH DRAINAGE TO LLE. PT HAD HX OF COPD WITH RESP FAILURE ON O2, CHF, DM, CRF, OA, HTN. PT [place] [facility] OF [facility] AND HAS HAD HOME HEALTHCARE WITH [employer] AND COMPLETED ROUND OF PO KEFLEX. PTS FAMILY STATES HE HAS RECENTLY HAD HYPERKALEMIA. PT ADMITTED FOR TREATMENT OF LOWER LIMB INFECTION AND EVALUATION OF HYPERGLYCEMIA AND ABNORMAL ELECTROLYTES - Past Medical History Past Medical History: Hypertension, Dyslipidemia, Diabetes, Renal Disease, COPD, Arthritis, CHF - Past Surgical History Surgical History: Angioplasty/Stents, Other - Family History Family Medical History: Diabetes Mellitus, Coronary Artery Disease, Sudden Cardiac , Hypertension - Social History Does patient currently use any type of tobacco product: No Have you used tobacco products in the last 12 months: No Type of Tobacco Use: None Does any household member use tobacco: No Alcohol Use: None Drug Use: None - Medications Home Medications: No Known Drug Allergies [NKDA] Allergy (Verified 05/01/18 08:42) - Review of Systems Constitutional: Weakness Eyes: No Symptoms Reported ENT: No Symptoms Reported Respiratory: Shortness of Breath, SOB with Excertion Cardiovascular: Edema Gastrointestinal: No Symptoms Reported Genitourinary: Incontinence Musculoskeletal: Back Pain, Leg Pain Skin: Wound Neurological: Weakness - Physical Exam Vital Signs: Blood Pressure [Right Arm] 143/74 Blood Pressure [Left Arm] 135/79 Blood Pressure 143/74 Oriented: Normal Eyes: Normal Ear: Normal Nose: Normal Throat: Normal Respiratory: RML Diminished, RLL Diminished, LML Diminished, LLL Diminished Cardiovascular: Bradycardia, Edema : Normal Auscultation: Bowel Sounds: Normal Palpation: Normal Tenderness: Normal Skin: Decreased Turgur, Rash, Red, Tender, Hot, Wound (BILATERAL LOWER REDNESS) Musculoskeletal: Back:Thoracic, Back:Lumbar Psychiatric: Normal, Depression Mood Description: Calm Speech Pattern: Clear, Appropriate - Assessment/Plan (1) Wound cellulitis Status: Acute Plan: ADMIT FOR WOUND CARE AND IV ATBX. BLOOD AND WOUND CULTURE ON ADMISSION. RESUME HOME MEDICATION. BP AND BS CONTROL, RESP CONSULT FOR MAINTENANCE MEDICATION (2) CHF (congestive heart failure) Status: Acute (3) COPD (chronic obstructive pulmonary disease) Qualifiers: COPD type: COPD with acute exacerbation Qualified Code(s): J44.1 - Chronic obstructive pulmonary disease with (acute) exacerbation Status: Acute (4) Diabetes mellitus, type 2 Status: Chronic (5) COPD (chronic obstructive pulmonary disease) Qualifiers: COPD type: unspecified COPD Qualified Code(s): J44.9 - Chronic obstructive pulmonary disease, unspecified Status: Chronic (6) CAD (coronary artery disease) Status: Chronic - Allergies Allergies/Adverse Reactions: Allergies Allergy/AdvReac Type Severity Reaction Status Date / Time No Known Drug Allergies Allergy Verified 05/01/18 08:42 [NKDA]
--- NOTE | 2018-12-11 16:46 | RAD ---
History: Respiratory failure and shortness of breath Study: Portable AP chest Comparison: June 02, 2018 Findings: The heart is normal in size status post median sternotomy. There is blunting of the left costophrenic angle. The lungs are grossly clear. No significant vascular congestion is suggested. The lungs appear hyper inflated. Impression: 1. Probable COPD 2. Tiny left pleural effusion Reported By:
[2018-12-11] MEDS ORDERED: PHARMACY CONSULT - DOSE _____ XX SCH (17:00)
[2018-12-11] MEDS ORDERED: NS 1000 ML 1,000 ML ONE (17:00)
[2018-12-11] MEDS: NS 1000 ML 1,000 ML IV SCH (17:30)
[2018-12-11 17:41] VITALS: BMI 30.9
[2018-12-11 17:43] LABS: BASOPHILS # (AUTO) 0.1 X10^3/uL (0.0-0.1); BASOPHILS % (AUTO) 0.7 % (0.2-1.0); EOSINOPHILS # (AUTO) 0.2 x10^3/uL (0.0-0.2); EOSINOPHILS % (AUTO) 2.6 % (0.9-2.9); HEMATOCRIT 36.1 % (42.0-54.0); HEMOGLOBIN 12.1 g/dL (13.5-18.0); LYMPHOCYTES # (AUTO) 1.5 X10^3/uL (1.3-2.9); LYMPHOCYTES % (AUTO) 17.5 % (21.0-51.0); MEAN CORPUSCULAR HEMOGLOBIN 29.1 pg (27.0-34.0); MEAN CORPUSCULAR HGB CONC 33.5 g/dL (33.0-35.0); MEAN PLATELET VOLUME 7.9 fL (7.4-11.0); MONOCYTES # (AUTO) 0.7 x10^3/uL (0.3-0.8); MONOCYTES % (AUTO) 8.4 % (0.0-13.0); NEUTROPHILS # (AUTO) 5.9 x10^3/uL (2.2-4.8); NEUTROPHILS % (AUTO) 70.8 % (42.0-75.0); PLATELET COUNT 255 X10^3/uL (150.0-450.0); RED BLOOD COUNT 4.15 X10^6/uL (4.7-6.0); RED CELL DISTRIBUTION WIDTH 14.8 % (11.6-16.5); WHITE BLOOD COUNT 8.4 X10^3/uL (3.6-10.0)
[2018-12-11 17:58] LABS: ALBUMIN 2.8 g/dL (3.4-5.0); CARBON DIOXIDE 30.5 mmol/L (21-32); CREATININE 2.07 mg/dL (0.70-1.30); MAGNESIUM 3.2 mg/dL (1.7-2.9); URIC ACID 7.2 mg/dL (3.5-7.2)
[2018-12-11] MEDS: HumuLIN R SUBCUT PRN ×2 (18:13→21:47)
[2018-12-11] MEDS ORDERED: DUONEB 0.5 MG/3 MG NEB PRN (18:39)
[2018-12-11 20:07] LABS: BILIRUBIN,URINE NEGATIVE (NEGATIVE); BLOOD/HEMOGLOBIN,URINE NEGATIVE (NEGATIVE); GLUCOSE, URINE 4+ (NEGATIVE); KETONES,URINE NEGATIVE (NEGATIVE); LEUKOCYTE ESTERASE ,URINE 3+ (NEGATIVE); NITRITES,URINE NEGATIVE (NEGATIVE); PROTEIN,URINE 1+ (NEGATIVE); UROBILINOGEN,URINE NORMAL (NORMAL)
[2018-12-11 20:10] LABS: APPEARANCE,URINE HAZY (CLEAR); COLOR,URINE YELLOW (YELLOW)
[2018-12-11 20:15] LABS: BACTERIA,URINE TRACE /HPF (NEGATIVE); SQUAMOUS EPITHELIAL CELL,UR FEW /HPF (NEGATIVE)
[2018-12-11] MEDS: NORCO 5/325 MG TAB PO PRN (20:42)
[2018-12-11] MEDS: SNACK - Diabetic Appropriate PO SCH (20:51)
[2018-12-11] MEDS: TEFLARO 600 MG in NS 100 ML IV + SPIKE MINIBAG* 100 ML IV SCH (20:52)
[2018-12-12 05:33] LABS: BASOPHILS # (AUTO) 0.1 X10^3/uL (0.0-0.1); BASOPHILS % (AUTO) 0.8 % (0.2-1.0); EOSINOPHILS # (AUTO) 0.4 x10^3/uL (0.0-0.2); EOSINOPHILS % (AUTO) 5.1 % (0.9-2.9); HEMATOCRIT 34.9 % (42.0-54.0); HEMOGLOBIN 11.8 g/dL (13.5-18.0); LYMPHOCYTES # (AUTO) 2.3 X10^3/uL (1.3-2.9); LYMPHOCYTES % (AUTO) 32.2 % (21.0-51.0); MEAN CORPUSCULAR HEMOGLOBIN 28.7 pg (27.0-34.0); MEAN CORPUSCULAR HGB CONC 33.9 g/dL (33.0-35.0); MEAN CORPUSCULAR VOLUME 84.8 fL (80.0-100.0); MEAN PLATELET VOLUME 7.7 fL (7.4-11.0); MONOCYTES # (AUTO) 0.7 x10^3/uL (0.3-0.8); MONOCYTES % (AUTO) 9.1 % (0.0-13.0); NEUTROPHILS # (AUTO) 3.9 x10^3/uL (2.2-4.8); NEUTROPHILS % (AUTO) 52.8 % (42.0-75.0); PLATELET COUNT 252 X10^3/uL (150.0-450.0); RED BLOOD COUNT 4.11 X10^6/uL (4.7-6.0); RED CELL DISTRIBUTION WIDTH 14.9 % (11.6-16.5); WHITE BLOOD COUNT 7.3 X10^3/uL (3.6-10.0)
[2018-12-12 05:55] LABS: ALBUMIN 2.6 g/dL (3.4-5.0); CARBON DIOXIDE 31.1 mmol/L (21-32); COR CA(FOR HYPOALB) 10.1 mg/dL (8.5-10.1); CREATININE 1.63 mg/dL (0.70-1.30); TOTAL PROTEIN 6.7 g/dL (6.4-8.2)
[2018-12-12] MEDS: TEFLARO 600 MG in NS 100 ML IV + SPIKE MINIBAG* 100 ML IV SCH ×2 (08:55→20:41)
[2018-12-12] MEDS: NORCO 5/325 MG TAB PO PRN ×2 (09:44→16:11)
[2018-12-12] MEDS: HumuLIN R SUBCUT PRN ×3 (11:21→20:51)
[2018-12-12] MEDS ORDERED: BUTT CREAM (COMPOUND) TOP PRN (12:07)
[2018-12-12] MEDS ORDERED: APRESOLINE INJ 20 MG VIAL IVP ONE (13:44)
[2018-12-12] MEDS: NEURONTIN CAP 100 MG PO SCH ×2 (14:05→21:15)
[2018-12-12] MEDS: PLAVIX PO SCH (14:05)
[2018-12-12] MEDS: APRESOLINE TAB 25 MG PO SCH ×2 (14:05→20:40)
[2018-12-12] MEDS: COZAAR PO SCH (14:05)
[2018-12-12] MEDS ORDERED: LANTISEPTIC ONE (15:44)
[2018-12-12] MEDS: LANTISEPTIC TOP PRN (15:46)
[2018-12-12] MEDS: NYSTATIN POWDER TOP SCH ×2 (16:10→20:41)
[2018-12-12] MEDS: NS 1000 ML 1,000 ML IV SCH (18:02)
[2018-12-12] MEDS: SNACK - Diabetic Appropriate PO SCH (20:37)
[2018-12-12] MEDS: LOVENOX INJ 40 MG SYR SC SCH (20:39)
[2018-12-12] MEDS: FLOMAX PO SCH (20:40)
[2018-12-12] MEDS: LEVEMIR SC SCH (20:48)
[2018-12-13] MEDS: NORCO 5/325 MG TAB PO PRN ×2 (01:48→20:48)
[2018-12-13] MEDS: NEURONTIN CAP 100 MG PO SCH ×3 (05:18→21:22)
[2018-12-13] MEDS: HumuLIN R SUBCUT PRN ×3 (05:32→20:47)
[2018-12-13 06:48] LABS: BASOPHILS # (AUTO) 0.1 X10^3/uL (0.0-0.1); BASOPHILS % (AUTO) 0.8 % (0.2-1.0); EOSINOPHILS # (AUTO) 0.3 x10^3/uL (0.0-0.2); EOSINOPHILS % (AUTO) 3.4 % (0.9-2.9); HEMATOCRIT 36.8 % (42.0-54.0); HEMOGLOBIN 12.6 g/dL (13.5-18.0); LYMPHOCYTES # (AUTO) 1.9 X10^3/uL (1.3-2.9); LYMPHOCYTES % (AUTO) 21.5 % (21.0-51.0); MEAN CORPUSCULAR HEMOGLOBIN 29.1 pg (27.0-34.0); MEAN CORPUSCULAR HGB CONC 34.3 g/dL (33.0-35.0); MEAN CORPUSCULAR VOLUME 84.8 fL (80.0-100.0); MEAN PLATELET VOLUME 7.8 fL (7.4-11.0); MONOCYTES # (AUTO) 0.7 x10^3/uL (0.3-0.8); MONOCYTES % (AUTO) 8.5 % (0.0-13.0); NEUTROPHILS # (AUTO) 5.7 x10^3/uL (2.2-4.8); NEUTROPHILS % (AUTO) 65.8 % (42.0-75.0); PLATELET COUNT 256 X10^3/uL (150.0-450.0); RED BLOOD COUNT 4.34 X10^6/uL (4.7-6.0); RED CELL DISTRIBUTION WIDTH 14.5 % (11.6-16.5); WHITE BLOOD COUNT 8.7 X10^3/uL (3.6-10.0)
[2018-12-13 06:58] LABS: ALBUMIN 2.6 g/dL (3.4-5.0); CALCIUM 9.2 mg/dL (8.5-10.1); CARBON DIOXIDE 28.5 mmol/L (21-32); COR CA(FOR HYPOALB) 10.3 mg/dL (8.5-10.1); CREATININE 1.69 mg/dL (0.70-1.30); TOTAL PROTEIN 6.8 g/dL (6.4-8.2)
[2018-12-13] MEDS: TEFLARO 600 MG in NS 100 ML IV + SPIKE MINIBAG* 100 ML IV SCH ×2 (08:53→20:47)
[2018-12-13] MEDS: PLAVIX PO SCH (08:55)
[2018-12-13] MEDS: APRESOLINE TAB 25 MG PO SCH ×2 (08:55→21:27)
[2018-12-13] MEDS: COZAAR PO SCH (08:55)
[2018-12-13] MEDS: ZYLOPRIM PO SCH (08:55)
[2018-12-13] MEDS: ZAROXOYLN PO SCH (08:55)
[2018-12-13] MEDS: LASIX PO SCH (08:55)
[2018-12-13] MEDS: LOVENOX INJ 40 MG SYR SC SCH (08:56)
[2018-12-13] MEDS: K-DUR TAB 20 MEQ PO SCH (10:09)
[2018-12-13] MEDS: NYSTATIN CREAM TOP SCH ×2 (10:55→20:46)
[2018-12-13] MEDS: NYSTATIN POWDER TOP SCH ×2 (16:09→20:45)
[2018-12-13] MEDS: NS 1000 ML 1,000 ML IV SCH (17:14)
[2018-12-13] MEDS: FLOMAX PO SCH (20:44)
[2018-12-13] MEDS: LEVEMIR SC SCH (20:44)
[2018-12-13] MEDS: SNACK - Diabetic Appropriate PO SCH (20:44)
[2018-12-14] MEDS: NEURONTIN CAP 100 MG PO SCH ×3 (05:04→21:44)
[2018-12-14 05:30] LABS: BASOPHILS % (AUTO) 0.6 % (0.2-1.0); EOSINOPHILS # (AUTO) 0.3 x10^3/uL (0.0-0.2); EOSINOPHILS % (AUTO) 4.2 % (0.9-2.9); HEMOGLOBIN 13.1 g/dL (13.5-18.0); LYMPHOCYTES % (AUTO) 27.5 % (21.0-51.0); MEAN CORPUSCULAR HEMOGLOBIN 28.9 pg (27.0-34.0); MEAN CORPUSCULAR HGB CONC 33.6 g/dL (33.0-35.0); MEAN CORPUSCULAR VOLUME 86.1 fL (80.0-100.0); MEAN PLATELET VOLUME 7.4 fL (7.4-11.0); MONOCYTES # (AUTO) 0.7 x10^3/uL (0.3-0.8); NEUTROPHILS # (AUTO) 4.2 x10^3/uL (2.2-4.8); NEUTROPHILS % (AUTO) 57.7 % (42.0-75.0); PLATELET COUNT 277 X10^3/uL (150.0-450.0); RED BLOOD COUNT 4.54 X10^6/uL (4.7-6.0); RED CELL DISTRIBUTION WIDTH 14.5 % (11.6-16.5); WHITE BLOOD COUNT 7.3 X10^3/uL (3.6-10.0)
[2018-12-14 05:49] LABS: ALANINE AMINOTRANSFERASE 21 Units/L (12-78); ALBUMIN 2.8 g/dL (3.4-5.0); ALKALINE PHOSPHATASE 150 Units/L (46-116); ASPARTATE AMINO TRANSFERASE 18 Units/L (15-37); BLOOD UREA NITROGEN 37 mg/dL (7-18); CALCIUM 9.5 mg/dL (8.5-10.1); CARBON DIOXIDE 27.7 mmol/L (21-32); CHLORIDE 102 mmol/L (98-107); COR CA(FOR HYPOALB) 10.5 mg/dL (8.5-10.1); CREATININE 1.66 mg/dL (0.70-1.30); SODIUM 137 mmol/L (136-145); TOTAL PROTEIN 7.2 g/dL (6.4-8.2); eGFR NON BLACK RACES 43 (>60)
[2018-12-14] MEDS: ZAROXOYLN PO SCH (08:23)
[2018-12-14] MEDS: LOVENOX INJ 40 MG SYR SC SCH (08:23)
[2018-12-14] MEDS: COZAAR PO SCH (08:23)
[2018-12-14] MEDS: LASIX PO SCH (08:23)
[2018-12-14] MEDS: PLAVIX PO SCH (08:23)
[2018-12-14] MEDS: APRESOLINE TAB 25 MG PO SCH ×2 (09:35→20:25)
[2018-12-14] MEDS: NORCO 5/325 MG TAB PO PRN ×2 (09:36→20:29)
[2018-12-14] MEDS: LANTISEPTIC TOP PRN (09:38)
[2018-12-14] MEDS: K-DUR TAB 20 MEQ PO SCH (09:46)
[2018-12-14] MEDS: TEFLARO 600 MG in NS 100 ML IV + SPIKE MINIBAG* 100 ML IV SCH ×2 (09:46→20:27)
[2018-12-14] MEDS: ZYLOPRIM PO SCH (09:47)
[2018-12-14] MEDS: NYSTATIN POWDER TOP SCH ×2 (09:47→20:27)
[2018-12-14] MEDS: NYSTATIN CREAM TOP SCH ×2 (09:47→20:26)
[2018-12-14] MEDS: MORPHINE SULFATE INJ 2 MG INJ IVP PRN (10:27)
[2018-12-14 11:21] LABS: BILIRUBIN,URINE NEGATIVE (NEGATIVE); BLOOD/HEMOGLOBIN,URINE NEGATIVE (NEGATIVE); GLUCOSE, URINE 1+ (NEGATIVE); KETONES,URINE NEGATIVE (NEGATIVE); LEUKOCYTE ESTERASE ,URINE NEGATIVE (NEGATIVE); NITRITES,URINE NEGATIVE (NEGATIVE); PROTEIN,URINE 2+ (NEGATIVE); UROBILINOGEN,URINE NORMAL (NORMAL)
[2018-12-14 11:34] LABS: APPEARANCE,URINE CLEAR (CLEAR); COLOR,URINE YELLOW (YELLOW)
[2018-12-14 11:51] LABS: BACTERIA,URINE NEGATIVE /HPF (NEGATIVE); RBC,URINE 0-2 /HPF (NONE SEEN); SQUAMOUS EPITHELIAL CELL,UR RARE /HPF (NEGATIVE)
[2018-12-14 11:52] LABS: TRANSITIONAL EPI CELLS,URINE RARE /HPF (NEGATIVE)
[2018-12-14 11:56] LABS: AMORPHOUS SEDIMENT,UR TRACE /HPF (NEGATIVE)
[2018-12-14] MEDS: HumuLIN R SUBCUT PRN ×3 (12:03→20:36)
[2018-12-14] MEDS ORDERED: PROSCAR ONE (16:40)
[2018-12-14] MEDS: PROSCAR PO SCH (16:46)
[2018-12-14] MEDS ORDERED: COLACE CAP 100 MG PO PRN (19:45)
[2018-12-14] MEDS: SNACK - Diabetic Appropriate PO SCH (20:25)
[2018-12-14] MEDS: NS 1000 ML 1,000 ML IV SCH (20:26)
[2018-12-14] MEDS: FLOMAX PO SCH (20:27)
[2018-12-14] MEDS: LEVEMIR SC SCH (20:28)
[2018-12-15] MEDS: NEURONTIN CAP 100 MG PO SCH ×3 (05:13→21:18)
[2018-12-15] MEDS: NS 1000 ML 1,000 ML IV SCH ×2 (05:13→18:33)
[2018-12-15 05:30] LABS: BASOPHILS % (AUTO) 0.6 % (0.2-1.0); EOSINOPHILS # (AUTO) 0.3 x10^3/uL (0.0-0.2); EOSINOPHILS % (AUTO) 4.5 % (0.9-2.9); HEMATOCRIT 37.7 % (42.0-54.0); HEMOGLOBIN 12.5 g/dL (13.5-18.0); LYMPHOCYTES # (AUTO) 1.8 X10^3/uL (1.3-2.9); LYMPHOCYTES % (AUTO) 26.5 % (21.0-51.0); MEAN CORPUSCULAR HEMOGLOBIN 28.6 pg (27.0-34.0); MEAN CORPUSCULAR HGB CONC 33.2 g/dL (33.0-35.0); MEAN CORPUSCULAR VOLUME 86.3 fL (80.0-100.0); MEAN PLATELET VOLUME 7.4 fL (7.4-11.0); MONOCYTES # (AUTO) 0.7 x10^3/uL (0.3-0.8); MONOCYTES % (AUTO) 10.9 % (0.0-13.0); NEUTROPHILS # (AUTO) 3.9 x10^3/uL (2.2-4.8); NEUTROPHILS % (AUTO) 57.5 % (42.0-75.0); PLATELET COUNT 264 X10^3/uL (150.0-450.0); RED BLOOD COUNT 4.36 X10^6/uL (4.7-6.0); RED CELL DISTRIBUTION WIDTH 14.5 % (11.6-16.5); WHITE BLOOD COUNT 6.7 X10^3/uL (3.6-10.0)
[2018-12-15 05:32] LABS: ALBUMIN 2.7 g/dL (3.4-5.0); CALCIUM 9.5 mg/dL (8.5-10.1); CARBON DIOXIDE 30.2 mmol/L (21-32); COR CA(FOR HYPOALB) 10.5 mg/dL (8.5-10.1); CREATININE 1.75 mg/dL (0.70-1.30); TOTAL PROTEIN 6.9 g/dL (6.4-8.2)
[2018-12-15] MEDS: TEFLARO 600 MG in NS 100 ML IV + SPIKE MINIBAG* 100 ML IV SCH ×2 (09:38→20:37)
[2018-12-15] MEDS: COZAAR PO SCH (09:39)
[2018-12-15] MEDS: ZYLOPRIM PO SCH (09:39)
[2018-12-15] MEDS: LOVENOX INJ 40 MG SYR SC SCH (09:39)
[2018-12-15] MEDS: ZAROXOYLN PO SCH (09:40)
[2018-12-15] MEDS: PROSCAR PO SCH (09:40)
[2018-12-15] MEDS: PLAVIX PO SCH (09:40)
[2018-12-15] MEDS: LASIX PO SCH (09:40)
[2018-12-15] MEDS: K-DUR TAB 20 MEQ PO SCH (09:40)
[2018-12-15] MEDS: NYSTATIN POWDER TOP SCH ×2 (09:41→20:43)
[2018-12-15] MEDS: NYSTATIN CREAM TOP SCH ×2 (09:41→20:43)
[2018-12-15] MEDS: APRESOLINE TAB 25 MG PO SCH ×2 (10:17→20:37)
[2018-12-15] MEDS: HumuLIN R SUBCUT PRN ×3 (11:53→20:38)
[2018-12-15] MEDS: NORCO 5/325 MG TAB PO PRN ×2 (14:31→20:37)
[2018-12-15] MEDS: FLOMAX PO SCH (20:37)
[2018-12-15] MEDS: LEVEMIR SC SCH (20:38)
[2018-12-15] MEDS: SNACK - Diabetic Appropriate PO SCH (20:43)
[2018-12-15] MEDS ORDERED: MILK OF MAGNESIA ONE (23:16)
[2018-12-15] MEDS: MILK OF MAGNESIA PO SCH (23:20)
[2018-12-16] MEDS: NORCO 5/325 MG TAB PO PRN ×3 (03:10→20:50)
[2018-12-16] MEDS: NEURONTIN CAP 100 MG PO SCH ×3 (05:25→21:48)
[2018-12-16 06:21] LABS: BASOPHILS # (AUTO) 0.1 X10^3/uL (0.0-0.1); BASOPHILS % (AUTO) 0.9 % (0.2-1.0); EOSINOPHILS # (AUTO) 0.3 x10^3/uL (0.0-0.2); HEMATOCRIT 36.6 % (42.0-54.0); HEMOGLOBIN 12.3 g/dL (13.5-18.0); LYMPHOCYTES # (AUTO) 1.9 X10^3/uL (1.3-2.9); LYMPHOCYTES % (AUTO) 28.5 % (21.0-51.0); MEAN CORPUSCULAR HEMOGLOBIN 28.9 pg (27.0-34.0); MEAN CORPUSCULAR HGB CONC 33.6 g/dL (33.0-35.0); MEAN CORPUSCULAR VOLUME 86.3 fL (80.0-100.0); MEAN PLATELET VOLUME 7.3 fL (7.4-11.0); MONOCYTES # (AUTO) 0.7 x10^3/uL (0.3-0.8); MONOCYTES % (AUTO) 10.1 % (0.0-13.0); NEUTROPHILS # (AUTO) 3.6 x10^3/uL (2.2-4.8); NEUTROPHILS % (AUTO) 55.5 % (42.0-75.0); PLATELET COUNT 245 X10^3/uL (150.0-450.0); RED BLOOD COUNT 4.25 X10^6/uL (4.7-6.0); RED CELL DISTRIBUTION WIDTH 14.3 % (11.6-16.5); WHITE BLOOD COUNT 6.5 X10^3/uL (3.6-10.0)
[2018-12-16 06:56] LABS: ALBUMIN 2.7 g/dL (3.4-5.0); CALCIUM 9.3 mg/dL (8.5-10.1); CARBON DIOXIDE 27.7 mmol/L (21-32); COR CA(FOR HYPOALB) 10.3 mg/dL (8.5-10.1); CREATININE 1.69 mg/dL (0.70-1.30); TOTAL PROTEIN 6.6 g/dL (6.4-8.2)
[2018-12-16] MEDS: TEFLARO 600 MG in NS 100 ML IV + SPIKE MINIBAG* 100 ML IV SCH ×2 (09:05→20:35)
[2018-12-16] MEDS: COZAAR PO SCH (09:06)
[2018-12-16] MEDS: PROSCAR PO SCH (09:06)
[2018-12-16] MEDS: APRESOLINE TAB 25 MG PO SCH ×2 (09:06→20:34)
[2018-12-16] MEDS: LASIX PO SCH (09:07)
[2018-12-16] MEDS: ZAROXOYLN PO SCH (09:07)
[2018-12-16] MEDS: K-DUR TAB 20 MEQ PO SCH (09:07)
[2018-12-16] MEDS: MILK OF MAGNESIA PO SCH (09:07)
[2018-12-16] MEDS: ZYLOPRIM PO SCH (09:07)
[2018-12-16] MEDS: NYSTATIN CREAM TOP SCH ×2 (09:08→20:41)
[2018-12-16] MEDS: LOVENOX INJ 40 MG SYR SC SCH (09:08)
[2018-12-16] MEDS: NYSTATIN POWDER TOP SCH ×2 (09:08→20:41)
[2018-12-16] MEDS: PLAVIX PO SCH (09:09)
--- NOTE | 2018-12-16 10:11 | RAD ---
HISTORY: Shortness of breath Study: Single-view chest Comparison: 12/11/2018 Findings: The trachea is midline. The cardiac silhouette is enlarged with a tortuous thoracic aorta. Prior changes of median sternotomy are noted. Subsegmental atelectasis within the left lower lobe is observed without focal infiltrate or effusion. The bony thorax is unremarkable. IMPRESSION: 1. Subsegmental atelectasis within the left base without focal infiltrate or effusion. Reported By:
[2018-12-16] MEDS: HumuLIN R SUBCUT PRN ×3 (12:04→20:35)
--- NOTE | 2018-12-16 13:00 | PCM.PROG ---
Progress Note - Progress Note for Day of Date of Exam: 12/12/18 - Subjective Subjective: 78 WM ADMITTED ON 12/11 WITH SEVERE LOWER EXTREMITY REDNESS, CELLULITIS WITH HYPERGLYCEMIA AND HYPERTENSIVE URGENCY. PT HAD WOUND CULTURE COLLECTED ON ADMISSION. PT BUN 50 CREAT 1.63 AND BLOOD SUGAR DOWN TO 158, NA 134. PT STARTED ON IV ABTX THERAPY WITH WOUND CARE. PT CO YEAST RASH TO GROIN, ALSO ADDED NYSTATIN TOPICAL TO LOWER EXTREMITIES. WILL CONTINUE PAIN CONTROL, BP MONITORING AND WOUND CARE, CONSULT PHYSICAL THERAPY. - Past Medical Family Social History Past Med/Fam/Surg Hx: No changes since H&P Allergies: Allergies No Known Drug Allergies [NKDA] Allergy (Verified 05/01/18 08:42) - Review of Systems ROS: No change since H&P - Vital Signs and I&O's Vital Signs: Temperature 98.3 F Pulse Rate [Right Brachial] 54 Pulse Rate 57 Respiratory Rate 20 Blood Pressure [Right Arm] 180/76 Blood Pressure [Left Arm] 135/79 Blood Pressure 143/74 O2 Sat by Pulse Oximetry 96 Intake and Output: Intake & Output 12/14/18 12/15/18 12/16/18 12/17/18 11:59 11:59 11:59 11:59 Intake Total 1700 / 1700 1593 / 1593 1200 / 1200 Output Total 500 / 500 1800 / 1800 1550 / 1550 Balance 1200 / 1200 -207 / -207 -350 / -350 - Physical Exam Oriented: Normal Eyes: Normal Ear: Normal Nose: Normal Throat: Normal Respiratory: Diminished Cardiovascular: Bradycardia, Edema : Normal Auscultation: Bowel Sounds: Normal Tenderness: Normal Skin: Decreased Turgur, Rash, Red, Tender, Hot, Wound (BILATERAL LOWER REDNESS) Musculoskeletal: Back:Thoracic, Back:Lumbar Psychiatric: Normal, Depression Mood Description: Calm Speech Pattern: Clear, Appropriate - Laboratory and Diagnostics Result Diagrams: 12/16/18 05:51 12/16/18 05:51 Labs: 12/11/18 17:29 Leg - Right Wound Culture - Final Methicillin Resis Staph Aureus 12/11/18 17:28 Blood Blood Culture - Preliminary 12/11/18 17:23 Blood Blood Culture - Preliminary 12/11/18 19:40 Urine,Clean Catch Urine Culture - Final 12/11/18 17:33 Leg - Right Gram Stain - Final Laboratory WBC 6.5 X10^3/uL (3.6-10.0) 12/16/18 05:51 RBC 4.25 X10^6/uL (4.7-6.0) L 12/16/18 05:51 Hgb 12.3 g/dL (13.5-18.0) L 12/16/18 05:51 Hct 36.6 % (42.0-54.0) L 12/16/18 05:51 MCV 86.3 fL (80.0-100.0) 12/16/18 05:51 MCH 28.9 pg (27.0-34.0) 12/16/18 05:51 MCHC 33.6 g/dL (33.0-35.0) 12/16/18 05:51 RDW 14.3 % (11.6-16.5) 12/16/18 05:51 Plt Count 245 X10^3/uL (150.0-450.0) 12/16/18 05:51 MPV 7.3 fL (7.4-11.0) L 12/16/18 05:51 Neut % (Auto) 55.5 % (42.0-75.0) 12/16/18 05:51 Lymph % (Auto) 28.5 % (21.0-51.0) 12/16/18 05:51 [place] % (Auto) 10.1 % (0.0-13.0) 12/16/18 05:51 Eos % (Auto) 5.0 % (0.9-2.9) H 12/16/18 05:51 Baso % (Auto) 0.9 % (0.2-1.0) 12/16/18 05:51 Neut # (Auto) 3.6 x10^3/uL (2.2-4.8) 12/16/18 05:51 Lymph # (Auto) 1.9 X10^3/uL (1.3-2.9) 12/16/18 05:51 [place] # (Auto) 0.7 x10^3/uL (0.3-0.8) 12/16/18 05:51 Eos # (Auto) 0.3 x10^3/uL (0.0-0.2) H 12/16/18 05:51 Baso # (Auto) 0.1 X10^3/uL (0.0-0.1) 12/16/18 05:51 Absolute Nucleated RBC 0.1 /100WBC 12/16/18 05:51 Sodium 137 mmol/L (136-145) 12/16/18 05:51 Corrected Sodium 137 mmol/L (136-145) 12/16/18 05:51 Potassium 4.3 mmol/L (3.5-5.1) 12/16/18 05:51 Chloride 103 mmol/L (98-107) 12/16/18 05:51 Carbon Dioxide 27.7 mmol/L (21-32) 12/16/18 05:51 BUN 36 mg/dL (7-18) H 12/16/18 05:51 Creatinine 1.69 mg/dL (0.70-1.30) H 12/16/18 05:51 Est GFR (MDRD) Af Amer 51 (>60) L 12/16/18 05:51 Est GFR (MDRD) Non-Af 42 (>60) L 12/16/18 05:51 Glucose 118 mg/dL (65-99) H 12/16/18 05:51 POC Glucose (mg/dL) 198 mg/dL (65-99) H 12/16/18 11:58 Uric Acid 7.2 mg/dL (3.5-7.2) 12/11/18 17:23 Calcium 9.3 mg/dL (8.5-10.1) 12/16/18 05:51 Corrected Calcium 10.3 mg/dL (8.5-10.1) H 12/16/18 05:51 Magnesium 3.2 mg/dL (1.7-2.9) H 12/11/18 17:23 Total Bilirubin 0.30 mg/dL (0.2-1.0) 12/16/18 05:51 AST 20 Units/L (15-37) 12/16/18 05:51 ALT 21 Units/L (12-78) 12/16/18 05:51 Alkaline Phosphatase 133 Units/L (46-116) H 12/16/18 05:51 Total Protein 6.6 g/dL (6.4-8.2) 12/16/18 05:51 Albumin 2.7 g/dL (3.4-5.0) L 12/16/18 05:51 Globulin 3.9 g/dL (2.5-4.5) 12/16/18 05:51 Albumin/Globulin Ratio 0.7 Ratio (1.1-2.1) L 12/16/18 05:51 Specimen Type Catherized urine 12/14/18 11:14 Urine Color Yellow (YELLOW) 12/14/18 11:14 Urine Appearance Clear (CLEAR) 12/14/18 11:14 Urine pH 6.0 (5.0 - 8.0) 12/14/18 11:14 Ur Specific [place] 1.020 (1.000-1.030) 12/14/18 11:14 Urine Protein 2+ (NEGATIVE) 12/14/18 11:14 Urine Glucose (UA) 1+ (NEGATIVE) 12/14/18 11:14 Urine Ketones Negative (NEGATIVE) 12/14/18 11:14 Urine Occult Blood Negative (NEGATIVE) 12/14/18 11:14 Urine Nitrite Negative (NEGATIVE) 12/14/18 11:14 Urine Bilirubin Negative (NEGATIVE) 12/14/18 11:14 Urine Urobilinogen Normal (NORMAL) 12/14/18 11:14 Ur Leukocyte Esterase Negative (NEGATIVE) 12/14/18 11:14 Urine RBC 0-2 /HPF (NONE SEEN) 12/14/18 11:14 Urine WBC 0-2 /HPF (NONE SEEN) 12/14/18 11:14 Ur Squamous Epith Cells Rare /HPF (NEGATIVE) 12/14/18 11:14 Ur Transition Epith Cell Rare /HPF (NEGATIVE) 12/14/18 11:14 Amorphous Sediment Trace /HPF (NEGATIVE) 12/14/18 11:14 Urine Bacteria Negative /HPF (NEGATIVE) 12/14/18 11:14 Ur Culture Indicated? No/not indicated 12/14/18 11:14 - Plan (1) Wound cellulitis Status: Acute Plan: CONTINUE WOUND CARE AND IV ATBX. BLOOD AND WOUND CULTURE ON ADMISSION. BP AND BS CONTROL, RESP CONSULT FOR MAINTENANCE MEDICATION. PAIN CONTROL, PHYSICAL THERAPY. RESP THERAPY (2) CHF (congestive heart failure) Status: Acute (3) COPD (chronic obstructive pulmonary disease) Status: Acute Qualifiers: COPD type: COPD with acute exacerbation Qualified Code(s): J44.1 - Chronic obstructive pulmonary disease with (acute) exacerbation (4) Diabetes mellitus, type 2 Status: Chronic (5) COPD (chronic obstructive pulmonary disease) Status: Chronic Qualifiers: COPD type: unspecified COPD Qualified Code(s): J44.9 - Chronic obstructive pulmonary disease, unspecified (6) CAD (coronary artery disease) Status: Chronic (7) Yeast dermatitis Status: Acute Plan: NYSTATIN POWDER TO GROIN, CREAM TO BILATERAL LOWER EXTREMITIES
--- NOTE | 2018-12-16 13:02 | PCM.PROG ---
Progress Note - Progress Note for Day of Date of Exam: 12/14/18 - Subjective Subjective: 78 WM ADMITTED ON 12/11 WITH SEVERE LOWER EXTREMITY REDNESS, CELLULITIS WITH HYPERGLYCEMIA AND HYPERTENSIVE URGENCY. PT HAD WOUND CULTURE COLLECTED ON ADMISSION. PT BUN 37 CREAT 1.66 AND BLOOD SUGAR IMPROVED, NA 137. PTON IV ABTX THERAPY WITH WOUND CARE. PT CO YEAST RASH TO GROIN, CONTINUE NYS TATIN TOPICAL TO LOWER EXTREMITIES. WILL CONTINUE PAIN CONTROL, BP MONITORING AND WOUND CARE, PHYSICAL THERAPY. PT CO PAIN TO LOWER LEGS AND FEET. - Past Medical Family Social History Past Med/Fam/Surg Hx: No changes since H&P Allergies: Allergies No Known Drug Allergies [NKDA] Allergy (Verified 05/01/18 08:42) - Review of Systems ROS: No change since H&P - Vital Signs and I&O's Vital Signs: Temperature 98.3 F Pulse Rate [Right Brachial] 54 Pulse Rate 57 Respiratory Rate 20 Blood Pressure [Right Arm] 180/76 Blood Pressure [Left Arm] 135/79 Blood Pressure 143/74 O2 Sat by Pulse Oximetry 96 Intake and Output: Intake & Output 12/14/18 12/15/18 12/16/18 12/17/18 11:59 11:59 11:59 11:59 Intake Total 1700 / 1700 1593 / 1593 1200 / 1200 Output Total 500 / 500 1800 / 1800 1550 / 1550 Balance 1200 / 1200 -207 / -207 -350 / -350 - Physical Exam Oriented: Normal Eyes: Normal Ear: Normal Nose: Normal Throat: Normal Respiratory: Diminished Cardiovascular: Bradycardia, Edema : Normal Auscultation: Bowel Sounds: Normal Tenderness: Normal Skin: Decreased Turgur, Rash, Red, Tender, Hot, Wound (BILATERAL LOWER REDNESS) Musculoskeletal: Back:Thoracic, Back:Lumbar Psychiatric: Normal, Depression Mood Description: Calm Speech Pattern: Clear, Appropriate - Laboratory and Diagnostics Result Diagrams: 12/16/18 05:51 12/16/18 05:51 Labs: 12/11/18 17:29 Leg - Right Wound Culture - Final Methicillin Resis Staph Aureus 12/11/18 17:28 Blood Blood Culture - Preliminary 12/11/18 17:23 Blood Blood Culture - Preliminary 12/11/18 19:40 Urine,Clean Catch Urine Culture - Final 12/11/18 17:33 Leg - Right Gram Stain - Final Laboratory WBC 6.5 X10^3/uL (3.6-10.0) 12/16/18 05:51 RBC 4.25 X10^6/uL (4.7-6.0) L 12/16/18 05:51 Hgb 12.3 g/dL (13.5-18.0) L 12/16/18 05:51 Hct 36.6 % (42.0-54.0) L 12/16/18 05:51 MCV 86.3 fL (80.0-100.0) 12/16/18 05:51 MCH 28.9 pg (27.0-34.0) 12/16/18 05:51 MCHC 33.6 g/dL (33.0-35.0) 12/16/18 05:51 RDW 14.3 % (11.6-16.5) 12/16/18 05:51 Plt Count 245 X10^3/uL (150.0-450.0) 12/16/18 05:51 MPV 7.3 fL (7.4-11.0) L 12/16/18 05:51 Neut % (Auto) 55.5 % (42.0-75.0) 12/16/18 05:51 Lymph % (Auto) 28.5 % (21.0-51.0) 12/16/18 05:51 [place] % (Auto) 10.1 % (0.0-13.0) 12/16/18 05:51 Eos % (Auto) 5.0 % (0.9-2.9) H 12/16/18 05:51 Baso % (Auto) 0.9 % (0.2-1.0) 12/16/18 05:51 Neut # (Auto) 3.6 x10^3/uL (2.2-4.8) 12/16/18 05:51 Lymph # (Auto) 1.9 X10^3/uL (1.3-2.9) 12/16/18 05:51 [place] # (Auto) 0.7 x10^3/uL (0.3-0.8) 12/16/18 05:51 Eos # (Auto) 0.3 x10^3/uL (0.0-0.2) H 12/16/18 05:51 Baso # (Auto) 0.1 X10^3/uL (0.0-0.1) 12/16/18 05:51 Absolute Nucleated RBC 0.1 /100WBC 12/16/18 05:51 Sodium 137 mmol/L (136-145) 12/16/18 05:51 Corrected Sodium 137 mmol/L (136-145) 12/16/18 05:51 Potassium 4.3 mmol/L (3.5-5.1) 12/16/18 05:51 Chloride 103 mmol/L (98-107) 12/16/18 05:51 Carbon Dioxide 27.7 mmol/L (21-32) 12/16/18 05:51 BUN 36 mg/dL (7-18) H 12/16/18 05:51 Creatinine 1.69 mg/dL (0.70-1.30) H 12/16/18 05:51 Est GFR (MDRD) Af Amer 51 (>60) L 12/16/18 05:51 Est GFR (MDRD) Non-Af 42 (>60) L 12/16/18 05:51 Glucose 118 mg/dL (65-99) H 12/16/18 05:51 POC Glucose (mg/dL) 198 mg/dL (65-99) H 12/16/18 11:58 Uric Acid 7.2 mg/dL (3.5-7.2) 12/11/18 17:23 Calcium 9.3 mg/dL (8.5-10.1) 12/16/18 05:51 Corrected Calcium 10.3 mg/dL (8.5-10.1) H 12/16/18 05:51 Magnesium 3.2 mg/dL (1.7-2.9) H 12/11/18 17:23 Total Bilirubin 0.30 mg/dL (0.2-1.0) 12/16/18 05:51 AST 20 Units/L (15-37) 12/16/18 05:51 ALT 21 Units/L (12-78) 12/16/18 05:51 Alkaline Phosphatase 133 Units/L (46-116) H 12/16/18 05:51 Total Protein 6.6 g/dL (6.4-8.2) 12/16/18 05:51 Albumin 2.7 g/dL (3.4-5.0) L 12/16/18 05:51 Globulin 3.9 g/dL (2.5-4.5) 12/16/18 05:51 Albumin/Globulin Ratio 0.7 Ratio (1.1-2.1) L 12/16/18 05:51 Specimen Type Catherized urine 12/14/18 11:14 Urine Color Yellow (YELLOW) 12/14/18 11:14 Urine Appearance Clear (CLEAR) 12/14/18 11:14 Urine pH 6.0 (5.0 - 8.0) 12/14/18 11:14 Ur Specific [place] 1.020 (1.000-1.030) 12/14/18 11:14 Urine Protein 2+ (NEGATIVE) 12/14/18 11:14 Urine Glucose (UA) 1+ (NEGATIVE) 12/14/18 11:14 Urine Ketones Negative (NEGATIVE) 12/14/18 11:14 Urine Occult Blood Negative (NEGATIVE) 12/14/18 11:14 Urine Nitrite Negative (NEGATIVE) 12/14/18 11:14 Urine Bilirubin Negative (NEGATIVE) 12/14/18 11:14 Urine Urobilinogen Normal (NORMAL) 12/14/18 11:14 Ur Leukocyte Esterase Negative (NEGATIVE) 12/14/18 11:14 Urine RBC 0-2 /HPF (NONE SEEN) 12/14/18 11:14 Urine WBC 0-2 /HPF (NONE SEEN) 12/14/18 11:14 Ur Squamous Epith Cells Rare /HPF (NEGATIVE) 12/14/18 11:14 Ur Transition Epith Cell Rare /HPF (NEGATIVE) 12/14/18 11:14 Amorphous Sediment Trace /HPF (NEGATIVE) 12/14/18 11:14 Urine Bacteria Negative /HPF (NEGATIVE) 12/14/18 11:14 Ur Culture Indicated? No/not indicated 12/14/18 11:14 - Plan (1) Wound cellulitis Status: Acute Plan: CONTINUE WOUND CARE AND IV ATBX. BLOOD AND WOUND CULTURE ON ADMISSION. BP AND BS CONTROL, RESP CONSULT FOR MAINTENANCE MEDICATION. PAIN CONTROL, PHYSICAL THERAPY. RESP THERAPY (2) CHF (congestive heart failure) Status: Acute (3) COPD (chronic obstructive pulmonary disease) Status: Acute Qualifiers: COPD type: COPD with acute exacerbation Qualified Code(s): J44.1 - Chronic obstructive pulmonary disease with (acute) exacerbation (4) Diabetes mellitus, type 2 Status: Chronic (5) COPD (chronic obstructive pulmonary disease) Status: Chronic Qualifiers: COPD type: unspecified COPD Qualified Code(s): J44.9 - Chronic obstructive pulmonary disease, unspecified (6) CAD (coronary artery disease) Status: Chronic (7) Yeast dermatitis Status: Acute Plan: [place] POWDER TO GROIN, CREAM TO BILATERAL LOWER EXTREMITIES
--- NOTE | 2018-12-16 13:09 | PCM.PROG ---
Progress Note - Progress Note for Day of Date of Exam: 12/15/18 - Subjective Subjective: 78 WM ADMITTED ON 12/11 WITH SEVERE LOWER EXTREMITY REDNESS, CELLULITIS WITH HYPERGLYCEMIA AND HYPERTENSIVE URGENCY. PT HAD WOUND CULTURE COLLECTED ON ADMISSION. PT CO FEELING MUCH BETTER THIS AM. WE DISCUSSED REHAB PLACEMENT AND PT HAS REFUSED AT THIS TIME. PT BUN 37 CREAT 1.75 AND BLOOD SUGAR IMPROVED, 144 THIS AM.PTON IV ABTX THERAPY WITH WOUND CARE. PT CO YEAST RASH TO GROIN, CONTINUE NYSTATIN TOPICAL TO LOWER EXTREMITIES. WILL CONTINUE PAIN CONTROL, BP MONITORING AND WOUND CARE, PHYSICAL THERAPY. PT CO PAIN TO LOWER LEGS AND FEET CONTROLLED WITH "PAIN PILL" - Past Medical Family Social History Past Med/Fam/Surg Hx: No changes since H&P Allergies: Allergies No Known Drug Allergies [NKDA] Allergy (Verified 05/01/18 08:42) - Review of Systems ROS: No change since H&P - Vital Signs and I&O's Vital Signs: Temperature 98.3 F Pulse Rate [Right Brachial] 54 Pulse Rate 57 Respiratory Rate 20 Blood Pressure [Right Arm] 180/76 Blood Pressure [Left Arm] 135/79 Blood Pressure 143/74 O2 Sat by Pulse Oximetry 96 Intake and Output: Intake & Output 12/14/18 12/15/18 12/16/18 12/17/18 11:59 11:59 11:59 11:59 Intake Total 1700 / 1700 1593 / 1593 1200 / 1200 Output Total 500 / 500 1800 / 1800 1550 / 1550 Balance 1200 / 1200 -207 / -207 -350 / -350 - Physical Exam Oriented: Normal Eyes: Normal Ear: Normal Nose: Normal Throat: Normal Respiratory: Diminished Cardiovascular: Bradycardia, Edema : Normal Auscultation: Bowel Sounds: Normal Tenderness: Normal Skin: Decreased Turgur, Rash (BILATERAL LOWER EXTREMITIS, MACULAR RASH WITH WAQAS BORDERS, THICK FLAKES OF SLOUGHING), Red, Tender, Hot Musculoskeletal: Back:Thoracic, Back:Lumbar Psychiatric: Normal, Depression Mood Description: Calm Speech Pattern: Clear, Appropriate - Laboratory and Diagnostics Result Diagrams: 12/16/18 05:51 12/16/18 05:51 Labs: 12/11/18 17:29 Leg - Right Wound Culture - Final Methicillin Resis Staph Aureus 12/11/18 17:28 Blood Blood Culture - Preliminary 12/11/18 17:23 Blood Blood Culture - Preliminary 12/11/18 19:40 Urine,Clean Catch Urine Culture - Final 12/11/18 17:33 Leg - Right Gram Stain - Final Laboratory WBC 6.5 X10^3/uL (3.6-10.0) 12/16/18 05:51 RBC 4.25 X10^6/uL (4.7-6.0) L 12/16/18 05:51 Hgb 12.3 g/dL (13.5-18.0) L 12/16/18 05:51 Hct 36.6 % (42.0-54.0) L 12/16/18 05:51 MCV 86.3 fL (80.0-100.0) 12/16/18 05:51 MCH 28.9 pg (27.0-34.0) 12/16/18 05:51 MCHC 33.6 g/dL (33.0-35.0) 12/16/18 05:51 RDW 14.3 % (11.6-16.5) 12/16/18 05:51 Plt Count 245 X10^3/uL (150.0-450.0) 12/16/18 05:51 MPV 7.3 fL (7.4-11.0) L 12/16/18 05:51 Neut % (Auto) 55.5 % (42.0-75.0) 12/16/18 05:51 Lymph % (Auto) 28.5 % (21.0-51.0) 12/16/18 05:51 [place] % (Auto) 10.1 % (0.0-13.0) 12/16/18 05:51 Eos % (Auto) 5.0 % (0.9-2.9) H 12/16/18 05:51 Baso % (Auto) 0.9 % (0.2-1.0) 12/16/18 05:51 Neut # (Auto) 3.6 x10^3/uL (2.2-4.8) 12/16/18 05:51 Lymph # (Auto) 1.9 X10^3/uL (1.3-2.9) 12/16/18 05:51 [place] # (Auto) 0.7 x10^3/uL (0.3-0.8) 12/16/18 05:51 Eos # (Auto) 0.3 x10^3/uL (0.0-0.2) H 12/16/18 05:51 Baso # (Auto) 0.1 X10^3/uL (0.0-0.1) 12/16/18 05:51 Absolute Nucleated RBC 0.1 /100WBC 12/16/18 05:51 Sodium 137 mmol/L (136-145) 12/16/18 05:51 Corrected Sodium 137 mmol/L (136-145) 12/16/18 05:51 Potassium 4.3 mmol/L (3.5-5.1) 12/16/18 05:51 Chloride 103 mmol/L (98-107) 12/16/18 05:51 Carbon Dioxide 27.7 mmol/L (21-32) 12/16/18 05:51 BUN 36 mg/dL (7-18) H 12/16/18 05:51 Creatinine 1.69 mg/dL (0.70-1.30) H 12/16/18 05:51 Est GFR (MDRD) Af Amer 51 (>60) L 12/16/18 05:51 Est GFR (MDRD) Non-Af 42 (>60) L 12/16/18 05:51 Glucose 118 mg/dL (65-99) H 12/16/18 05:51 POC Glucose (mg/dL) 198 mg/dL (65-99) H 12/16/18 11:58 Uric Acid 7.2 mg/dL (3.5-7.2) 12/11/18 17:23 Calcium 9.3 mg/dL (8.5-10.1) 12/16/18 05:51 Corrected Calcium 10.3 mg/dL (8.5-10.1) H 12/16/18 05:51 Magnesium 3.2 mg/dL (1.7-2.9) H 12/11/18 17:23 Total Bilirubin 0.30 mg/dL (0.2-1.0) 12/16/18 05:51 AST 20 Units/L (15-37) 12/16/18 05:51 ALT 21 Units/L (12-78) 12/16/18 05:51 Alkaline Phosphatase 133 Units/L (46-116) H 12/16/18 05:51 Total Protein 6.6 g/dL (6.4-8.2) 12/16/18 05:51 Albumin 2.7 g/dL (3.4-5.0) L 12/16/18 05:51 Globulin 3.9 g/dL (2.5-4.5) 12/16/18 05:51 Albumin/Globulin Ratio 0.7 Ratio (1.1-2.1) L 12/16/18 05:51 Specimen Type Catherized urine 12/14/18 11:14 Urine Color Yellow (YELLOW) 12/14/18 11:14 Urine Appearance Clear (CLEAR) 12/14/18 11:14 Urine pH 6.0 (5.0 - 8.0) 12/14/18 11:14 Ur Specific [place] 1.020 (1.000-1.030) 12/14/18 11:14 Urine Protein 2+ (NEGATIVE) 12/14/18 11:14 Urine Glucose (UA) 1+ (NEGATIVE) 12/14/18 11:14 Urine Ketones Negative (NEGATIVE) 12/14/18 11:14 Urine Occult Blood Negative (NEGATIVE) 12/14/18 11:14 Urine Nitrite Negative (NEGATIVE) 12/14/18 11:14 Urine Bilirubin Negative (NEGATIVE) 12/14/18 11:14 Urine Urobilinogen Normal (NORMAL) 12/14/18 11:14 Ur Leukocyte Esterase Negative (NEGATIVE) 12/14/18 11:14 Urine RBC 0-2 /HPF (NONE SEEN) 12/14/18 11:14 Urine WBC 0-2 /HPF (NONE SEEN) 12/14/18 11:14 Ur Squamous Epith Cells Rare /HPF (NEGATIVE) 12/14/18 11:14 Ur Transition Epith Cell Rare /HPF (NEGATIVE) 12/14/18 11:14 Amorphous Sediment Trace /HPF (NEGATIVE) 12/14/18 11:14 Urine Bacteria Negative /HPF (NEGATIVE) 12/14/18 11:14 Ur Culture Indicated? No/not indicated 12/14/18 11:14 - Plan (1) Wound cellulitis Status: Acute Plan: CONTINUE WOUND CARE AND IV ATBX. BLOOD AND WOUND CULTURE ON ADMISSION. BP AND BS CONTROL, RESP CONSULT FOR MAINTENANCE MEDICATION. PAIN CONTROL, PHYSICAL THERAPY. RESP THERAPY (2) CHF (congestive heart failure) Status: Acute (3) COPD (chronic obstructive pulmonary disease) Status: Acute Qualifiers: COPD type: COPD with acute exacerbation Qualified Code(s): J44.1 - Chronic obstructive pulmonary disease with (acute) exacerbation (4) Diabetes mellitus, type 2 Status: Chronic (5) COPD (chronic obstructive pulmonary disease) Status: Chronic Qualifiers: COPD type: unspecified COPD Qualified Code(s): J44.9 - Chronic obstructive pulmonary disease, unspecified (6) CAD (coronary artery disease) Status: Chronic (7) Yeast dermatitis Status: Acute Plan: NYSTATIN POWDER TO GROIN, CREAM TO BILATERAL LOWER EXTREMITIES
--- NOTE | 2018-12-16 13:11 | PCM.PROG ---
Progress Note - Progress Note for Day of Date of Exam: 12/16/18 - Subjective Subjective: 78 WM ADMITTED ON 12/11 WITH SEVERE LOWER EXTREMITY REDNESS, CELLULITIS WITH HYPERGLYCEMIA AND HYPERTENSIVE URGENCY. PT HAD WOUND CULTURE COLLECTED ON ADMISSION. PT CO FEELING MUCH BETTER THIS AM. WE DISCUSSED REHAB PLACEMENT AND PT HAS REFUSED AT THIS TIME. DISCUSSED THE NEED FOR HOSPITAL BED IN THE HOME TO ASSIST WITH HEALING AND LIMIT REGRESSION TO LOWER EXTREMITY WOUNDS. PT ALSO HAS COPD AND CHF AND WOULD BENEFIT FROM HAVE ELEVATED HOB >34DEGREES AND LOWER EXTREMITY ELEVATION. CONSULT CASE MANAGEMENT FOR ORDERING HOSPITAL BED IN THE HOME. PT BUN 36 CREAT 1.69 AND BLOOD SUGAR IMPROVED. PTON IV ABTX THERAPY WITH WOUND CARE. PT CO YEAST RASH TO GROIN, CONTINUE NYSTATIN TOPICAL TO LOWER EXTREMITIES. WILL CONTINUE PAIN CONTROL, BP MONITORING AND WOUND CARE, PHYSICAL THERAPY. PLAN FOR HOME HEALTH UPON DISCHARGE - Past Medical Family Social History Past Med/Fam/Surg Hx: No changes since H&P Allergies: Allergies No Known Drug Allergies [NKDA] Allergy (Verified 05/01/18 08:42) - Review of Systems ROS: No change since H&P - Vital Signs and I&O's Vital Signs: Temperature 98.3 F Pulse Rate [Right Brachial] 54 Pulse Rate 57 Respiratory Rate 20 Blood Pressure [Right Arm] 180/76 Blood Pressure [Left Arm] 135/79 Blood Pressure 143/74 O2 Sat by Pulse Oximetry 96 Intake and Output: Intake & Output 12/14/18 12/15/18 12/16/18 12/17/18 11:59 11:59 11:59 11:59 Intake Total 1700 / 1700 1593 / 1593 1200 / 1200 Output Total 500 / 500 1800 / 1800 1550 / 1550 Balance 1200 / 1200 -207 / -207 -350 / -350 - Physical Exam Oriented: Normal Eyes: Normal Ear: Normal Nose: Normal Throat: Normal Respiratory: Diminished Cardiovascular: Bradycardia, Edema : Normal Auscultation: Bowel Sounds: Normal Tenderness: Normal Skin: Decreased Turgur, Rash (BILATERAL LOWER EXTREMITIS, MACULAR RASH WITH WAQAS BORDERS, THICK FLAKES OF SLOUGHING), Red, Tender, Hot Musculoskeletal: Back:Thoracic, Back:Lumbar Psychiatric: Normal, Depression Mood Description: Calm Speech Pattern: Clear, Appropriate - Laboratory and Diagnostics Result Diagrams: 12/16/18 05:51 12/16/18 05:51 Labs: 12/11/18 17:29 Leg - Right Wound Culture - Final Methicillin Resis Staph Aureus 12/11/18 17:28 Blood Blood Culture - Preliminary 12/11/18 17:23 Blood Blood Culture - Preliminary 12/11/18 19:40 Urine,Clean Catch Urine Culture - Final 12/11/18 17:33 Leg - Right Gram Stain - Final Laboratory WBC 6.5 X10^3/uL (3.6-10.0) 12/16/18 05:51 RBC 4.25 X10^6/uL (4.7-6.0) L 12/16/18 05:51 Hgb 12.3 g/dL (13.5-18.0) L 12/16/18 05:51 Hct 36.6 % (42.0-54.0) L 12/16/18 05:51 MCV 86.3 fL (80.0-100.0) 12/16/18 05:51 MCH 28.9 pg (27.0-34.0) 12/16/18 05:51 MCHC 33.6 g/dL (33.0-35.0) 12/16/18 05:51 RDW 14.3 % (11.6-16.5) 12/16/18 05:51 Plt Count 245 X10^3/uL (150.0-450.0) 12/16/18 05:51 MPV 7.3 fL (7.4-11.0) L 12/16/18 05:51 Neut % (Auto) 55.5 % (42.0-75.0) 12/16/18 05:51 Lymph % (Auto) 28.5 % (21.0-51.0) 12/16/18 05:51 [place] % (Auto) 10.1 % (0.0-13.0) 12/16/18 05:51 Eos % (Auto) 5.0 % (0.9-2.9) H 12/16/18 05:51 Baso % (Auto) 0.9 % (0.2-1.0) 12/16/18 05:51 Neut # (Auto) 3.6 x10^3/uL (2.2-4.8) 12/16/18 05:51 Lymph # (Auto) 1.9 X10^3/uL (1.3-2.9) 12/16/18 05:51 [place] # (Auto) 0.7 x10^3/uL (0.3-0.8) 12/16/18 05:51 Eos # (Auto) 0.3 x10^3/uL (0.0-0.2) H 12/16/18 05:51 Baso # (Auto) 0.1 X10^3/uL (0.0-0.1) 12/16/18 05:51 Absolute Nucleated RBC 0.1 /100WBC 12/16/18 05:51 Sodium 137 mmol/L (136-145) 12/16/18 05:51 Corrected Sodium 137 mmol/L (136-145) 12/16/18 05:51 Potassium 4.3 mmol/L (3.5-5.1) 12/16/18 05:51 Chloride 103 mmol/L (98-107) 12/16/18 05:51 Carbon Dioxide 27.7 mmol/L (21-32) 12/16/18 05:51 BUN 36 mg/dL (7-18) H 12/16/18 05:51 Creatinine 1.69 mg/dL (0.70-1.30) H 12/16/18 05:51 Est GFR (MDRD) Af Amer 51 (>60) L 12/16/18 05:51 Est GFR (MDRD) Non-Af 42 (>60) L 12/16/18 05:51 Glucose 118 mg/dL (65-99) H 12/16/18 05:51 POC Glucose (mg/dL) 198 mg/dL (65-99) H 12/16/18 11:58 Uric Acid 7.2 mg/dL (3.5-7.2) 12/11/18 17:23 Calcium 9.3 mg/dL (8.5-10.1) 12/16/18 05:51 Corrected Calcium 10.3 mg/dL (8.5-10.1) H 12/16/18 05:51 Magnesium 3.2 mg/dL (1.7-2.9) H 12/11/18 17:23 Total Bilirubin 0.30 mg/dL (0.2-1.0) 12/16/18 05:51 AST 20 Units/L (15-37) 12/16/18 05:51 ALT 21 Units/L (12-78) 12/16/18 05:51 Alkaline Phosphatase 133 Units/L (46-116) H 12/16/18 05:51 Total Protein 6.6 g/dL (6.4-8.2) 12/16/18 05:51 Albumin 2.7 g/dL (3.4-5.0) L 12/16/18 05:51 Globulin 3.9 g/dL (2.5-4.5) 12/16/18 05:51 Albumin/Globulin Ratio 0.7 Ratio (1.1-2.1) L 12/16/18 05:51 Specimen Type Catherized urine 12/14/18 11:14 Urine Color Yellow (YELLOW) 12/14/18 11:14 Urine Appearance Clear (CLEAR) 12/14/18 11:14 Urine pH 6.0 (5.0 - 8.0) 12/14/18 11:14 Ur Specific [place] 1.020 (1.000-1.030) 12/14/18 11:14 Urine Protein 2+ (NEGATIVE) 12/14/18 11:14 Urine Glucose (UA) 1+ (NEGATIVE) 12/14/18 11:14 Urine Ketones Negative (NEGATIVE) 12/14/18 11:14 Urine Occult Blood Negative (NEGATIVE) 12/14/18 11:14 Urine Nitrite Negative (NEGATIVE) 12/14/18 11:14 Urine Bilirubin Negative (NEGATIVE) 12/14/18 11:14 Urine Urobilinogen Normal (NORMAL) 12/14/18 11:14 Ur Leukocyte Esterase Negative (NEGATIVE) 12/14/18 11:14 Urine RBC 0-2 /HPF (NONE SEEN) 12/14/18 11:14 Urine WBC 0-2 /HPF (NONE SEEN) 12/14/18 11:14 Ur Squamous Epith Cells Rare /HPF (NEGATIVE) 12/14/18 11:14 Ur Transition Epith Cell Rare /HPF (NEGATIVE) 12/14/18 11:14 Amorphous Sediment Trace /HPF (NEGATIVE) 12/14/18 11:14 Urine Bacteria Negative /HPF (NEGATIVE) 12/14/18 11:14 Ur Culture Indicated? No/not indicated 12/14/18 11:14 - Plan (1) Wound cellulitis Status: Acute Plan: CONTINUE WOUND CARE AND IV ATBX. BLOOD AND WOUND CULTURE ON ADMISSION. BP AND BS CONTROL, RESP CONSULT FOR MAINTENANCE MEDICATION. PAIN CONTROL, PHYSICAL THERAPY. RESP THERAPY (2) CHF (congestive heart failure) Status: Acute (3) COPD (chronic obstructive pulmonary disease) Status: Acute Qualifiers: COPD type: COPD with acute exacerbation Qualified Code(s): J44.1 - Chronic obstructive pulmonary disease with (acute) exacerbation (4) Diabetes mellitus, type 2 Status: Chronic (5) COPD (chronic obstructive pulmonary disease) Status: Chronic Qualifiers: COPD type: unspecified COPD Qualified Code(s): J44.9 - Chronic obstructive pulmonary disease, unspecified (6) CAD (coronary artery disease) Status: Chronic (7) Yeast dermatitis Status: Acute Plan: NYSTATIN POWDER TO GROIN, CREAM TO BILATERAL LOWER EXTREMITIES
[2018-12-16] MEDS: MORPHINE SULFATE INJ 2 MG INJ IVP PRN (16:14)
[2018-12-16] MEDS ORDERED: ZOFRAN INJ 4 MG VIAL IVP PRN (16:18)
[2018-12-16] MEDS ORDERED: ZOFRAN INJ 4 MG VIAL ONE (16:19)
[2018-12-16] MEDS: BACTROBAN CREAM TOP SCH ×2 (16:25→20:41)
[2018-12-16] MEDS: NS 1000 ML 1,000 ML IV SCH ×2 (19:09→20:40)
[2018-12-16] MEDS: FLOMAX PO SCH (20:34)
[2018-12-16] MEDS: LEVEMIR SC SCH (20:40)
[2018-12-16] MEDS: SNACK - Diabetic Appropriate PO SCH (20:41)
[2018-12-17] MEDS: NEURONTIN CAP 100 MG PO SCH ×2 (05:48→13:50)
[2018-12-17 06:20] LABS: BASOPHILS # (AUTO) 0.1 X10^3/uL (0.0-0.1); BASOPHILS % (AUTO) 1.2 % (0.2-1.0); EOSINOPHILS # (AUTO) 0.4 x10^3/uL (0.0-0.2); EOSINOPHILS % (AUTO) 6.1 % (0.9-2.9); HEMATOCRIT 36.6 % (42.0-54.0); HEMOGLOBIN 12.4 g/dL (13.5-18.0); LYMPHOCYTES # (AUTO) 1.6 X10^3/uL (1.3-2.9); LYMPHOCYTES % (AUTO) 27.3 % (21.0-51.0); MEAN CORPUSCULAR HEMOGLOBIN 29.3 pg (27.0-34.0); MEAN CORPUSCULAR HGB CONC 33.8 g/dL (33.0-35.0); MEAN CORPUSCULAR VOLUME 86.6 fL (80.0-100.0); MEAN PLATELET VOLUME 7.7 fL (7.4-11.0); MONOCYTES # (AUTO) 0.6 x10^3/uL (0.3-0.8); MONOCYTES % (AUTO) 9.8 % (0.0-13.0); NEUTROPHILS # (AUTO) 3.3 x10^3/uL (2.2-4.8); NEUTROPHILS % (AUTO) 55.6 % (42.0-75.0); PLATELET COUNT 234 X10^3/uL (150.0-450.0); RED BLOOD COUNT 4.23 X10^6/uL (4.7-6.0); RED CELL DISTRIBUTION WIDTH 14.2 % (11.6-16.5); WHITE BLOOD COUNT 5.9 X10^3/uL (3.6-10.0)
[2018-12-17 06:22] LABS: ALBUMIN 2.8 g/dL (3.4-5.0); CALCIUM 9.3 mg/dL (8.5-10.1); CARBON DIOXIDE 31.1 mmol/L (21-32); COR CA(FOR HYPOALB) 10.3 mg/dL (8.5-10.1); CREATININE 1.64 mg/dL (0.70-1.30); TOTAL PROTEIN 6.8 g/dL (6.4-8.2)
[2018-12-17] MEDS: TEFLARO 600 MG in NS 100 ML IV + SPIKE MINIBAG* 100 ML IV SCH (08:38)
[2018-12-17] MEDS: APRESOLINE TAB 25 MG PO SCH (08:39)
[2018-12-17] MEDS: ZYLOPRIM PO SCH (08:40)
[2018-12-17] MEDS: LASIX PO SCH (08:40)
[2018-12-17] MEDS: K-DUR TAB 20 MEQ PO SCH (08:40)
[2018-12-17] MEDS: PLAVIX PO SCH (08:40)
[2018-12-17] MEDS: COZAAR PO SCH (08:40)
[2018-12-17] MEDS: PROSCAR PO SCH (08:40)
[2018-12-17] MEDS: ZAROXOYLN PO SCH (08:40)
[2018-12-17] MEDS: LOVENOX INJ 40 MG SYR SC SCH (08:41)
[2018-12-17] MEDS: NYSTATIN CREAM TOP SCH (08:45)
[2018-12-17] MEDS: NYSTATIN POWDER TOP SCH (08:45)
[2018-12-17] MEDS: BACTROBAN CREAM TOP SCH (08:45)
[2018-12-17] MEDS: MILK OF MAGNESIA PO SCH (08:50)
--- NOTE | 2018-12-17 11:07 | RAD ---
HISTORY: COPD Study: Chest AP portable Comparison: 12/16/2018 Findings: Patient is status post median sternotomy and CABG. The heart is within normal limits in size. No congestive heart failure is noted. The lungs are hyperinflated but free of acute alveolar infiltrates. No pleural effusions are identified. The bony thorax is unremarkable. IMPRESSION: Lungs hyperinflated but clear, consistent with COPD in the appropriate clinical setting Reported By:
[2018-12-17] MEDS: HumuLIN R SUBCUT PRN (12:05)
[2018-12-17 12:22] VITALS: BP 141/62
== END 2018-12-17 14:10 | disposition home health service (06) | DRG 603 ==
LOC: MED/SURG 16:11
PROVIDERS: ADMIT Internal Medicine; ATTEND Internal Medicine
DX: L03.116 Cellulitis of left lower limb; J44.1 Chronic obstructive pulmonary disease with (acute) exacerbation; X58.XXXA Exposure to other specified factors, initial encounter; R26.89 Other abnormalities of gait and mobility; S81.802A Unspecified open wound, left lower leg, initial encounter; I11.0 Hypertensive heart disease with heart failure; B37.2 Candidiasis of skin and nail; I16.0 Hypertensive urgency; Y92.9 Unspecified place or not applicable; R06.02 Shortness of breath; L03.115 Cellulitis of right lower limb; E78.2 Mixed hyperlipidemia; I50.9 Heart failure, unspecified; E11.65 Type 2 diabetes mellitus with hyperglycemia; B95.62 Methicillin resistant Staphylococcus aureus infection as the cause of diseases classified elsewhere
CPT/HCPCS: 36415; 71010; 71045; 80053; 81001; 82947; 83735; 84550; 85025; 87040; 87070; 87075; 87077; 87086; 87186; 87205; 94760; 97167; 97530; 99231; A4222; S0138; J0360; J0712; J1650; J1815; J2270; J2405; J3490; J7030; J7050

== ENCOUNTER 2019-02-18 10:39 | Inpatient (IN) ==
[2019-02-18 12:18] VITALS: BMI 32.2
[2019-02-18 13:55] LABS: BASOPHILS % (AUTO) 0.9 % (0.2-1.0); EOSINOPHILS % (AUTO) 3.8 % (0.9-2.9); HEMATOCRIT 39.4 % (42.0-54.0); HEMOGLOBIN 13.1 g/dL (13.5-18.0); LYMPHOCYTES % (AUTO) 20.3 % (21.0-51.0); MEAN CORPUSCULAR HEMOGLOBIN 29.3 pg (27.0-34.0); MEAN CORPUSCULAR HGB CONC 33.2 g/dL (33.0-35.0); MEAN CORPUSCULAR VOLUME 88.1 fL (80.0-100.0); MEAN PLATELET VOLUME 7.5 fL (7.4-11.0); MONOCYTES % (AUTO) 9.1 % (0.0-13.0); NEUTROPHILS % (AUTO) 65.9 % (42.0-75.0); PLATELET COUNT 236 X10^3/uL (150.0-450.0); RED BLOOD COUNT 4.47 X10^6/uL (4.7-6.0); RED CELL DISTRIBUTION WIDTH 14.9 % (11.6-16.5); WHITE BLOOD COUNT 7.8 X10^3/uL (3.6-10.0)
[2019-02-18 13:56] LABS: BASOPHILS # (AUTO) 0.1 X10^3/uL (0.0-0.1); EOSINOPHILS # (AUTO) 0.3 x10^3/uL (0.0-0.2); LYMPHOCYTES # (AUTO) 1.6 X10^3/uL (1.3-2.9); MONOCYTES # (AUTO) 0.7 x10^3/uL (0.3-0.8); NEUTROPHILS # (AUTO) 5.1 x10^3/uL (2.2-4.8)
[2019-02-18] MEDS: NS 1000 ML 1,000 ML IV SCH (13:59)
[2019-02-18] MEDS: LOVENOX INJ 40 MG SYR SC SCH (13:59)
[2019-02-18] MEDS ORDERED: PHARMACY CONSULT - VANCOMYCIN XX SCH (14:00)
--- NOTE | 2019-02-18 14:05 | RAD ---
History: CHF Study: AP chest Comparison: December 17, 2018 Findings: The lungs remain hyperinflated. There is new mild vascular congestion and cardiomegaly. There is mild blunting of the left costophrenic angle. There is evidence of prior CABG. Impression: Mild CHF and unchanged COPD Reported By:
[2019-02-18 14:07] LABS: ALANINE AMINOTRANSFERASE 15 Units/L (12-78); ALBUMIN 3.3 g/dL (3.4-5.0); ALKALINE PHOSPHATASE 164 Units/L (46-116); ASPARTATE AMINO TRANSFERASE 18 Units/L (15-37); BLOOD UREA NITROGEN 34 mg/dL (7-18); CHLORIDE 97 mmol/L (98-107); COR CA(FOR HYPOALB) 9.6 mg/dL (8.5-10.1); COR NA(FOR HYPERGLY) 138 mmol/L (136-145); CREATININE 1.44 mg/dL (0.70-1.30); MAGNESIUM 3.2 mg/dL (1.7-2.9); SODIUM 135 mmol/L (136-145); TOTAL PROTEIN 7.2 g/dL (6.4-8.2); eGFR NON BLACK RACES 50 (>60)
[2019-02-18] MEDS ORDERED: POTASSIUM CHL 60 MEQ/NS 0.45% 500 ML IV PRN (14:15)
[2019-02-18] MEDS ORDERED: MICRO K EXTEN CAP 10 MEQ PO PRN (14:15)
[2019-02-18] MEDS ORDERED: POTASSIUM CHL 40 MEQ/NS 0.45% 500 ML IV PRN (14:15)
[2019-02-18] MEDS ORDERED: KLOR-CON PO PRN (14:15)
[2019-02-18] MEDS ORDERED: POTASSIUM CHLORIDE LIQ 20 MEQ UDC PO PRN (14:15)
[2019-02-18] MEDS ORDERED: K-DUR TAB 20 MEQ PO PRN (14:15)
[2019-02-18] MEDS ORDERED: K-RIDER 10 MEQ/NS 100 ML 10 MEQ/100 ML BAG IV PRN (14:15)
--- NOTE | 2019-02-18 17:34 | DR.H&P ---
H&P - History & Physical for Day of: H&P Date: 02/18/19 - Chief Complaint Chief Complaint: lower leg pain, cellulitis - History of Present Illness History of Present Illness: 79 WM DIRECT ADMIT FROM DR MEAD OFFICE WITH BILATERAL LOWER EXTREMITY CELLULITIS. PT HAS HX OF REOCCURRING CELLULITIS TO BILATERAL LOWER EXTREMITIES. PT HAS BEEN RECEIVING HOME HEALTH WOUND CARE, TOPICAL ANTIBIOTICS WITHOUT IMPROVEMENT. PT HAS PMH OF DM, HTN, CRF, CAD, CHF, OA. PT ADMITTED FOR TREATMENT WITH IV ATBX FOR CELLULITIS. - Past Medical History Past Medical History: Hypertension, Dyslipidemia, Diabetes, Renal Disease, COPD, Arthritis, CHF - Past Surgical History Surgical History: Angioplasty/Stents, Ortho Surgery, Other - Family History Family Medical History: Diabetes Mellitus, Coronary Artery Disease, Hypertension - Social History Does patient currently use any type of tobacco product: No Have you used tobacco products in the last 12 months: No Type of Tobacco Use: None Alcohol Use: None Drug Use: None - Medications Home Medications: No Known Drug Allergies [NKDA] Allergy (Verified 05/01/18 08:42) CONTINUE taking the following medications aspirin 1 tab PO DAILY 02/18/19 [History] citalopram 10 mg PO DAILY 02/18/19 [History] finasteride 5 mg PO DAILY 02/18/19 [History] lisinopril 20 mg PO BID 02/18/19 [History] losartan 100 mg PO DAILY 02/18/19 [History] metformin [Glucophage] 500 mg PO BID 02/18/19 [History] ranitidine HCl 150 mg PO HS 02/18/19 [History] ticagrelor [Brilinta] 90 mg PO BID 02/18/19 [History] triamcinolone acetonide 1 applic TOPICAL BID 02/18/19 [History] - Review of Systems Constitutional: No Symptoms Reported Eyes: No Symptoms Reported ENT: No Symptoms Reported Respiratory: Shortness of Breath, SOB with Excertion Cardiovascular: Edema Gastrointestinal: No Symptoms Reported Genitourinary: No Symptoms Reported Musculoskeletal: Back Pain, Leg Pain Skin: Rash, Wound Neurological: Weakness - Physical Exam Vital Signs: Temperature 97.0 F Pulse Rate [Apical] 64 Pulse Rate 75 Respiratory Rate 22 Blood Pressure [Right Arm] 141/62 Blood Pressure [Left Arm] 178/72 Blood Pressure 141/62 O2 Sat by Pulse Oximetry 95 Oriented: Normal Eyes: Normal Ear: Normal Nose: Normal Throat: Normal Respiratory: RML Diminished, RLL Diminished, LML Diminished, LLL Diminished Cardiovascular: Bradycardia, Edema : Normal Auscultation: Bowel Sounds: Normal Palpation: Normal Tenderness: Normal Skin: Decreased Turgur, Rash, Red, Tender, Hot, Wound (OPEN ULCERATIONS TO LEFT LOWER LATERAL LEG) Musculoskeletal: Right, Left, Leg, Back:Lumbar, Swelling, Tender, Motor Deficit, Sensory Deficit Psychiatric: Depression Affect: Depressed Speech Pattern: Clear, Appropriate - Assessment/Plan (1) Wound cellulitis Status: Acute Plan: ADMIT, ADMISSION LABS BC, WOUND CARE. IV ATBX, CONSULT PHARMACY FOR RENAL DOSE FOR VANCOMYCIN. BS AND BP CONTROL. GENTLE IV HYDRATION, RESP CONSULT. STRICT I & OS, CXR ON ADMISSION (2) COPD (chronic obstructive pulmonary disease) Qualifiers: COPD type: COPD with acute exacerbation Qualified Code(s): J44.1 - Chronic obstructive pulmonary disease with (acute) exacerbation Status: Acute (3) Congestive heart failure Status: Chronic (4) Hypertension Qualifiers: Hypertension type: unspecified secondary hypertension Qualified Code(s): I15.9 - Secondary hypertension, unspecified Status: Chronic (5) Diabetes mellitus, type 2 Status: Chronic (6) Anxiety Status: Chronic (7) Arthritis Status: Chronic - Allergies Allergies/Adverse Reactions: Allergies Allergy/AdvReac Type Severity Reaction Status Date / Time No Known Drug Allergies Allergy Verified 05/01/18 08:42 [NKDA]
[2019-02-18] MEDS: ZESTRIL TAB 20 MG PO SCH ×2 (18:08→21:03)
[2019-02-18] MEDS: PLAVIX PO SCH (18:09)
[2019-02-18] MEDS: ASPIRIN PO SCH (18:10)
[2019-02-18] MEDS: CELEXA PO SCH (18:10)
[2019-02-18] MEDS: PROSCAR PO SCH (18:11)
[2019-02-18] MEDS: MICRO K EXTEN CAP 10 MEQ PO SCH (18:11)
[2019-02-18] MEDS: APRESOLINE TAB 25 MG PO SCH ×2 (18:12→21:04)
[2019-02-18] MEDS: PULMICORT NEB TX 0.5 MG NEB SCH (20:45)
[2019-02-18] MEDS ORDERED: ZESTRIL TAB 20 MG ONE (20:48)
[2019-02-18] MEDS ORDERED: SYMBICORT INH 160/4.5 mcg IN SCH (21:00)
[2019-02-18] MEDS: VANCOMYCIN HCL 1 GM VIAL 1 G in NS 250 ML IV 250 ML IV SCH (21:00)
[2019-02-18] MEDS: LASIX PO SCH (21:03)
[2019-02-18] MEDS: ZANTAC PO SCH (21:04)
[2019-02-18] MEDS: FLOMAX PO SCH (21:05)
[2019-02-18] MEDS: NYSTATIN POWDER TOP SCH (21:06)
[2019-02-18] MEDS: PRAVACHOL PO SCH (21:06)
[2019-02-19] MEDS ORDERED: TYLENOL 325 MG TAB PO PRN (02:30)
[2019-02-19] MEDS ORDERED: TYLENOL 325 MG TAB PO ONE (02:54)
[2019-02-19] MEDS: NS 1000 ML 1,000 ML IV SCH ×3 (04:16→18:51)
[2019-02-19 05:30] LABS: BASOPHILS # (AUTO) 0.1 X10^3/uL (0.0-0.1); BASOPHILS % (AUTO) 1.2 % (0.2-1.0); EOSINOPHILS # (AUTO) 0.3 x10^3/uL (0.0-0.2); EOSINOPHILS % (AUTO) 4.2 % (0.9-2.9); HEMATOCRIT 36.4 % (42.0-54.0); HEMOGLOBIN 12.2 g/dL (13.5-18.0); LYMPHOCYTES # (AUTO) 1.3 X10^3/uL (1.3-2.9); LYMPHOCYTES % (AUTO) 18.5 % (21.0-51.0); MEAN CORPUSCULAR HEMOGLOBIN 29.6 pg (27.0-34.0); MEAN CORPUSCULAR HGB CONC 33.6 g/dL (33.0-35.0); MEAN PLATELET VOLUME 7.6 fL (7.4-11.0); MONOCYTES # (AUTO) 0.7 x10^3/uL (0.3-0.8); MONOCYTES % (AUTO) 10.3 % (0.0-13.0); NEUTROPHILS # (AUTO) 4.5 x10^3/uL (2.2-4.8); NEUTROPHILS % (AUTO) 65.8 % (42.0-75.0); PLATELET COUNT 216 X10^3/uL (150.0-450.0); RED BLOOD COUNT 4.13 X10^6/uL (4.7-6.0); RED CELL DISTRIBUTION WIDTH 14.7 % (11.6-16.5); WHITE BLOOD COUNT 6.9 X10^3/uL (3.6-10.0)
[2019-02-19 05:40] LABS: ALANINE AMINOTRANSFERASE 13 Units/L (12-78); ALBUMIN 2.8 g/dL (3.4-5.0); ALKALINE PHOSPHATASE 137 Units/L (46-116); ASPARTATE AMINO TRANSFERASE 14 Units/L (15-37); BLOOD UREA NITROGEN 31 mg/dL (7-18); CALCIUM 8.7 mg/dL (8.5-10.1); CARBON DIOXIDE 29.4 mmol/L (21-32); CHLORIDE 101 mmol/L (98-107); COR CA(FOR HYPOALB) 9.7 mg/dL (8.5-10.1); COR NA(FOR HYPERGLY) 140 mmol/L (136-145); CREATININE 1.33 mg/dL (0.70-1.30); MAGNESIUM 2.8 mg/dL (1.7-2.9); SODIUM 138 mmol/L (136-145); TOTAL PROTEIN 6.2 g/dL (6.4-8.2); eGFR NON BLACK RACES 55 (>60)
[2019-02-19] MEDS ORDERED: ZESTRIL TAB 20 MG ONE ×2 (08:36→20:25)
[2019-02-19] MEDS ORDERED: ZAROXOYLN PO SCH (09:00)
[2019-02-19] MEDS: VANCOMYCIN HCL 1 GM VIAL 1 G in NS 250 ML IV 250 ML IV SCH ×2 (09:00→20:38)
[2019-02-19] MEDS: ASPIRIN PO SCH (09:01)
[2019-02-19] MEDS: PLAVIX PO SCH (09:01)
[2019-02-19] MEDS: MICRO K EXTEN CAP 10 MEQ PO SCH (09:01)
[2019-02-19] MEDS: APRESOLINE TAB 25 MG PO SCH ×2 (09:01→20:39)
[2019-02-19] MEDS: CELEXA PO SCH (09:02)
[2019-02-19] MEDS: LOVENOX INJ 40 MG SYR SC SCH (09:03)
[2019-02-19] MEDS: ZESTRIL TAB 20 MG PO SCH ×2 (09:04→20:38)
[2019-02-19] MEDS: PROSCAR PO SCH (09:04)
[2019-02-19] MEDS: LASIX PO SCH ×2 (09:05→20:41)
[2019-02-19] MEDS: NYSTATIN POWDER TOP SCH ×2 (09:05→20:47)
[2019-02-19] MEDS: PULMICORT NEB TX 0.5 MG NEB SCH ×2 (09:11→19:59)
[2019-02-19] MEDS: NORCO 7.5/325 MG TAB PO PRN ×2 (10:13→20:52)
[2019-02-19] MEDS: Atrovent NEB TX 0.02% NEB PRN ×2 (10:47→17:21)
[2019-02-19] MEDS: HumuLIN R SUBCUT PRN ×3 (11:00→20:51)
--- NOTE | 2019-02-19 13:40 | PCM.PROG ---
Progress Note - Progress Note for Day of Date of Exam: 02/19/19 - Subjective Subjective: 79 WM ADMITTED ON 02/18 WITH BILATERAL LOWER EXTREMITY CELLULITIS. PT WAS STARTED ON IV VANCOMYCIN. LOWER LEGS ARE IMPROVING, WITH DECREASED EDEMA TODAY. PT BP ELEVATED DUE TO INCREASED CO PAIN. PT CO PAIN WORSE TO LEFT LEG, FOOT. PT STARTED ON PO [place], RESUMED HOME BP MEDICATION. PT IS ON PLAVIX. WILL REPEAT AM LABS, CONTINUE WOUND CARE. - Past Medical Family Social History Past Med/Fam/Surg Hx: No changes since H&P Allergies: Allergies No Known Drug Allergies [NKDA] Allergy (Verified 05/01/18 08:42) - Review of Systems ROS: No change since H&P - Vital Signs and I&O's Vital Signs: Temperature 98.5 F Pulse Rate [Apical] 59 Pulse Rate 75 Respiratory Rate 23 Blood Pressure [Right Arm] 180/72 Blood Pressure [Left Arm] 159/80 Blood Pressure 141/62 O2 Sat by Pulse Oximetry 97 Intake and Output: Intake & Output 02/17/19 02/18/19 02/19/19 02/20/19 11:59 11:59 11:59 11:59 Intake Total 1350 / 1350 Output Total 0 / 0 Balance 1350 / 1350 - Physical Exam Oriented: Normal Eyes: Normal Ear: Normal Nose: Normal Throat: Normal Respiratory: Diminished, Wheezes Cardiovascular: Bradycardia, Edema : Normal Auscultation: Bowel Sounds: Normal Tenderness: Normal Skin: Decreased Turgur, Rash, Red, Tender, Hot, Wound (OPEN ULCERATIONS TO LEFT LOWER LATERAL LEG) Musculoskeletal: Right, Left, Leg, Back:Lumbar, Swelling, Tender, Motor Deficit, Sensory Deficit Psychiatric: Depression Affect: Depressed Speech Pattern: Clear, Appropriate - Laboratory and Diagnostics Result Diagrams: 02/19/19 05:14 02/19/19 05:14 Labs: Laboratory WBC 6.9 X10^3/uL (3.6-10.0) 02/19/19 05:14 RBC 4.13 X10^6/uL (4.7-6.0) L 02/19/19 05:14 Hgb 12.2 g/dL (13.5-18.0) L 02/19/19 05:14 Hct 36.4 % (42.0-54.0) L 02/19/19 05:14 MCV 88.0 fL (80.0-100.0) 02/19/19 05:14 MCH 29.6 pg (27.0-34.0) 02/19/19 05:14 MCHC 33.6 g/dL (33.0-35.0) 02/19/19 05:14 RDW 14.7 % (11.6-16.5) 02/19/19 05:14 Plt Count 216 X10^3/uL (150.0-450.0) 02/19/19 05:14 MPV 7.6 fL (7.4-11.0) 02/19/19 05:14 Neut % (Auto) 65.8 % (42.0-75.0) 02/19/19 05:14 Lymph % (Auto) 18.5 % (21.0-51.0) L 02/19/19 05:14 [place] % (Auto) 10.3 % (0.0-13.0) 02/19/19 05:14 Eos % (Auto) 4.2 % (0.9-2.9) H 02/19/19 05:14 Baso % (Auto) 1.2 % (0.2-1.0) H 02/19/19 05:14 Neut # (Auto) 4.5 x10^3/uL (2.2-4.8) 02/19/19 05:14 Lymph # (Auto) 1.3 X10^3/uL (1.3-2.9) 02/19/19 05:14 [place] # (Auto) 0.7 x10^3/uL (0.3-0.8) 02/19/19 05:14 Eos # (Auto) 0.3 x10^3/uL (0.0-0.2) H 02/19/19 05:14 Baso # (Auto) 0.1 X10^3/uL (0.0-0.1) 02/19/19 05:14 Absolute Nucleated RBC 0.1 /100WBC 02/19/19 05:14 Sodium 138 mmol/L (136-145) 02/19/19 05:14 Corrected Sodium 140 mmol/L (136-145) 02/19/19 05:14 Potassium 3.8 mmol/L (3.5-5.1) 02/19/19 05:14 Chloride 101 mmol/L (98-107) 02/19/19 05:14 Carbon Dioxide 29.4 mmol/L (21-32) 02/19/19 05:14 BUN 31 mg/dL (7-18) H 02/19/19 05:14 Creatinine 1.33 mg/dL (0.70-1.30) H 02/19/19 05:14 Est GFR (MDRD) Af Amer > 60 (>60) 02/19/19 05:14 Est GFR (MDRD) Non-Af 55 (>60) L 02/19/19 05:14 Glucose 201 mg/dL (65-99) H 02/19/19 05:14 POC Glucose (mg/dL) 277 mg/dL (65-99) H 02/19/19 10:52 Calcium 8.7 mg/dL (8.5-10.1) 02/19/19 05:14 Corrected Calcium 9.7 mg/dL (8.5-10.1) 02/19/19 05:14 Magnesium 2.8 mg/dL (1.7-2.9) 02/19/19 05:14 Total Bilirubin 0.30 mg/dL (0.2-1.0) 02/19/19 05:14 AST 14 Units/L (15-37) L 02/19/19 05:14 ALT 13 Units/L (12-78) 02/19/19 05:14 Alkaline Phosphatase 137 Units/L (46-116) H 02/19/19 05:14 Total Protein 6.2 g/dL (6.4-8.2) L 02/19/19 05:14 Albumin 2.8 g/dL (3.4-5.0) L 02/19/19 05:14 Globulin 3.4 g/dL (2.5-4.5) 02/19/19 05:14 Albumin/Globulin Ratio 0.8 Ratio (1.1-2.1) L 02/19/19 05:14 - Plan (1) Wound cellulitis Status: Acute Plan: ADMISSION BC COLLECTED, WOUND CARE. IV ATBX, CONSULT PHARMACY FOR RENAL DOSE FOR VANCOMYCIN. BS AND BP CONTROL. GENTLE IV HYDRATION, RESP CONSULT. STRICT I & OS, CXR ON ADMISSION (2) COPD (chronic obstructive pulmonary disease) Status: Acute Qualifiers: COPD type: COPD with acute exacerbation Qualified Code(s): J44.1 - Chronic obstructive pulmonary disease with (acute) exacerbation (3) Congestive heart failure Status: Chronic (4) Hypertension Status: Chronic Qualifiers: Hypertension type: unspecified secondary hypertension Qualified Code(s): I15.9 - Secondary hypertension, unspecified (5) Diabetes mellitus, type 2 Status: Chronic (6) Anxiety Status: Chronic (7) Arthritis Status: Chronic
[2019-02-19] MEDS: SNACK - Diabetic Appropriate PO SCH (20:00)
[2019-02-19] MEDS: FLOMAX PO SCH (20:38)
[2019-02-19] MEDS: ZANTAC PO SCH (20:39)
[2019-02-19] MEDS: PRAVACHOL PO SCH (20:40)
[2019-02-20 06:16] LABS: BASOPHILS # (AUTO) 0.1 X10^3/uL (0.0-0.1); EOSINOPHILS # (AUTO) 0.4 x10^3/uL (0.0-0.2); EOSINOPHILS % (AUTO) 4.9 % (0.9-2.9); HEMATOCRIT 37.6 % (42.0-54.0); HEMOGLOBIN 12.7 g/dL (13.5-18.0); LYMPHOCYTES # (AUTO) 1.4 X10^3/uL (1.3-2.9); LYMPHOCYTES % (AUTO) 19.2 % (21.0-51.0); MEAN CORPUSCULAR HEMOGLOBIN 29.6 pg (27.0-34.0); MEAN CORPUSCULAR HGB CONC 33.6 g/dL (33.0-35.0); MEAN PLATELET VOLUME 7.6 fL (7.4-11.0); MONOCYTES # (AUTO) 0.8 x10^3/uL (0.3-0.8); MONOCYTES % (AUTO) 11.2 % (0.0-13.0); NEUTROPHILS # (AUTO) 4.6 x10^3/uL (2.2-4.8); NEUTROPHILS % (AUTO) 63.7 % (42.0-75.0); PLATELET COUNT 215 X10^3/uL (150.0-450.0); RED BLOOD COUNT 4.28 X10^6/uL (4.7-6.0); RED CELL DISTRIBUTION WIDTH 14.7 % (11.6-16.5); WHITE BLOOD COUNT 7.2 X10^3/uL (3.6-10.0)
[2019-02-20 06:33] LABS: ALANINE AMINOTRANSFERASE 12 Units/L (12-78); ALBUMIN 2.8 g/dL (3.4-5.0); ALKALINE PHOSPHATASE 136 Units/L (46-116); ASPARTATE AMINO TRANSFERASE 14 Units/L (15-37); BLOOD UREA NITROGEN 26 mg/dL (7-18); CALCIUM 8.8 mg/dL (8.5-10.1); CARBON DIOXIDE 26.1 mmol/L (21-32); CHLORIDE 104 mmol/L (98-107); COR CA(FOR HYPOALB) 9.8 mg/dL (8.5-10.1); COR NA(FOR HYPERGLY) 141 mmol/L (136-145); CREATININE 1.13 mg/dL (0.70-1.30); SODIUM 140 mmol/L (136-145); TOTAL PROTEIN 6.3 g/dL (6.4-8.2); eGFR NON BLACK RACES > 60 (>60)
[2019-02-20] MEDS: PULMICORT NEB TX 0.5 MG NEB SCH ×2 (08:08→20:00)
[2019-02-20] MEDS ORDERED: PHARMACY COMMENT IV NR (08:30)
[2019-02-20] MEDS ORDERED: ZESTRIL TAB 20 MG ONE ×2 (08:43→20:25)
[2019-02-20 08:50] LABS: CREATININE 1.09 mg/dL (0.70-1.30); VANCOMYCIN,TROUGH 15.4 ug/mL (15-20)
[2019-02-20] MEDS ORDERED: MORPHINE SULFATE INJ 2 MG INJ IVP ONE (08:59)
[2019-02-20] MEDS ORDERED: MORPHINE SULFATE INJ 2 MG INJ ONE ×2 (09:03→16:24)
[2019-02-20] MEDS: VANCOMYCIN HCL 1 GM VIAL 1 G in NS 250 ML IV 250 ML IV SCH ×2 (09:03→20:42)
[2019-02-20] MEDS: MICRO K EXTEN CAP 10 MEQ PO SCH (09:05)
[2019-02-20] MEDS: LASIX PO SCH ×2 (09:05→20:44)
[2019-02-20] MEDS: ASPIRIN PO SCH (09:05)
[2019-02-20] MEDS: PROSCAR PO SCH (09:05)
[2019-02-20] MEDS: APRESOLINE TAB 25 MG PO SCH ×2 (09:06→20:43)
[2019-02-20] MEDS: ZESTRIL TAB 20 MG PO SCH ×2 (09:06→20:45)
[2019-02-20] MEDS: CELEXA PO SCH (09:06)
[2019-02-20] MEDS: PLAVIX PO SCH (09:06)
[2019-02-20] MEDS: LOVENOX INJ 40 MG SYR SC SCH (09:08)
[2019-02-20] MEDS: NS 1000 ML 1,000 ML IV SCH ×2 (09:09→22:00)
[2019-02-20] MEDS ORDERED: ZOFRAN INJ 4 MG VIAL IVP PRN (09:10)
[2019-02-20] MEDS: NYSTATIN POWDER TOP SCH ×2 (09:13→20:45)
[2019-02-20] MEDS: NORCO 7.5/325 MG TAB PO PRN ×2 (10:10→16:22)
[2019-02-20] MEDS: Atrovent NEB TX 0.02% NEB PRN ×3 (10:11→20:01)
[2019-02-20] MEDS ORDERED: LASIX IVP ONE (11:40)
[2019-02-20] MEDS ORDERED: SOLU-Medrol 125 MG VIAL IVP ONE (11:40)
[2019-02-20 11:50] LABS: ABG BASE EXCESS 1.5 mmol/L (-2.0-2.0); ABG HCO3 25.9 mmol/L (22-26)
[2019-02-20 11:51] LABS: ABG ALLEN TEST POS
[2019-02-20 12:27] LABS: CKMB % 2.8 % (<4); CREATINE KINASE 57 Units/L (39-308); CREATINE KINASE MB 1.6 ng/mL (0-4.0); TROPONIN I < 0.02 ng/mL (0-1.5)
[2019-02-20] MEDS: HumuLIN R SUBCUT PRN ×3 (13:00→20:46)
--- NOTE | 2019-02-20 13:28 | RAD ---
History: Shortness of breath Study: AP chest Comparison: February 18 Findings: There is unchanged mild cardiomegaly status post CABG. There is blunting of the left costophrenic angle as before. There is minimal vascular congestion. Overall the lungs are hyper inflated. Impression: 1. COPD 2. Slightly improved minimal vascular congestion and unchanged mild cardiomegaly Reported By:
[2019-02-20] MEDS ORDERED: NORMODYNE INJ 20 MG VIAL IVP PRN (16:08)
[2019-02-20] MEDS: MORPHINE SULFATE INJ 2 MG INJ IVP PRN (16:30)
[2019-02-20] MEDS ORDERED: VISTARIL PO ONE (17:04)
[2019-02-20] MEDS: VISTARIL PO PRN (17:11)
[2019-02-20] MEDS: SNACK - Diabetic Appropriate PO SCH (20:00)
[2019-02-20] MEDS: ZANTAC PO SCH (20:43)
[2019-02-20] MEDS: FLOMAX PO SCH (20:44)
[2019-02-20] MEDS: PRAVACHOL PO SCH (20:45)
[2019-02-21] MEDS: MORPHINE SULFATE INJ 2 MG INJ IVP PRN ×4 (01:15→22:07)
[2019-02-21 05:24] LABS: BASOPHILS % (AUTO) 0.2 % (0.2-1.0); HEMATOCRIT 42.1 % (42.0-54.0); HEMOGLOBIN 13.8 g/dL (13.5-18.0); LYMPHOCYTES # (AUTO) 0.7 X10^3/uL (1.3-2.9); LYMPHOCYTES % (AUTO) 9.3 % (21.0-51.0); MEAN CORPUSCULAR HEMOGLOBIN 29.2 pg (27.0-34.0); MEAN CORPUSCULAR HGB CONC 32.8 g/dL (33.0-35.0); MEAN CORPUSCULAR VOLUME 89.2 fL (80.0-100.0); MEAN PLATELET VOLUME 8.1 fL (7.4-11.0); MONOCYTES # (AUTO) 0.2 x10^3/uL (0.3-0.8); MONOCYTES % (AUTO) 2.8 % (0.0-13.0); NEUTROPHILS # (AUTO) 6.8 x10^3/uL (2.2-4.8); NEUTROPHILS % (AUTO) 87.7 % (42.0-75.0); PLATELET COUNT 242 X10^3/uL (150.0-450.0); RED BLOOD COUNT 4.72 X10^6/uL (4.7-6.0); RED CELL DISTRIBUTION WIDTH 14.7 % (11.6-16.5); WHITE BLOOD COUNT 7.8 X10^3/uL (3.6-10.0)
[2019-02-21 05:45] LABS: ALANINE AMINOTRANSFERASE 11 Units/L (12-78); ALKALINE PHOSPHATASE 147 Units/L (46-116); ASPARTATE AMINO TRANSFERASE 15 Units/L (15-37); BLOOD UREA NITROGEN 26 mg/dL (7-18); CALCIUM 9.3 mg/dL (8.5-10.1); CARBON DIOXIDE 26.5 mmol/L (21-32); CHLORIDE 103 mmol/L (98-107); COR CA(FOR HYPOALB) 10.1 mg/dL (8.5-10.1); COR NA(FOR HYPERGLY) 143 mmol/L (136-145); CREATININE 1.27 mg/dL (0.70-1.30); SODIUM 140 mmol/L (136-145); eGFR NON BLACK RACES 58 (>60)
[2019-02-21] MEDS: HumuLIN R SUBCUT PRN ×4 (05:54→20:50)
--- NOTE | 2019-02-21 06:00 | RAD ---
Examination: Portable AP chest History: SOB Comparison 02/20/2019 Findings: The heart is not significantly enlarged. There is no change in appearance of heart, lungs or mediastinum. Diffuse interstitial prominence is again identified. No developing consolidation, pneumothorax or pulmonary edema. Impression: No change since 02/20/2019. Reported By:
[2019-02-21] MEDS ORDERED: ZESTRIL TAB 20 MG ONE ×2 (07:36→20:41)
[2019-02-21] MEDS: VANCOMYCIN HCL 1 GM VIAL 1 G in NS 250 ML IV 250 ML IV SCH ×2 (08:09→20:44)
[2019-02-21] MEDS: CELEXA PO SCH (08:10)
[2019-02-21] MEDS: ZESTRIL TAB 20 MG PO SCH ×2 (08:10→20:44)
[2019-02-21] MEDS: APRESOLINE TAB 25 MG PO SCH ×2 (08:10→20:43)
[2019-02-21] MEDS: LASIX PO SCH ×2 (08:10→20:43)
[2019-02-21] MEDS: PROSCAR PO SCH (08:10)
[2019-02-21] MEDS: LOVENOX INJ 40 MG SYR SC SCH (08:11)
[2019-02-21] MEDS: PLAVIX PO SCH (08:11)
[2019-02-21] MEDS: ASPIRIN PO SCH (08:12)
[2019-02-21] MEDS: MICRO K EXTEN CAP 10 MEQ PO SCH (08:14)
[2019-02-21] MEDS: NYSTATIN POWDER TOP SCH ×2 (08:30→20:44)
[2019-02-21] MEDS: Atrovent NEB TX 0.02% NEB PRN ×2 (08:34→20:16)
[2019-02-21] MEDS: PULMICORT NEB TX 0.5 MG NEB SCH ×2 (08:34→20:16)
[2019-02-21] MEDS: NS 1000 ML 1,000 ML IV SCH (16:55)
[2019-02-21] MEDS: NORCO 7.5/325 MG TAB PO PRN (17:36)
[2019-02-21] MEDS ORDERED: PHARMACY COMMENT IV NR (20:30)
[2019-02-21] MEDS: FLOMAX PO SCH (20:43)
[2019-02-21] MEDS: ZANTAC PO SCH (20:43)
[2019-02-21] MEDS: SNACK - Diabetic Appropriate PO SCH (20:44)
[2019-02-21] MEDS: PRAVACHOL PO SCH (20:44)
[2019-02-22] MEDS: MORPHINE SULFATE INJ 2 MG INJ IVP PRN ×3 (02:05→21:38)
[2019-02-22] MEDS: NS 1000 ML 1,000 ML IV SCH (02:06)
[2019-02-22] MEDS: HumuLIN R SUBCUT PRN ×4 (05:35→22:30)
--- NOTE | 2019-02-22 06:07 | RAD ---
HISTORY: 79-year-old male with shortness of breath. History of COPD and CHF. Study: Frontal view of the chest. Comparison: Chest radiograph 02/21/2019 Findings: Surgical devices are stable. The trachea is midline. The cardiac silhouette is stably enlarged with significant improvement pattern of aeration and reduction in left pleural fluid. Persistent small left effusion with continued prominence perihilar lung markings and interstitium with reduced but persistent patchy right basilar airspace opacity. Soft tissues are unremarkable. Osseous structures are unremarkable. IMPRESSION: 1. Improved pattern of aeration with persistent but improved right basilar airspace opacities and remnant small left effusion. Correlate clinically for resolving edema/infection. 2. Chronic cardiomegaly and COPD. Reported By:
[2019-02-22 06:10] LABS: BASOPHILS # (AUTO) 0.1 X10^3/uL (0.0-0.1); BASOPHILS % (AUTO) 0.7 % (0.2-1.0); EOSINOPHILS # (AUTO) 0.2 x10^3/uL (0.0-0.2); EOSINOPHILS % (AUTO) 2.6 % (0.9-2.9); HEMATOCRIT 42.5 % (42.0-54.0); HEMOGLOBIN 14.3 g/dL (13.5-18.0); LYMPHOCYTES # (AUTO) 2.1 X10^3/uL (1.3-2.9); LYMPHOCYTES % (AUTO) 22.6 % (21.0-51.0); MEAN CORPUSCULAR HEMOGLOBIN 29.4 pg (27.0-34.0); MEAN CORPUSCULAR HGB CONC 33.6 g/dL (33.0-35.0); MEAN CORPUSCULAR VOLUME 87.4 fL (80.0-100.0); MEAN PLATELET VOLUME 7.8 fL (7.4-11.0); MONOCYTES # (AUTO) 0.8 x10^3/uL (0.3-0.8); MONOCYTES % (AUTO) 9.1 % (0.0-13.0); PLATELET COUNT 270 X10^3/uL (150.0-450.0); RED BLOOD COUNT 4.86 X10^6/uL (4.7-6.0); RED CELL DISTRIBUTION WIDTH 14.9 % (11.6-16.5); WHITE BLOOD COUNT 9.3 X10^3/uL (3.6-10.0)
[2019-02-22 06:15] LABS: ALANINE AMINOTRANSFERASE 11 Units/L (12-78); ALBUMIN 3.2 g/dL (3.4-5.0); ALKALINE PHOSPHATASE 139 Units/L (46-116); ASPARTATE AMINO TRANSFERASE 17 Units/L (15-37); BLOOD UREA NITROGEN 29 mg/dL (7-18); CALCIUM 9.9 mg/dL (8.5-10.1); CARBON DIOXIDE 28.6 mmol/L (21-32); CHLORIDE 103 mmol/L (98-107); COR CA(FOR HYPOALB) 10.5 mg/dL (8.5-10.1); COR NA(FOR HYPERGLY) 143 mmol/L (136-145); CREATININE 1.19 mg/dL (0.70-1.30); SODIUM 141 mmol/L (136-145); TOTAL PROTEIN 7.1 g/dL (6.4-8.2); eGFR NON BLACK RACES > 60 (>60)
[2019-02-22] MEDS: CELEXA PO SCH (08:32)
[2019-02-22] MEDS: APRESOLINE TAB 25 MG PO SCH ×2 (08:32→21:42)
[2019-02-22] MEDS: ASPIRIN PO SCH (08:32)
[2019-02-22] MEDS: LASIX PO SCH ×2 (08:32→21:41)
[2019-02-22] MEDS: MICRO K EXTEN CAP 10 MEQ PO SCH (08:32)
[2019-02-22] MEDS: PROSCAR PO SCH (08:32)
[2019-02-22] MEDS: LOVENOX INJ 40 MG SYR SC SCH (08:33)
[2019-02-22] MEDS: PLAVIX PO SCH (08:33)
[2019-02-22] MEDS ORDERED: ZESTRIL TAB 20 MG ONE ×2 (08:35→20:38)
[2019-02-22] MEDS: ZESTRIL TAB 20 MG PO SCH ×2 (08:37→21:40)
[2019-02-22] MEDS: NYSTATIN POWDER TOP SCH ×2 (08:39→21:43)
[2019-02-22 08:57] LABS: CREATININE 1.35 mg/dL (0.70-1.30)
[2019-02-22 09:00] LABS: VANCOMYCIN,TROUGH 23.9 ug/mL (15-20)
[2019-02-22] MEDS: PULMICORT NEB TX 0.5 MG NEB SCH ×2 (09:00→20:09)
[2019-02-22] MEDS: Atrovent NEB TX 0.02% NEB PRN ×2 (09:01→20:09)
[2019-02-22] MEDS: GENTAMICIN TOPICAL OINT TOP SCH ×2 (11:19→21:44)
[2019-02-22] MEDS: AQUAPHOR TOP SCH ×3 (11:53→21:44)
[2019-02-22] MEDS: VANCOMYCIN HCL 1 GM VIAL 1 G in NS 250 ML IV 250 ML IV SCH (12:50)
--- NOTE | 2019-02-22 14:30 | PCM.PROG ---
Progress Note - Progress Note for Day of Date of Exam: 02/21/19 - Subjective Subjective: 79 WM PATIENT OF WHO WAS ADMITTED ON 02/18 WITH BILATERAL LOWER EXTREMITY CELLULITIS. PT WAS STARTED ON IV VANCOMYCIN. LOWER LEGS CONTINUE WITH ERYTHEMA TODAY, BUT MINIMAL EDEMA NOTED. HE REPORTS SHORTNESS OF BREATH AND LOWER LEG PAIN TODAY. HIS VITALS THIS MORNING ARE 98.2-69-15-95%- 177/77. LABS WERE OBTAINED. ABNORMAL LAB VALUES INCLUDE THE FOLLOWING: BUN 26, GLUCOSE 209, ALT 11, ALK PHOS 147, ALBUMIN 3.0. A CHEST XRAY WAS OBTAINED THIS MORNING AND REVEALED: The heart is not significantly enlarged. There is no change in appearance of heart, lungs or mediastinum. Diffuse interstitial prominence is again identified. No developing consolidation, pneumothorax or pulmonary edema. HE IS CURRENTLY RECEIVING IV VANCOMYCIN AND IV LASIX. WE WILL CONTINUE WITH CURRENT PLAN OF CARE TODAY. OTHERWISE, WE PLAN TO FOLLOW UP WITH AM LABS AND CONTINUE TO MONITOR. - Past Medical Family Social History Past Med/Fam/Surg Hx: No changes since H&P Allergies: Allergies No Known Drug Allergies [NKDA] Allergy (Verified 05/01/18 08:42) - Review of Systems ROS: No change since H&P - Vital Signs and I&O's Vital Signs: Temperature 98.0 F Pulse Rate [Apical] 60 Pulse Rate 73 Respiratory Rate 16 Blood Pressure [Right Arm] 146/67 Blood Pressure [Left Arm] 159/80 Blood Pressure 178/81 O2 Sat by Pulse Oximetry 92 Intake and Output: Intake & Output 02/20/19 02/21/19 02/22/19 02/23/19 11:59 11:59 11:59 11:59 Intake Total 2489 / 2489 2323 / 2323 2019 Output Total Balance 2489 / 2489 2322 / 2322 2019 - Physical Exam Oriented: Normal Eyes: Normal Ear: Normal Nose: Normal Throat: Normal Respiratory: Diminished, Wheezes Cardiovascular: Bradycardia, Edema : Normal Auscultation: Bowel Sounds: Normal Tenderness: Normal Skin: Decreased Turgur, Rash, Red, Tender, Hot, Wound (OPEN ULCERATIONS TO LEFT LOWER LATERAL LEG) Musculoskeletal: Right, Left, Leg, Back:Lumbar, Swelling, Tender, Motor Deficit, Sensory Deficit Psychiatric: Depression Affect: Depressed Speech Pattern: Clear, Appropriate - Laboratory and Diagnostics Result Diagrams: 02/22/19 04:20 02/22/19 08:24 Labs: 02/18/19 13:30 Blood Blood Culture - Preliminary 02/18/19 13:25 Blood Blood Culture - Preliminary Laboratory WBC 9.3 X10^3/uL (3.6-10.0) 02/22/19 04:20 RBC 4.86 X10^6/uL (4.7-6.0) 02/22/19 04:20 Hgb 14.3 g/dL (13.5-18.0) 02/22/19 04:20 Hct 42.5 % (42.0-54.0) 02/22/19 04:20 MCV 87.4 fL (80.0-100.0) 02/22/19 04:20 MCH 29.4 pg (27.0-34.0) 02/22/19 04:20 MCHC 33.6 g/dL (33.0-35.0) 02/22/19 04:20 RDW 14.9 % (11.6-16.5) 02/22/19 04:20 Plt Count 270 X10^3/uL (150.0-450.0) 02/22/19 04:20 MPV 7.8 fL (7.4-11.0) 02/22/19 04:20 Neut % (Auto) 65.0 % (42.0-75.0) 02/22/19 04:20 Lymph % (Auto) 22.6 % (21.0-51.0) 02/22/19 04:20 [place] % (Auto) 9.1 % (0.0-13.0) 02/22/19 04:20 Eos % (Auto) 2.6 % (0.9-2.9) 02/22/19 04:20 Baso % (Auto) 0.7 % (0.2-1.0) 02/22/19 04:20 Neut # (Auto) 6.0 x10^3/uL (2.2-4.8) H 02/22/19 04:20 Lymph # (Auto) 2.1 X10^3/uL (1.3-2.9) 02/22/19 04:20 [place] # (Auto) 0.8 x10^3/uL (0.3-0.8) 02/22/19 04:20 Eos # (Auto) 0.2 x10^3/uL (0.0-0.2) 02/22/19 04:20 Baso # (Auto) 0.1 X10^3/uL (0.0-0.1) 02/22/19 04:20 Absolute Nucleated RBC 0.0 /100WBC 02/22/19 04:20 Sample Site Rrad 02/20/19 11:40 ABG pH 7.430 (7.35-7.45) 02/20/19 11:40 ABG pCO2 39.0 mmHg (35.0-45.0) 02/20/19 11:40 ABG pO2 65.0 mmHg (80.0-100.0) L 02/20/19 11:40 ABG HCO3 25.9 mmol/L (22-26) 02/20/19 11:40 ABG O2 Saturation 93.0 % (90-100) 02/20/19 11:40 ABG Base Excess 1.5 mmol/L (-2.0-2.0) 02/20/19 11:40 Markos Test Pos 02/20/19 11:40 A-a Gradient 114.0 mmHg 02/20/19 11:40 FiO2 32.0 02/20/19 11:40 Blood Gas Comments Sue well-sd 02/20/19 11:40 Sodium 141 mmol/L (136-145) 02/22/19 04:20 Corrected Sodium 143 mmol/L (136-145) 02/22/19 04:20 Potassium 3.5 mmol/L (3.5-5.1) 02/22/19 04:20 Chloride 103 mmol/L (98-107) 02/22/19 04:20 Carbon Dioxide 28.6 mmol/L (21-32) 02/22/19 04:20 BUN 29 mg/dL (7-18) H 02/22/19 04:20 Creatinine 1.35 mg/dL (0.70-1.30) H 02/22/19 08:24 Est GFR (MDRD) Af Amer > 60 (>60) 02/22/19 04:20 Est GFR (MDRD) Non-Af > 60 (>60) 02/22/19 04:20 Glucose 163 mg/dL (65-99) H 02/22/19 04:20 POC Glucose (mg/dL) 271 mg/dL (65-99) H 02/22/19 11:22 Calcium 9.9 mg/dL (8.5-10.1) 02/22/19 04:20 Corrected Calcium 10.5 mg/dL (8.5-10.1) H 02/22/19 04:20 Magnesium 2.8 mg/dL (1.7-2.9) 02/19/19 05:14 Total Bilirubin 0.30 mg/dL (0.2-1.0) 02/22/19 04:20 AST 17 Units/L (15-37) 02/22/19 04:20 ALT 11 Units/L (12-78) L 02/22/19 04:20 Alkaline Phosphatase 139 Units/L (46-116) H 02/22/19 04:20 Creatine Kinase 57 Units/L (39-308) 02/20/19 11:58 CK-MB (CK-2) 1.6 ng/mL (0-4.0) 02/20/19 11:58 CK/CKMB % Calc 2.8 % (<4) 02/20/19 11:58 Troponin I < 0.02 ng/mL (0-1.5) 02/20/19 11:58 Total Protein 7.1 g/dL (6.4-8.2) 02/22/19 04:20 Albumin 3.2 g/dL (3.4-5.0) L 02/22/19 04:20 Globulin 3.9 g/dL (2.5-4.5) 02/22/19 04:20 Albumin/Globulin Ratio 0.8 Ratio (1.1-2.1) L 02/22/19 04:20 Vancomycin Trough 23.9 ug/mL (15-20) H* 02/22/19 08:24
[2019-02-22] MEDS: NORCO 7.5/325 MG TAB PO PRN (16:25)
--- NOTE | 2019-02-22 19:04 | PCM.PROG ---
Progress Note - Progress Note for Day of Date of Exam: 02/22/19 - Subjective Subjective: 79 WM PATIENT OF WHO WAS ADMITTED ON 02/18 WITH BILATERAL LOWER EXTREMITY CELLULITIS. PT WAS STARTED ON IV VANCOMYCIN. LOWER LEGS CONTINUE WITH ERYTHEMA TODAY, BUT MINIMAL EDEMA NOTED. HE REPORTS SHORTNESS OF BREATH AND LOWER LEG PAIN TODAY, SLIGHTLY IMPROVED SINCE YESTERDAY. HIS VITALS THIS MORNING ARE 98.2-71-18-89%-146/68. LABS WERE OBTAINED. ABNORMAL LAB VALUES INCLUDE THE FOLLOWING: BUN 29, GLUCOSE 163, ALT 11, ALK PHOS 139, ALBUMIN 3.2. A CHEST XRAY WAS OBTAINED THIS MORNING AND REVEALED: Improved pattern of aeration with persistent but improved right basilar airspace opacities and remnant small left effusion. Correlate clinically for resolving edema/infection. Chronic cardiomegaly and COPD. HE IS CURRENTLY RECEIVING IV VANCOMYCIN AND IV LASIX. WE WILL CONTINUE WITH CURRENT PLAN OF CARE TODAY AND START GENTAMYCIN OINTMENT AND AQUAPHOR TO APPLY TO LEGS. OTHERWISE, WE PLAN TO FOLLOW UP WITH AM LABS AND CONTINUE TO MONITOR. - Past Medical Family Social History Past Med/Fam/Surg Hx: No changes since H&P Allergies: Allergies No Known Drug Allergies [NKDA] Allergy (Verified 05/01/18 08:42) - Review of Systems ROS: No change since H&P - Vital Signs and I&O's Vital Signs: Temperature 98 F Pulse Rate [Left Brachial] 52 Pulse Rate [Apical] 60 Pulse Rate 73 Respiratory Rate 20 Blood Pressure [Right Arm] 146/67 Blood Pressure [Left Arm] 146/69 Blood Pressure 178/81 O2 Sat by Pulse Oximetry 93 Intake and Output: Intake & Output 02/20/19 02/21/19 02/22/19 02/23/19 11:59 11:59 11:59 11:59 Intake Total 2489 / 2489 2323 / 2323 2019 240 / 240 Output Total Balance 2489 / 2489 2322 / 2322 2019 240 / 240 - Physical Exam Oriented: Normal Eyes: Normal Ear: Normal Nose: Normal Throat: Normal Respiratory: Diminished, Wheezes Cardiovascular: Bradycardia, Edema : Normal Auscultation: Bowel Sounds: Normal Tenderness: Normal Skin: Decreased Turgur, Rash, Red, Tender, Hot, Wound (OPEN ULCERATIONS TO LEFT LOWER LATERAL LEG) Musculoskeletal: Right, Left, Leg, Back:Lumbar, Swelling, Tender, Motor Deficit, Sensory Deficit Psychiatric: Depression Affect: Depressed Speech Pattern: Clear, Appropriate - Laboratory and Diagnostics Result Diagrams: 02/22/19 04:20 02/22/19 08:24 Labs: 02/18/19 13:30 Blood Blood Culture - Preliminary 02/18/19 13:25 Blood Blood Culture - Preliminary Laboratory WBC 9.3 X10^3/uL (3.6-10.0) 02/22/19 04:20 RBC 4.86 X10^6/uL (4.7-6.0) 02/22/19 04:20 Hgb 14.3 g/dL (13.5-18.0) 02/22/19 04:20 Hct 42.5 % (42.0-54.0) 02/22/19 04:20 MCV 87.4 fL (80.0-100.0) 02/22/19 04:20 MCH 29.4 pg (27.0-34.0) 02/22/19 04:20 MCHC 33.6 g/dL (33.0-35.0) 02/22/19 04:20 RDW 14.9 % (11.6-16.5) 02/22/19 04:20 Plt Count 270 X10^3/uL (150.0-450.0) 02/22/19 04:20 MPV 7.8 fL (7.4-11.0) 02/22/19 04:20 Neut % (Auto) 65.0 % (42.0-75.0) 02/22/19 04:20 Lymph % (Auto) 22.6 % (21.0-51.0) 02/22/19 04:20 [place] % (Auto) 9.1 % (0.0-13.0) 02/22/19 04:20 Eos % (Auto) 2.6 % (0.9-2.9) 02/22/19 04:20 Baso % (Auto) 0.7 % (0.2-1.0) 02/22/19 04:20 Neut # (Auto) 6.0 x10^3/uL (2.2-4.8) H 02/22/19 04:20 Lymph # (Auto) 2.1 X10^3/uL (1.3-2.9) 02/22/19 04:20 [place] # (Auto) 0.8 x10^3/uL (0.3-0.8) 02/22/19 04:20 Eos # (Auto) 0.2 x10^3/uL (0.0-0.2) 02/22/19 04:20 Baso # (Auto) 0.1 X10^3/uL (0.0-0.1) 02/22/19 04:20 Absolute Nucleated RBC 0.0 /100WBC 02/22/19 04:20 Sample Site Rrad 02/20/19 11:40 ABG pH 7.430 (7.35-7.45) 02/20/19 11:40 ABG pCO2 39.0 mmHg (35.0-45.0) 02/20/19 11:40 ABG pO2 65.0 mmHg (80.0-100.0) L 02/20/19 11:40 ABG HCO3 25.9 mmol/L (22-26) 02/20/19 11:40 ABG O2 Saturation 93.0 % (90-100) 02/20/19 11:40 ABG Base Excess 1.5 mmol/L (-2.0-2.0) 02/20/19 11:40 Markos Test Pos 02/20/19 11:40 A-a Gradient 114.0 mmHg 02/20/19 11:40 FiO2 32.0 02/20/19 11:40 Blood Gas Comments Sue well-sd 02/20/19 11:40 Sodium 141 mmol/L (136-145) 02/22/19 04:20 Corrected Sodium 143 mmol/L (136-145) 02/22/19 04:20 Potassium 3.5 mmol/L (3.5-5.1) 02/22/19 04:20 Chloride 103 mmol/L (98-107) 02/22/19 04:20 Carbon Dioxide 28.6 mmol/L (21-32) 02/22/19 04:20 BUN 29 mg/dL (7-18) H 02/22/19 04:20 Creatinine 1.35 mg/dL (0.70-1.30) H 02/22/19 08:24 Est GFR (MDRD) Af Amer > 60 (>60) 02/22/19 04:20 Est GFR (MDRD) Non-Af > 60 (>60) 02/22/19 04:20 Glucose 163 mg/dL (65-99) H 02/22/19 04:20 POC Glucose (mg/dL) 271 mg/dL (65-99) H 02/22/19 11:22 Calcium 9.9 mg/dL (8.5-10.1) 02/22/19 04:20 Corrected Calcium 10.5 mg/dL (8.5-10.1) H 02/22/19 04:20 Magnesium 2.8 mg/dL (1.7-2.9) 02/19/19 05:14 Total Bilirubin 0.30 mg/dL (0.2-1.0) 02/22/19 04:20 AST 17 Units/L (15-37) 02/22/19 04:20 ALT 11 Units/L (12-78) L 02/22/19 04:20 Alkaline Phosphatase 139 Units/L (46-116) H 02/22/19 04:20 Creatine Kinase 57 Units/L (39-308) 02/20/19 11:58 CK-MB (CK-2) 1.6 ng/mL (0-4.0) 02/20/19 11:58 CK/CKMB % Calc 2.8 % (<4) 02/20/19 11:58 Troponin I < 0.02 ng/mL (0-1.5) 02/20/19 11:58 Total Protein 7.1 g/dL (6.4-8.2) 02/22/19 04:20 Albumin 3.2 g/dL (3.4-5.0) L 02/22/19 04:20 Globulin 3.9 g/dL (2.5-4.5) 02/22/19 04:20 Albumin/Globulin Ratio 0.8 Ratio (1.1-2.1) L 02/22/19 04:20 Vancomycin Trough 23.9 ug/mL (15-20) H* 02/22/19 08:24
[2019-02-22] MEDS: VISTARIL PO PRN (21:39)
[2019-02-22] MEDS: FLOMAX PO SCH (21:40)
[2019-02-22] MEDS: PRAVACHOL PO SCH (21:41)
[2019-02-22] MEDS: ZANTAC PO SCH (21:41)
[2019-02-22] MEDS: SNACK - Diabetic Appropriate PO SCH (23:49)
[2019-02-23] MEDS: Atrovent NEB TX 0.02% NEB PRN ×2 (00:30→21:15)
[2019-02-23 05:50] LABS: BASOPHILS # (AUTO) 0.1 X10^3/uL (0.0-0.1); BASOPHILS % (AUTO) 0.9 % (0.2-1.0); EOSINOPHILS # (AUTO) 0.3 x10^3/uL (0.0-0.2); EOSINOPHILS % (AUTO) 4.1 % (0.9-2.9); HEMATOCRIT 41.9 % (42.0-54.0); HEMOGLOBIN 14.1 g/dL (13.5-18.0); LYMPHOCYTES % (AUTO) 26.8 % (21.0-51.0); MEAN CORPUSCULAR HEMOGLOBIN 29.5 pg (27.0-34.0); MEAN CORPUSCULAR HGB CONC 33.6 g/dL (33.0-35.0); MEAN CORPUSCULAR VOLUME 87.8 fL (80.0-100.0); MEAN PLATELET VOLUME 7.9 fL (7.4-11.0); MONOCYTES # (AUTO) 0.9 x10^3/uL (0.3-0.8); MONOCYTES % (AUTO) 11.4 % (0.0-13.0); NEUTROPHILS # (AUTO) 4.2 x10^3/uL (2.2-4.8); NEUTROPHILS % (AUTO) 56.8 % (42.0-75.0); PLATELET COUNT 250 X10^3/uL (150.0-450.0); RED BLOOD COUNT 4.78 X10^6/uL (4.7-6.0); RED CELL DISTRIBUTION WIDTH 14.9 % (11.6-16.5); WHITE BLOOD COUNT 7.4 X10^3/uL (3.6-10.0)
--- NOTE | 2019-02-23 06:00 | RAD ---
HISTORY: Shortness of breath Study: Chest AP portable Comparison: 02/22/2019, by [id number] Findings: Patient is rotated to the left. The patient is status post median sternotomy and CABG. The heart is enlarged. No congestive heart failure is noted. No acute alveolar infiltrates or pleural effusions are identified. The bony thorax is unremarkable. IMPRESSION: Moderate cardiomegaly without congestive heart failure Lungs clear Reported By:
[2019-02-23 06:07] LABS: ALANINE AMINOTRANSFERASE 11 Units/L (12-78); ALKALINE PHOSPHATASE 127 Units/L (46-116); ASPARTATE AMINO TRANSFERASE 14 Units/L (15-37); BLOOD UREA NITROGEN 33 mg/dL (7-18); CALCIUM 9.4 mg/dL (8.5-10.1); CARBON DIOXIDE 28.3 mmol/L (21-32); CHLORIDE 104 mmol/L (98-107); COR CA(FOR HYPOALB) 10.2 mg/dL (8.5-10.1); COR NA(FOR HYPERGLY) 143 mmol/L (136-145); CREATININE 1.24 mg/dL (0.70-1.30); SODIUM 141 mmol/L (136-145); TOTAL PROTEIN 6.6 g/dL (6.4-8.2); eGFR NON BLACK RACES 60 (>60)
[2019-02-23] MEDS: NS 1000 ML 1,000 ML IV SCH ×2 (06:23→21:24)
[2019-02-23] MEDS: AQUAPHOR TOP SCH ×3 (06:24→21:22)
[2019-02-23] MEDS ORDERED: ZESTRIL TAB 20 MG ONE ×2 (09:14→20:45)
[2019-02-23] MEDS: PULMICORT NEB TX 0.5 MG NEB SCH ×2 (09:16→21:15)
[2019-02-23] MEDS: VANCOMYCIN HCL 1 GM VIAL 1 G in NS 250 ML IV 250 ML IV SCH ×2 (09:22→21:26)
[2019-02-23] MEDS: LOVENOX INJ 40 MG SYR SC SCH (09:26)
[2019-02-23] MEDS: MICRO K EXTEN CAP 10 MEQ PO SCH (09:27)
[2019-02-23] MEDS: PROSCAR PO SCH (09:27)
[2019-02-23] MEDS: ASPIRIN PO SCH (09:27)
[2019-02-23] MEDS: APRESOLINE TAB 25 MG PO SCH ×2 (09:27→21:21)
[2019-02-23] MEDS: LASIX PO SCH ×2 (09:28→21:22)
[2019-02-23] MEDS: PLAVIX PO SCH (09:28)
[2019-02-23] MEDS: CELEXA PO SCH (09:28)
[2019-02-23] MEDS: ZESTRIL TAB 20 MG PO SCH ×2 (09:28→21:26)
[2019-02-23] MEDS: NYSTATIN POWDER TOP SCH ×2 (09:32→21:25)
[2019-02-23] MEDS: GENTAMICIN TOPICAL OINT TOP SCH ×2 (09:33→21:24)
[2019-02-23] MEDS: HumuLIN R SUBCUT PRN ×3 (12:36→22:00)
--- NOTE | 2019-02-23 13:45 | PCM.PROG ---
Progress Note - Progress Note for Day of Date of Exam: 02/23/19 - Subjective Subjective: 79 WM PATIENT OF WHO WAS ADMITTED ON 02/18 WITH BILATERAL LOWER EXTREMITY CELLULITIS. PT WAS STARTED ON IV VANCOMYCIN. LOWER LEGS CONTINUE WITH ERYTHEMA TODAY, BUT MINIMAL EDEMA NOTED AND IMPROVED. HE IS CURRENTLY RECEIVING IV VANCOMYCIN AND IV LASIX. WE WILL CONTINUE WITH CURRENT PLAN OF CARE AND STARTED GENTAMYCIN OINTMENT AND AQUAPHOR TO APPLY TO LEGS. OTHERWISE, WE PLAN TO FOLLOW UP WITH AM LABS AND CONTINUE TO MONITOR. DISCUSSED PLANS FOR DC HOME WITH HOME HEALTH AND WOUND CARE - Past Medical Family Social History Past Med/Fam/Surg Hx: No changes since H&P Allergies: Allergies No Known Drug Allergies [NKDA] Allergy (Verified 05/01/18 08:42) - Review of Systems ROS: No change since H&P - Vital Signs and I&O's Vital Signs: Temperature 98.3 F Pulse Rate [Left Brachial] 74 Pulse Rate [Apical] 60 Pulse Rate 65 Respiratory Rate 18 Blood Pressure [Right Arm] 146/67 Blood Pressure [Left Arm] 152/81 Blood Pressure 178/81 O2 Sat by Pulse Oximetry 97 Intake and Output: Intake & Output 02/21/19 02/22/19 02/23/19 02/24/19 11:59 11:59 11:59 11:59 Intake Total 2323 / 2323 2019 720 / 720 Output Total Balance 2322 / 2322 2019 720 / 720 - Physical Exam Oriented: Normal Eyes: Normal Ear: Normal Nose: Normal Throat: Normal Respiratory: Diminished, Wheezes Cardiovascular: Bradycardia, Edema : Normal Auscultation: Bowel Sounds: Normal Tenderness: Normal Skin: Decreased Turgur, Rash, Red, Tender, Hot, Wound (OPEN ULCERATIONS TO LEFT LOWER LATERAL LEG) Musculoskeletal: Right, Left, Leg, Back:Lumbar, Swelling, Tender, Motor Deficit, Sensory Deficit Psychiatric: Depression Affect: Depressed Speech Pattern: Clear, Appropriate - Laboratory and Diagnostics Result Diagrams: 02/23/19 05:05 02/23/19 05:05 Labs: 02/18/19 13:30 Blood Blood Culture - Preliminary 02/18/19 13:25 Blood Blood Culture - Preliminary Laboratory WBC 7.4 X10^3/uL (3.6-10.0) 02/23/19 05:05 RBC 4.78 X10^6/uL (4.7-6.0) 02/23/19 05:05 Hgb 14.1 g/dL (13.5-18.0) 02/23/19 05:05 Hct 41.9 % (42.0-54.0) L 02/23/19 05:05 MCV 87.8 fL (80.0-100.0) 02/23/19 05:05 MCH 29.5 pg (27.0-34.0) 02/23/19 05:05 MCHC 33.6 g/dL (33.0-35.0) 02/23/19 05:05 RDW 14.9 % (11.6-16.5) 02/23/19 05:05 Plt Count 250 X10^3/uL (150.0-450.0) 02/23/19 05:05 MPV 7.9 fL (7.4-11.0) 02/23/19 05:05 Neut % (Auto) 56.8 % (42.0-75.0) 02/23/19 05:05 Lymph % (Auto) 26.8 % (21.0-51.0) 02/23/19 05:05 [place] % (Auto) 11.4 % (0.0-13.0) 02/23/19 05:05 Eos % (Auto) 4.1 % (0.9-2.9) H 02/23/19 05:05 Baso % (Auto) 0.9 % (0.2-1.0) 02/23/19 05:05 Neut # (Auto) 4.2 x10^3/uL (2.2-4.8) 02/23/19 05:05 Lymph # (Auto) 2.0 X10^3/uL (1.3-2.9) 02/23/19 05:05 [place] # (Auto) 0.9 x10^3/uL (0.3-0.8) H 02/23/19 05:05 Eos # (Auto) 0.3 x10^3/uL (0.0-0.2) H 02/23/19 05:05 Baso # (Auto) 0.1 X10^3/uL (0.0-0.1) 02/23/19 05:05 Absolute Nucleated RBC 0.1 /100WBC 02/23/19 05:05 Sample Site Rrad 02/20/19 11:40 ABG pH 7.430 (7.35-7.45) 02/20/19 11:40 ABG pCO2 39.0 mmHg (35.0-45.0) 02/20/19 11:40 ABG pO2 65.0 mmHg (80.0-100.0) L 02/20/19 11:40 ABG HCO3 25.9 mmol/L (22-26) 02/20/19 11:40 ABG O2 Saturation 93.0 % (90-100) 02/20/19 11:40 ABG Base Excess 1.5 mmol/L (-2.0-2.0) 02/20/19 11:40 Markos Test Pos 02/20/19 11:40 A-a Gradient 114.0 mmHg 02/20/19 11:40 FiO2 32.0 02/20/19 11:40 Blood Gas Comments Sue well-sd 02/20/19 11:40 Sodium 141 mmol/L (136-145) 02/23/19 05:05 Corrected Sodium 143 mmol/L (136-145) 02/23/19 05:05 Potassium 3.6 mmol/L (3.5-5.1) 02/23/19 05:05 Chloride 104 mmol/L (98-107) 02/23/19 05:05 Carbon Dioxide 28.3 mmol/L (21-32) 02/23/19 05:05 BUN 33 mg/dL (7-18) H 02/23/19 05:05 Creatinine 1.24 mg/dL (0.70-1.30) 02/23/19 05:05 Est GFR (MDRD) Af Amer > 60 (>60) 02/23/19 05:05 Est GFR (MDRD) Non-Af 60 (>60) 02/23/19 05:05 Glucose 185 mg/dL (65-99) H 02/23/19 05:05 POC Glucose (mg/dL) 271 mg/dL (65-99) H 02/22/19 11:22 Calcium 9.4 mg/dL (8.5-10.1) 02/23/19 05:05 Corrected Calcium 10.2 mg/dL (8.5-10.1) H 02/23/19 05:05 Magnesium 2.8 mg/dL (1.7-2.9) 02/19/19 05:14 Total Bilirubin 0.30 mg/dL (0.2-1.0) 02/23/19 05:05 AST 14 Units/L (15-37) L 02/23/19 05:05 ALT 11 Units/L (12-78) L 02/23/19 05:05 Alkaline Phosphatase 127 Units/L (46-116) H 02/23/19 05:05 Creatine Kinase 57 Units/L (39-308) 02/20/19 11:58 CK-MB (CK-2) 1.6 ng/mL (0-4.0) 02/20/19 11:58 CK/CKMB % Calc 2.8 % (<4) 02/20/19 11:58 Troponin I < 0.02 ng/mL (0-1.5) 02/20/19 11:58 Total Protein 6.6 g/dL (6.4-8.2) 02/23/19 05:05 Albumin 3.0 g/dL (3.4-5.0) L 02/23/19 05:05 Globulin 3.6 g/dL (2.5-4.5) 02/23/19 05:05 Albumin/Globulin Ratio 0.8 Ratio (1.1-2.1) L 02/23/19 05:05 Vancomycin Trough 23.9 ug/mL (15-20) H* 02/22/19 08:24 - Plan (1) Wound cellulitis Status: Acute Plan: ADMISSION BC COLLECTED, WOUND CARE. IV ATBX, CONSULT PHARMACY FOR RENAL DOSE FOR VANCOMYCIN. BS AND BP CONTROL. GENTLE IV HYDRATION, RESP CONSULT. STRICT I & OS (2) COPD (chronic obstructive pulmonary disease) Status: Acute Qualifiers: COPD type: COPD with acute exacerbation Qualified Code(s): J44.1 - Chronic obstructive pulmonary disease with (acute) exacerbation (3) Congestive heart failure Status: Chronic (4) Hypertension Status: Chronic Qualifiers: Hypertension type: unspecified secondary hypertension Qualified Code(s): I15.9 - Secondary hypertension, unspecified (5) Diabetes mellitus, type 2 Status: Chronic (6) Anxiety Status: Chronic (7) Arthritis Status: Chronic
[2019-02-23] MEDS: ZANTAC PO SCH (21:22)
[2019-02-23] MEDS: PRAVACHOL PO SCH (21:23)
[2019-02-23] MEDS: FLOMAX PO SCH (21:23)
[2019-02-23] MEDS: SNACK - Diabetic Appropriate PO SCH (21:24)
[2019-02-24 05:21] LABS: BASOPHILS # (AUTO) 0.1 X10^3/uL (0.0-0.1); BASOPHILS % (AUTO) 0.8 % (0.2-1.0); EOSINOPHILS # (AUTO) 0.3 x10^3/uL (0.0-0.2); HEMATOCRIT 44.4 % (42.0-54.0); HEMOGLOBIN 14.8 g/dL (13.5-18.0); LYMPHOCYTES % (AUTO) 26.9 % (21.0-51.0); MEAN CORPUSCULAR HEMOGLOBIN 29.5 pg (27.0-34.0); MEAN CORPUSCULAR HGB CONC 33.3 g/dL (33.0-35.0); MEAN CORPUSCULAR VOLUME 88.5 fL (80.0-100.0); MEAN PLATELET VOLUME 7.9 fL (7.4-11.0); MONOCYTES # (AUTO) 0.9 x10^3/uL (0.3-0.8); MONOCYTES % (AUTO) 11.2 % (0.0-13.0); NEUTROPHILS # (AUTO) 4.3 x10^3/uL (2.2-4.8); NEUTROPHILS % (AUTO) 57.1 % (42.0-75.0); PLATELET COUNT 243 X10^3/uL (150.0-450.0); RED BLOOD COUNT 5.02 X10^6/uL (4.7-6.0); RED CELL DISTRIBUTION WIDTH 14.8 % (11.6-16.5); WHITE BLOOD COUNT 7.6 X10^3/uL (3.6-10.0)
[2019-02-24 05:29] LABS: ALANINE AMINOTRANSFERASE 14 Units/L (12-78); ALBUMIN 3.1 g/dL (3.4-5.0); ALKALINE PHOSPHATASE 131 Units/L (46-116); ASPARTATE AMINO TRANSFERASE 14 Units/L (15-37); BLOOD UREA NITROGEN 36 mg/dL (7-18); CALCIUM 9.6 mg/dL (8.5-10.1); CARBON DIOXIDE 29.2 mmol/L (21-32); CHLORIDE 104 mmol/L (98-107); COR CA(FOR HYPOALB) 10.3 mg/dL (8.5-10.1); COR NA(FOR HYPERGLY) 142 mmol/L (136-145); CREATININE 1.38 mg/dL (0.70-1.30); SODIUM 140 mmol/L (136-145); TOTAL PROTEIN 6.9 g/dL (6.4-8.2); eGFR NON BLACK RACES 53 (>60)
[2019-02-24] MEDS: AQUAPHOR TOP SCH ×2 (05:40→13:30)
[2019-02-24] MEDS: HumuLIN R SUBCUT PRN ×2 (06:29→12:00)
[2019-02-24] MEDS: PULMICORT NEB TX 0.5 MG NEB SCH (08:30)
[2019-02-24] MEDS ORDERED: ZESTRIL TAB 20 MG ONE (08:57)
[2019-02-24] MEDS: ASPIRIN PO SCH (10:24)
[2019-02-24] MEDS: ZESTRIL TAB 20 MG PO SCH (10:24)
[2019-02-24] MEDS: PLAVIX PO SCH (10:24)
[2019-02-24] MEDS: APRESOLINE TAB 25 MG PO SCH ×2 (10:24→10:28)
[2019-02-24] MEDS: PROSCAR PO SCH (10:25)
[2019-02-24] MEDS: MICRO K EXTEN CAP 10 MEQ PO SCH (10:25)
[2019-02-24] MEDS: CELEXA PO SCH (10:25)
[2019-02-24] MEDS: GENTAMICIN TOPICAL OINT TOP SCH (10:26)
[2019-02-24] MEDS: LOVENOX INJ 40 MG SYR SC SCH (10:26)
[2019-02-24] MEDS: NYSTATIN POWDER TOP SCH (10:27)
[2019-02-24] MEDS: VANCOMYCIN HCL 1 GM VIAL 1 G in NS 250 ML IV 250 ML IV SCH (10:27)
[2019-02-24] MEDS: NS 1000 ML 1,000 ML IV SCH (10:28)
[2019-02-24 16:18] VITALS: BP 131/69
[2019-02-25] MEDS ORDERED: LASIX PO SCH (09:00)
== END 2019-02-24 15:00 | DRG 603 ==
LOC: ICU 10:57 → MED/SURG 02-22 12:50
PROVIDERS: ADMIT Internal Medicine; ATTEND Internal Medicine
DX: R94.31 Abnormal electrocardiogram [ECG] [EKG]; R60.0 Localized edema; L03.116 Cellulitis of left lower limb; L03.115 Cellulitis of right lower limb; M13.89 Other specified arthritis, multiple sites; F41.8 Other specified anxiety disorders; R06.02 Shortness of breath; E11.22 Type 2 diabetes mellitus with diabetic chronic kidney disease; I13.0 Hypertensive heart and chronic kidney disease with heart failure and stage 1 through stage 4 chronic kidney disease, or unspecified chronic kidney disease; N18.9 Chronic kidney disease, unspecified; J90 Pleural effusion, not elsewhere classified; I50.9 Heart failure, unspecified; J44.1 Chronic obstructive pulmonary disease with (acute) exacerbation; E11.65 Type 2 diabetes mellitus with hyperglycemia
CPT/HCPCS: 36415; 36600; 71010; 71045; 80053; 80202; 82550; 82553; 82565; 82803; 83735; 84484; 85025; 87040; 93005; 94640; A4222; Q0177; S0138; J1650; J1815; J1940; J2270; J2930; J3370; J3490; J7030; J7050; J7626; J7644

== ENCOUNTER 2020-06-22 12:40 | Inpatient (IN) ==
[2020-06-22] MEDS ORDERED: NS 1000 ML 1,000 ML ONE (12:49)
[2020-06-22] MEDS ORDERED: NS 1000 ML 1,000 ML IV ONE (13:03)
--- NOTE | 2020-06-22 13:10 | RAD ---
HISTORYDYSPNEASTUDYCHEST, 1 [id number]/06/2019 report onlyTECHNIQUEAP view of the chestFINDINGSCardiac silhouette enlarged status median sternotomy and CABG. There is a small to moderate left pleural effusion. Bibasilar airspace present. No pneumothorax. Patient is rotated.IMPRESSIONCardiomegaly with small moderate left pleural effusion. Bibasilar airspace opacities may represent covid 19 given the history.Electronically signed by: Eduardo Powers (Jun 22, 2020 13:09:42)
[2020-06-22 13:11] LABS: ABG BASE EXCESS -11.1 mmol/L (-2.0-2.0); ABG HCO3 18.7 mmol/L (22-26)
[2020-06-22 13:12] LABS: ABG ALLEN TEST POS
[2020-06-22 13:13] LABS: BASOPHILS # (AUTO) 0.3 X10^3/uL (0.0-0.1); BASOPHILS % (AUTO) 0.7 % (0.2-1.0); HEMATOCRIT 28.4 % (42.0-54.0); HEMOGLOBIN 8.8 g/dL (13.5-18.0); LYMPHOCYTES # (AUTO) 2.8 X10^3/uL (1.3-2.9); LYMPHOCYTES % (AUTO) 8.1 % (21.0-51.0); MEAN CORPUSCULAR HEMOGLOBIN 28.6 pg (27.0-34.0); MEAN CORPUSCULAR HGB CONC 30.9 g/dL (33.0-35.0); MEAN CORPUSCULAR VOLUME 92.6 fL (80.0-100.0); MEAN PLATELET VOLUME 7.9 fL (7.4-11.0); MONOCYTES # (AUTO) 1.2 x10^3/uL (0.3-0.8); MONOCYTES % (AUTO) 3.5 % (0.0-13.0); NEUTROPHILS # (AUTO) 30.2 x10^3/uL (2.2-4.8); NEUTROPHILS % (AUTO) 87.7 % (42.0-75.0); PLATELET COUNT 274 X10^3/uL (150.0-450.0); RED BLOOD COUNT 3.06 X10^6/uL (4.7-6.0); RED CELL DISTRIBUTION WIDTH 17.6 % (11.6-16.5)
[2020-06-22 13:20] LABS: BILIRUBIN,URINE NEGATIVE (NEGATIVE); BLOOD/HEMOGLOBIN,URINE NEGATIVE (NEGATIVE); GLUCOSE, URINE 2+ (NEGATIVE); KETONES,URINE NEGATIVE (NEGATIVE); LEUKOCYTE ESTERASE ,URINE NEGATIVE (NEGATIVE); NITRITES,URINE NEGATIVE (NEGATIVE); PROTEIN,URINE 1+ (NEGATIVE); UROBILINOGEN,URINE NORMAL (NORMAL)
[2020-06-22 13:24] LABS: ALBUMIN 1.6 g/dL (3.4-5.0); CARBON DIOXIDE 21.6 mmol/L (21-32); COR CA(FOR HYPOALB) 10.9 mg/dL (8.5-10.1); CREATININE 3.42 mg/dL (0.70-1.30); TOTAL PROTEIN 6.1 g/dL (6.4-8.2)
[2020-06-22 13:25] LABS: WHITE BLOOD COUNT 34.5 X10^3/uL (3.6-10.0)
[2020-06-22 13:27] LABS: LACTIC ACID 8.9 mmol/L (0.4-2.0)
[2020-06-22 13:30] LABS: APPEARANCE,URINE HAZY (CLEAR); BACTERIA,URINE TRACE /HPF (NEGATIVE); COLOR,URINE YELLOW (YELLOW); RBC,URINE NONE SEEN /HPF (0-3); SQUAMOUS EPITHELIAL CELL,UR RARE /HPF (NEGATIVE)
[2020-06-22 13:33] LABS: BAND NEUTROPHILS % 23 % (0-10); METAMYELOCYTES % 2; PLATELET MORPHOLOGY COMMENT NORMAL (NORMAL)
--- NOTE | 2020-06-22 13:42 | DR.SOBA ---
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 ( 77 % ) at jail. This was on 4 L of Oxygen. He was placed on a NRB oxygen, and his saturation went up to 94 %. He also has a hx. of testing positive for COVID-19. Chief Complaint:: EMS BRINGS PT. IN WITH RESPITATORY DISTRESS FROM [facility]. PT. IS A COVID POSITIVE PT. EMS STATE THAT PT'S O2 SAT WAS 77% ON 4LPM N/C. THEY PLACED PT. ON A NON RE-BREATHER AND O2 SAT INCREASED TO 94%. UPON ARRIVAL TO THE ER, PT. IS UNRESONSIVE. SHALLOW BREATHING NOTED. PT. IS HYPOTENSIVE AND HYPOXIC. COVID-19 Coronavirus risk:travel/contact w/high risk person: Yes Has patient experienced Coronavirus symptoms: Yes Coronavirus symptoms experienced: Shortness of Breath Reviewed Nurses Notes Reviewed: Yes Source History Provided: EMS Mode of Arrival Mode of Arrival: EMS Timing Onset of Chief Complaint: 06/22/20 PMH PMH Past Medical History: Yes Past Medical History: Arthritis, CHF, COPD, Diabetes, Dyslipidemia, Hypertension and Renal Disease Past Surgical History: Yes Surgical History: Angioplasty/Stents, Ortho Surgery and Other Family History History of Family Medical Conditions: Yes Family Medical History: Diabetes Mellitus, Coronary Artery Disease and Hypertension Social History Does patient currently use any type of tobacco product: No Have you used tobacco products in the last 12 months: No Type of Tobacco Use: None Does any household member use tobacco: No Alcohol Use: None Do you use any recreational Drugs:: No Lives Where: Intermediate Travel Risk Coronavirus risk:travel/contact w/high risk person: Yes Has patient experienced Coronavirus symptoms: Yes Coronavirus symptoms experienced: Shortness of Breath Infectious screening In the last 2 months have you had wt loss of >10#?: NO Have you had fever, night sweats or hemotysis?: No Have you traveled outside the country in the last 6 months?: No Isolation: Standard ROS Review of Systems Constitutional: No Symptoms Reported Eyes: No Symptoms Reported ENTM: No Symptoms Reported Respiratoy: Short of Breath Cardiovascular: No Symptoms Reported Gastrointestinal/Abdominal: No Symptoms Reported Genitourinary: No Symptoms Reported Neurological: No Symptoms Reported Musculoskeletal: No Symptoms Reported Integumentary: No Symptoms Reported Hematologic/Lymphatic: No Symptoms Reported Endocrine: No Symptoms Reported Psychiatric: No Symptoms Reported PE Vital Signs Vitals: Temperature 98.4 F Pulse Rate 104 Respiratory Rate 26 Blood Pressure [Right Arm] 146/67 Blood Pressure [Left Arm] 131/69 Blood Pressure 69/37 O2 Sat by Pulse Oximetry 97 General Limitations: No Limitations General Appearance: Alert and In Distress Head Head Exam: Normal Inspection, Atraumatic and Normocephalic Eyes Eye exam: Normal Appearance and PERRL ENT ENT Exam: Normal Exam, Normal Oropharynx, Normal External Ear Exam and Mucous Membranes Moist Neck Neck Exam: Normal Inspection, Full ROM and Trachea Midline Chest Chest Inspection: Normal Inspection and Symmetric Chest Wall Rise Respiratory Respiratory Exam: Other (Tachypnea and shallow breaths present. ) Cardiovascular Cardiovascular Exam: Irregular Rhythm, +S1 and +S2 Abdominal Exam Abdominal Exam: Normal Inspection, Normal Bowel Sounds and Soft Extremities Extremities Exam: Other (The distal halves of his lower extremities are dusky in appearance. ) Back Back Exam: Normal Inspection Skin Skin Exam: Dry and Intact COURSE Reevaluation 1st: Improved (Oxygen sat and BP with flow/administration of oxygen and IVF.) 2nd: Unchanged Education/Counseling Education/Counseling: Family, Education and Counseling Educated On: Treatment, Diagnosis, Prognosis and Needs for Follow Up ROR Labs Reviewed Laboratory Results Reviewed?: Yes Result Diagrams: 06/22/20 12:50 06/22/20 12:50 Laboratory: WBC 34.5 X10^3/uL (3.6-10.0) H* 06/22/20 12:50 RBC 3.06 X10^6/uL (4.7-6.0) L 06/22/20 12:50 Hgb 8.8 g/dL (13.5-18.0) L 06/22/20 12:50 Hct 28.4 % (42.0-54.0) L 06/22/20 12:50 MCV 92.6 fL (80.0-100.0) 06/22/20 12:50 MCH 28.6 pg (27.0-34.0) 06/22/20 12:50 MCHC 30.9 g/dL (33.0-35.0) L 06/22/20 12:50 RDW 17.6 % (11.6-16.5) H 06/22/20 12:50 Plt Count 274 X10^3/uL (150.0-450.0) 06/22/20 12:50 Plt Count Comment Adequate (ADEQUATE) 06/22/20 12:50 MPV 7.9 fL (7.4-11.0) 06/22/20 12:50 Neut % (Auto) 87.7 % (42.0-75.0) H 06/22/20 12:50 Lymph % (Auto) 8.1 % (21.0-51.0) L 06/22/20 12:50 [place] % (Auto) 3.5 % (0.0-13.0) 06/22/20 12:50 Eos % (Auto) 0.0 % (0.9-2.9) L 06/22/20 12:50 Baso % (Auto) 0.7 % (0.2-1.0) 06/22/20 12:50 Neut # (Auto) 30.2 x10^3/uL (2.2-4.8) H 06/22/20 12:50 Lymph # (Auto) 2.8 X10^3/uL (1.3-2.9) 06/22/20 12:50 [place] # (Auto) 1.2 x10^3/uL (0.3-0.8) H 06/22/20 12:50 Eos # (Auto) 0.0 x10^3/uL (0.0-0.2) 06/22/20 12:50 Baso # (Auto) 0.3 X10^3/uL (0.0-0.1) H 06/22/20 12:50 Absolute Nucleated RBC 0.0 /100WBC 06/22/20 12:50 Total Counted 100 06/22/20 12:50 Neutrophils % (Manual) 60 % (39-76) 06/22/20 12:50 Band Neutrophils % 23 % (0-10) H 06/22/20 12:50 Lymphocytes % (Manual) 10 % (13-43) L 06/22/20 12:50 Monocytes % (Manual) 5 % (4-9) 06/22/20 12:50 Metamyelocytes % 2 06/22/20 12:50 Plt Morphology Comment Normal (NORMAL) 06/22/20 12:50 RBC Morphology Normal (NORMAL) 06/22/20 12:50 Sample Site Lr 06/22/20 13:06 ABG pH 7.110 (7.35-7.45) L* 06/22/20 13:06 ABG pCO2 59.0 mmHg (35.0-45.0) H* 06/22/20 13:06 ABG pO2 88.0 mmHg (80.0-100.0) 06/22/20 13:06 ABG HCO3 18.7 mmol/L (22-26) L 06/22/20 13:06 ABG O2 Saturation 93.0 % (90-100) 06/22/20 13:06 ABG Base Excess -11.1 mmol/L (-2.0-2.0) L 06/22/20 13:06 Markos Test Pos 06/22/20 13:06 A-a Gradient 551.0 mmHg 06/22/20 13:06 FiO2 100.0 06/22/20 13:06 Blood Gas Comments Sue well cb 06/22/20 13:06 Sodium 135 mmol/L (136-145) L 06/22/20 12:50 Corrected Sodium 140 mmol/L (136-145) 06/22/20 12:50 Potassium 5.1 mmol/L (3.5-5.1) 06/22/20 12:50 Chloride 101 mmol/L (98-107) 06/22/20 12:50 Carbon Dioxide 21.6 mmol/L (21-32) 06/22/20 12:50 BUN 47 mg/dL (7-18) H 06/22/20 12:50 Creatinine 3.42 mg/dL (0.70-1.30) H 06/22/20 12:50 Est GFR (MDRD) Af Amer 22 (>60) L 06/22/20 12:50 Est GFR (MDRD) Non-Af 19 (>60) L 06/22/20 12:50 Glucose 293 mg/dL (65-99) H 06/22/20 12:50 Lactic Acid 8.9 mmol/L (0.4-2.0) H 06/22/20 12:50 Calcium 9.0 mg/dL (8.5-10.1) 06/22/20 12:50 Corrected Calcium 10.9 mg/dL (8.5-10.1) H 06/22/20 12:50 Ferritin 445 ng/mL (26-388) H 06/22/20 12:50 Total Bilirubin 0.50 mg/dL (0.2-1.0) 06/22/20 12:50 AST 21 Units/L (15-37) 06/22/20 12:50 ALT 14 Units/L (12-78) 06/22/20 12:50 Alkaline Phosphatase 154 Units/L (46-116) H 06/22/20 12:50 C-Reactive Protein 326.40 mg/L (0-3.0) H 06/22/20 12:50 Total Protein 6.1 g/dL (6.4-8.2) L 06/22/20 12:50 Albumin 1.6 g/dL (3.4-5.0) L 06/22/20 12:50 Globulin 4.5 g/dL (2.5-4.5) 06/22/20 12:50 Albumin/Globulin Ratio 0.4 Ratio (1.1-2.1) L 06/22/20 12:50 Specimen Type Catherized urine 06/22/20 13:10 Urine Color Yellow (YELLOW) 06/22/20 13:10 Urine Appearance Hazy (CLEAR) 06/22/20 13:10 Urine pH 5.0 (5.0 - 8.0) 06/22/20 13:10 Ur Specific [place] 1.020 (1.000-1.030) 06/22/20 13:10 Urine Protein 1+ (NEGATIVE) 06/22/20 13:10 Urine Glucose (UA) 2+ (NEGATIVE) 06/22/20 13:10 Urine Ketones Negative (NEGATIVE) 06/22/20 13:10 Urine Occult Blood Negative (NEGATIVE) 06/22/20 13:10 Urine Nitrite Negative (NEGATIVE) 06/22/20 13:10 Urine Bilirubin Negative (NEGATIVE) 06/22/20 13:10 Urine Urobilinogen Normal (NORMAL) 06/22/20 13:10 Ur Leukocyte Esterase Negative (NEGATIVE) 06/22/20 13:10 Urine RBC None seen /HPF (0-3) 06/22/20 13:10 Urine WBC 0-2 /HPF (0-5) 06/22/20 13:10 Ur Squamous Epith Cells Rare /HPF (NEGATIVE) 06/22/20 13:10 Urine Bacteria Trace /HPF (NEGATIVE) 06/22/20 13:10 Ur Culture Indicated? No/not indicated 06/22/20 13:10 EKG Rate: 101 [place]: Normal Rhythm: Afib Block: IVCD Hypertrophy: None ST: Old, Inf and Infarct Opioid Opioid Risk Tool Age ([place] box if 16-45): No History of Preadolescent Sexual Abuse: No Total: 0 Total Score Risk Category: Low Risk Copyright: Armendariz LR predicting aberrant behaviors Diagnosis Discharge Problem: Respiratory acidosis, Sepsis associated hypotension, COPD exacerbation Change in mental status Qualifiers: Altered mental status type: unspecified Qualified Code(s): R41.82 - Altered mental status, unspecified Anemia Qualifiers: Anemia type: unspecified type Qualified Code(s): D64.9 - Anemia, unspecified Uncontrolled diabetes mellitus Qualifiers: Diabetes mellitus type: type 2 Glycemic state: with hyperglycemia Qualified Code(s): E11.65 - Type 2 diabetes mellitus with hyperglycemia Chronic renal insufficiency Qualifiers: Chronic kidney disease stage: stage 4 (severe) Qualified Code(s): N18.4 - Chronic kidney disease, stage 4 (severe) ADDITIONAL NOTES Additional Notes Additional Notes: HISTORY DYSPNEA STUDY CHEST, 1 VIEW COMPARISON 02/23/2019 report only TECHNIQUE AP view of the chest FINDINGS Cardiac silhouette enlarged status median sternotomy and CABG. There is a small to moderate left pleural effusion. Bibasilar airspace present. No pneumothorax. Patient is rotated. IMPRESSION Cardiomegaly with small moderate left pleural effusion. Bibasilar airspace opacities may represent covid 19 given the history. Electronically signed by: Eduardo Powers (Jun 22, 2020 13:09:42)
[2020-06-22] MEDS ORDERED: DOPAMINE IV PREMIX 400 MG/250 ML 400 MG/250 ML BAG IV ONE (14:50)
[2020-06-22] MEDS ORDERED: NS 1000 ML 1,000 ML IV SCH (15:00)
[2020-06-22] MEDS ORDERED: ASCORBIC ACID INJ MULTI-DOSE VIAL 1,500 MG in NS 100 ML IV 100 ML IV SCH (15:00)
[2020-06-22] MEDS ORDERED: DOPAMINE IV PREMIX 400 MG/250 ML 400 MG/250 ML BAG IV PRN (15:02)
[2020-06-22] MEDS ORDERED: ROCEPHIN VIAL 1 GRAM 1 G in NS 100 ML IV + SPIKE MINIBAG* 100 ML IV SCH (15:15)
[2020-06-22] MEDS ORDERED: PROVENTIL NEB TX 0.083% 2.5MG/ 3ML NEB PRN (15:34)
[2020-06-22] MEDS ORDERED: PROVENTIL NEB TX 0.083% 2.5MG/ 3ML NEB SCH (17:00)
[2020-06-22 17:07] VITALS: BMI 31.8
[2020-06-22 17:27] VITALS: BP 75/43
[2020-06-22] MEDS ORDERED: LOVENOX INJ 30 MG SYR SC SCH (21:00)
[2020-06-22] MEDS ORDERED: SOLU-Medrol 40 MG VIAL IVP SCH (21:00)
[2020-06-22] MEDS ORDERED: PULMICORT NEB TX 0.5 MG NEB SCH (21:00)
== END 2020-06-22 20:15 | disposition expired | DRG 872 ==
LOC: ER 12:40 → MED/SURG 15:01
PROVIDERS: ADMIT Internal Medicine; ATTEND Internal Medicine
DX: D64.9 Anemia, unspecified; Z86.19 Personal history of other infectious and parasitic diseases; I46.9 Cardiac arrest, cause unspecified; A41.02 Sepsis due to Methicillin resistant Staphylococcus aureus; E78.2 Mixed hyperlipidemia; J44.1 Chronic obstructive pulmonary disease with (acute) exacerbation; N18.4 Chronic kidney disease, stage 4 (severe); R79.82 Elevated C-reactive protein (CRP); I48.91 Unspecified atrial fibrillation; I12.9 Hypertensive chronic kidney disease with stage 1 through stage 4 chronic kidney disease, or unspecified chronic kidney disease; Z66 Do not resuscitate; R41.82 Altered mental status, unspecified; R94.4 Abnormal results of kidney function studies; E11.65 Type 2 diabetes mellitus with hyperglycemia